=== PATIENT | female | born 1945 | race Caucasian/White ===

== ENCOUNTER 2020-05-02 13:00 | Outpatient (RCR) | payer MEDICAID, SELFPAY ==
[2020-04-29 14:24] VITALS: BMI 29.0
--- NOTE | 2020-04-29 14:49 | PCM.WC.HP ---
(1) Swelling of lower extremity Status: Chronic Current Visit: Yes Code(s): M79.89 - Other specified soft tissue disorders (2) Edema of both lower legs Status: Chronic Current Visit: Yes Code(s): R60.0 - Localized edema (3) Stasis leg ulcer Status: Chronic Current Visit: Yes Qualifiers: Laterality: bilateral Qualified Code(s): I83.019 - Varicose veins of right lower extremity with ulcer of unspecified site; I83.029 - Varicose veins of left lower extremity with ulcer of unspecified site; L97.919 - Non-pressure chronic ulcer of unspecified part of right lower leg with unspecified severity; L97.929 - Non-pressure chronic ulcer of unspecified part of left lower leg with unspecified severity Code(s): I83.009 - Varicose veins of unspecified lower extremity with ulcer of unspecified site; L97.909 - Non-pressure chronic ulcer of unspecified part of unspecified lower leg with unspecified severity (4) Postphlebitic leg ulcer Status: Chronic Current Visit: Yes Code(s): I87.019 - Postthrombotic syndrome with ulcer of unspecified lower extremity; L97.909 - Non-pressure chronic ulcer of unspecified part of unspecified lower leg with unspecified severity (5) Bilateral leg ulcer Status: Chronic Current Visit: Yes Qualifiers: Non-pressure ulcer stage: with fat layer exposed Qualified Code(s): L97.912 - Non-pressure chronic ulcer of unspecified part of right lower leg with fat layer exposed; L97.922 - Non-pressure chronic ulcer of unspecified part of left lower leg with fat layer exposed Code(s): L97.919 - Non-pressure chronic ulcer of unspecified part of right lower leg with unspecified severity; L97.929 - Non-pressure chronic ulcer of unspecified part of left lower leg with unspecified severity (6) Debility Status: Chronic Current Visit: Yes Code(s): R53.81 - Other malaise (7) Ambulatory dysfunction Status: Chronic Current Visit: Yes Code(s): R26.2 - Difficulty in walking, not elsewhere classified (8) History of DVT (deep vein thrombosis) Status: Chronic Current Visit: Yes Code(s): Z86.718 - Personal history of other venous thrombosis and embolism (9) [place] filter in place Status: Chronic Current Visit: Yes Code(s): Z95.828 - Presence of other vascular implants and grafts (10) Dependent edema Status: Chronic Current Visit: Yes Code(s): R60.9 - Edema, unspecified (11) CHF (congestive heart failure) Status: Chronic Current Visit: Yes Code(s): I50.9 - Heart failure, unspecified (12) Hypertension Status: Chronic Current Visit: No Code(s): I10 - Essential (primary) hypertension History of Present Illness Date of Service: 04/29/20 Chief Complaint: Severe bilateral swelling and edema of the lower extremities associated with ulcerations History of Wound: This is a 74-year-old female who presents with chronic swelling and edema in her lower extremities. When asked why she presents today, she states my legs. They hurt real bad. The patient's lower extremities have been swollen and edematous for many years. However, they have become increasingly moreso. The patient is relatively inactive. Her ambulatory capacity is compromised, and she requires a walker for ambulation. She spends long hours each day in an idle sitting position. She sleeps in a hospital bed, with the head of bed elevated. Patient has a history of bilateral lower extremity deep vein thrombosis. She denies a history of pulmonary embolism. According to the patient, and her daughter at the bedside, she has had 2 [place] filters inserted, 1 through the neck and one through the groin. In neither case was the filter removed. The patient recently saw treatment with Dr. Isai Laird, infertility nurse, who referred the patient for further evaluation and management. According to the patient and her daughter, the patient's lower extremities were so edematous 2 to 3 weeks ago that fluid was literally seeping from her pores. Additionally, multiple ulcerations developed bilaterally just within the last several weeks. The patient indicates that she experiences a great deal of pain in her lower extremities, and that the pain and swelling is worse in the afternoons. The swelling and edema is more pronounced in the right lower extremity. 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 Past Medical History Past Medical History: Chronic Problems Swelling of lower extremity (Chronic) Edema of both lower legs (Chronic) Stasis leg ulcer (Chronic) Postphlebitic leg ulcer (Chronic) Bilateral leg ulcer (Chronic) Debility (Chronic) Ambulatory dysfunction (Chronic) History of DVT (deep vein thrombosis) (Chronic) [place] filter in place (Chronic) Dependent edema (Chronic) CHF (congestive heart failure) (Chronic) Hypertension (Chronic) Past Medical History: The patient denies a history of myocardial infarction, cerebrovascular accident, renal disease, pulmonary disease, thyroid disease, and hyperlipidemia. She is diabetic, and has a history of congestive heart failure, hypertension, and bilateral lower extremity deep vein thrombosis. She denies a history of pulmonary embolism. Patient's medications include glipizide ER 10 mg daily, lisinopril 20 mg daily, Plavix 75 mg daily and Lasix. She is allergic to penicillin, erythromycin, and sulfa. 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 She underwent open cholecystectomy in 1997. Tubal ligation was performed in 1976. The patient's medical record reveals some debridements of bone and soft tissue in [address] Laird, and incision and drainage of the left foot in 2016. The patient is a G2, P2 Ab0. 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 She is a . She smoked for 20 years, approximately 1-1/2 packs of cigarettes per day. She quit smoking approximately 4 years ago. She denies the use of alcohol. Lives: With Family Smoking Status: Former smoker Tobacco Use: Non-smoker Alcohol: None Drugs: None Review of Systems Constitutional: Denies: Chills, Fever, Weight Change Eyes: Denies: Pain, Vision Change HEENT: Denies: Difficulty Hearing, Difficulty Swallowing, Sinus Congestion Cardiovascular: Denies: Chest Pain, Palpitations Respiratory: Denies: Cough, Shortness of Breath Gastrointestinal: Denies: Diarrhea, Nausea, Vomiting Genitourinary: Denies: Dysuria, Hematuria Endocrine: Denies: Heat/ Cold Intolerance, Polydipsia, Polyuria Hematologic/ Lymphatic: Denies: Easy Bruising, Easy Bleeding - Physical Exam General: Alert, Oriented x3, Cooperative, No apparent distress, Well developed, Well nourished, - - The patient appears somewhat weak. HEENT: Atraumatic, PERRLA, EOMI, Normocephalic Oral: Moist Mucosa Neck: Supple, No JVD, Negative Carotid Bruits, Negative Hepatojugular Reflux, No Nodes, No Nuchal Rigidity, Trachea Midline Lungs: Clear to auscultation, Normal air movement, No rhonchi, No wheeze, No rales Cardiovascular: Regular rate, Regular Rhythm, Normal S1, Normal S2, No murmurs Abdomen: Soft, Non Tender, Non-Distended Extremities: No clubbing, No cyanosis, No Calf Tenderness, Edema, - - Swelling and edema is noted bilaterally in the lower extremities, noted to be more pronounced in the right lower extremity. There are multiple superficial ulcerations and excoriations, documented elsewhere. These are located between the knee and ankle bilaterally. Chronic skin thickening is noted in the distal lower extremities bilaterally. The left great toe is absent. The patient's toenails are long and not well manicured. Wound Measurements and Assessment WC - Nurse 1 - General Ulcer Measurement Start: 04/29/20 14:19 Freq: Status: Active Protocol: Activity Type Activity Date Activity User E-Sign Co-Sign Detail Recorded Client Recorded Date Recorded By Document 04/29/20 14:24 PL [id number] 04/29/20 14:49 PL 04/29/20 14:24 Wound Center Nurse 1 [Ulcer Assessment] #4 Right Med lower leg -Combined with other wound No -Current Size (cm) - Length 3 -Current Size (cm) - Width 1 -Current Size (cm) - Depth 0.2 -Total Square Cm 3 -Date of Last Picture (Recall this 04/29/20 field) -Photo Taken Yes -Epithelialization None Present -Tunneling No -Undermining/Tunneling No -Circular Undermining No -Classification - Thickness Full Thickness without Exposed Support Structure -Exudate Amt Medium -Exudate Type Serosanguineous -Wound Margin Indistinct, Non -Visible -Granulation Amt Medium (34-66%) -Granulation Quality [place] -Slough/Fibrin Yes -Necrosis Amt Medium (34-66%) -Necrotic Tissue Type Adherent Slough -Texture (Gaye-wound Skin Appearance) Excoriation -Moisture (Gaye-wound Skin Appearance Dry/Scaly ) -Color (Gaye-wound Skin Appearance) Erythema -Temperature (Gaye-wound Skin No Abnormality Appearance) (Pt Warm) -Tenderness on Palpation (Gaye-wound No Skin Appearance) -Ulcer Cleansing Rinsed/ Irrigated with Saline -Anesthetic Used 4% Lidocaine Solution #3 Left Ant Lower leg -Combined with other wound No -Current Size (cm) - Length 1.5 -Current Size (cm) - Width 0.5 -Current Size (cm) - Depth 0.2 -Total Square Cm 0.75 -Date of Last Picture (Recall this 04/29/20 field) -Photo Taken Yes -Epithelialization None Present -Tunneling No -Undermining/Tunneling No -Circular Undermining No -Classification - Thickness Full Thickness without Exposed Support Structure -Exudate Amt Medium -Exudate Type Serosanguineous -Wound Margin Indistinct, Non -Visible -Granulation Amt Medium (34-66%) -Granulation Quality [place] -Slough/Fibrin Yes -Necrosis Amt Medium (34-66%) -Necrotic Tissue Type Adherent Slough -Texture (Gaye-wound Skin Appearance) Induration -Moisture (Gaye-wound Skin Appearance Dry/Scaly ) -Color (Gaye-wound Skin Appearance) No Abnormality -Temperature (Gaye-wound Skin No Abnormality Appearance) (Pt Warm) -Ulcer Cleansing Rinsed/ Irrigated with Saline -Anesthetic Used 4% Lidocaine Solution #2 Left Medial Lower leg -Combined with other wound No -Current Size (cm) - Length 9 -Current Size (cm) - Width 3 -Current Size (cm) - Depth 0.1 -Total Square Cm 27 -Date of Last Picture (Recall this 04/29/20 field) -Photo Taken Yes -Epithelialization None Present -Tunneling No -Undermining/Tunneling No -Circular Undermining No -Classification - Thickness Full Thickness without Exposed Support Structure -Exudate Amt Medium -Exudate Type Serosanguineous -Wound Margin Indistinct, Non -Visible -Granulation Amt Medium (34-66%) -Granulation Quality [place] -Slough/Fibrin Yes -Necrosis Amt Medium (34-66%) -Necrotic Tissue Type Adherent Slough -Texture (Gaye-wound Skin Appearance) No Abnormality -Moisture (Gaye-wound Skin Appearance Dry/Scaly ) -Color (Gaye-wound Skin Appearance) Erythema -Temperature (Gaye-wound Skin No Abnormality Appearance) (Pt Warm) -Ulcer Cleansing Rinsed/ Irrigated with Saline -Anesthetic Used 4% Lidocaine Solution #1 Right lat Cluster -Combined with other wound No -Current Size (cm) - Length 10.5 -Current Size (cm) - Width 7 -Current Size (cm) - Depth 0.1 -Total Square Cm 73.5 -Date of Last Picture (Recall this 04/29/20 field) -Photo Taken Yes -Epithelialization None Present -Tunneling No -Undermining/Tunneling No -Circular Undermining No -Classification - Thickness Full Thickness without Exposed Support Structure -Exudate Amt Medium -Exudate Type Serosanguineous -Wound Margin Indistinct, Non -Visible -Granulation Amt Medium (34-66%) -Granulation Quality [place] -Slough/Fibrin Yes -Necrosis Amt Medium (34-66%) -Necrotic Tissue Type Adherent Slough -Texture (Gaye-wound Skin Appearance) Excoriation -Moisture (Gaye-wound Skin Appearance Dry/Scaly ) -Color (Gaye-wound Skin Appearance) Erythema -Temperature (Gaye-wound Skin No Abnormality Appearance) (Pt Warm) -Tenderness on Palpation (Gaye-wound No Skin Appearance) -Ulcer Cleansing Soap and Water -Anesthetic Used 4% Lidocaine Solution [Edema Assessment] -Right Calf (cm) 51 -Point of measurement (cm from the 35 medial instep) -Right Ankle (cm) 32 -Point of Measurement (cm from the 15 medial instep) -Left Calf (cm) 37 -Point of measurement (cm from the 35 medial instep) -Left Ankle (cm) 37 -Point of Measurement (cm from the 15 medial instep) Neurological: Cranial nerves II-XII grossly intact, Neuro grossly intact Psych/Mental Status: Normal Affect, Appropriate, Alert and oriented to time, place, person, mood and affect Debridement Note No debridement was completed today Assessment/Plan Active Problems Swelling of lower extremity (Chronic) Edema of both lower legs (Chronic) Stasis leg ulcer (Chronic) Postphlebitic leg ulcer (Chronic) Bilateral leg ulcer (Chronic) Debility (Chronic) Ambulatory dysfunction (Chronic) History of DVT (deep vein thrombosis) (Chronic) [place] filter in place (Chronic) Dependent edema (Chronic) CHF (congestive heart failure) (Chronic) Assessment: This is a 74-year-old female with a longstanding history of swelling and edema in her lower extremities, which has become increasingly more severe. It appears as though the patient has become increasingly more sedentary. She ambulates with difficulty, using a walker. She spends long hours each day sitting idly. Furthermore, she sleeps at night with her head of bed elevated. The patient suffers from multiple pre-existing medical problems, which include congestive heart failure, diabetes, and hypertension. She has a history of bilateral lower extremity deep vein thrombosis, for which she has had at least one [place] filter placed previously, possibly 2, based upon the account of the patient and her family. Plan: A lengthy and detailed discussion has been undertaken with the patient and with her daughter, at the bedside. We have discussed the implementation of conservative treatment measures. The patient has been encouraged to sleep at night on a flat surface, rather than having her head of bed elevated significantly. Leg elevation has been strongly encouraged, even during daytime hours. This is to be accomplished with the patient's legs level with her heart, if not higher. Prolonged idle sitting has been discouraged. Activity has been encouraged, though significant enhancement of ambulation is unlikely, given the patient's physical limitations and her need for a walker. Weight optimization has been recommended. We are to implement the use of multilayer [place] boots, which will be applied bilaterally to the lower extremities, and changed twice weekly. Given that the arterial status of the lower extremities is not known, Unna boots are to be placed with compression in moderation. We are to schedule the patient for a venous duplex examination of the lower extremities, as well as a noninvasive lower extremity arterial study. Furthermore, we are to obtain routine laboratory studies, including a CBC, comprehensive metabolic profile, serum prealbumin, and hemoglobin A1c. Patient is to return in 1 week for reassessment. It appears likely that the swelling in the patient's lower extremities is, at least in part, due to chronic dependency and a lack of activity. There is also likely an element of venous disease, including postphlebitic manifestations. There may well be an element of arterial occlusive disease, given that the left great toe required amputation due to gangrene. Influenza vaccine was not administered today. The patient is not a smoker. She weighs 185 pounds. She stands 5 feet 7 inches tall. Her BMI is 29. Weight optimization has been recommended.
[2020-05-02 13:38] VITALS: BP 141/118; PULSE 64; RESP 16; TEMP 36.1; BMI 29.0
== END 2020-05-07 23:59 ==
LOC: WC 13:00
PROVIDERS: PCP Family Medicine; Referring Provider Podiatrist Foot & Ankle Surgery; Visit Provider Surgery
DX: E11.621 Type 2 diabetes mellitus with foot ulcer (principal); I83.019 Varicose veins of right lower extremity with ulcer of unspecified site; I83.029 Varicose veins of left lower extremity with ulcer of unspecified site; L97.919 Non-pressure chronic ulcer of unspecified part of right lower leg with unspecified severity; L97.929 Non-pressure chronic ulcer of unspecified part of left lower leg with unspecified severity; I87.0 Postthrombotic syndrome; M79.89 Other specified soft tissue disorders; R60.0 Localized edema; R26.2 Difficulty in walking, not elsewhere classified; I11.0 Hypertensive heart disease with heart failure; I50.9 Heart failure, unspecified; Z79.02 Long term (current) use of antithrombotics/antiplatelets; Z86.718 Personal history of other venous thrombosis and embolism; Z87.891 Personal history of nicotine dependence; Z89.412 Acquired absence of left great toe
CPT/HCPCS: 29580; 99203; G0463

== ENCOUNTER 2020-05-29 13:30 | Outpatient (RCR) | payer MEDICAID, SELFPAY ==
[2020-05-08 00:51] VITALS: BP 141/118; PULSE 64; RESP 16; TEMP 36.1
[2020-05-13 12:41] VITALS: BP 179/60; PULSE 65; RESP 16; TEMP 36.1; BMI 29.0
--- NOTE | 2020-05-13 13:13 | PCM.WC.HP ---
(1) Swelling of lower extremity Status: Chronic Current Visit: Yes Code(s): M79.89 - Other specified soft tissue disorders (2) Edema of both lower legs Status: Chronic Current Visit: Yes Code(s): R60.0 - Localized edema (3) Stasis leg ulcer Status: Chronic Current Visit: Yes Qualifiers: Laterality: left Qualified Code(s): I83.029 - Varicose veins of left lower extremity with ulcer of unspecified site; L97.929 - Non-pressure chronic ulcer of unspecified part of left lower leg with unspecified severity Code(s): I83.009 - Varicose veins of unspecified lower extremity with ulcer of unspecified site; L97.909 - Non-pressure chronic ulcer of unspecified part of unspecified lower leg with unspecified severity (4) Postphlebitic leg ulcer Status: Chronic Current Visit: Yes Code(s): I87.019 - Postthrombotic syndrome with ulcer of unspecified lower extremity; L97.909 - Non-pressure chronic ulcer of unspecified part of unspecified lower leg with unspecified severity (5) Bilateral leg ulcer Status: Chronic Current Visit: Yes Qualifiers: Code(s): L97.919 - Non-pressure chronic ulcer of unspecified part of right lower leg with unspecified severity; L97.929 - Non-pressure chronic ulcer of unspecified part of left lower leg with unspecified severity (6) Debility Status: Chronic Current Visit: Yes Code(s): R53.81 - Other malaise (7) Ambulatory dysfunction Status: Chronic Current Visit: Yes Code(s): R26.2 - Difficulty in walking, not elsewhere classified (8) History of DVT (deep vein thrombosis) Status: Chronic Current Visit: Yes Code(s): Z86.718 - Personal history of other venous thrombosis and embolism (9) 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 Status: Chronic Current Visit: Yes Code(s): Z95.828 - Presence of other vascular implants and grafts (10) Dependent edema Status: Chronic Current Visit: Yes Code(s): R60.9 - Edema, unspecified (11) CHF (congestive heart failure) Status: Chronic Current Visit: No Code(s): I50.9 - Heart failure, unspecified (12) Hypertension Status: Chronic Current Visit: No Code(s): I10 - Essential (primary) hypertension History of Present Illness Date of Service: 05/13/20 Chief Complaint: Severe bilateral swelling and edema of the lower extremities associated with ulcerations History of Wound: This is a 74-year-old female who presented with chronic swelling and edema in her lower extremities. She stated my legs, they hurt real bad. The patient's lower extremities have been swollen and edematous for many years. However, they have become increasingly moreso. The patient is relatively inactive. Her ambulatory capacity is compromised, and she requires a walker for ambulation. She spends long hours each day in an idle sitting position. She sleeps in a hospital bed, with the head of bed elevated. Patient has a history of bilateral lower extremity deep vein thrombosis. She denies a history of pulmonary embolism. According to the patient, and her daughter at the bedside, she has had 2 Noelle filters inserted, 1 through the neck and one through the groin. In neither case was the filter removed. The patient recently saw treatment with Dr. Isai Laird, buggy ladle tender, who referred the patient for further evaluation and management. According to the patient and her daughter, the patient's lower extremities were so edematous 2 to 3 weeks ago that fluid was literally seeping from her pores. Additionally, multiple ulcerations developed bilaterally just within the last several weeks. The patient indicates that she experiences a great deal of pain in her lower extremities, and that the pain and swelling is worse in the afternoons. The swelling and edema is more pronounced in the right lower extremity. 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 She underwent open cholecystectomy in 1997. Tubal ligation was performed in 1976. The patient's medical record reveals some debridements of bone and soft tissue in [address] Laird, and incision and drainage of the left foot in 2016. The patient is a G2, P2 Ab0. Smoking Status: Former smoker Tobacco Use: Non-smoker Review of Systems Constitutional: Denies: Chills, Fever, Weight Change Eyes: Denies: Pain, Vision Change HEENT: Denies: Difficulty Hearing, Difficulty Swallowing, Sinus Congestion Cardiovascular: Denies: Chest Pain, Palpitations Respiratory: Denies: Cough, Shortness of Breath Gastrointestinal: Denies: Diarrhea, Nausea, Vomiting Genitourinary: Denies: Dysuria, Hematuria Endocrine: Denies: Heat/ Cold Intolerance, Polydipsia, Polyuria Hematologic/ Lymphatic: Denies: Easy Bruising, Easy Bleeding - Physical Exam Vital Signs Temp Pulse Resp BP 97 F L 65 16 179/60 H 05/13/20 12:41 05/13/20 12:41 05/13/20 12:41 05/13/20 12:41 General: Alert, Oriented x3, Cooperative, No apparent distress, Well developed, Well nourished HEENT: Atraumatic, PERRLA, EOMI, Normocephalic Oral: Moist Mucosa Neck: No JVD Lungs: Normal air movement Abdomen: Non-Distended Extremities: No clubbing, No cyanosis, No Calf Tenderness, - - The swelling and edema in the lower extremities is markedly improved. The right lower extremity still remains somewhat swollen and edematous. The left lower extremity demonstrates minimal swelling and edema. Chronic hyperpigmentation is noted gaiter areas bilaterally. 2 superficial ulcerations persist on the left anterolateral calf. It appears as though the Unna boot wraps have caused some skin deterioration near the right great toe and the proximal left medial calf. There is no sign of infection or cellulitis. Ulcer dimensions are documented elsewhere. Wound Measurements and Assessment WC - Nurse 1 - General Ulcer Measurement Start: 05/13/20 11:12 Freq: Status: Active Protocol: Activity Type Activity Date Activity User E-Sign Co-Sign Detail Recorded Client Recorded Date Recorded By Document 05/13/20 12:41 [facility] [id number] 05/13/20 12:58 [facility] 05/13/20 12:41 Wound Center Nurse 1 [Ulcer Assessment] #1- R GR TOE -Combined with other wound No -Current Size (cm) - Length 0.9 -Current Size (cm) - Width 2.5 -Current Size (cm) - Depth 0.1 -Total Square Cm 2.25 -Photo Taken No -Epithelialization None Present -Tunneling No -Undermining/Tunneling No -Circular Undermining No -Exudate Amt None Present -Exudate Type Serosanguineous -Wound Margin Flat & Intact -Granulation Amt Large (67-100%) -Granulation Quality Red -Slough/Fibrin No -Necrosis Amt None Present (0 %) -Texture (Gaye-wound Skin Appearance) Assessed -Moisture (Gaye-wound Skin Appearance Assessed ) -Color (Gaye-wound Skin Appearance) Assessed -Temperature (Gaye-wound Skin No Abnormality Appearance) (Pt Warm) -Tenderness on Palpation (Gaye-wound No Skin Appearance) -Ulcer Cleansing SOAPY WATER -Foul Odor after Cleansing No -Anesthetic Used 4% Lidocaine Solution #4 Right Med lower leg -Combined with other wound No -Current Size (cm) - Length 0.1 -Current Size (cm) - Width 0.1 -Current Size (cm) - Depth 0.1 -Total Square Cm 0.01 -Epithelialization Large 67-100% -Tunneling No -Undermining/Tunneling No -Circular Undermining No -Texture (Gaye-wound Skin Appearance) Assessed -Moisture (Gaye-wound Skin Appearance Assessed,Dry/ ) Scaly -Color (Gaye-wound Skin Appearance) Assessed -Temperature (Gaye-wound Skin No Abnormality Appearance) (Pt Warm) -Tenderness on Palpation (Gaye-wound Yes Skin Appearance) -Ulcer Cleansing soapy water -Foul Odor after Cleansing No -Anesthetic Used 4% Lidocaine Solution #3 Left Ant Lower leg -Combined with other wound No -Current Size (cm) - Length 1.5 -Current Size (cm) - Width 0.8 -Current Size (cm) - Depth 0.1 -Total Square Cm 1.20 -Photo Taken No -Epithelialization Large 67-100% -Tunneling No -Undermining/Tunneling No -Circular Undermining No -Exudate Amt Small -Exudate Type Sanguineous -Wound Margin Distinct, Outline Attached -Granulation Amt Large (67-100%) -Granulation Quality Red -Slough/Fibrin No -Necrosis Amt None Present (0 %) -Texture (Gaye-wound Skin Appearance) Assessed, Scarring -Moisture (Gaye-wound Skin Appearance Assessed,Dry/ ) Scaly -Color (Gaye-wound Skin Appearance) Assessed -Temperature (Gaye-wound Skin No Abnormality Appearance) (Pt Warm) -Ulcer Cleansing soapy water -Foul Odor after Cleansing No -Anesthetic Used 4% Lidocaine Solution #2 Left Medial Lower leg -Combined with other wound No -Current Size (cm) - Length 5.8 -Current Size (cm) - Width 2.7 -Current Size (cm) - Depth 0.1 -Total Square Cm 15.66 -Photo Taken No -Epithelialization Medium 34-66% -Tunneling No -Undermining/Tunneling No -Circular Undermining No -Exudate Amt Small -Exudate Type Sanguineous -Wound Margin Distinct, Outline Attached -Granulation Amt Large (67-100%) -Granulation Quality Red -Slough/Fibrin No -Necrosis Amt None Present (0 %) -Texture (Gaye-wound Skin Appearance) Assessed, Scarring -Moisture (Gaye-wound Skin Appearance Assessed,Dry/ ) Scaly -Color (Gaye-wound Skin Appearance) Assessed, Hemosiderin Staining -Temperature (Gaye-wound Skin No Abnormality Appearance) (Pt Warm) -Tenderness on Palpation (Gaye-wound No Skin Appearance) -Ulcer Cleansing soapy water -Foul Odor after Cleansing No -Anesthetic Used 4% Lidocaine Solution #1 Right lat Cluster -Combined with other wound No -Current Size (cm) - Length 0.1 -Current Size (cm) - Width 0.1 -Current Size (cm) - Depth 0.1 -Total Square Cm 0.01 -Photo Taken No -Epithelialization Large 67-100% -Tunneling No -Undermining/Tunneling No -Circular Undermining No -Texture (Gaye-wound Skin Appearance) Assessed -Moisture (Gaye-wound Skin Appearance Assessed,Dry/ ) Scaly -Color (Gaye-wound Skin Appearance) Assessed -Temperature (Gaye-wound Skin No Abnormality Appearance) (Pt Warm) -Tenderness on Palpation (Gaye-wound No Skin Appearance) -Ulcer Cleansing soapy waer [Edema Assessment] -Lower Limb Edema Present Yes -Right Calf (cm) 36 -Right Ankle (cm) 22.7 -Left Calf (cm) 33.5 -Left Ankle (cm) 20 Musculoskeletal: Muscle Wasting - Lower extremities Neurological: Cranial nerves II-XII grossly intact, Neuro grossly intact Psych/Mental Status: Normal Affect, Appropriate, Alert and oriented to time, place, person, mood and affect Debridement Note No debridement was completed today Assessment/Plan Active Problems Swelling of lower extremity (Chronic) Edema of both lower legs (Chronic) Stasis leg ulcer (Chronic) Postphlebitic leg ulcer (Chronic) Bilateral leg ulcer (Chronic) Debility (Chronic) Ambulatory dysfunction (Chronic) History of DVT (deep vein thrombosis) (Chronic) Noelle filter in place (Chronic) Dependent edema (Chronic) Assessment: This is a 74-year-old female with a longstanding history of swelling and edema in her lower extremities, which has become increasingly more severe. It appears as though the patient has become increasingly more sedentary. She ambulates with difficulty, using a walker. She spends long hours each day sitting idly. Furthermore, she sleeps at night with her head of bed elevated. The patient suffers from multiple pre-existing medical problems, which include congestive heart failure, diabetes, and hypertension. She has a history of bilateral lower extremity deep vein thrombosis, for which she has had at least one Gilbert filter placed previously, possibly 2, based upon the account of the patient and her family. Thus far, with the implementation of conservative treatment measures, the swelling and edema in the patient's lower extremities is markedly improved in a short period of time. Plan: A lengthy and detailed discussion has been undertaken with the patient and with her son-in-law, at the bedside. We have discussed the implementation of conservative treatment measures. The patient has been encouraged to sleep at night on a flat surface, rather than having her head of bed elevated significantly. Leg elevation has been strongly encouraged, even during daytime hours. This is to be accomplished with the patient's legs level with her heart, if not higher. Prolonged idle sitting has been discouraged. Activity has been encouraged, though significant enhancement of ambulation is unlikely, given the patient's physical limitations and her need for a walker. Weight optimization has been recommended. We are to continue the use of multilayer Unna boots, which will be applied bilaterally to the lower extremities, and changed twice weekly. Given that the arterial status of the lower extremities is not known, Unna boots are to be placed with compression in moderation. We are to schedule the patient for a venous duplex examination of the lower extremities, as well as a noninvasive lower extremity arterial study. Laboratory studies have been obtained, at [facility], and we will request that these results be forwarded to our facility. Patient is to return in 1 week for reassessment. It appears likely that the swelling in the patient's lower extremities is, at least in part, due to chronic dependency and a lack of activity. There is also likely an element of venous disease, including postphlebitic manifestations. There may well be an element of arterial occlusive disease, given that the left great toe required amputation due to gangrene. Influenza vaccine was not administered today. The patient is not a smoker. She weighs 185 pounds. She stands 5 feet 7 inches tall. Her BMI is 29. Weight optimization has been recommended.
[2020-05-16 15:39] VITALS: BP 112/60; PULSE 78; RESP 18; TEMP 36.6; BMI 29.0
[2020-05-20 13:54] VITALS: BP 176/48; PULSE 67; RESP 16; TEMP 36.8; BMI 29.0
[2020-05-23 16:00] VITALS: BP 175/50; PULSE 70; RESP 18; TEMP 36.6; BMI 29.0
[2020-05-29 13:38] VITALS: BP 169/82; PULSE 65; RESP 16; TEMP 36.2; BMI 29.0
--- NOTE | 2020-05-29 14:50 | PCM.WC.HP ---
(1) Swelling of lower extremity Status: Chronic Code(s): M79.89 - Other specified soft tissue disorders (2) Edema of both lower legs Status: Chronic Code(s): R60.0 - Localized edema (3) Stasis leg ulcer Status: Chronic Qualifiers: Laterality: left Qualified Code(s): I83.029 - Varicose veins of left lower extremity with ulcer of unspecified site; L97.929 - Non-pressure chronic ulcer of unspecified part of left lower leg with unspecified severity Code(s): I83.009 - Varicose veins of unspecified lower extremity with ulcer of unspecified site; L97.909 - Non-pressure chronic ulcer of unspecified part of unspecified lower leg with unspecified severity (4) Postphlebitic leg ulcer Status: Chronic Code(s): I87.019 - Postthrombotic syndrome with ulcer of unspecified lower extremity; L97.909 - Non-pressure chronic ulcer of unspecified part of unspecified lower leg with unspecified severity (5) Bilateral leg ulcer Status: Chronic Qualifiers: Non-pressure ulcer stage: with fat layer exposed Code(s): L97.919 - Non-pressure chronic ulcer of unspecified part of right lower leg with unspecified severity; L97.929 - Non-pressure chronic ulcer of unspecified part of left lower leg with unspecified severity (6) Debility Status: Chronic Code(s): R53.81 - Other malaise (7) Ambulatory dysfunction Status: Chronic Code(s): R26.2 - Difficulty in walking, not elsewhere classified (8) History of DVT (deep vein thrombosis) Status: Chronic Code(s): Z86.718 - Personal history of other venous thrombosis and embolism (9) Noelle filter in place Status: Chronic Code(s): Z95.828 - Presence of other vascular implants and grafts (10) Dependent edema Status: Chronic Code(s): R60.9 - Edema, unspecified (11) CHF (congestive heart failure) Status: Chronic Code(s): I50.9 - Heart failure, unspecified (12) Hypertension Status: Chronic Code(s): I10 - Essential (primary) hypertension History of Present Illness Date of Service: 05/29/20 Chief Complaint: Severe bilateral swelling and edema of the lower extremities associated with ulcerations History of Wound: This is a 74-year-old female who presented with chronic swelling and edema in her lower extremities. She stated my legs, they hurt real bad. The patient's lower extremities have been swollen and edematous for many years. However, they have become increasingly moreso. The patient is relatively inactive. Her ambulatory capacity is compromised, and she requires a walker for ambulation. She spends long hours each day in an idle sitting position. She sleeps in a hospital bed, with the head of bed elevated. Patient has a history of bilateral lower extremity deep vein thrombosis. She denies a history of pulmonary embolism. According to the patient, and her daughter at the bedside, she has had 2 [place] filters inserted, 1 through the neck and one through the groin. In neither case was the filter removed. The patient recently saw treatment with Dr. Isai Laird, coal drier operator, who referred the patient for further evaluation and management. According to the patient and her daughter, the patient's lower extremities were so edematous 2 to 3 weeks ago that fluid was literally seeping from her pores. Additionally, multiple ulcerations developed bilaterally just within the last several weeks. The patient indicates that she experiences a great deal of pain in her lower extremities, and that the pain and swelling is worse in the afternoons. The swelling and edema is more pronounced in the right lower extremity. 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 She underwent open cholecystectomy in 1997. Tubal ligation was performed in 1976. The patient's medical record reveals some debridements of bone and soft tissue in [address] Laird, and incision and drainage of the left foot in 2016. The patient is a G2, P2 Ab0. Smoking Status: Former smoker Tobacco Use: Non-smoker Review of Systems Constitutional: Denies: Chills, Fever, Weight Change Eyes: Denies: Pain, Vision Change HEENT: Denies: Difficulty Hearing, Difficulty Swallowing, Sinus Congestion Cardiovascular: Denies: Chest Pain, Palpitations Respiratory: Denies: Cough, Shortness of Breath Gastrointestinal: Denies: Diarrhea, Nausea, Vomiting Genitourinary: Denies: Dysuria, Hematuria Endocrine: Denies: Heat/ Cold Intolerance, Polydipsia, Polyuria Hematologic/ Lymphatic: Denies: Easy Bruising, Easy Bleeding - Physical Exam Vital Signs Temp Pulse Resp BP 97.1 F L 65 16 169/82 H 05/29/20 13:38 05/29/20 13:38 05/29/20 13:38 05/29/20 13:38 General: Alert, Oriented x3, Cooperative, No apparent distress, Well developed, Well nourished HEENT: Atraumatic, PERRLA, EOMI, Normocephalic Oral: Moist Mucosa Neck: No JVD Lungs: Normal air movement Abdomen: Non-Distended Extremities: No clubbing, No cyanosis, No Calf Tenderness, - - Mild swelling and edema persist in the patient's lower extremities, though somewhat improved from the patient's last visit. The right lower extremity is more severely affected. The ulceration on the left medial calf persists as well, though is smaller in size, and quite healthy in appearance. Addt'l Wound Findings: The ulceration on the left medial calf is pink, with a small amount of bioburden. There is no sign of infection or cellulitis. Dimensions are documented elsewhere. Wound Measurements and Assessment WC - Nurse 1 - General Ulcer Measurement Start: 05/13/20 11:12 Freq: Status: Active Protocol: Activity Type Activity Date Activity User E-Sign Co-Sign Detail Recorded Client Recorded Date Recorded By Document 05/29/20 13:38 [facility] [id number] 05/29/20 13:55 [facility] 05/29/20 13:38 Wound Center Nurse 1 [Ulcer Assessment] #1- R GR TOE -Combined with other wound No -Current Size (cm) - Length 0.1 -Current Size (cm) - Width 0.1 -Current Size (cm) - Depth 0.1 -Total Square Cm 0.01 -Epithelialization Large 67-100% #4 Right Med lower leg -Combined with other wound No -Current Size (cm) - Length 0.1 -Current Size (cm) - Width 0.1 -Current Size (cm) - Depth 0.1 -Total Square Cm 0.01 -Epithelialization Large 67-100% #3 Left Ant Lower leg -Combined with other wound No -Current Size (cm) - Length 5 -Current Size (cm) - Width 1.6 -Current Size (cm) - Depth 0.1 -Total Square Cm 8.0 -Photo Taken No -Epithelialization Small 1-33% -Tunneling No -Undermining/Tunneling No -Circular Undermining No -Exudate Amt Medium -Exudate Type Serosanguineous -Wound Margin Flat & Intact -Granulation Amt Large (67-100%) -Granulation Quality Red -Slough/Fibrin No -Necrosis Amt None Present (0 %) -Texture (Gaye-wound Skin Appearance) Assessed, Scarring -Moisture (Gaye-wound Skin Appearance Assessed, ) Maceration,Dry/ Scaly -Color (Gaye-wound Skin Appearance) Assessed,Palor -Temperature (Gaye-wound Skin No Abnormality Appearance) (Pt Warm) -Tenderness on Palpation (Gaye-wound Yes Skin Appearance) -Ulcer Cleansing soapy water -Foul Odor after Cleansing No -Anesthetic Used 4% Lidocaine Solution #2 Left Medial Lower leg -Combined with other wound No -Current Size (cm) - Length 0.1 -Current Size (cm) - Width 0.1 -Current Size (cm) - Depth 0.1 -Total Square Cm 0.01 -Epithelialization Large 67-100% #1 Right lat Cluster -Combined with other wound No -Current Size (cm) - Length 0.1 -Current Size (cm) - Width 0.1 -Current Size (cm) - Depth 0.1 -Total Square Cm 0.01 -Epithelialization Large 67-100% [Edema Assessment] -Lower Limb Edema Present Yes -Right Calf (cm) 35.5 -Right Ankle (cm) 24.3 -Left Calf (cm) 39 -Left Ankle (cm) 22.4 Neurological: Cranial nerves II-XII grossly intact, Neuro grossly intact Psych/Mental Status: Normal Affect, Appropriate, Alert and oriented to time, place, person, mood and affect Debridement Note Post-Debridement Measurements/Treatment WC - Nurse 2 - General Ulcer CM Notes Start: 05/13/20 11:12 Freq: Status: Active Protocol: Activity Type Activity Date Activity User E-Sign Co-Sign Detail Recorded Client Recorded Date Recorded By Document 05/13/20 18:16 [address] [id number] 05/13/20 18:17 PL Document 05/23/20 16:00 PL [id number] 05/23/20 16:02 PL 05/13/20 05/23/20 18:16 16:00 Wound Center Nurse 2 #1- R GR TOE -Procedure Performed No #4 Right Med lower leg -Procedure Performed No #3 Left Ant Lower leg -Procedure Performed No #2 Left Medial Lower leg -Procedure Performed No #1 Right lat Cluster -Procedure Performed No Pain Scale: 0-10 Numeric Is Patient Pain Free? Yes Yes WC - Nurse 3 - General Ulcer D/C NN Start: 05/13/20 11:12 Freq: Status: Active Protocol: Activity Type Activity Date Activity User E-Sign Co-Sign Detail Recorded Client Recorded Date Recorded By Document 05/13/20 13:28 BMF [id number] 05/13/20 13:30 BM Document 05/16/20 15:39 RB [id number] 05/16/20 15:41 RB Document 05/20/20 13:54 BMF [id number] 05/20/20 13:56 BM Document 05/23/20 16:00 PL [id number] 05/23/20 16:02 PL 05/13/20 05/16/20 05/20/20 13:28 15:39 13:54 Wound Care Nurse 3 #1- R GR TOE -Ulcer Cleansing Rinsed/ soapy water Irrigated with Saline -Foul Odor after Cleansing No No -Primary Dressing Applied C Hydrogel ($) Other -Other Dressing hydrogel hydrogel -Primary Dressing Covered/Secured with Dry Gauze, Dry Gauze & Dry Gauze & Secured with Roll Gauze, Roll Gauze, Tape Secured with Secured with Tape Tape #4 Right Med lower leg -Ulcer Cleansing Rinsed/ Irrigated with Saline -Foul Odor after Cleansing No -Primary Dressing Applied Other Other -Other Dressing unna boot unna boot -Primary Dressing Covered/Secured with Other -Other Covering unna boot #3 Left Ant Lower leg -Primary Dressing Applied Other Other -Other Dressing unna boot unna boot #2 Left Medial Lower leg -Primary Dressing Applied Other Other -Other Dressing unna boot unna boot #1 Right lat Cluster -Primary Dressing Applied Other Other -Other Dressing unna boot unna boot Right -Multi-Layered Wrap Application Unna Boot - Unna Boot - Unna Boot - Bilateral ($) Right ($) Bilateral ($) -Unna Boots (Bilat) ($) 2 2 Left -Multi-Layered Wrap Application Unna Boot - Left ($) Treatment Response Procedure Procedure Procedure Tolerated Well Tolerated Well Tolerated Well Temperature (97.8 F-99.1 F) 97.8 F 98.3 F Temperature Source Temporal Temporal Pulse Rate (60-100) 78 67 Pulse Location Radial Monitor Respiratory Rate (12-18) 18 16 Respiratory rate source Observation Observation Oxygen Delivery Method Room Air Blood Pressure (90/60-120/80) 112/60 176/48 H Blood Pressure Mean (mm Hg) 77 90 Source Monitor Monitor Position Semi-Fowlers Sitting Blood Pressure Location Left Arm Right Forearm Vital Signs Comment pt refused Pain Scale: 0-10 Numeric Is Patient Pain Free? Yes Yes Yes WC - Visit Discharge Discharge Condition Stable Stable Stable Ambulatory Status Ambulatory, Ambulatory, Ambulatory, Walker Walker Walker Transportation Private Auto Private Auto Private Auto Accompanied by son gr daughter Medication Reconcilliation completed & No provided to patient/care provider Clinical Summary of Care Provided Yes 05/23/20 16:00 Wound Care Nurse 3 #1- R GR TOE -Ulcer Cleansing -Foul Odor after Cleansing -Primary Dressing Applied -Other Dressing -Primary Dressing Covered/Secured with #4 Right Med lower leg -Ulcer Cleansing -Foul Odor after Cleansing -Primary Dressing Applied -Other Dressing -Primary Dressing Covered/Secured with -Other Covering #3 Left Ant Lower leg -Primary Dressing Applied -Other Dressing #2 Left Medial Lower leg -Primary Dressing Applied -Other Dressing #1 Right lat Cluster -Primary Dressing Applied -Other Dressing Right -Multi-Layered Wrap Application Unna Boot - Bilateral ($) -Unna Boots (Bilat) ($) 2 Left -Multi-Layered Wrap Application Treatment Response Temperature (97.8 F-99.1 F) 97.9 F Temperature Source Temporal Pulse Rate (60-100) 70 Pulse Location Respiratory Rate (12-18) 18 Respiratory rate source Oxygen Delivery Method Blood Pressure (90/60-120/80) 175/50 H Blood Pressure Mean (mm Hg) 91 Source Position Blood Pressure Location Vital Signs Comment Pain Scale: 0-10 Numeric Is Patient Pain Free? Yes WC - Visit Discharge Discharge Condition Stable Ambulatory Status Walker Transportation Private Auto Accompanied by Medication Reconcilliation completed & provided to patient/care provider Clinical Summary of Care Provided Laterality: Left - Medial calf Type of Debridement: Excisional debridement Anesthesia Used: 5% Lidocaine Gel Depth: Down to and including healthy tissue, in the subcutaneous layer Percentage of wound debrided: 100 Instrument Used: 5mm curette Tissue Removed: Bioburden Severity: Fat Layer Exposed Amount of bleeding with debridement: Mild Bleeding Controlled with: Compression and gauze Patient tolerated procedure well Assessment/Plan Assessment: This is a 74-year-old female with a longstanding history of swelling and edema in her lower extremities, which has become increasingly more severe. It appears as though the patient has become increasingly more sedentary. She ambulates with difficulty, using a walker. She spends long hours each day sitting idly. Furthermore, she sleeps at night with her head of bed elevated. The patient suffers from multiple pre-existing medical problems, which include congestive heart failure, diabetes, and hypertension. She has a history of bilateral lower extremity deep vein thrombosis, for which she has had at least one [place] filter placed previously, possibly 2, based upon the account of the patient and her family. Thus far, with the implementation of conservative treatment measures, the swelling and edema in the patient's lower extremities is markedly improved in a short period of time. The ulceration on the left medial calf also appears to be diminishing in size serially. Plan: A lengthy and detailed discussion has been undertaken with the patient and family at the bedside. We have discussed continued conservative treatment measures. The patient has been encouraged to sleep at night on a flat surface, rather than having her head of bed elevated significantly. Leg elevation has been strongly encouraged, even during daytime hours. This is to be accomplished with the patient's legs level with her heart, if not higher. Prolonged idle sitting has been discouraged. Activity has been encouraged, though significant enhancement of ambulation is unlikely, given the patient's physical limitations and her need for a walker. Weight optimization has been recommended. We are to continue the use of multilayer [place] boots, which will be applied bilaterally to the lower extremities, and changed twice weekly. Given that the arterial status of the lower extremities is not known, Unna boots are to be placed with compression in moderation. We are to schedule the patient for a venous duplex examination of the lower extremities, as well as a noninvasive lower extremity arterial study. We continue to await the performance of these studies. Laboratory studies have been obtained, at [facility], and we continue to await these results, which have already been requested. Patient is to return in 1 week for reassessment. It appears likely that the swelling in the patient's lower extremities is, at least in part, due to chronic dependency and a lack of activity. There is also likely an element of venous disease, including postphlebitic manifestations. There may well be an element of arterial occlusive disease, given that the left great toe required amputation due to gangrene. Thus far, however, the patient has responded favorably to the measures which have been implemented. Influenza vaccine was not administered today. The patient is not a smoker. She weighs 185 pounds. She stands 5 feet 7 inches tall. Her BMI is 29. Weight optimization has been recommended.
== END 2020-06-07 23:59 ==
LOC: WC 13:30
PROVIDERS: PCP Family Medicine; Referring Provider Podiatrist Foot & Ankle Surgery; Visit Provider Surgery
DX: R60.0 Localized edema (principal); I83.029 Varicose veins of left lower extremity with ulcer of unspecified site; I83.009 Varicose veins of unspecified lower extremity with ulcer of unspecified site; L97.929 Non-pressure chronic ulcer of unspecified part of left lower leg with unspecified severity; L97.909 Non-pressure chronic ulcer of unspecified part of unspecified lower leg with unspecified severity; I87.0 Postthrombotic syndrome; L97.919 Non-pressure chronic ulcer of unspecified part of right lower leg with unspecified severity; R26.2 Difficulty in walking, not elsewhere classified; I50.9 Heart failure, unspecified; I11.0 Hypertensive heart disease with heart failure; R53.81 Other malaise; R60.9 Edema, unspecified; Z86.718 Personal history of other venous thrombosis and embolism; Z95.828 Presence of other vascular implants and grafts; Z87.891 Personal history of nicotine dependence; R26.9 Unspecified abnormalities of gait and mobility
CPT/HCPCS: 11042; 29580; 99212; G0463

== ENCOUNTER 2020-06-19 13:45 | Outpatient (RCR) | payer MEDICAID, SELFPAY ==
[2020-06-08 00:35] VITALS: BP 169/82; PULSE 65; RESP 16; TEMP 36.2
[2020-06-12 14:50] VITALS: BP 138/67; RESP 17; TEMP 36.2; BMI 29.0
--- NOTE | 2020-06-12 16:08 | PCM.WC.PN ---
(1) Stasis leg ulcer Status: Chronic Qualifiers: Laterality: left Code(s): I83.009 - Varicose veins of unspecified lower extremity with ulcer of unspecified site; L97.909 - Non-pressure chronic ulcer of unspecified part of unspecified lower leg with unspecified severity (2) Edema of both lower legs Status: Chronic Code(s): R60.0 - Localized edema (3) [place] filter in place Status: Chronic Code(s): Z95.828 - Presence of other vascular implants and grafts (4) Postphlebitic leg ulcer Status: Chronic Code(s): I87.019 - Postthrombotic syndrome with ulcer of unspecified lower extremity; L97.909 - Non-pressure chronic ulcer of unspecified part of unspecified lower leg with unspecified severity (5) Swelling of lower extremity Status: Chronic Code(s): M79.89 - Other specified soft tissue disorders (6) CHF (congestive heart failure) Status: Chronic Code(s): I50.9 - Heart failure, unspecified (7) Debility Status: Chronic Code(s): R53.81 - Other malaise (8) Bilateral leg ulcer Status: Resolved Qualifiers: Code(s): L97.919 - Non-pressure chronic ulcer of unspecified part of right lower leg with unspecified severity; L97.929 - Non-pressure chronic ulcer of unspecified part of left lower leg with unspecified severity (9) History of DVT (deep vein thrombosis) Status: Chronic Code(s): Z86.718 - Personal history of other venous thrombosis and embolism (10) Dependent edema Status: Chronic Code(s): R60.9 - Edema, unspecified Type of Wound Date of Service: 06/12/20 Chief Complaint: Severe bilateral swelling and edema of the lower extremities associated with ulcerations History of Wound: This is a 74-year-old female who presented with chronic swelling and edema in her lower extremities. She stated my legs, they hurt real bad. The patient's lower extremities have been swollen and edematous for many years. However, they have become increasingly moreso. The patient is relatively inactive. Her ambulatory capacity is compromised, and she requires a walker for ambulation. She spends long hours each day in an idle sitting position. She sleeps in a hospital bed, with the head of bed elevated. Patient has a history of bilateral lower extremity deep vein thrombosis. She denies a history of pulmonary embolism. According to the patient, and her daughter at the bedside, she has had 2 [place] filters inserted, 1 through the neck and one through the groin. In neither case was the filter removed. The patient recently saw treatment with Dr. Isai Laird, geological technical officer, who referred the patient for further evaluation and management. According to the patient and her daughter, the patient's lower extremities were so edematous 2 to 3 weeks ago that fluid was literally seeping from her pores. Additionally, multiple ulcerations developed bilaterally just within the last several weeks. The patient indicates that she experiences a great deal of pain in her lower extremities, and that the pain and swelling is worse in the afternoons. The swelling and edema is more pronounced in the right lower extremity. 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 The patient is not a smoker. She weighs 185 pounds. She stands 5 feet 7 inches tall. Her BMI is 29. Progress of Wound: The patient denies any fever, chills, nausea, vomiting, or diarrhea. Denies any increasing pain, redness, swelling, or purulent/malodorous drainage from affected area. She has been tolerating Unna boots to bilateral lower extremities well. Her left lower extremity ulcer has improved in size and appearance. - Physical Exam Vital Signs Temp Pulse Resp BP 97.2 F L 65 17 138/67 H 06/12/20 14:50 06/08/20 00:35 06/12/20 14:50 06/12/20 14:50 General: Alert, Cooperative, No apparent distress HEENT: Atraumatic, Normocephalic Neck: Supple, Trachea Midline Lungs: Normal air movement Extremities: No clubbing, No cyanosis, Diminished Peripheral Pulses, Edema - Trace bilateral lower extremity edema Skin: Ulcer/ Wound - Left lower leg ulceration with subcutaneous layer exposed, red beefy granulation tissue present. No purulent/foul-smelling drainage. No periulcer erythema or warmth., Excoriated - Area of mild excoriation on upper left leg at site of contact with Unna boot's edge. Wound Measurements and Assessment WC - Nurse 1 - General Ulcer Measurement Start: 06/12/20 14:50 Freq: Status: Active Protocol: Activity Type Activity Date Activity User E-Sign Co-Sign Detail Recorded Client Recorded Date Recorded By Document 06/12/20 14:50 MS [id number] 06/12/20 14:54 MS 06/12/20 14:50 Wound Center Nurse 1 [Ulcer Assessment] #3 Left Ant Lower leg -Current Size (cm) - Length 1.5 -Current Size (cm) - Width 1 -Current Size (cm) - Depth 0.1 -Total Square Cm 1.5 -Epithelialization Large 67-100% -Exudate Amt Medium -Exudate Type Serosanguineous -Wound Margin Flat & Intact -Granulation Amt Small (1-33%) -Granulation Quality Red -Slough/Fibrin Yes -Necrotic Tissue Type Adherent Slough -Texture (Gaye-wound Skin Appearance) Assessed -Moisture (Gaye-wound Skin Appearance Assessed ) -Color (Gaye-wound Skin Appearance) Assessed -Temperature (Gaye-wound Skin No Abnormality Appearance) (Pt Warm) -Tenderness on Palpation (Gaye-wound Yes Skin Appearance) -Ulcer Cleansing soap and water -Foul Odor after Cleansing No -Anesthetic Used 4% Lidocaine Solution [Edema Assessment] -Right Calf (cm) 38 -Right Ankle (cm) 28 -Left Calf (cm) 35 -Left Ankle (cm) 25 WC - Nurse 3 - General Ulcer D/C NN Start: 06/12/20 14:50 Freq: Status: Active Protocol: Activity Type Activity Date Activity User E-Sign Co-Sign Detail Recorded Client Recorded Date Recorded By Document 06/12/20 15:20 MS [id number] 06/12/20 15:22 MS 06/12/20 15:20 Wound Care Nurse 3 [Wound Dressing] #3 Left Ant Lower leg -Other Dressing hydrogel [Compression Applied] Right -Multi-Layered Wrap Application Multi-Layer Comp - Right ($ ) Left -Multi-Layered Wrap Application Multi-Layer Comp - Left ($) WC - Visit Discharge [Visit Discharge Information] -Discharge Condition Stable -Ambulatory Status Walker -Medication Reconcilliation completed No & provided to patient/care provider -Clinical Summary of Care Provided Yes Musculoskeletal: Tenderness - On debridement Psych/Mental Status: Normal Affect, Appropriate Debridement Note Post-Debridement Measurements/Treatment WC - Nurse 3 - General Ulcer D/C NN Start: 06/12/20 14:50 Freq: Status: Active Protocol: Activity Type Activity Date Activity User E-Sign Co-Sign Detail Recorded Client Recorded Date Recorded By Document 06/12/20 15:20 MS [id number] 06/12/20 15:22 MS 06/12/20 15:20 Wound Care Nurse 3 #3 Left Ant Lower leg -Other Dressing hydrogel Right -Multi-Layered Wrap Application Multi-Layer Comp - Right ($ ) Left -Multi-Layered Wrap Application Multi-Layer Comp - Left ($) WC - Visit Discharge Discharge Condition Stable Ambulatory Status Walker Medication Reconcilliation completed & No provided to patient/care provider Clinical Summary of Care Provided Yes Wound debrided: Lower extremity Laterality: Left Type of Debridement: Excisional debridement Anesthesia Used: 5% Lidocaine Gel Depth: in the subcutaneous layer Percentage of wound debrided: 100 Instrument Used: 3mm curette Tissue Removed: Slough and devitalized tissue Severity: Fat Layer Exposed Amount of bleeding with debridement: Mild Bleeding Controlled with: Pressure Patient tolerated procedure well Assessment/Plan Active Problems Swelling of lower extremity (Chronic) Edema of both lower legs (Chronic) Stasis leg ulcer (Chronic) Postphlebitic leg ulcer (Chronic) Debility (Chronic) History of DVT (deep vein thrombosis) (Chronic) Noelle filter in place (Chronic) Dependent edema (Chronic) CHF (congestive heart failure) (Chronic) Assessment: Stasis leg ulcer (Chronic) left- improving. Edema of both lower legs (Chronic). Postphlebitic leg ulcer (Chronic). Debility (Chronic). History of DVT (deep vein thrombosis) (Chronic). [place] filter in place (Chronic). Dependent edema (Chronic). CHF (congestive heart failure) (Chronic) Plan: The patient was evaluated at the wound center today and updated on the plan of care. Debridement was performed as detailed above. We will continue conservative treatment measures. The patient has been encouraged to sleep at night on a flat surface, rather than having her head of bed elevated significantly. Leg elevation has been strongly encouraged, even during daytime hours. This is to be accomplished with the patient's legs level with her heart, if not higher. Prolonged idle sitting has been discouraged. Activity has been encouraged, though significant enhancement of ambulation is unlikely, given the patient's physical limitations and her need for a walker. Weight optimization has been recommended. Ultimately I hope to continue the use of multilayer Unna boots to bilateral lower extremities. These are unavailable today, so 3M wraps will be applied. Collagen hydrogel will be applied to the excoriation and left lower extremity ulcer. The patient was ordered a venous duplex examination of the lower extremities, as well as a noninvasive lower extremity arterial study. We continue to await the performance of these studies. Laboratory studies have been obtained, at [facility], and we continue to await these results, which have already been requested. Patient is to return Tuesday for a nurse visit and in 1 week for reassessment with a provider. It appears likely that the swelling in the patient's lower extremities is, at least in part, due to chronic dependency and a lack of activity. There is also likely an element of venous disease, including postphlebitic manifestations. There may well be an element of arterial occlusive disease, given that the left great toe required amputation due to gangrene. Thus far, however, the patient has responded favorably to the measures which have been implemented. Note: [employer] speech recognition personnel and payroll technician software was used to create portions of this document. Sound-alike and misspelled words, as well as other personnel and payroll technician errors may be contained in the documentation. [id number]: [id number] Pat subq tissue 20 sq cm/<
[2020-06-17 13:50] VITALS: BP 187/75; PULSE 62; RESP 18; TEMP 36.2; BMI 29.0
[2020-06-19 14:43] VITALS: BP 182/45; PULSE 66; RESP 16; TEMP 35.8; BMI 29.0
--- NOTE | 2020-06-19 16:20 | PN.PCM_ITS ---
(1) Ulcer of left lower extremity with fat layer exposed Status: Acute Code(s): L97.922 - Non-pressure chronic ulcer of unspecified part of left lower leg with fat layer exposed (2) CHF (congestive heart failure) Status: Chronic Code(s): I50.9 - Heart failure, unspecified (3) Debility Status: Chronic Code(s): R53.81 - Other malaise (4) Dependent edema Status: Chronic Code(s): R60.9 - Edema, unspecified (5) Edema of both lower legs Status: Chronic Code(s): R60.0 - Localized edema (6) Swelling of lower extremity Status: Chronic Code(s): M79.89 - Other specified soft tissue disorders (7) Hypertension Status: Chronic Code(s): I10 - Essential (primary) hypertension Type of Wound Date of Service: 06/19/20 Chief Complaint: Severe bilateral swelling and edema of the lower extremities associated with ulcerations to left lower extremity History of Wound: This is a 74-year-old female who presented with chronic swelling and edema in her lower extremities. She stated my legs, they hurt real bad. The patient's lower extremities have been swollen and edematous for many years. However, they have become increasingly moreso. The patient is relatively inactive. Her ambulatory capacity is compromised, and she requires a walker for ambulation. She spends long hours each day in an idle sitting position. She sleeps in a hospital bed, with the head of bed elevated. Patient has a history of bilateral lower extremity deep vein thrombosis. She denies a history of pulmonary embolism. According to the patient, and her daughter at the bedside, she has had 2 [place] filters inserted, 1 through the neck and one through the groin. In neither case was the filter removed. The patient recently saw treatment with Dr. Isai Laird, artist suspect, who referred the patient for further evaluation and management. According to the patient and her daughter, the patient's lower extremities were so edematous 2 to 3 weeks ago that fluid was literally seeping from her pores. Additionally, multiple ulcerations developed bilaterally just within the last several weeks. The patient indicates that she experiences a great deal of pain in her lower extremities, and that the pain and swelling is worse in the afternoons. The swelling and edema is more pronounced in the right lower extremity. 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 The patient is not a smoker. She weighs 185 pounds. She stands 5 feet 7 inches tall. Her BMI is 29. Progress of Wound: The patient denies any fever, chills, nausea, vomiting, or diarrhea. Denies any increasing pain, redness, swelling, or purulent/malodorous drainage from affected area. She has been tolerating 3 m wraps to bilateral lower extremities well. Her left lower extremity ulcer has improved in size and appearance. - Physical Exam Vital Signs Temp Pulse Resp BP 96.5 F L 66 16 182/45 H 06/19/20 14:43 06/19/20 14:43 06/19/20 14:43 06/19/20 14:43 General: Alert, Oriented x3, Cooperative, No apparent distress HEENT: Atraumatic Oral: Moist Mucosa Lungs: Clear to auscultation, Normal air movement, No rhonchi Cardiovascular: Regular rate Abdomen: Soft, Non Tender Extremities: No clubbing, No cyanosis, Edema - Generalized bilateral lower extremity edema Skin: Ulcer/ Wound - See nursing documentation, slough and devitalized tissue present to left lower extremity ulcer no streaking or redness at this time Wound Measurements and Assessment WC - Nurse 1 - General Ulcer Measurement Start: 06/12/20 14:50 Freq: Status: Active Protocol: Activity Type Activity Date Activity User E-Sign Co-Sign Detail Recorded Client Recorded Date Recorded By Document 06/17/20 13:50 DL [id number] 06/17/20 13:53 DL Document 06/19/20 14:43 [facility] [id number] 06/19/20 14:56 [facility] 06/17/20 06/19/20 13:50 14:43 Wound Center Nurse 1 [Ulcer Assessment] #3 Left Ant Lower leg -Combined with other wound No -Current Size (cm) - Length 2 -Current Size (cm) - Width 0.9 -Current Size (cm) - Depth 0.1 -Total Square Cm 1.8 -Photo Taken No -Epithelialization Small 1-33% -Tunneling No -Undermining/Tunneling No -Circular Undermining No -Exudate Amt Medium -Exudate Type Serosanguineous -Wound Margin Distinct, Outline Attached -Granulation Amt Large (67-100%) -Granulation Quality Red -Slough/Fibrin No -Necrosis Amt None Present (0 %) -Texture (Gaye-wound Skin Appearance) No Abnormality Assessed, Scarring -Moisture (Gaye-wound Skin Appearance No Abnormality Assessed ) -Color (Gaye-wound Skin Appearance) No Abnormality Assessed -Temperature (Gaye-wound Skin No Abnormality No Abnormality Appearance) (Pt Warm) (Pt Warm) -Tenderness on Palpation (Gaye-wound No Skin Appearance) -Ulcer Cleansing Wound Cleanser SOAPY WATER -Foul Odor after Cleansing No -Anesthetic Used 4% Lidocaine Solution [Edema Assessment] -Lower Limb Edema Present Yes -Right Calf (cm) 34.6 -Right Ankle (cm) 24.7 -Left Calf (cm) 33.1 32.4 -Left Ankle (cm) 22.5 22.4 KELLEE - Nurse 2 - General Ulcer CM Notes Start: 06/12/20 14:50 Freq: Status: Active Protocol: Activity Type Activity Date Activity User E-Sign Co-Sign Detail Recorded Client Recorded Date Recorded By Document 06/19/20 15:17 MW [id number] 06/19/20 15:20 MW 06/19/20 15:17 Wound Center Nurse 2 [Procedure/Treatment] #3 Left Ant Lower leg -Time 15:17 -Correct Patient Yes -Correct Side, Site, Position Yes -Correct Procedure Yes -Procedure Performed Yes -Type of Procedure Debridement -Clinical Debridement Subcutaneous -Tissue Removed Subcutaneous -Post Debridement (cm) - Length 1.9 -Post Debridement (cm) - Width 1.5 -Post Debridement (cm) - Depth 0.1 -Total Square (Post) (cm) 2.85 -Area of Debridement (cm) - Length 1.9 -Area of Debridement (cm) - Width 1.5 -Total Square (Area) (cm) 2.85 -Tunneling No -Undermining/Tunneling No -Circular Undermining No -Wound/Ulcer Outcome Not Healed -Ulcer Cleansing Rinsed/ Irrigated with Saline -Foul Odor after Cleansing No -Bioengineered Tissue No -Bleeding Controlled with Pressure -Offloading No -Debridement - Subq, 1st 20sq cm Yes [See Physician Procedure note for Specifics] Pain Scale: 0-10 Numeric [Pain] -Is Patient Pain Free? Yes KELLEE - Nurse 3 - General Ulcer D/C NN Start: 06/12/20 14:50 Freq: Status: Active Protocol: Activity Type Activity Date Activity User E-Sign Co-Sign Detail Recorded Client Recorded Date Recorded By Document 06/17/20 13:50 DL [id number] 06/17/20 13:53 DL Document 06/19/20 15:21 MW [id number] 06/19/20 15:23 MW 06/17/20 06/19/20 13:50 15:21 Vital Signs [Temperature Protocol: VS] -Temperature (97.8 F-99.1 F) 97.2 F L -Temperature Source Temporal [Pulse] -Pulse Rate (60-100) 62 -Pulse Location Monitor [Respirations] -Respiratory Rate (12-18) 18 -Respiratory rate source Observation [Blood Pressure] -Blood Pressure (90/60-120/80) 187/75 H -Blood Pressure Mean (mm Hg) 112 -Source Monitor Pain Scale: 0-10 Numeric [Pain] -Is Patient Pain Free? Yes Teaching: Wound Center [Wound Center Education] (Items with an * have Printed Materials Available- Please identify what is given to patient under the Teaching materials given to patient and caregiver Section. Dressing Your Wound -Person Taught Patient,Family -Teaching Method Discussion -Response to teaching Verbalize understanding Wound Care Nurse 3 [Wound Dressing] #3 Left Ant Lower leg -Ulcer Cleansing Wound Cleanser Rinsed/ Irrigated with Saline -Foul Odor after Cleansing No No -Negative Pressure Wound Therapy N/A -Primary Dressing Applied Promogran -Other Dressing hydrogel -Primary Dressing Covered/Secured Dry Gauze & with Roll Gauze, Secured with Tape -Promogran 1 [Compression Applied] Right -Lotion applied to leg before No compression wrap -Multi-Layered Wrap Application Multi-Layer Multi-Layer Comp - Right ($ Comp - Bilat ($ ) ) Left -Lotion applied to leg before No compression wrap -Multi-Layered Wrap Application Multi-Layer Comp - Left ($) -Other 3M 2L [Post Procedure Tolerated] -Treatment Response Procedure Tolerated Well WC - Visit Discharge [Visit Discharge Information] -Discharge Condition Stable Stable -Ambulatory Status Ambulatory, Ambulatory Walker -Transportation Private Auto Private Auto -Accompanied by GRAND-DAUGHTER -Medication Reconcilliation completed No & provided to patient/care provider -Clinical Summary of Care Provided Yes Neurological: Neuro grossly intact Psych/Mental Status: Normal Affect, Appropriate, Alert and oriented to time, place, person, mood and affect Debridement Note Post-Debridement Measurements/Treatment WC - Nurse 2 - General Ulcer CM Notes Start: 06/12/20 14:50 Freq: Status: Active Protocol: Activity Type Activity Date Activity User E-Sign Co-Sign Detail Recorded Client Recorded Date Recorded By Document 06/12/20 16:23 PL [id number] 06/12/20 16:24 PL Document 06/19/20 15:17 MW [id number] 06/19/20 15:20 MW 06/12/20 06/19/20 16:23 15:17 Wound Center Nurse 2 #3 Left Ant Lower leg -Time 15:05 15:17 -Correct Patient Yes Yes -Correct Side, Site, Position Yes Yes -Correct Procedure Yes Yes -Procedure Performed Yes Yes -Type of Procedure Debridement Debridement -Clinical Debridement Subcutaneous Subcutaneous -Tissue Removed Subcutaneous Subcutaneous -Post Debridement (cm) - Length 2.5 1.9 -Post Debridement (cm) - Width 1.9 1.5 -Post Debridement (cm) - Depth 0.1 0.1 -Total Square (Post) (cm) 4.75 2.85 -Area of Debridement (cm) - Length 2.5 1.9 -Area of Debridement (cm) - Width 1.9 1.5 -Total Square (Area) (cm) 4.75 2.85 -Tunneling No No -Undermining/Tunneling No No -Circular Undermining No No -Wound/Ulcer Outcome Not Healed Not Healed -Ulcer Cleansing Rinsed/ Rinsed/ Irrigated with Irrigated with Saline Saline -Foul Odor after Cleansing No No -Bioengineered Tissue No No -Bleeding Controlled with Pressure -Offloading No -Debridement - Subq, 1st 20sq cm Yes Yes Pain Scale: 0-10 Numeric Is Patient Pain Free? Yes Yes - Nurse 3 - General Ulcer D/C NN Start: 06/12/20 14:50 Freq: Status: Active Protocol: Activity Type Activity Date Activity User E-Sign Co-Sign Detail Recorded Client Recorded Date Recorded By Document 06/12/20 15:20 MS [id number] 06/12/20 15:22 MS Document 06/17/20 13:50 DL [id number] 06/17/20 13:53 DL Document 06/19/20 15:21 MW [id number] 06/19/20 15:23 MW 06/12/20 06/17/20 06/19/20 15:20 13:50 15:21 Wound Care Nurse 3 #3 Left Ant Lower leg -Ulcer Cleansing Wound Cleanser Rinsed/ Irrigated with Saline -Foul Odor after Cleansing No No -Negative Pressure Wound Therapy N/A -Primary Dressing Applied Promogran -Other Dressing hydrogel hydrogel -Primary Dressing Covered/Secured with Dry Gauze & Roll Gauze, Secured with Tape -Promogran 1 Right -Lotion applied to leg before No compression wrap -Multi-Layered Wrap Application Multi-Layer Multi-Layer Multi-Layer Comp - Right ($ Comp - Right ($ Comp - Bilat ($ ) ) ) Left -Lotion applied to leg before No compression wrap -Multi-Layered Wrap Application Multi-Layer Multi-Layer Comp - Left ($) Comp - Left ($) -Other 3M 2L Treatment Response Procedure Tolerated Well Vital Signs Temperature (97.8 F-99.1 F) 97.2 F L Temperature Source Temporal Pulse Rate (60-100) 62 Pulse Location Monitor Respiratory Rate (12-18) 18 Respiratory rate source Observation Blood Pressure (90/60-120/80) 187/75 H Blood Pressure Mean (mm Hg) 112 Source Monitor Pain Scale: 0-10 Numeric Is Patient Pain Free? Yes Teaching: Wound Center Dressing Your Wound -Person Taught Patient,Family -Teaching Method Discussion -Response to teaching Verbalize understanding WC - Visit Discharge Discharge Condition Stable Stable Stable Ambulatory Status Walker Ambulatory, Ambulatory Walker Transportation Private Auto Private Auto Accompanied by GRAND-DAUGHTER Medication Reconcilliation completed & No No provided to patient/care provider Clinical Summary of Care Provided Yes Yes Wound debrided: Nonhealing ulcer left lower extremity Laterality: Left Type of Debridement: Excisional debridement Anesthesia Used: 5% Lidocaine Gel Depth: in the subcutaneous layer Percentage of wound debrided: 100 Instrument Used: 5mm curette Tissue Removed: Slough and devitalized tissue Severity: Fat Layer Exposed Amount of bleeding with debridement: Mild Bleeding Controlled with: Pressure Patient tolerated procedure well Assessment/Plan Active Problems Swelling of lower extremity (Chronic) Edema of both lower legs (Chronic) Stasis leg ulcer (Chronic) Postphlebitic leg ulcer (Chronic) Debility (Chronic) History of DVT (deep vein thrombosis) (Chronic) [place] filter in place (Chronic) Dependent edema (Chronic) CHF (congestive heart failure) (Chronic) Assessment: Stasis leg ulcer (Chronic) left- improving. Edema of both lower legs (Chronic). Postphlebitic leg ulcer (Chronic). Debility (Chronic). History of DVT (deep vein thrombosis) (Chronic). [place] filter in place (Chronic). Dependent edema (Chronic). CHF (congestive heart failure) (Chronic) Plan: The patient was evaluated at the wound center today and updated on the plan of care. Debridement was performed as detailed above. We will continue conservative treatment measures. The patient has been encouraged to sleep at night on a flat surface, rather than having her head of bed elevated significantly. Leg elevation has been strongly encouraged, even during daytime hours. This is to be accomplished with the patient's legs level with her heart, if not higher. Prolonged idle sitting has been discouraged. Activity has been encouraged, though significant enhancement of ambulation is unlikely, given the patient's physical limitations and her need for a walker. Weight optimization has been recommended. Application of Promogran to ulceration and for compre ssion 3M wraps will be applied. Given the fact that the patient has failed standard wound care therapy and has been in treatment for greater than 4 weeks will apply for an advanced skin substitute. The patient was ordered a venous duplex examination of the lower extremities, as well as a noninvasive lower extremity arterial study. We continue to await the performance of these studies. Laboratory studies have been obtained, at [facility], and we continue to await these results, which have already been requested. Patient is to return Tuesday for a nurse visit and in 1 week for reassessment with a provider. It appears likely that the swelling in the patient's lower extremities is, at least in part, due to chronic dependency and a lack of activity. There is also likely an element of venous disease, including postphlebitic manifestations. There may well be an element of arterial occlusive disease, given that the left great toe required amputation due to gangrene. Thus far, however, the patient has responded favorably to the measures which have been implemented. Note: [employer] speech recognition diabetes specialist software was used to create portions of this document. Sound-alike and misspelled words, as well as other diabetes specialist errors may be contained in the documentation. [id number]: [id number] Pat subq tissue 20 sq cm/<
== END 2020-07-07 23:59 ==
LOC: WC 13:45
PROVIDERS: PCP Family Medicine; Referring Provider Podiatrist Foot & Ankle Surgery; Visit Provider Nurse Practitioner Family
DX: I87.012 Postthrombotic syndrome with ulcer of left lower extremity (principal); L97.822 Non-pressure chronic ulcer of other part of left lower leg with fat layer exposed; M79.89 Other specified soft tissue disorders; R60.0 Localized edema; I11.0 Hypertensive heart disease with heart failure; I50.9 Heart failure, unspecified; Z95.828 Presence of other vascular implants and grafts; Z89.412 Acquired absence of left great toe; Z86.718 Personal history of other venous thrombosis and embolism
CPT/HCPCS: 11042; 29581

== ENCOUNTER 2020-10-24 08:13 | Outpatient (RCR) | payer MEDICAID, SELFPAY ==
[2020-10-24 08:17] VITALS: BP 142/51; PULSE 76; RESP 16; TEMP 36.9; BMI 29.0
--- NOTE | 2020-10-24 09:14 | WC ---
RISK ASSESSMENTS NOT COMPLETED. PT W/ INTERMITTENT CONFUSION. CAME BY SELF VIA STRETCHER FROM [facility].
--- NOTE | 2020-10-24 13:19 | HP.PCM_ITS ---
(1) Stage III pressure ulcer of sacral region Status: Chronic Code(s): L89.153 - Pressure ulcer of sacral region, stage 3 (2) Stage III pressure ulcer of right heel Status: Chronic Code(s): L89.613 - Pressure ulcer of right heel, stage 3 (3) Stage III pressure ulcer of left heel Status: Chronic Code(s): L89.623 - Pressure ulcer of left heel, stage 3 (4) Stage III pressure ulcer of left ankle Status: Chronic Code(s): L89.523 - Pressure ulcer of left ankle, stage 3 (5) Stage III pressure ulcer of right ankle Status: Chronic Code(s): L89.513 - Pressure ulcer of right ankle, stage 3 (6) Edema of both lower legs Status: Chronic Code(s): R60.0 - Localized edema (7) Debility Status: Chronic Code(s): R53.81 - Other malaise (8) Cognitive and neurobehavioral dysfunction Status: Chronic Code(s): F09 - Unspecified mental disorder due to known physiological condition; F07.89 - Other personality and behavioral disorders due to known physiological condition (9) Diabetes mellitus Status: Chronic Qualifiers: Diabetes mellitus type: type 2 Diabetes mellitus half-way insulin use: without terminal worker use Diabetes mellitus complication status: with skin complications Diabetes mellitus complication detail: with foot ulcer Qualified Code(s): E11.621 - Type 2 diabetes mellitus with foot ulcer; L97.509 - Non-pressure chronic ulcer of other part of unspecified foot with unspecified severity Code(s): E11.9 - Type 2 diabetes mellitus without complications (10) CAD (coronary artery disease) Status: Acute Qualifiers: Coronary Disease-Associated Artery/Lesion type: unspecified vessel or lesion type [place] vs. transplanted heart: unspecified whether [place] or transplanted heart Associated angina: without angina Qualified Code(s): I25.10 - Atherosclerotic heart disease of [place] coronary artery without angina pectoris Code(s): I25.10 - Atherosclerotic heart disease of [place] coronary artery without angina pectoris (11) CHF (congestive heart failure) Status: Chronic Qualifiers: Heart failure type: diastolic Heart failure chronicity: chronic Qualified Code(s): I50.32 - Chronic diastolic (congestive) heart failure Code(s): I50.9 - Heart failure, unspecified (12) Hypertension Status: Chronic Qualifiers: Hypertension type: essential hypertension Qualified Code(s): I10 - Essential (primary) hypertension Code(s): I10 - Essential (primary) hypertension History of Present Illness Date of Service: 10/24/20 Chief Complaint: Pressure ulcers of coccyx, heels and ankles History of Wound: Mago is a pleasant 75 yo woman who presents to the wound healing center for treatment of multiple ulcers. She is currently residing at [facility] in [place], [place]. She has been seen here in past for venous ulcers of her lower extremities. Her last visit was in June 2020 for edema and ulcers of her lower legs. She is a poor historian. She doesn't know why or how long that she has been in the prison or how long that she has had these ulcers. Staff called [facility] and spoke with her nurse and she has been there since August 2020 and they report that she came there with the ulcers present from a different nursing facility. She has been being treated by wound care staff at the facility and they have been cleaning her ulcers with Dakins solution 3 times/week and dressing her coccyx ulcer with crushed flagyl tablets, Mesalt and Honey foam dressing. Her heels and ankles have been being dressed with honey foam dressings after being cleansed with Dakins slution. Offloading booties and low air loss mattress are being used for offloading. The patient's lower extremities have been swollen and edematous for many years. She currently is not very mobile and is not walking much due to the ulcers of her feet. She spends long hours each day in an idle sitting position. Patient has a history of bilateral lower extremity deep vein thrombosis. According to the patient, and her daughter at the bedside, she has had 2 Washburn filters inserted, 1 through the neck and one through the groin. In neither case was the filter removed. 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 The patient is not a smoker. She weighs 185 pounds. She stands 5 feet 7 inches tall. Her BMI is 29. Recent labs show that she is anemic with Hgb 7.8, creatinine 2.0 EGFR 24 and HgbA1C is 5.3% 09/16/2020. She denies fever, chills or other signs of systemic infection. She does have pain in her coccyx and her legs. Past Medical History Past Medical History: Chronic Problems Swelling of lower extremity (Chronic) Edema of both lower legs (Chronic) Stasis leg ulcer (Chronic) Postphlebitic leg ulcer (Chronic) Debility (Chronic) Ambulatory dysfunction (Chronic) History of DVT (deep vein thrombosis) (Chronic) Washburn filter in place (Chronic) Dependent edema (Chronic) CHF (congestive heart failure) (Chronic) Hypertension (Chronic) Stage III pressure ulcer of sacral region (Chronic) Stage III pressure ulcer of right heel (Chronic) Stage III pressure ulcer of left heel (Chronic) Stage III pressure ulcer of left ankle (Chronic) Stage III pressure ulcer of right ankle (Chronic) Cognitive and neurobehavioral dysfunction (Chronic) Diabetes mellitus (Chronic) Surgical History: - - The patient underwent left great toe amputation approximately 4 years ago due to gangrene. She underwent open cholecystectomy in 1997. Tubal ligation was performed in 1976. The patient's medical record reveals some debridements of bone and soft tissue in [address] Laird, and incision and drainage of the left foot in 2015. The patient is a G2, P2 Ab0. Allergies/Adverse Reactions: Allergies clindamycin Allergy (Verified 10/24/20 08:53) PT UNSURE OF REACTION diphenhydramine [From Benadryl] Allergy (Verified 10/24/20 08:53) PT UNSURE OF REACTION doxycycline Allergy (Verified 10/24/20 08:53) PT UNSURE OF REACTION erythromycin base Allergy (Verified 10/24/20 08:53) PT UNSURE OF REACTION levofloxacin [From Levaquin] Allergy (Verified 10/24/20 08:53) PT UNSURE OF REACTION metformin Allergy (Verified 10/24/20 08:53) PT UNSURE OF REACTION Penicillins Allergy (Verified 10/24/20 08:53) PT UNSURE OF REACTION Sulfa (Sulfonamide Antibiotics) Allergy (Verified 10/24/20 08:53) PT UNSURE OF REACTION Home Medications: Ambulatory Orders Medication Instructions Recorded Acetaminophen [Tylenol] 650 mg PO Q4H PRN PRN 10/24/20 Amlodipine Besylate 5 mg PO DAILY 10/24/20 Clopidogrel Bisulfate [Clopidogrel] 75 mg PO DAILY 10/24/20 Dextromethorphan/Benzocaine 1 each PO Q2H PRN 10/24/20 [Cepacol Sorethroat-Cough Balwinder] Ferrous Sulfate 325 mg PO DAILY 10/24/20 Furosemide [Lasix] 20 mg PO DAILY 10/24/20 Hydrocodone Bitart/Apap 5-325 1 - 2 tablet PO Q6H PRN PRN 10/24/20 [[place] 5MG-325MG] Hydroxyzine HCl 25 mg PO Q6H PRN 10/24/20 Lisinopril 40 mg PO DAILY 10/24/20 Loperamide HCl [Imodium A-D] 2 - 4 mg PO DAILY PRN 10/24/20 Magnesium Hydroxide [Milk Of 30 ml PO DAILY PRN PRN 10/24/20 Magnesia] Metronidazole [Flagyl] 500 mg TOPICAL TID 10/24/20 Mineral Oil/Petrolatum,White 1 applic TOPICAL BID PRN PRN 10/24/20 [Eucerin] Mirtazapine [Remeron] 15 mg PO QHS 10/24/20 Na Phos,M-B/Na Phos,Di-Ba [Fleet 1 bottle RECTAL DAILY PRN 10/24/20 Enema] Sertraline HCl [Zoloft] 25 mg PO DAILY 10/24/20 Triamcinolone 0.1% Cream [Kenalog] 1 applic TOPICAL BID 10/24/20 - Family History Maternal No pertinent history Paternal No pertinent history Lives: [facility] Smoking Status: Former smoker Tobacco Use: Non-smoker Alcohol: None Drugs: None Review of Systems Constitutional: Denies: Chills, Fever, Weight Change Eyes: Denies: Pain, Vision Change HEENT: Denies: Difficulty Hearing, Difficulty Swallowing, Sinus Congestion Cardiovascular: Denies: Chest Pain, Palpitations Respiratory: Denies: Cough, Shortness of Breath Gastrointestinal: Denies: Diarrhea, Nausea, Vomiting Genitourinary: Denies: Dysuria, Hematuria Musculoskeletal: Reports: Back Pain, Foot Pain, Joint Pain Skin: Reports: Wounds Neurological: Reports: Balance problems Psychiatric: Reports: Anxiety Endocrine: Denies: Heat/ Cold Intolerance, Polydipsia, Polyuria Hematologic/ Lymphatic: Denies: Easy Bruising, Easy Bleeding - Physical Exam Vital Signs Temp Pulse Resp BP 98.5 F 76 16 142/51 H 10/24/20 08:17 10/24/20 08:17 10/24/20 08:17 10/24/20 08:17 General: Alert, Oriented x3, Cooperative, No apparent distress HEENT: Atraumatic, Normocephalic Oral: Moist Mucosa Neck: Supple Lungs: Clear to auscultation, Normal air movement Cardiovascular: Regular rate, Regular Rhythm Abdomen: Soft, Non Tender Extremities: Edema Skin: Ulcer/ Wound Wound Measurements and Assessment WC - Nurse 1 - General Ulcer Measurement Start: 10/24/20 08:17 Freq: Status: Active Protocol: Activity Type Activity Date Activity User E-Sign Co-Sign Detail Recorded Client Recorded Date Recorded By Document 10/24/20 08:17 [facility] [id number] 10/24/20 08:39 [facility] 10/24/20 08:17 Wound Center Nurse 1 [Ulcer Assessment] #9- COCCYX STAGE 3 -Combined with other wound No -Current Size (cm) - Length 2 -Current Size (cm) - Width 3.7 -Current Size (cm) - Depth 1.5 -Total Square Cm 7.4 -Date of Last Picture (Recall this 10/24/20 field) -Photo Taken Yes -Epithelialization None Present -Tunneling No -Undermining/Tunneling Yes -Undermining/Tunneling Starts (O' 11 clock) -Undermining/Tunneling Ends (O'clock) 7 -Maximum Distance (cm) 1.8 -Exudate Amt Large -Exudate Type Serosanguineous -Wound Margin Distinct, Outline Attached -Granulation Amt Medium (34-66%) -Granulation Quality Red -Slough/Fibrin Yes -Necrosis Amt Medium (34-66%) -Necrotic Tissue Type Adherent Slough -Texture (Gaye-wound Skin Appearance) Assessed -Moisture (Gaye-wound Skin Appearance Assessed ) -Color (Gaye-wound Skin Appearance) Assessed, Erythema -Temperature (Gaye-wound Skin No Abnormality Appearance) (Pt Warm) -Tenderness on Palpation (Gaye-wound Yes Skin Appearance) -Ulcer Cleansing SOAPY WATER -Foul Odor after Cleansing No -Anesthetic Used 4% Lidocaine Solution #8- L ANT ANKLE -Combined with other wound No -Current Size (cm) - Length 7 -Current Size (cm) - Width 11 -Current Size (cm) - Depth 0.2 -Total Square Cm 77 -Date of Last Picture (Recall this 10/24/20 field) -Photo Taken Yes -Epithelialization Large 67-100% -Tunneling No -Undermining/Tunneling No -Circular Undermining No -Exudate Amt Large -Exudate Type Serosanguineous -Wound Margin Distinct, Outline Attached -Granulation Amt Medium (34-66%) -Granulation Quality Red -Necrosis Amt Medium (34-66%) -Necrotic Tissue Type Adherent Slough -Texture (Gaye-wound Skin Appearance) Assessed, Scarring -Moisture (Gaye-wound Skin Appearance Assessed,Dry/ ) Scaly -Color (Gaye-wound Skin Appearance) Assessed, Erythema -Temperature (Gaye-wound Skin No Abnormality Appearance) (Pt Warm) -Tenderness on Palpation (Gaye-wound Yes Skin Appearance) -Ulcer Cleansing SOAPY WATER -Foul Odor after Cleansing No -Anesthetic Used 4% Lidocaine Solution #7- R ANT ANKLE -Combined with other wound No -Current Size (cm) - Length 0.5 -Current Size (cm) - Width 0.5 -Current Size (cm) - Depth 0.1 -Total Square Cm 0.25 -Date of Last Picture (Recall this 10/24/20 field) -Photo Taken Yes -Epithelialization None Present -Tunneling No -Undermining/Tunneling No -Circular Undermining No -Exudate Amt Small -Exudate Type Serosanguineous -Wound Margin Distinct, Outline Attached -Granulation Amt None Present (0 %) -Slough/Fibrin Yes -Necrosis Amt Large (67-100%) -Necrotic Tissue Type Eschar -Texture (Gaye-wound Skin Appearance) Assessed, Scarring -Moisture (Gaye-wound Skin Appearance Assessed,Dry/ ) Scaly -Color (Gaye-wound Skin Appearance) Assessed -Temperature (Gaye-wound Skin No Abnormality Appearance) (Pt Warm) -Tenderness on Palpation (Gaye-wound Yes Skin Appearance) -Ulcer Cleansing SOAPY WATER -Foul Odor after Cleansing No -Anesthetic Used 4% Lidocaine Solution #6- L HEEL STAGE 3 -Combined with other wound No -Current Size (cm) - Length 5 -Current Size (cm) - Width 7 -Current Size (cm) - Depth 0.1 -Total Square Cm 35 -Date of Last Picture (Recall this 10/24/20 field) -Photo Taken Yes -Epithelialization None Present -Tunneling No -Undermining/Tunneling No -Circular Undermining No -Exudate Amt Large -Exudate Type Serosanguineous -Wound Margin Distinct, Outline Attached -Granulation Amt None Present (0 %) -Slough/Fibrin Yes -Necrosis Amt Large (67-100%) -Necrotic Tissue Type Eschar -Texture (Gaye-wound Skin Appearance) Assessed, Scarring -Moisture (Gaye-wound Skin Appearance Assessed ) -Color (Gaye-wound Skin Appearance) Assessed, Erythema -Temperature (Gaye-wound Skin No Abnormality Appearance) (Pt Warm) -Tenderness on Palpation (Gaye-wound Yes Skin Appearance) -Ulcer Cleansing SOAPY WATER -Foul Odor after Cleansing No -Anesthetic Used 4% Lidocaine Solution #5- R HEEL STAGE 3 -Combined with other wound No -Current Size (cm) - Length 5.5 -Current Size (cm) - Width 5.5 -Current Size (cm) - Depth 0.1 -Total Square Cm 30.25 -Date of Last Picture (Recall this 10/24/20 field) -Photo Taken Yes -Epithelialization None Present -Tunneling No -Undermining/Tunneling No -Circular Undermining No -Exudate Amt Large -Exudate Type Serosanguineous -Wound Margin Distinct, Outline Attached -Granulation Amt None Present (0 %) -Slough/Fibrin Yes -Necrosis Amt Large (67-100%) -Necrotic Tissue Type Eschar -Texture (Gaye-wound Skin Appearance) Assessed -Moisture (Gaye-wound Skin Appearance Assessed ) -Color (Gaye-wound Skin Appearance) Erythema -Temperature (Gaye-wound Skin No Abnormality Appearance) (Pt Warm) -Tenderness on Palpation (Gaye-wound Yes Skin Appearance) -Ulcer Cleansing SOAPY WATER -Foul Odor after Cleansing No -Anesthetic Used 4% Lidocaine Solution [Edema Assessment] -Lower Limb Edema Present Yes -Right Calf (cm) 30.5 -Right Ankle (cm) 19.5 -Left Calf (cm) 29 -Left Ankle (cm) 20.2 WC - Nurse 2 - General Ulcer CM Notes Start: 10/24/20 08:17 Freq: Status: Active Protocol: Activity Type Activity Date Activity User E-Sign Co-Sign Detail Recorded Client Recorded Date Recorded By Document 10/24/20 09:22 MW [id number] 10/24/20 10:19 MW 10/24/20 09:22 Wound Center Nurse 2 [Procedure/Treatment] #9- COCCYX STAGE 3 -Time 09:39 -Correct Patient Yes -Correct Side, Site, Position Yes -Correct Procedure Yes -Procedure Performed Yes -Type of Procedure Debridement -Clinical Debridement Muscle / Fascia -Tissue Removed Muscle,Fascia -Post Debridement (cm) - Length 2.5 -Post Debridement (cm) - Width 3.0 -Post Debridement (cm) - Depth 1.0 -Total Square (Post) (cm) 7.50 -Area of Debridement (cm) - Length 2.5 -Area of Debridement (cm) - Width 3.0 -Total Square (Area) (cm) 7.50 -Tunneling No -Undermining/Tunneling Yes -Undermining/Tunneling Starts (O' 11 clock) -Undermining/Tunneling Ends (O'clock) 7 -Maximum Distance (cm) 1.5 -Circular Undermining No -Wound/Ulcer Outcome Not Healed -Ulcer Cleansing Rinsed/ Irrigated with Saline -Foul Odor after Cleansing No -Bioengineered Tissue No -Bleeding Controlled with Pressure -Offloading No -Treatment Response Procedure Tolerated Well -Debridement - Muscle / Fascia, 1st Yes 20sq cm #8- L ANT ANKLE -Time 09:41 -Correct Patient Yes -Correct Side, Site, Position Yes -Correct Procedure Yes -Procedure Performed Yes -Type of Procedure Debridement -Clinical Debridement Subcutaneous -Tissue Removed Subcutaneous -Post Debridement (cm) - Length 6.5 -Post Debridement (cm) - Width 10.0 -Post Debridement (cm) - Depth 0.4 -Total Square (Post) (cm) 65.00 -Area of Debridement (cm) - Length 6.5 -Area of Debridement (cm) - Width 10.0 -Total Square (Area) (cm) 65.00 -Tunneling No -Undermining/Tunneling No -Circular Undermining No -Wound/Ulcer Outcome Not Healed -Foul Odor after Cleansing No -Bioengineered Tissue No -Bleeding Controlled with Pressure -Offloading No -Treatment Response Procedure Tolerated Well -Debridement - Subq, 1st 20sq cm Yes -Debridement, SubQ, ea addt'l 20sq cm 3 or part thereof #7- R ANT ANKLE -Time 09:41 -Correct Patient Yes -Correct Side, Site, Position Yes -Correct Procedure Yes -Procedure Performed Yes -Type of Procedure Debridement -Clinical Debridement Subcutaneous -Tissue Removed Subcutaneous -Post Debridement (cm) - Length 0.7 -Post Debridement (cm) - Width 0.7 -Post Debridement (cm) - Depth 0.2 -Total Square (Post) (cm) 0.49 -Area of Debridement (cm) - Length 0.7 -Area of Debridement (cm) - Width 0.7 -Total Square (Area) (cm) 0.49 -Tunneling No -Undermining/Tunneling No -Circular Undermining No -Wound/Ulcer Outcome Not Healed -Ulcer Cleansing Rinsed/ Irrigated with Saline -Foul Odor after Cleansing No -Bioengineered Tissue No -Bleeding Controlled with Pressure -Offloading No -Treatment Response Procedure Tolerated Well -Debridement - Subq, 1st 20sq cm No #6- L HEEL STAGE 3 -Time 09:42 -Correct Patient Yes -Correct Side, Site, Position Yes -Correct Procedure Yes -Procedure Performed Yes -Type of Procedure Debridement -Clinical Debridement Muscle / Fascia -Tissue Removed Muscle,Fascia -Post Debridement (cm) - Length 7.5 -Post Debridement (cm) - Width 5.8 -Post Debridement (cm) - Depth 0.6 -Total Square (Post) (cm) 43.50 -Area of Debridement (cm) - Length 7.5 -Area of Debridement (cm) - Width 5.8 -Total Square (Area) (cm) 43.50 -Tunneling No -Undermining/Tunneling No -Circular Undermining No -Wound/Ulcer Outcome Not Healed -Ulcer Cleansing Rinsed/ Irrigated with Saline -Foul Odor after Cleansing No -Bioengineered Tissue No -Bleeding Controlled with Pressure -Offloading No -Treatment Response Procedure Tolerated Well -Debridement - Muscle / Fascia, 1st No 20sq cm #5- R HEEL STAGE 3 -Time 09:42 -Correct Patient Yes -Correct Side, Site, Position Yes -Correct Procedure Yes -Procedure Performed Yes -Type of Procedure Debridement -Clinical Debridement Muscle / Fascia -Tissue Removed Muscle,Fascia -Post Debridement (cm) - Length 6.5 -Post Debridement (cm) - Width 4.7 -Post Debridement (cm) - Depth 0.5 -Total Square (Post) (cm) 30.55 -Area of Debridement (cm) - Length 6.5 -Area of Debridement (cm) - Width 4.7 -Total Square (Area) (cm) 30.55 -Tunneling No -Undermining/Tunneling No -Circular Undermining No -Wound/Ulcer Outcome Not Healed -Ulcer Cleansing Rinsed/ Irrigated with Saline -Foul Odor after Cleansing No -Bioengineered Tissue No -Bleeding Controlled with Pressure -Offloading No -Treatment Response Procedure Tolerated Well -Debridement - Muscle / Fascia, 1st No 20sq cm [See Physician Procedure note for Specifics] Pain Scale: 0-10 Numeric [Pain] -Is Patient Pain Free? Yes - Nurse 3 - General Ulcer D/C NN Start: 10/24/20 08:17 Freq: Status: Active Protocol: Activity Type Activity Date Activity User E-Sign Co-Sign Detail Recorded Client Recorded Date Recorded By Document 10/24/20 10:39 [facility] [id number] 10/24/20 10:41 [facility] 10/24/20 10:39 Wound Care Nurse 3 [Wound Dressing] #9- COCCYX STAGE 3 -Ulcer Cleansing Rinsed/ Irrigated with Saline -Foul Odor after Cleansing No -Primary Dressing Applied Aquacel Extra, Mepilex Border -Aquacel Extra 2 -Mepilex Border 1 #8- L ANT ANKLE -Ulcer Cleansing Rinsed/ Irrigated with Saline -Foul Odor after Cleansing No -Primary Dressing Applied Aquacel Extra -Primary Dressing Covered/Secured Dry Gauze & with Roll Gauze, Secured with Tape,Other -Other Covering abd -Aquacel Extra 0 #7- R ANT ANKLE -Ulcer Cleansing Rinsed/ Irrigated with Saline -Foul Odor after Cleansing No -Primary Dressing Applied Aquacel Extra -Primary Dressing Covered/Secured Dry Gauze & with Roll Gauze, Secured with Tape,Other -Other Covering abd -Aquacel Extra 0 #6- L HEEL STAGE 3 -Ulcer Cleansing Rinsed/ Irrigated with Saline -Foul Odor after Cleansing No -Primary Dressing Applied Aquacel Extra -Primary Dressing Covered/Secured Dry Gauze & with Roll Gauze, Secured with Tape,Other -Other Covering heel hat -Aquacel Extra 0 #5- R HEEL STAGE 3 -Ulcer Cleansing Rinsed/ Irrigated with Saline -Foul Odor after Cleansing No -Primary Dressing Applied Aquacel Extra -Primary Dressing Covered/Secured Dry Gauze & with Roll Gauze, Secured with Tape,Other -Other Covering heel hat -Aquacel Extra 0 [Post Procedure Tolerated] -Treatment Response Procedure Tolerated Well Pain Scale: 0-10 Numeric [Pain] -Is Patient Pain Free? Yes - Visit Discharge [Visit Discharge Information] -Discharge Condition Stable -Ambulatory Status Stretcher -Transportation Ambulance [Facility Notification] -[facility] Type [facility] Psych/Mental Status: Normal Affect, Appropriate Debridement Note Post-Debridement Measurements/Treatment WC - Nurse 2 - General Ulcer CM Notes Start: 10/24/20 08:17 Freq: Status: Active Protocol: Activity Type Activity Date Activity User E-Sign Co-Sign Detail Recorded Client Recorded Date Recorded By Document 10/24/20 09:22 MW [id number] 10/24/20 10:19 MW 10/24/20 09:22 Wound Center Nurse 2 #9- COCCYX STAGE 3 -Time 09:39 -Correct Patient Yes -Correct Side, Site, Position Yes -Correct Procedure Yes -Procedure Performed Yes -Type of Procedure Debridement -Clinical Debridement Muscle / Fascia -Tissue Removed Muscle,Fascia -Post Debridement (cm) - Length 2.5 -Post Debridement (cm) - Width 3.0 -Post Debridement (cm) - Depth 1.0 -Total Square (Post) (cm) 7.50 -Area of Debridement (cm) - Length 2.5 -Area of Debridement (cm) - Width 3.0 -Total Square (Area) (cm) 7.50 -Tunneling No -Undermining/Tunneling Yes -Undermining/Tunneling Starts (O'clock 11 ) -Undermining/Tunneling Ends (O'clock) 7 -Maximum Distance (cm) 1.5 -Circular Undermining No -Wound/Ulcer Outcome Not Healed -Ulcer Cleansing Rinsed/ Irrigated with Saline -Foul Odor after Cleansing No -Bioengineered Tissue No -Bleeding Controlled with Pressure -Offloading No -Treatment Response Procedure Tolerated Well -Debridement - Muscle / Fascia, 1st Yes 20sq cm #8- L ANT ANKLE -Time 09:41 -Correct Patient Yes -Correct Side, Site, Position Yes -Correct Procedure Yes -Procedure Performed Yes -Type of Procedure Debridement -Clinical Debridement Subcutaneous -Tissue Removed Subcutaneous -Post Debridement (cm) - Length 6.5 -Post Debridement (cm) - Width 10.0 -Post Debridement (cm) - Depth 0.4 -Total Square (Post) (cm) 65.00 -Area of Debridement (cm) - Length 6.5 -Area of Debridement (cm) - Width 10.0 -Total Square (Area) (cm) 65.00 -Tunneling No -Undermining/Tunneling No -Circular Undermining No -Wound/Ulcer Outcome Not Healed -Foul Odor after Cleansing No -Bioengineered Tissue No -Bleeding Controlled with Pressure -Offloading No -Treatment Response Procedure Tolerated Well -Debridement - Subq, 1st 20sq cm Yes -Debridement, SubQ, ea addt'l 20sq cm 3 or part thereof #7- R ANT ANKLE -Time 09:41 -Correct Patient Yes -Correct Side, Site, Position Yes -Correct Procedure Yes -Procedure Performed Yes -Type of Procedure Debridement -Clinical Debridement Subcutaneous -Tissue Removed Subcutaneous -Post Debridement (cm) - Length 0.7 -Post Debridement (cm) - Width 0.7 -Post Debridement (cm) - Depth 0.2 -Total Square (Post) (cm) 0.49 -Area of Debridement (cm) - Length 0.7 -Area of Debridement (cm) - Width 0.7 -Total Square (Area) (cm) 0.49 -Tunneling No -Undermining/Tunneling No -Circular Undermining No -Wound/Ulcer Outcome Not Healed -Ulcer Cleansing Rinsed/ Irrigated with Saline -Foul Odor after Cleansing No -Bioengineered Tissue No -Bleeding Controlled with Pressure -Offloading No -Treatment Response Procedure Tolerated Well -Debridement - Subq, 1st 20sq cm No #6- L HEEL STAGE 3 -Time 09:42 -Correct Patient Yes -Correct Side, Site, Position Yes -Correct Procedure Yes -Procedure Performed Yes -Type of Procedure Debridement -Clinical Debridement Muscle / Fascia -Tissue Removed Muscle,Fascia -Post Debridement (cm) - Length 7.5 -Post Debridement (cm) - Width 5.8 -Post Debridement (cm) - Depth 0.6 -Total Square (Post) (cm) 43.50 -Area of Debridement (cm) - Length 7.5 -Area of Debridement (cm) - Width 5.8 -Total Square (Area) (cm) 43.50 -Tunneling No -Undermining/Tunneling No -Circular Undermining No -Wound/Ulcer Outcome Not Healed -Ulcer Cleansing Rinsed/ Irrigated with Saline -Foul Odor after Cleansing No -Bioengineered Tissue No -Bleeding Controlled with Pressure -Offloading No -Treatment Response Procedure Tolerated Well -Debridement - Muscle / Fascia, 1st No 20sq cm #5- R HEEL STAGE 3 -Time 09:42 -Correct Patient Yes -Correct Side, Site, Position Yes -Correct Procedure Yes -Procedure Performed Yes -Type of Procedure Debridement -Clinical Debridement Muscle / Fascia -Tissue Removed Muscle,Fascia -Post Debridement (cm) - Length 6.5 -Post Debridement (cm) - Width 4.7 -Post Debridement (cm) - Depth 0.5 -Total Square (Post) (cm) 30.55 -Area of Debridement (cm) - Length 6.5 -Area of Debridement (cm) - Width 4.7 -Total Square (Area) (cm) 30.55 -Tunneling No -Undermining/Tunneling No -Circular Undermining No -Wound/Ulcer Outcome Not Healed -Ulcer Cleansing Rinsed/ Irrigated with Saline -Foul Odor after Cleansing No -Bioengineered Tissue No -Bleeding Controlled with Pressure -Offloading No -Treatment Response Procedure Tolerated Well -Debridement - Muscle / Fascia, 1st No 20sq cm Pain Scale: 0-10 Numeric Is Patient Pain Free? Yes WC - Nurse 3 - General Ulcer D/C NN Start: 10/24/20 08:17 Freq: Status: Active Protocol: Activity Type Activity Date Activity User E-Sign Co-Sign Detail Recorded Client Recorded Date Recorded By Document 10/24/20 10:39 [facility] [id number] 10/24/20 10:41 [facility] 10/24/20 10:39 Wound Care Nurse 3 #9- COCCYX STAGE 3 -Ulcer Cleansing Rinsed/ Irrigated with Saline -Foul Odor after Cleansing No -Primary Dressing Applied Aquacel Extra, Mepilex Border -Aquacel Extra 2 -Mepilex Border 1 #8- L ANT ANKLE -Ulcer Cleansing Rinsed/ Irrigated with Saline -Foul Odor after Cleansing No -Primary Dressing Applied Aquacel Extra -Primary Dressing Covered/Secured with Dry Gauze & Roll Gauze, Secured with Tape,Other -Other Covering abd -Aquacel Extra 0 #7- R ANT ANKLE -Ulcer Cleansing Rinsed/ Irrigated with Saline -Foul Odor after Cleansing No -Primary Dressing Applied Aquacel Extra -Primary Dressing Covered/Secured with Dry Gauze & Roll Gauze, Secured with Tape,Other -Other Covering abd -Aquacel Extra 0 #6- L HEEL STAGE 3 -Ulcer Cleansing Rinsed/ Irrigated with Saline -Foul Odor after Cleansing No -Primary Dressing Applied Aquacel Extra -Primary Dressing Covered/Secured with Dry Gauze & Roll Gauze, Secured with Tape,Other -Other Covering heel hat -Aquacel Extra 0 #5- R HEEL STAGE 3 -Ulcer Cleansing Rinsed/ Irrigated with Saline -Foul Odor after Cleansing No -Primary Dressing Applied Aquacel Extra -Primary Dressing Covered/Secured with Dry Gauze & Roll Gauze, Secured with Tape,Other -Other Covering heel hat -Aquacel Extra 0 Treatment Response Procedure Tolerated Well Pain Scale: 0-10 Numeric Is Patient Pain Free? Yes WC - Visit Discharge Discharge Condition Stable Ambulatory Status [facility] Wound debrided: Coccyx Laterality: Not Applicable Wound Grade/Stage: Stage III Type of Debridement: Excisional debridement Anesthesia Used: 4% Lidocaine Solution, 5% Lidocaine Gel Depth: Down to and including healthy tissue, in the subcutaneous layer, to muscle Percentage of wound debrided: 100 Instrument Used: #15 blade, Forceps Tissue Removed: Yellow slough, devitalized tissue Severity: Necrosis of Muscle Amount of bleeding with debridement: Mild Bleeding Controlled with: Compression and gauze Patient tolerated procedure well - Additional Wound Wound debrided: left anterior ankle Laterality: Left Wound Grade/Stage: Stage II Type of Debridement: Excisional debridement Anesthesia Used: 4% Lidocaine Solution Depth: Down to and including healthy tissue, in the subcutaneous layer Percentage of wound debrided: 100 Instrument Used: #15 blade, Forceps Tissue Removed: Yellow slough, devitalized tissue Severity: Fat Layer Exposed Amount of bleeding with debridement: Mild Bleeding Controlled with: Compression and gauze Patient tolerated procedure: Patient tolerated procedure well - Additional Wound Wound debrided: Left heel Laterality: Left Wound Grade/Stage: Stage III Type of Debridement: Excisional debridement Anesthesia Used: 4% Lidocaine Solution Depth: Down to and including healthy tissue, in the subcutaneous layer, to muscle Percentage of wound debrided: 100 Instrument Used: #15 blade, Forceps Tissue Removed: Yellow slough, devitalized tissue Severity: Necrosis of Muscle Amount of bleeding with debridement: Mild Bleeding Controlled with: Compression and gauze Patient tolerated procedure: Patient tolerated procedure well - Additional Wound Wound debrided: Right anterior ankle Laterality: Right Wound Grade/Stage: Stage II Type of Debridement: Excisional debridement Anesthesia Used: 4% Lidocaine Solution, 5% Lidocaine Gel Depth: Down to and including healthy tissue, in the subcutaneous layer Percentage of wound debrided: 100 Instrument Used: #15 blade, Forceps Tissue Removed: Yellow slough, devitalized tissue Severity: Fat Layer Exposed Amount of bleeding with debridement: Mild Bleeding Controlled with: Compression and gauze Patient tolerated procedure: Patient tolerated procedure well - Additional Wound Wound debrided: Right heel Laterality: Right Wound Grade/Stage: Stage III Type of Debridement: Excisional debridement Anesthesia Used: 4% Lidocaine Solution Depth: Down to and including healthy tissue, in the subcutaneous layer, to muscle Percentage of wound debrided: 100 Instrument Used: #15 blade, Forceps Tissue Removed: Yellow slough, devitalized tissue Severity: Necrosis of Muscle Amount of bleeding with debridement: Mild Bleeding Controlled with: Compression and gauze Patient tolerated procedure: Patient tolerated procedure well Assessment/Plan Active Problems Edema of both lower legs (Chronic) Debility (Chronic) CHF (congestive heart failure) (Chronic) Hypertension (Chronic) 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 Stage 2 pressure ulcer right anterior ankle. Stage 3 pressure ulcer right heel. Stage 2 pressure ulcer left anterior ankle. Stage 3 pressure ulcer left heel. Edema of both lower legs (Chronic). Debility (Chronic). History of DVT (deep vein thrombosis) (Chronic). Noelle filter in place (Chronic). Dependent edema (Chronic). CHF (congestive heart failure) (Chronic) Plan: Mago's ulcers have been evaluated and debrided at the wound healing center today. Debridement was performed as detailed above. There is extensive devitalized tissue and tenderness to her coccyx and heels. Her coccyx and heel ulcers probe to bone but no bone is exposed currently. Xrays of coccyx/sacrum and bilateral heels have been ordered. If osteomyelitis is present she may need further surgical debridement in an operating room and wound vac placement in order to heel her ulcers. She also may benefit from advanced wound healing treatment such as Theraskin application for healing her ulcers. Wound culture performed today to her coccyx ulcer. Will treat based on results. Will dress her coccyx and heel ulcers with Santyl and cover with Aquacel Extra and optifoam. Her anterior left and right ankle ulcers will be dressed with Santyl and ABDs or optifoam. Dressings are to be performed daily. Continue protein supplementation that she is getting at [facility]. Prolonged idle sitting has been discouraged, offloading of her heels and sacrum have been discussed. Will have her wear offloading booties to her heels b/l and will have her change positions every 2 hours to avoid pressure to her sacrum/coccyx. Records from nursing fac ility reviewed. Laboratory studies have been obtained, at [facility], and have been reviewed. There is an element of venous disease and likely an arterial occlusive disease. Will have her return in 1 week for follow up. Note: [employer] speech recognition analog circuit designer software was used to create portions of this document. Sound-alike and misspelled words, as well as other analog circuit designer errors may be contained in the documentation.
== END 2020-11-05 23:59 ==
LOC: WC 08:13
PROVIDERS: PCP Family Medicine; Visit Provider Family Medicine
DX: L89.153 Pressure ulcer of sacral region, stage 3 (principal); E11.621 Type 2 diabetes mellitus with foot ulcer; L89.623 Pressure ulcer of left heel, stage 3; L89.613 Pressure ulcer of right heel, stage 3; L89.522 Pressure ulcer of left ankle, stage 2; L89.512 Pressure ulcer of right ankle, stage 2; R60.0 Localized edema; I11.0 Hypertensive heart disease with heart failure; I50.32 Chronic diastolic (congestive) heart failure; I25.10 Atherosclerotic heart disease of native coronary artery without angina pectoris; M79.89 Other specified soft tissue disorders; R26.9 Unspecified abnormalities of gait and mobility; Z79.02 Long term (current) use of antithrombotics/antiplatelets; Z79.899 Other long term (current) drug therapy; Z86.718 Personal history of other venous thrombosis and embolism; Z87.891 Personal history of nicotine dependence; Z89.412 Acquired absence of left great toe
CPT/HCPCS: 11042; 11043; 11045; 11046; 87070; 87075; 87077; 87186; 87205; 99213; G0463

== ENCOUNTER 2020-11-26 15:21 | Inpatient (IN) | payer MEDICAID, SELFPAY ==
[2020-11-26] VITALS (7 sets, daily range): BP systolic 110–135; BP diastolic 32–69; PULSE 82–93; RESP 16–20; TEMP 36.6–36.9; O2SAT 95–100; BMI 16.1; BMI 20.9
--- NOTE | 2020-11-26 15:56 | ED.VIS.GEN ---
History of Present Illness Chief Complaint: Wound Informant: Patient, Family Narrative: 75-year-old female with history of chronic ulcers on her heels presenting from wound care today after being referred here for new wounds. She says she has wounds on the left lateral leg as well as the dorsum of the left foot in addition to her previous wounds. These are draining purulent discharge. Patient states that her bilateral feet hurt but her right hurts worse than her left on the heels. States that she is mostly bedbound and does wear adding on her heels when she is laying in bed. She was previously on a blood thinner but is no longer. Patient denies fever or chills. Past Medical History - Allergies and Home Meds Allergies/Adverse Reactions: Allergies clindamycin Allergy (Verified 11/26/20 15:30) PT UNSURE OF REACTION diphenhydramine [From Benadryl] Allergy (Verified 11/26/20 15:30) PT UNSURE OF REACTION doxycycline Allergy (Verified 11/26/20 15:30) PT UNSURE OF REACTION erythromycin base Allergy (Verified 11/26/20 15:30) PT UNSURE OF REACTION levofloxacin [From Levaquin] Allergy (Verified 11/26/20 15:30) PT UNSURE OF REACTION metformin Allergy (Verified 11/26/20 15:30) PT UNSURE OF REACTION Penicillins [PCN] Allergy (Verified 11/26/20 15:30) PT UNSURE OF REACTION Sulfa (Sulfonamide Antibiotics) Allergy (Verified 11/26/20 15:30) PT UNSURE OF REACTION Past Medical History: - - Diabetes, hypertension, peripheral vascular disease, chronic heel ulcers Smoking Status: Unknown if ever smoked - Family History Maternal Family History: Reports: No pertinent history Review of Systems General: Denies: Chills, Fever, Sweats Eyes: Denies: Visual changes - bilaterally, Diplopia ENT: Denies: Rhinorrhea, Sore throat Respiratory: Denies: Dyspnea, Cough, Dyspnea on exertion Gastrointestinal: Denies: Abdominal pain, Nausea, Vomiting, Diarrhea, Melena, Hematochezia Genitourinary: Denies: Dysuria, Hematuria, Frequency Musculoskeletal: Reports: Extremity Pain - Bilateral ankle and foot pain Skin: Reports: - - 2 cm ulcer on the lateral aspect of left lower leg above the ankle with purulent drainage there. There is another ulcer on the dorsal lateral aspect of the foot and the left heel. Right foot has a calcaneal ulcer and a ulcer in the medial aspect of the dorsum of the right foot. 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 There is soft tissue swelling at the operative site but no evidence for acute osteomyelitis Electronically Signed: Toan Alvarez MD at 17:52 EDT , Service support , Tibia/Fibula X-Ray 11/26/20 16:00 IMPRESSION: Soft tissue swelling of the lateral malleolus without associated fracture. No definitive evidence for acute fracture or osteomyelitis Electronically Signed: Toan Alvarez MD at 17:47 EDT , Service support , Ankle X-Ray 11/26/20 16:03 IMPRESSION: No acute radiographic abnormalities. Heel spur. Electronically Signed: Jose Avendano MD at 17:29 EDT Tel , Service support , Foot X-Ray 11/26/20 16:05 IMPRESSION: No acute fracture or other significant bony pathology Electronically Signed: Toan Alvarez MD at 17:49 EDT , Service support , Ankle X-Ray 11/26/20 17:00 IMPRESSION: Soft tissue swelling of the lateral malleolus and findings suspicious for early changes of acute osteomyelitis however three-phase bone scan or MRI is recommended for more definitive evaluation Electronically Signed: Toan Alvarez MD at 17:46 EDT , Service support , Laboratory Data 11/26/20 11/26/20 16:25 16:25 WBC 12.9 H RBC 3.25 L Hgb 8.6 L Hct 30.1 L MCV 92.6 MCH 26.5 L MCHC 28.6 L RDW Std Deviation 54.6 H RDW Coeff of Charles 16.2 H Plt Count 506 H MPV 10.1 Immature Gran % (Auto) 0.500 Neut % (Auto) 75.1 H Lymph % (Auto) 14.1 L Roane % (Auto) 7.5 Eos % (Auto) 2.4 Baso % (Auto) 0.4 Absolute Neuts (auto) 9.7 H Absolute Lymphs (auto) 1.82 Nucleated RBC % 0 ESR 40 H Sodium 133 L Potassium 6.2 H* Chloride 105 Carbon Dioxide 21.0 Anion Gap 7 BUN 71 H Creatinine 3.16 H Estim Creat Clear Calc 11.69 Est GFR (MDRD) Af Amer 19 L Est GFR (MDRD) Non-Af 15 L BUN/Creatinine Ratio 22.5 H Glucose 168 H Calcium 9.3 Total Bilirubin 0.20 AST 43 H ALT 52 Alkaline Phosphatase 723 H C-React Prot Ext Range 137.00 H Total Protein 7.7 Albumin 2.0 L Globulin 5.7 H Albumin/Globulin Ratio 0.4 L - Medical Decision Making 75-year-old female presenting with lower extremity pain bilaterally as well as new wounds found on her lower legs. Patient does have purulent discharge from a couple of the wounds. Patient is afebrile and vital signs are stable. 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 Patient's daughter expresses concern that she has not been cared for at the [place] [facility]. She states that they do not talk to her. She states that her mother smells of body odor. Patient does have chronic ulcers on her heels and has been wearing padding. Patient's blood work shows a leukocytosis of 12.9. Sed rate and CRP are elevated. Patient's renal function is at baseline. Given patient's allergies I discussed this with the hospitalist and we started meropenem. Patient also does have hyperkalemia. She was given calcium gluconate, sodium bicarb, Carafate. EKG performed shows sinus rhythm without active ischemia interpreted by myself. Patient was discussed with podiatry who will see her in consult. 3 views of the left ankle show likely early osteomyelitis of the lateral malleolus as interpreted by myself. Radiology does agree. Patient's left tib-fib x-ray does show some soft tissue swelling as interpreted by myself and radiology does agree. Left foot x-ray is interpreted by myself shows no acute fracture or abnormality. Radiology does agree. Right foot and right ankle x-rays showed no acute bony abnormalities interpreted by myself and radiology does agree. 1. Left ankle Osteomyelitis 2. Wound infection. ED Disposition - Plan for ED Patient: Disposition: Acute Care Hospital [facility]
--- NOTE | 2020-11-26 15:59 | RAD_ITS ---
STUDY: X-RAY - LEFT FOOT CLINICAL: Female, 75 years old. pain TECHNIQUE: Tree view(s) of the foot. COMPARISON: None. FINDINGS: Normal talus, calcaneus, and tarsal bones. Normal visualized subtalar, talonavicular, calcaneocuboid, tarsal and tarsometatarsal articulations. Postsurgical changes status post amputation of the great toe at the level of the proximal metatarsal. There is soft tissue swelling of the surgical site but no definitive evidence for acute infection. Normal second through fifth metatarsophalangeal joints. Normal interphalangeal joints and phalanges of the lesser toes. . 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 There is soft tissue swelling at the operative site but no evidence for acute osteomyelitis Electronically Signed: Toan Alvarez MD at 17:52 EDT , Service support ,
--- NOTE | 2020-11-26 16:00 | RAD_ITS ---
STUDY: X-RAY - LEFT TIBIA AND FIBULA REASON FOR EXAM: Female, 75 years old. left leg pain TECHNIQUE: 2 view(s) of the tibia and fibula were obtained. COMPARISON: None. FINDINGS: Normal visualized tibia. Normal visualized fibula. Soft tissue swelling of the lateral malleolus.. RAD/Tibia & Fibula 2 Views IMPRESSION: Soft tissue swelling of the lateral malleolus without associated fracture. No definitive evidence for acute fracture or osteomyelitis Electronically Signed: Toan Alvarez MD at 17:47 EDT , Service support ,
--- NOTE | 2020-11-26 16:03 | RAD_ITS ---
INDICATION: pain EXAMINATION/TECHNIQUE: X-RAY - RIGHT XR Ankle Min 3 Views COMPARISON: None. FINDINGS: No acute fracture or malalignment. No blastic or lytic lesions. No degenerative changes are seen. Vascular calcifications. Plantar heel spur. RAD/Ankle min 3 Views IMPRESSION: No acute radiographic abnormalities. Heel spur. Electronically Signed: Jose Avendano MD at 17:29 EDT Tel , Service support ,
--- NOTE | 2020-11-26 16:05 | RAD_ITS ---
STUDY: X-RAY - RIGHT FOOT CLINICAL: Female, 75 years old. PAIN TECHNIQUE: 3 view(s) of the foot. COMPARISON: None. FINDINGS: Normal talus,, and tarsal bones. Small plantar calcaneal spur. Normal visualized subtalar, talonavicular, calcaneocuboid, tarsal and tarsometatarsal articulations. Normal metatarsi. Normal metatarsophalangeal joint of the great toe. Normal tibial and fibular sesamoid bones. Normal interphalangeal joint of the great toe. Normal phalanges of the great toe. Normal second through fifth metatarsophalangeal joints. Normal interphalangeal joints and phalanges of the lesser toes. The soft tissue structures are unremarkable. RAD/Foot min 3 Views IMPRESSION: No acute fracture or other significant bony pathology Electronically Signed: Toan Alvarez MD at 17:49 EDT , Service support ,
[2020-11-26 16:56] LABS: Erythrocyte Sedimentation Rate 40 mm/hr (0-30)
[2020-11-26 16:57] LABS: Absolute Lymphocyte Count 1.82 X10^3/uL (0.83-4.51); Absolute Neutrophil Count 9.7 X10^3/uL (2.0-7.7); Basophil# 0.05 X10^3/uL; Basophil% 0.4 % (0-1); Eosinophil# 0.31 X10^3/uL; Eosinophils% 2.4 % (0-5); Hematocrit 30.1 % (37-47); Hemoglobin 8.6 g/dL (12.0-15.0); Lymphocyte # 1.82 X10^3/ul (0.83-4.51); Lymphocyte % 14.1 % (19-41); Mean Corp Hgb Conc 28.6 g/dL (32-36); Mean Corpuscular Hgb 26.5 pg (27.0-32.0); Mean Corpuscular Volume 92.6 fL (81-99); Mean Platelet Vol. 10.1 fl (6.2-12.0); Monocyte# 0.97 X10^3/uL; Monocyte% 7.5 % (0-10); NRBC Flagged by Analyzer 0 % (0-5); Neutrophil # 9.72 X10^3/uL (2.7-7.7); Neutrophil % 75.1 % (47-70); Platelet Count 506 K/mm3 (150-450); RBC Distribution Width CV 16.2 % (11.6-14.6); RBC Distribution Width SD 54.6 fl (35.1-43.9); Red Blood Count 3.25 M/mm3 (4.2-5.4); White Blood Count 12.9 K/mm3 (4.4-11.0)
--- NOTE | 2020-11-26 17:00 | RAD_ITS ---
STUDY: X-RAY - LEFT ANKLE REASON FOR EXAM: Female, 75 years old. ankle pain TECHNIQUE: 3 view(s) of the ankle. COMPARISON: None. FINDINGS: Normal visualized distal tibia. . Normal tibiotalar articulation and ankle mortise. Normal visualized talus and calcaneus. The visualized subtalar, talonavicular, calcaneocuboid and tarsal articulations are normal. There is ulceration of the soft tissues of the lateral malleolus. There is subchondral lucency mild cortical irregularity of the distal fibula and possibility of early changes of osteomyelitis not excluded. RAD/Ankle min 3 Views IMPRESSION: Soft tissue swelling of the lateral malleolus and findings suspicious for early changes of acute osteomyelitis however three-phase bone scan or MRI is recommended for more definitive evaluation Electronically Signed: Toan Alvarez MD at 17:46 EDT , Service support ,
[2020-11-26 17:36] LABS: ALB/GLOB Ratio 0.4 RATIO (0.9-2.4); AST(SGOT) 43 U/L (15-37); Alanine Aminotransfer ALT/SGPT 52 U/L (13-56); Alkaline Phosphatase 723 U/L (45-117); Anion Gap 7 (5-15); BUN 71 mg/dL (7-18); BUN/Creat Ratio 22.5 RATIO (10-20); Calcium,Total 9.3 mg/dL (8.5-10.1); Chloride 105 mmol/L (98-107); Creatinine, Serum 3.16 mg/dL (0.55-1.02); EST Glomerular Filtration Rate 15 mL/min (>60); Est Glom Filt Rate - Afr Amer 19 mL/min (>60); Estimated Creatinine Clearance 11.69 ml/min; Globulin 5.7 g/dL (2.2-4.2); Glucose 168 mg/dL (74-106); Potassium 6.2 mmol/L (3.5-5.1); Protein, Total 7.7 g/dL (6.4-8.2); Sodium Level 133 mmol/L (136-145)
--- NOTE | 2020-11-26 17:39 | EKG12_ITS ---
Test Reason : MARIAH Blood Pressure : / mmHG Vent. Rate : 090 BPM Atrial Rate : 090 BPM P-R Int : 174 ms QRS Dur : 082 ms QT Int : 336 ms P-R-T Axes : 072 064 074 degrees QTc Int : 411 ms Normal sinus rhythm Nonspecific ST abnormality Abnormal ECG Confirmed by KLAUS JAVED, SUSSY ([id number]), commercial production editor KEVIN ROSADO ([id number]) on 11/28/2020 8:12:38 AM Referred By: WOUND Confirmed By:XIOMY ENRIQUE MD
[2020-11-26] MEDS: Ondansetron 4 MG/2 ML Vial IV (18:11)
[2020-11-26] MEDS: Morphine 4 MG/ML Syringe IV (18:12)
--- NOTE | 2020-11-26 18:23 | ED.RN ---
spoke with Neela at [facility] regarding pt.
--- NOTE | 2020-11-26 18:27 | PCM.HP.STD ---
History of Present Illness Date of Admission: 11/26/20 Chief Complaint: lower extremity wounds The patient is a 75 year old F with a PMH as outlined who was admitted with chronic wounds on her heels and LEs.She went to the wound care clinic today and, was told she had a new wound on the left lateral leg; she also had worsening pain in her right foot than her left. THe wounds were purulent. She denied any fever or chills. Vitals were stable. CBC showed Hb of 8.6, and previous Hb from [facility], per ED doctor, on 08/28/2020 was 7. Previous Cr was 2.98 per [facility]; potassium was 6.2 and Cr was 3.16. Wbc was 12.9. She has not been following up with a business office technician for a while. Review of systems is otherwise negative. Xray of the left foot showed soft tissue swelling of hte lateral malleolus without associated fracture and no definitive evidence of acute fracture or osteomyelitis. X-ray of the ankle showed soft tissue swelling of the lateral malleolus and findings suspicious for early changes of acute osteomyelitis. she is allergic to a lot of antibiotics, so was started on IV vancomycin and meropenem. She is being admitted to be managed for hyperkalemia, AIDA on CKD and infected lower extremity ulcers. Past Medical History Allergies clindamycin Allergy (Verified 11/26/20 15:30) PT UNSURE OF REACTION diphenhydramine [From Benadryl] Allergy (Verified 11/26/20 15:30) PT UNSURE OF REACTION doxycycline Allergy (Verified 11/26/20 15:30) PT UNSURE OF REACTION erythromycin base Allergy (Verified 11/26/20 15:30) PT UNSURE OF REACTION levofloxacin [From Levaquin] Allergy (Verified 11/26/20 15:30) PT UNSURE OF REACTION metformin Allergy (Verified 11/26/20 15:30) PT UNSURE OF REACTION Penicillins [PCN] Allergy (Verified 11/26/20 15:30) PT UNSURE OF REACTION Sulfa (Sulfonamide Antibiotics) Allergy (Verified 11/26/20 15:30) PT UNSURE OF REACTION Home Medications: Ambulatory Orders Medication Instructions Recorded Acetaminophen [Tylenol] 650 mg PO Q4H PRN 11/26/20 Amlodipine [Norvasc] 5 mg PO DAILY 11/26/20 Arginine/Ascorbate Sod/Rose [place] AC 1 each PO BID 11/26/20 [Arginaid Powder] Collagenase [Santyl] 1 applic TOPICAL DAILY 11/26/20 Ferrous Sulfate 325 mg PO DAILY 11/26/20 Furosemide [Lasix] 20 mg PO DAILY 11/26/20 Hydrocodone Bitart/Apap 5-325 1 tablet PO Q6H PRN PRN 11/26/20 [[place] 5MG-325MG] Hydrocodone Bitart/Apap 5-325 2 tablet PO Q6H PRN PRN 11/26/20 [[place] 5MG-325MG] Hydroxyzine HCl 25 mg PO Q6H PRN 11/26/20 Insulin Lispro [Humalog KwikPen] See Protocol SQ TIDCM 11/26/20 Lidocaine [Lidocaine 5%] 1 applic TOPICAL MOWEFR 11/26/20 Mineral Oil/Petrolatum,White 1 applic TOPICAL BID 11/26/20 [Eucerin] Mirtazapine [Remeron] 15 mg PO QHS 11/26/20 Psychiatric History: No pertinent psych hx Lives: Half-Way Smoking Status: Unknown if ever smoked Alcohol: None Drugs: None - *Family History Maternal History Items: No pertinent history Review of Systems Constitutional: Denies: Chills, Fever, Malaise, Weakness, Weight Change Eyes: Denies: Blurred vision HEENT: Denies: Head Aches, Sinus Congestion, Sinus Drainage Cardiovascular: Denies: Chest Pain, Heaviness, Light Headedness, Palpitations Respiratory: Denies: Cough, Shortness of Breath, Shortness of breath at rest, Shortness of breath upon exertion, Sputum production Gastrointestinal: Denies: Abdominal Pain, Nausea, Vomiting Genitourinary: Denies: Dysuria Musculoskeletal: Denies: Joint Pain, Joint Tenderness Skin: Reports: Skin Changes, Wounds Neurological: Denies: Numbness, Tingling, Focal weakness Psychiatric: Denies: Anxiety, Depression, Homicidal Ideations, Suicidal Ideations Hematologic/ Lymphatic: Denies: Easy Bruising, Easy Bleeding VTE Information - Inpt Only VTE Present on Admission: No VTE Pharm Prophylaxis ordered?: Yes - Physical Exam Vitals/I&O's: Vital Signs Temp Pulse Resp BP Pulse Ox 97.9 F 88 16 110/43 L 98 11/26/20 15:23 11/26/20 15:23 11/26/20 15:23 11/26/20 18:19 11/26/20 18:19 Oxygen Delivery Method Room Air Weight: 102 lb 15.294 oz Body Mass Index (BMI) 16.1 General: Alert, Oriented x3, Cooperative, No apparent distress HEENT: Atraumatic, PERRLA, EOMI, Normocephalic Oral: Dry Mucosa Neck: Supple, No JVD, Negative Carotid Bruits Lungs: Clear to auscultation, Normal air movement, No rhonchi, No wheeze, No rales Cardiovascular: Regular rate, Regular Rhythm, Normal S1, Normal S2, No murmurs Abdomen: Bowel Sounds Present, Soft, Non Tender, Non-Distended, No Hepato-splenomegaly Extremities: No edema, Capillary Refill Less than 3 Seconds Skin: - - has numerous dressings over ulcers on her LEs, on the shins and heels. Musculoskeletal: No Tenderness to Palpation of Joints or Extremities Lymphatic: No Cervical, Supraclavicular, or Inguinal Adenopathy Neurological: Cranial nerves II-XII grossly intact, Neuro grossly intact, Motor Exam 5/5 strength throughout Psych/Mental Status: Normal Affect, Appropriate, Alert and oriented to time, place, person, mood and affect Laboratory Results 11/26/20 16:25: WBC 12.9 H, RBC 3.25 L, Hgb 8.6 L, Hct 30.1 L, MCV 92.6, MCH 26.5 L, MCHC 28.6 L, RDW Std Deviation 54.6 H, RDW Coeff of Charles 16.2 H, Plt Count 506 H, MPV 10.1, Immature Gran % (Auto) 0.500, Neut % (Auto) 75.1 H, Lymph % (Auto) 14.1 L, [place] % (Auto) 7.5, Eos % (Auto) 2.4, Baso % (Auto) 0.4, Absolute Neuts (auto) 9.7 H, Absolute Lymphs (auto) 1.82, Nucleated RBC % 0, ESR 40 H 11/26/20 16:25: Sodium 133 L, Potassium 6.2 H*, Chloride 105, Carbon Dioxide 21.0, Anion Gap 7, BUN 71 H, Creatinine 3.16 H, Estim Creat Clear Calc 11.69, Est GFR (MDRD) Af Amer 19 L, Est GFR (MDRD) Non-Af 15 L, BUN/Creatinine Ratio 22.5 H, Glucose 168 H, Calcium 9.3, Total Bilirubin 0.20, AST 43 H, ALT 52, Alkaline Phosphatase 723 H, C-React Prot Ext Range 137.00 H, Total Protein 7.7, Albumin 2.0 L, Globulin 5.7 H, Albumin/Globulin Ratio 0.4 L Diagnostic Data Tibia/Fibula X-Ray 11/26/20 16:00 IMPRESSION: Soft tissue swelling of the lateral malleolus without associated fracture. No definitive evidence for acute fracture or osteomyelitis Electronically Signed: Toan Alvarez MD at 17:47 EDT , Service support , Foot X-Ray 11/26/20 16:05 IMPRESSION: No acute fracture or other significant bony pathology Electronically Signed: Toan Alvarez MD at 17:49 EDT , Service support , Ankle X-Ray 11/26/20 17:00 IMPRESSION: Soft tissue swelling of the lateral malleolus and findings suspicious for early changes of acute osteomyelitis however three-phase bone scan or MRI is recommended for more definitive evaluation Electronically Signed: Toan Alvarez MD at 17:46 EDT , Service support , Assessment/Plan 75 y/o admitted with a complaint of worsening wounds on her LEs #Acute on chronic LE ulcerations, with probable osteomyelitis of the left ankle Admit to [facility]. Consult ID and podiatry patient allergic to so many antibiotics. Started on IV vancomycin and meropenem Get MRI of the left lower extremity tomorrow Consult wound care Get blood cultures and wound cultures PT OT consult. Fall precautions CRP is elevated as well as ESR. WBC is also 12.9. #Hyperkalemia: Potassium is 6.2. Given potassium depleting cocktail in the ED. Will give Kayexalate and monitor. #AIDA on CKD stage III Creatinine is 3.16. From [facility], previous creatinine was a little over 2. This will be CKD stage IIIb. Hydrate with IV fluids and trend. If creatinine does not improve, will get renal ultrasound unremarkable for work-up of AIDA. #Anemia: Hb is 8.6. This appears to be chronic as previous Hb was also low, from [facility], according to ED doctor. Will check iron panel and ferritin. On oral iron supplementation #Type 2 diabetes mellitus: Insulin sliding scale. Accu-Cheks AC at bedtime. #Depression: On Remeron #DVT prophylaxis: Lovenox renally dosed #CODE STATUS: Full code Patient has paperwork from the senior living stating that she was DNR CC. Patient and daughter denied knowledge of the signed DNR CC paperwork and daughter said she had told the senior living before that her mother was full code. I clarified this with patient was alert and oriented and clearly stated that she wanted to be intubated and have CPR if needed. CODE STATUS is therefore full code. Inpatient E&M: 20169 Init Hosp L3 Procedures: 39525 Advncd Care Plan 30 Min
[2020-11-26] MEDS: Sodium Bicarbonate 8.4% 50 ML Syringe 50 MEQ IV (18:37)
[2020-11-26] MEDS: Calcium Gluconate 1 GM/10 ML Vial IV (18:37)
[2020-11-26] MEDS: Sodium Polystyrene Sulfonate 15 GM/60 ML UDC PO (18:38)
--- NOTE | 2020-11-26 18:52 | ED.RN ---
pt arrived from [facility] with a DNRCC. pt's daughter told dr. woodard that the pt is a full code that the dnrcc is not valid.
--- NOTE | 2020-11-26 20:30 | US_ITS ---
STUDY: RENAL ULTRASOUND - COMPLETE REASON FOR EXAM: Female, 75 years old. AIDA on CKD TECHNIQUE: Ultrasound evaluation of the kidneys was performed with real-time and static bernard-scale imaging. COMPARISON: None. FINDINGS: RIGHT KIDNEY: Normal location of the right kidney, which is normal in size. The right kidney measures 12.9 x 5.4 x 4.8 cm. There is a normal cortex of the right kidney. The renal cortex measures 2.3 cm. There are multiple cysts the largest measuring 6.4 x 4.3 x 3.5 cm There are no right renal calculi. There is no right hydronephrosis. Diffusely increased cortical echoes are seen DISTAL RIGHT URETER: There is non-visualization of the distal right ureter. There is no demonstrated right ureterovesical junction calculus. There is a visualized right ureteral jet. LEFT KIDNEY: Normal location of the left kidney, which is normal in size. The left kidney measures 9.7 x 5.3 x 4 cm. There is a normal cortex of the left kidney. The renal cortex measures 1.8 cm. There is no left renal mass or cyst. There are no left renal calculi. There is mild hydronephrosis. Diffusely increased cortical echoes are noted DISTAL LEFT URETER: There is non-visualization of the distal left ureter. There is no demonstrated left ureterovesical junction calculus. There is a visualized left ureteral jet. BLADDER: Empty bladder is noted containing NICOLE catheter. US/Kidney and Bladder IMPRESSION: Findings consistent with nonspecific renal parenchymal disease. Multiple right renal cysts. Left renal pelvocaliectasis of uncertain etiology. CT would be helpful for further evaluation Electronically Signed: Toan Alvarez MD at 21:52 EDT , Service support ,
--- NOTE | 2020-11-26 20:35 | PCM.RX.CS ---
Consult Pharmacy has been consulted to manage selected antiobiotic: Vancomycin Type of Consult: New start Suspected Infection: Skin/Soft tissue Labs: Sodium 133 mmol/L (136-145) L 11/26/20 16:25 Potassium 6.2 mmol/L (3.5-5.1) H* 11/26/20 16:25 Chloride 105 mmol/L (98-107) 11/26/20 16:25 Carbon Dioxide 21.0 mmol/L (21.0-32.0) 11/26/20 16:25 Anion Gap 7 (5-15) 11/26/20 16:25 BUN 71 mg/dL (7-18) H 11/26/20 16:25 Creatinine 3.16 mg/dL (0.55-1.02) H 11/26/20 16:25 Est GFR (MDRD) Af Amer 19 mL/min (>60) L 11/26/20 16:25 Est GFR (MDRD) Non-Af 15 mL/min (>60) L 11/26/20 16:25 BUN/Creatinine Ratio 22.5 RATIO (10-20) H 11/26/20 16:25 Glucose 168 mg/dL (74-106) H 11/26/20 16:25 Goal Trough: 15-20 mcg/mL Pharmacy Plan for Drug Dosing: NEW START IV VANCOMYCIN Consulting Physician: Dr. Spaulding Indication: SSTI/ wound infection Goal Trough: 15-20 SrCr: 3.16 (baseline ~2 per H/P) CrCl: 11 mL/min Comments: Initial dose of 750mg IV x1 ordered Vancomcyin Dose: HOLD- Due to CrCl <20mL/min, will dose based on random levels until CrCl stabilizes Pending Level: *Random* level 11/28/20 with AM labs. Pharmacy Service will continue to monitor and adjust dosing as required.
[2020-11-26 21:00] LABS: Hemoglobin A1c 6.7 % (3.8-5.6)
[2020-11-26] MEDS: Morphine 2 MG/ML Syringe IV (21:15)
[2020-11-26] MEDS: Insulin Lispro 100 UNIT/ML INSULN.PEN SC (22:53)
[2020-11-26] MEDS: Mirtazapine 15 MG Tablet PO (22:53)
[2020-11-26] MEDS: 0.9% Normal Saline 1,000 ML 125 ML IV (22:53)
[2020-11-26 23:05] LABS: Bedside Glucose 158 mg/dL (70-110)
[2020-11-26 23:34] LABS: Anion Gap 7 (5-15); BUN 69 mg/dL (7-18); BUN/Creat Ratio 22.4 RATIO (10-20); Chloride 109 mmol/L (98-107); Creatinine, Serum 3.08 mg/dL (0.55-1.02); EST Glomerular Filtration Rate 16 mL/min (>60); Est Glom Filt Rate - Afr Amer 19 mL/min (>60); Estimated Creatinine Clearance 15.54 ml/min; Glucose 164 mg/dL (74-106); Potassium 5.9 mmol/L (3.5-5.1); Sodium Level 137 mmol/L (136-145)
[2020-11-27] VITALS (20 sets, daily range): BP systolic 101–153; BP diastolic 44–63; PULSE 64–100; RESP 16–18; TEMP 36.5–37; O2SAT 93–99; BMI 20.9
[2020-11-27 00:10] LABS: M R Staph aureus DNA By PCR Negative (Negative); Probe Check PASS; Specimen Processing Control PASS; Staph aureus DNA By PCR POSITIVE (Negative)
[2020-11-27] MEDS: HYDROcodone Bitartrate/Apap 5/325 Tablet PO ×2 (03:57→13:47)
[2020-11-27 06:35] LABS: Bedside Glucose 128 mg/dL (70-110)
[2020-11-27 07:08] LABS: Absolute Lymphocyte Count 1.04 X10^3/uL (0.83-4.51); Absolute Neutrophil Count 7.4 X10^3/uL (2.0-7.7); Basophil# 0.04 X10^3/uL; Basophil% 0.4 % (0-1); Differential Indicated SCAN CRITERIA MET; Eosinophil# 0.24 X10^3/uL; Eosinophils% 2.5 % (0-5); Hematocrit 22.2 % (37-47); Hemoglobin 6.3 g/dL (12.0-15.0); Lymphocyte # 1.04 X10^3/ul (0.83-4.51); Lymphocyte % 10.9 % (19-41); Mean Corp Hgb Conc 28.4 g/dL (32-36); Mean Corpuscular Hgb 26.5 pg (27.0-32.0); Mean Corpuscular Volume 93.3 fL (81-99); Mean Platelet Vol. 10.5 fl (6.2-12.0); Monocyte# 0.75 X10^3/uL; Monocyte% 7.9 % (0-10); NRBC Flagged by Analyzer 0 % (0-5); Neutrophil # 7.43 X10^3/uL (2.7-7.7); POSITIVE COUNT YES; Platelet Count 308 K/mm3 (150-450); RBC Distribution Width CV 16.2 % (11.6-14.6); Red Blood Count 2.38 M/mm3 (4.2-5.4); White Blood Count 9.5 K/mm3 (4.4-11.0)
[2020-11-27 07:25] LABS: Anion Gap 7 (5-15); BUN 65 mg/dL (7-18); BUN/Creat Ratio 23.1 RATIO (10-20); Calcium,Total 8.3 mg/dL (8.5-10.1); Chloride 114 mmol/L (98-107); Creatinine, Serum 2.81 mg/dL (0.55-1.02); EST Glomerular Filtration Rate 18 mL/min (>60); Est Glom Filt Rate - Afr Amer 21 mL/min (>60); Estimated Creatinine Clearance 17.03 ml/min; Glucose 139 mg/dL (74-106); Potassium 5.8 mmol/L (3.5-5.1); Sodium Level 137 mmol/L (136-145)
--- NOTE | 2020-11-27 07:34 | ADU_ITS ---
Reason For Study: ulcers Right Velocities Left Velocities Ext. Iliac Artery, dist = 129.0 cm./sec. Ext Iliac Artery, dist = 169.8 cm./sec. Common Femoral Artery, mid = 116.1 cm./sec. Common Femoral Artery, mid = 180.2 cm./sec. Supf Femoral Artery, prox = 148.3 cm./sec. No flow could be demonstrated in the proximal and Supf Femoral Artery, mid = 165.8 cm./sec. mid SFA. Supf Femoral Artery, dist. = 106.6 cm./sec. Mid/dist SFA flow is noted with a velocity of 46.8 Profunda Femoral Artery = 137.4 cm./sec. cm/s. Popliteal Artery, prox. = 128.6 cm./sec. Supf. Femoral Artery, dist = 103.9 cm./sec. Popliteal Artery, mid = 124.2 cm./sec. Profunda Femoral Artery = 200.9 cm./sec. Popliteal Artery, dist = 68.7 cm./sec. Popliteal Artery, proximal, = 53.6 cm./sec. Post. Tibial Artery, prox = 40.2 cm./sec. Popliteal Artery, mid = 72.0 cm./sec. Post. Tibial Artery, mid = 56.7 cm./sec. Popliteal Artery, distal = 47.4 cm./sec. Post. Tibial Artery, dist = 43.5 cm./sec. Post. Tibial Artery, prox = 41.3 cm./sec. Peroneal Artery, prox = 68.8 cm./sec. Post Tibial Artery, mid = 43.7 cm./sec. Peroneal Artery, mid = 75.4 cm./sec. Post Tibial Artery, dist. = 35.1 cm./sec. Peroneal Artery,dist = 81.8 cm./sec. Peroneal Artery, prox = 54.8 cm./sec. Ant. Tibial Artery, prox = 58.5 cm./sec. Peroneal Artery, mid = 52.3 cm./sec. Ant. Tibial Artery, mid = 52.3 cm./sec. Peroneal Artery,dist. = 53.6 cm./sec. Ant. Tibial Artery, dist = 45.0 cm./sec. Ant.Tibial Artery, prox = 59.7 cm./sec. Ant Tibial Artery, mid = 58.5 cm./sec. Ant. Tibial Artery, distal = 72.0 cm./sec. Procedure The exam was diagnostic. Exam performed portable in patient room. VL/US Art Duplex Bilat Lower Ext Interpretation Summary Arterial flow appears normal at all levels in the right lower extremity. There appears to be a mild stenosis in the proximal right popliteal artery, which does not appear hemodyna mically significant. No flow is demonstrated in the left proximal and mid-superficial femoral artery , suggesting total occlusion. The remainder of the left lower extremity arterial tree appears to b e segmentally patent without evidence of flow-limiting stenosis. Ordering Physician: Toan Garcia Performed By: Aakash Lr, RVT
--- NOTE | 2020-11-27 07:34 | ART_ITS ---
Reason For Study: ulcer Procedure A bilateral lower extremity continuous wave Doppler with analog waveform analysis and ankle brachial indexes. Left Segmental Pressures The left dorsalis pedis waveforms are biphasic. DP is noncompressible. Right Segmental Pressures Right brachial= 131mmHg. Right posterior tibial artery = 141mmHg. The right dorsalis pedis waveforms are biphasic. The right posterior tibial artery waveforms are biphasic. DP is noncompressible. Indices The right ankle brachial index by the posterior tibial artery is 1.08. DP is noncompressible. DP is noncompressible. Unable to obtain PT due to pt positioning and contractures. VL/Ankle Brachial Index Interpretation Summary Biphasic Doppler waveforms are noted at ankle level bilaterally. Pulse-volume r ecording waveform amplitudes are diminished at digital level on the left, but satisfactory at dig ital level on the right, and at ankle level bilaterally. The resting right ankle-brachial index i s normal. The resting left ankle brachial index could not be determined due to the non-compressibilit y of the vasculature. There is evidence of arterial calcification at ankle level bilaterally. Arteria l flow appears normal at ankle level on the right. However, arterial calcification can artifactually elevate arterial indices and mask the presence of arterial occlusive disease. In this regard, cl inical correlation is advised. Toe pressures could not be obtained bilaterally. Arterial flow at ankl e level on the left can not be assessed due to the non-compressibility of the vasculature. A relati vely normal pulse- volume recording at digital level on the right suggests relatively normal flow. The diminished pulse-volume recording waveform amplitude at digital level on the left suggests the presence of occlusive disease, though quantitation is uncertain. Ordering Physician: Toan Murray Referring Physician: NATALIA MURRAY Performed By: MAHOGANY CHERRY T
--- NOTE | 2020-11-27 07:36 | CON.PCM_ITS ---
Reason for Consult Date of Consultation: 11/27/20 Reason for Consultation: Foot/ankle ulcers History of Present Illness: The patient is a 75 year old female with many medical problems who was admitted for lower extremity ulceration infection from ER last night. Patient was at nursing facility and was brought to the ER due to infected ulcerations. It was noted patient's WBC was elevated at 12.9, wounds with oder and purulence. Patient also noted with elevated potassium and also creatinine. There was noted to be evidence of possible osteomyelitis to the left lateral malleolus with on evidence of gas on xrays to the right and left foot and ankle xrays. Also patient has a sacrum ulceration. Patient has been started on IV antibiotics - vancomycin and meropenem. I was not able to obtain any history from patient as she appears confused. Patient is afebrile, WBC is normal this morning. History was obtained from chart, nursing staff and physicians following patient. Past Medical History Allergies clindamycin Allergy (Verified 11/26/20 15:30) PT UNSURE OF REACTION diphenhydramine [From Benadryl] Allergy (Verified 11/26/20 15:30) PT UNSURE OF REACTION doxycycline Allergy (Verified 11/26/20 15:30) PT UNSURE OF REACTION erythromycin base Allergy (Verified 11/26/20 15:30) PT UNSURE OF REACTION levofloxacin [From Levaquin] Allergy (Verified 11/26/20 15:30) PT UNSURE OF REACTION metformin Allergy (Verified 11/26/20 15:30) PT UNSURE OF REACTION Penicillins [PCN] Allergy (Verified 11/26/20 15:30) PT UNSURE OF REACTION Sulfa (Sulfonamide Antibiotics) Allergy (Verified 11/26/20 15:30) PT UNSURE OF REACTION Home Medications: Ambulatory Orders Medication Instructions Recorded Acetaminophen [Tylenol] 650 mg PO Q4H PRN 11/26/20 Amlodipine [Norvasc] 5 mg PO DAILY 11/26/20 Arginine/Ascorbate Sod/Rose Marie AC 1 each PO BID 11/26/20 [Arginaid Powder] Collagenase [Santyl] 1 applic TOPICAL DAILY 11/26/20 Ferrous Sulfate 325 mg PO DAILY 11/26/20 Furosemide [Lasix] 20 mg PO DAILY 11/26/20 Hydrocodone Bitart/Apap 5-325 1 tablet PO Q6H PRN PRN 11/26/20 [[place] 5MG-325MG] Hydrocodone Bitart/Apap 5-325 2 tablet PO Q6H PRN PRN 11/26/20 [[place] 5MG-325MG] Hydroxyzine HCl 25 mg PO Q6H PRN 11/26/20 Insulin Lispro [Humalog KwikPen] See Protocol SQ TIDCM 11/26/20 Lidocaine [Lidocaine 5%] 1 applic TOPICAL MOWEFR 11/26/20 Mineral Oil/Petrolatum,White 1 applic TOPICAL BID 11/26/20 [Eucerin] Mirtazapine [Remeron] 15 mg PO QHS 11/26/20 Psychiatric History: No pertinent psych hx Lives: Care Home Smoking Status: Former smoker Tobacco Use: Cigarettes Alcohol: None Drugs: None - *Family History Maternal History Items: No pertinent history Review of Systems Constitutional: Denies: Fever Skin: Reports: Wounds - Physical Exam Vitals/I&O's: Vital Signs Temp Pulse Resp BP Pulse Ox 98.5 F 79 16 138/47 H 97 11/27/20 02:30 11/27/20 05:46 11/27/20 02:30 11/27/20 02:30 11/27/20 02:30 Oxygen Delivery Method Room Air Weight: 60.5 kg Body Mass Index (BMI) 20.9 Intake and Output for Last 24 Hours 11/25/20 11/26/20 11/27/20 23:59 23:59 23:59 Intake Total 895.42 / 895.42 Output Total 800 / 800 Balance 895.42 / 445.42 -800 / -800 General: Confused Extremities: Capillary Refill Less than 3 Seconds, Diminished Peripheral Pulses - to the foot and ankle bilateral with no evidence of acute ischemia., - - Patient has pain to the ulcerations bilateral foot/ankle/leg. Skin: Ulcer/ Wound - Right heel ulceration posterior aspect with fibronecrotic tissue base, soupy appearance and maloder concern for osteomyelitis due to proximity of bone, there is localized edema and some erythema to the edges. Left heel and lateral ankle: there is fibrogranular bases with soupy appearance., - - There is localized erythema and edema around ulcerations left foot/ankle there is concern for osteomyelitis. There is maloder to the ulcerations. There is no visible abscess or crepitus to the foot/ankle/leg bilateral. Laboratory Results 11/26/20 16:25: WBC 12.9 H, RBC 3.25 L, Hgb 8.6 L, Hct 30.1 L, MCV 92.6, MCH 26.5 L, MCHC 28.6 L, RDW Std Deviation 54.6 H, RDW Coeff of Charles 16.2 H, Plt Count 506 H, MPV 10.1, Immature Gran % (Auto) 0.500, Neut % (Auto) 75.1 H, Lymph % (Auto) 14.1 L, [place] % (Auto) 7.5, Eos % (Auto) 2.4, Baso % (Auto) 0.4, Absolute Neuts (auto) 9.7 H, Absolute Lymphs (auto) 1.82, Nucleated RBC % 0, ESR 40 H 11/26/20 16:25: Sodium 133 L, Potassium 6.2 H*, Chloride 105, Carbon Dioxide 21.0, Anion Gap 7, BUN 71 H, Creatinine 3.16 H, Estim Creat Clear Calc 11.69, Est GFR (MDRD) Af Amer 19 L, Est GFR (MDRD) Non-Af 15 L, BUN/Creatinine Ratio 22.5 H, Glucose 168 H, Calcium 9.3, Total Bilirubin 0.20, AST 43 H, ALT 52, Alkaline Phosphatase 723 H, C-React Prot Ext Range 137.00 H, Total Protein 7.7, Albumin 2.0 L, Globulin 5.7 H, Albumin/Globulin Ratio 0.4 L 11/26/20 16:25: Hemoglobin A1c 6.7 H 11/26/20 22:25: S.aureus Protein A PCR POSITIVE H, MRSA (PCR) Negative 11/26/20 22:30: Sodium 137, Potassium 5.9 H, Chloride 109 H, Carbon Dioxide 21.0, Anion Gap 7, BUN 69 H, Creatinine 3.08 H, Estim Creat Clear Calc 15.54, Est GFR (MDRD) Af Amer 19 L, Est GFR (MDRD) Non-Af 16 L, BUN/Creatinine Ratio 22.4 H, Glucose 164 H, Calcium 9.0 11/26/20 22:51: POC Glucose 158 H 11/27/20 06:25: Sodium 137, Potassium 5.8 H, Chloride 114 H, Carbon Dioxide 16.0 L, Anion Gap 7, BUN 65 H, Creatinine 2.81 H, Estim Creat Clear Calc 17.03, Est GFR (MDRD) Af Amer 21 L, Est GFR (MDRD) Non-Af 18 L, BUN/Creatinine Ratio 23.1 H , Glucose 139 H, Calcium 8.3 L 11/27/20 06:25: WBC 9.5, RBC 2.38 L, Hgb 6.3 L, Hct 22.2 L, MCV 93.3, MCH 26.5 L , MCHC 28.4 L, RDW Std Deviation 56.0 H, RDW Coeff of Charles 16.2 H, Plt Count 308, MPV 10.5, Immature Gran % (Auto) 0.300, Neut % (Auto) 78.0 H, Lymph % (Auto) 10.9 L, [place] % (Auto) 7.9, Eos % (Auto) 2.5, Baso % (Auto) 0.4, Absolute Neuts (auto) 7.4, Absolute Lymphs (auto) 1.04, Nucleated RBC % 0 11/27/20 06:29: POC Glucose 128 H Current Medications Acetaminophen (Acetaminophen 325 Mg Tablet) 650 mg PO Q4H PRN PRN Reason: Pain 1-10 or Fever Hydrocodone Bitart/Acetaminophen (Hydrocodone Bitartrate/Apap 5/325 Tablet) 2 tablet PO Q6H PRN PRN PRN Reason: Pain Score 1-10 Last Admin: 11/27/20 03:57 Dose: 2 tablet Documented by: Amlodipine Besylate (Amlodipine 5 Mg Tablet) 5 mg PO DAILY [facility] Collagenase (Collagenase 30gm Tube) 1 applic TOPICAL DAILY [facility]; Protocol Enoxaparin Sodium (Enoxaparin 30 Mg/0.3 Ml Syringe) 30 mg SC DAILY [facility] Ferrous Sulfate (F[facility]ous S[facility]ate 325 Mg Tablet) [facility] Furosemide (Furosemide 20 Mg Tablet) 20 mg PO DAILY [facility] Hydroxyzine Pamoate (Hydroxyzine Tiki 25 Mg Capsule) 25 mg PO Q6H PRN PRN Reason: ITCHING Sodium Chloride () 1,000 mls @ 125 mls/hr IV .Q8H [facility] Stop: 11/27/20 12:16 Last Infusion: 11/26/20 23:57 Dose: 125 mls/hr Documented by: Meropenem 1 gm/ Sodium (Chloride) 120 mls @ 33 mls/hr IV Q12 [facility] Vancomycin IV Pharmacy to Dose (1 each/ Sodium Chloride) 500 mls @ 250 mls/hr IV PRN PRN; Protocol PRN Reason: Rx to Dose Insulin Human Lispro (Insulin Lispro 100 Unit/Ml Insuln.Pen) 0 unit SC ACHS [facility]; Protocol Last Admin: 11/27/20 06:30 Dose: Not Given Documented by: Mirtazapine (Mirtazapine 15 Mg Tablet) 15 mg PO QHS [facility] Last Admin: 11/26/20 22:53 Dose: 15 mg Documented by: Morphine Sulfate (Morphine 2 Mg/Ml Syringe) 2 mg IV Q3H PRN PRN PRN Reason: Pain Score 6-10 Last Admin: 11/26/20 21:15 Dose: 2 mg Documented by: Ondansetron HCl (Ondansetron 4 Mg/2 Ml Vial) 4 mg IV Q8H PRN PRN PRN Reason: NAUSEA/VOMITING Sodium Chloride (0.9% Saline Lock 10 Ml Syringe) 10 - 40 ml IV UD PRN PRN Reason: SALINE FLUSH Assessment/Plan Right heel ulceration down to bone with likely osteomyelitis Left heel ulceration down to bone with likely osteomyelitis Left lateral distal leg/ankle ulceration with concern for osteomyelitis Diabetes Peripheral vascular disease Reviewed diagnostic data. Reviewed right and left foot/ankle xrays as well as left tib/fib xrays. Given the clinical findings there is concern for right and left heel osteomyelitis as well as left lateral ankle/fibular osteomyelitis. The wounds are necrotic. Recommend MRIs for further evaluation. A culture has been obtained the right heel, also cultures of the left heel and left lateral ankle/leg obtained and sent to microbiology. Patient is currently on IV antibiotics - Vancomycin and Meropenem. ID/Dr. Pantoja has been consulted. Noninvasive lower extremity arterial studies have been ordered for further evaluation of arterial flow to lower extremities. Wound care right heel, left heel, and left lateral ankle/leg: cleanse with dakin's solution, apply betadine to help dry wounds, cover with gauze and kerlix dressings - change BID. Keep offloaded at all times. We are considering OR debridement of these ulcerations will discuss with medicine team. Podiatry will continue to follow, thank you for consult.
[2020-11-27] MEDS: 0.9% Normal Saline 1,000 ML 125 ML IV (08:14)
--- NOTE | 2020-11-27 08:23 | PN_ITS ---
Patient Problems: Active and Suspected Problems Wound infection (Acute) Reason for Visit: Follow-up for bilateral heel and sacral ulcer most probably osteomyelitis. Patient has acute kidney injury on CKD stage IIIb Objective: Patient denies any chest pain or shortness of breath. Kidney failure nonolig uric. Denies any recent change in the urine output Bilateral heel ulcer. Physical exam General: Alert, Oriented x3, Cooperative HEENT: Atraumatic, PERRLA, EOMI, Normocephalic Oral: No Gingival or Mucosal Lesions/ Ulcerations Neck: Supple, No JVD, Negative Carotid Bruits Lungs: Air entry diminished in bilateral lung bases. No crepitation/rhonchi Cardiovascular: Regular rate, Regular Rhythm, Normal S1, Normal S2, No murmurs Abdomen: Bowel Sounds Present, Soft, Non Tender, Non-Distended : No renal angle tenderness. No suprapubic tenderness. Extremities: No edema, Capillary Refill Less than 3 Seconds Skin: Wound photo reviewed. Stump of right heel with yellowish discharge/debris and necrosis. 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 Unstagable Musculoskeletal: No Tenderness to Palpation of Joints or Extremities Neurological: Cranial nerves II-XII grossly intact, Deep Tendon Reflexes 2+/4 and Symmetrical, Neuro grossly intact Psych/Mental Status: Normal Affect, Appropriate. Vitals/I&O's: Vital Signs Temp Pulse Resp BP Pulse Ox 98.5 F 79 16 138/47 H 97 11/27/20 02:30 11/27/20 05:46 11/27/20 02:30 11/27/20 02:30 11/27/20 02:30 Oxygen Delivery Method Room Air Weight: 133 lb 6.075 oz Body Mass Index (BMI) 20.9 Intake and Output for Last 24 Hours 11/25/20 11/26/20 11/27/20 23:59 23:59 23:59 Intake Total 895.42 / 895.42 989.58 / 989.58 Output Total 800 / 800 Balance 895.42 / 445.42 189.58 / 189.58 Laboratory Results 11/26/20 16:25: WBC 12.9 H, RBC 3.25 L, Hgb 8.6 L, Hct 30.1 L, MCV 92.6, MCH 26.5 L, MCHC 28.6 L, RDW Std Deviation 54.6 H, RDW Coeff of Charles 16.2 H, Plt Count 506 H, MPV 10.1, Immature Gran % (Auto) 0.500, Neut % (Auto) 75.1 H, Lymph % (Auto) 14.1 L, [place] % (Auto) 7.5, Eos % (Auto) 2.4, Baso % (Auto) 0.4, Absolute Neuts (auto) 9.7 H, Absolute Lymphs (auto) 1.82, Nucleated RBC % 0, ESR 40 H 11/26/20 16:25: Sodium 133 L, Potassium 6.2 H*, Chloride 105, Carbon Dioxide 21.0, Anion Gap 7, BUN 71 H, Creatinine 3.16 H, Estim Creat Clear Calc 11.69, Est GFR (MDRD) Af Amer 19 L, Est GFR (MDRD) Non-Af 15 L, BUN/Creatinine Ratio 22.5 H, Glucose 168 H, Calcium 9.3, Total Bilirubin 0.20, AST 43 H, ALT 52, Alkaline Phosphatase 723 H, C-React Prot Ext Range 137.00 H, Total Protein 7.7, Albumin 2.0 L, Globulin 5.7 H, Albumin/Globulin Ratio 0.4 L 11/26/20 16:25: Hemoglobin A1c 6.7 H 11/26/20 22:25: S.aureus Protein A PCR POSITIVE H, MRSA (PCR) Negative 11/26/20 22:30: Sodium 137, Potassium 5.9 H, Chloride 109 H, Carbon Dioxide 21.0, Anion Gap 7, BUN 69 H, Creatinine 3.08 H, Estim Creat Clear Calc 15.54, Est GFR (MDRD) Af Amer 19 L, Est GFR (MDRD) Non-Af 16 L, BUN/Creatinine Ratio 22.4 H, Glucose 164 H, Calcium 9.0 11/26/20 22:51: POC Glucose 158 H 11/27/20 06:25: Sodium 137, Potassium 5.8 H, Chloride 114 H, Carbon Dioxide 16.0 L, Anion Gap 7, BUN 65 H, Creatinine 2.81 H, Estim Creat Clear Calc 17.03, Est GFR (MDRD) Af Amer 21 L, Est GFR (MDRD) Non-Af 18 L, BUN/Creatinine Ratio 23.1 H , Glucose 139 H, Calcium 8.3 L 11/27/20 06:25: WBC 9.5, RBC 2.38 L, Hgb 6.3 L, Hct 22.2 L, MCV 93.3, MCH 26.5 L , MCHC 28.4 L, RDW Std Deviation 56.0 H, RDW Coeff of Charles 16.2 H, Plt Count 308, MPV 10.5, Immature Gran % (Auto) 0.300, Neut % (Auto) 78.0 H, Lymph % (Auto) 10.9 L, [place] % (Auto) 7.9, Eos % (Auto) 2.5, Baso % (Auto) 0.4, Absolute Neuts (auto) 7.4, Absolute Lymphs (auto) 1.04, Nucleated RBC % 0 11/27/20 06:29: POC Glucose 128 H 11/27/20 07:45: S.aureus Protein A PCR Pending, MRSA (PCR) Pending Current Medications Acetaminophen (Acetaminophen 325 Mg Tablet) 650 mg PO Q4H PRN PRN Reason: Pain 1-10 or Fever Hydrocodone Bitart/Acetaminophen (Hydrocodone Bitartrate/Apap 5/325 Tablet) 2 tablet PO Q6H PRN PRN PRN Reason: Pain Score 1-10 Last Admin: 11/27/20 03:57 Dose: 2 tablet Documented by: Amlodipine Besylate (Amlodipine 5 Mg Tablet) 5 mg PO DAILY [facility] BEDS AT [facility] Collagenase (Collagenase 30gm Tube) 1 applic TOPICAL DAILY [facility]S [facility]CLUDE 234 BEDS AT THE [facility]; Protocol Enoxaparin Sodium (Enoxaparin 30 Mg/0.3 Ml Syringe) 30 mg SC DAILY [facility]S [facility]CLUDE 234 BEDS AT THE [facility] Ferrous Sulfate (F[facility]ous Sulfate 325 Mg Tablet) [facility] Furosemide (Furosemide 20 Mg Tablet) 20 mg PO DAILY [facility]CLUDE 234 BEDS AT THE [facility] Hydroxyzine Pamoate (Hydroxyzine Tiki 25 Mg Capsule) 25 mg PO Q6H PRN PRN Reason: ITCHING Sodium Chloride () 1,000 mls @ 125 mls/hr IV .Q8H COUNTS [facility]CLUDE 234 BEDS AT THE [facility] Stop: 11/27/20 12:16 Last Admin: 11/27/20 08:14 Dose: 125 mls/hr Documented by: Meropenem 1 gm/ Sodium (Chloride) 120 mls @ 33 mls/hr IV Q12 [facility]S [facility] 234 BEDS AT THE [facility] Vancomycin IV Pharmacy to Dose (1 each/ Sodium Chloride) 500 mls @ 250 mls/hr IV PRN PRN; Protocol PRN Reason: Rx to Dose Insulin Human Lispro (Insulin Lispro 100 Unit/Ml Insuln.Pen) 0 unit SC ACHS [facility] 234 BEDS AT THE [facility]; Protocol Last Admin: 11/27/20 06:30 Dose: Not Given Documented by: Mirtazapine (Mirtazapine 15 Mg Tablet) 15 mg PO QHS [facility] 234 BEDS AT THE [facility] Last Admin: 11/26/20 22:53 Dose: 15 mg Documented by: Morphine Sulfate (Morphine 2 Mg/Ml Syringe) 2 mg IV Q3H PRN PRN PRN Reason: Pain Score 6-10 Last Admin: 11/26/20 21:15 Dose: 2 mg Documented by: Ondansetron HCl (Ondansetron 4 Mg/2 Ml Vial) 4 mg IV Q8H PRN PRN PRN Reason: NAUSEA/VOMITING Sodium Chloride (0.9% Saline Lock 10 Ml Syringe) 10 - 40 ml IV UD PRN PRN Reason: SALINE FLUSH STROKE Vital Signs/Narrative: Vital Signs Pulse 11/27/20 05:46 79 Medical Necessity - Tobacco Use Smoking Status: Former smoker Tobacco Use: Cigarettes Assessment/Plan All Active Problems Wound infection (Acute) 75 y/o admitted with a complaint of worsening wounds on her LEs and sacral wound #Acute on chronic lower leg and heels and sacral ulcerations, with probable osteomyelitis lateral heel and sacral ulcer: [facility] Wound photo reviewed. Currently ulcers are pressure ulcer, unstageable. MRI and arterial studies are pending. Patient previous wound culture in [place] in August as per ID showed heavy Enterobacter, resistant to cefdinir/ceftriaxone, heavy Proteus and light Enterococcus. Currently patient on IV vancomycin and meropenem. Wound care nurse consulted. Initial right heel wound shows gram-negative joseluis.. Detailed wound culture and blood cultures are pending. PT and OT. CRP is elevated as well as ESR. WBC is also 12.9. Discussed with metalizing machine operator and patient will be high risk for surgery depending on kidney failure severe anemia therefore probably will wait over the weekend. Acute kidney injury in a stage IIIb with hyperkalemia, nonoliguric: Potassium is 6.2. Improved to 5.8 after Kayexalate. Previous creatinine was little over 2. Seen by back tender. Estimated creatinine clearance about 17. Recommended IV bicarb. Hyperkalemia due to lack of DCT plasma flow. Renal ultrasounds shows nonspecific renal parenchymal disease, multiple right renal cyst. Left renal pelvicalyceal ectasis #Acute anemia with baseline chronic anemia chronic kidney disease believed from Lovenox: Hemoglobin 8.6. Subcu up appointment recommended. On oral iron supplementation. Lovenox discontinued. #Type 2 diabetes mellitus: Insulin sliding scale. Accu-Cheks AC at bedtime. A1c 6.7. Glucoses controlled #Depression: On Remeron #DVT prophylaxis: Bilateral SCDs Full code Total time of the visit including total time spent in counseling or coordination of care, (more than 50% of the total time, spent in obtaining medical information from nurses and other ancillary care providers,explaining to the patient about labs, imaging, diagnosis and management), , review of labs and imaging is 30 minutes. 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 There is soft tissue swelling at the operative site but no evidence for acute osteomyelitis Electronically Signed: Toan Alvarez MD at 17:52 EDT , Service support , Tibia/Fibula X-Ray 11/26/20 16:00 IMPRESSION: Soft tissue swelling of the lateral malleolus without associated fracture. No definitive evidence for acute fracture or osteomyelitis Electronically Signed: Toan Alvarez MD at 17:47 EDT , Service support , Ankle X-Ray 11/26/20 16:03 IMPRESSION: No acute radiographic abnormalities. Heel spur. Electronically Signed: Jose Avendano MD at 17:29 EDT Tel , Service support , Foot X-Ray 11/26/20 16:05 IMPRESSION: No acute fracture or other significant bony pathology Electronically Signed: Toan Alvarez MD at 17:49 EDT , Service support , Ankle X-Ray 11/26/20 17:00 IMPRESSION: Soft tissue swelling of the lateral malleolus and findings suspicious for early changes of acute osteomyelitis however three-phase bone scan or MRI is recommended for more definitive evaluation Electronically Signed: Toan Alvarez MD at 17:46 EDT , Service support , Renal Ultrasound 11/26/20 20:30 IMPRESSION: Findings consistent with nonspecific renal parenchymal disease. Multiple right renal cysts. Left renal pelvocaliectasis of uncertain etiology. CT would be helpful for further evaluation Electronically Signed: Toan Alvarez MD at 21:52 EDT , Service support , Inpatient E&M: [id number] Subs Hosp L2
--- NOTE | 2020-11-27 08:45 | MRI_ITS ---
STUDY: MRI RIGHT ANKLE WITHOUT CONTRAST REASON FOR EXAM: Female, 75 years old. heel osteomyelitis --OPEN HEEL ULCER TECHNIQUE: Standardized fat and water weighted pulse sequences were obtained in all 3 orthogonal planes. COMPARISON: X-ray 11/26/2020 FINDINGS: Deep ulcer of the medial aspect of the heel extending to the posterior cortex of the calcaneus. Severe marrow edema of the posterior aspect of the calcaneus with the destruction of the cortex consistent with osteomyelitis. No loculated fluid collection to suggest abscess. Normal posterior tibialis tendon. 1 cm type II accessory navicular bone without edema at the synchondrosis. Normal flexor digitorum longus tendon. Normal flexor hallucis longus tendon. Normal peroneus longus and brevis tendons. Normal tibialis anterior tendon. Normal extensor hallucis longus tendon. Normal extensor digitorum longus tendons. Normal Achilles tendon and teno-osseous insertion. Normal plantar fascia. Normal plantar calcaneal tubercles. Normal intrinsic muscles of the rearfoot. Normal distal tibiofibular syndesmotic ligamentous complex. Normal lateral ligamentous complex. Normal subtalar ligaments and sinus tarsi. Normal deltoid ligamentous complexes. Normal plantar calcaneonavicular (spring) ligament. Normal tibiotalar articulation. Normal talar dome. Normal subtalar articulations. Normal talonavicular articulation. Normal calcaneocuboid articulation. Normal navicular-cuneiform articulations. MRI/Lower Ext Joint Only (Routine) IMPRESSION: Deep ulcer of the medial aspect of the heel with osteomyelitis of the posterior calcaneus. Electronically Signed: Jacob Suazo MD at 18:13 EDT Tel , Service support ,
--- NOTE | 2020-11-27 09:01 | NURSING ---
wound photo: right medial heel/left lateral foot
--- NOTE | 2020-11-27 09:03 | NURSING ---
wound photo: left heel
--- NOTE | 2020-11-27 09:04 | NURSING ---
wound photo: left lateral lower leg
--- NOTE | 2020-11-27 09:05 | NURSING ---
wound photo: left anterior ankle
--- NOTE | 2020-11-27 09:05 | CASEMGMT ---
Social Work Note Per senior center director questions, pt hasn't completed HCPOA or LW and pt denied wanting information. Suzanne Reaves LAW FIRM RECEPTIONIST, SANFORIZING MACHINE OPERATOR
--- NOTE | 2020-11-27 09:06 | NURSING ---
wound photo: sacrum
--- NOTE | 2020-11-27 09:06 | NURSING ---
voicemail left on [facility] Lama phone to this nurse to review MRI questions.
[2020-11-27] MEDS: Ferrous Sulfate 325 MG Tablet PO (10:12)
[2020-11-27] MEDS: amLODIPine 5 MG Tablet PO (10:12)
[2020-11-27] MEDS: Furosemide 20 MG Tablet PO (10:12)
[2020-11-27] MEDS: Enoxaparin 30 MG/0.3 ML Syringe SC (10:12)
--- NOTE | 2020-11-27 10:19 | CASEMGMT ---
Addendum entered by Suzanne Reaves 11/27/20 12:59: FOREIGN placed a call to Vicky at [facility]. 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 Pt will need COVID test to return. Original Note: Social Work Note Pt is listed as being from [facility]. SW faxed updated clinicals to [facility]. Suzanne Reaves IMMIGRATION MANAGER, WHITE KID BUFFER
[2020-11-27 10:25] LABS: M R Staph aureus DNA By PCR POSITIVE (Negative); Probe Check PASS; Staph aureus DNA By PCR POSITIVE (Negative)
--- NOTE | 2020-11-27 10:55 | PCM.HP.ID ---
Problem List (1) Wound infection Status: Acute Reason for Consult: possible osteo Consulted by: Dr. Becerra History of Present Illness: The patient is a 75 year old F admitted from [facility] after referral to wound center for purulent bilateral heel ulcers and sacral wound. Pt reports feeling ok, denies pain, no n/v/d. Cxs and xray taken, started on empiric vanc/meropenem. Reports rash/difficulty breathing with PCN in the past. Was admitted to [place] in August with similar complaints, given ceftriaxone IV and discharged on po omnicef. Cx of the wound at that time with heavy enterobacter (which showed resistance to ceftriaxone/cefdinir), heavy proteus, and light enterococcus (cephalosporins do not work). Not clear if the antibiotics were adjusted after discharge. Now here, feeling ok. Full ROS performed and neg except as noted above. - Medical History Surgical History: reviewed Allergies/Adverse Reactions: Allergies clindamycin Allergy (Verified 11/26/20 15:30) PT UNSURE OF REACTION diphenhydramine [From Benadryl] Allergy (Verified 11/26/20 15:30) PT UNSURE OF REACTION doxycycline Allergy (Verified 11/26/20 15:30) PT UNSURE OF REACTION erythromycin base Allergy (Verified 11/26/20 15:30) PT UNSURE OF REACTION levofloxacin [From Levaquin] Allergy (Verified 11/26/20 15:30) PT UNSURE OF REACTION metformin Allergy (Verified 11/26/20 15:30) PT UNSURE OF REACTION Penicillins [PCN] Allergy (Verified 11/26/20 15:30) PT UNSURE OF REACTION Sulfa (Sulfonamide Antibiotics) Allergy (Verified 11/26/20 15:30) PT UNSURE OF REACTION Home Medications: Ambulatory Orders Medication Instructions Recorded Acetaminophen [Tylenol] 650 mg PO Q4H PRN 11/26/20 Amlodipine [Norvasc] 5 mg PO DAILY 11/26/20 Arginine/Ascorbate Sod/Rose Marie AC 1 each PO BID 11/26/20 [Arginaid Powder] Collagenase [Santyl] 1 applic TOPICAL DAILY 11/26/20 Ferrous Sulfate 325 mg PO DAILY 11/26/20 Furosemide [Lasix] 20 mg PO DAILY 11/26/20 Hydrocodone Bitart/Apap 5-325 1 tablet PO Q6H PRN PRN 11/26/20 [[place] 5MG-325MG] Hydrocodone Bitart/Apap 5-325 2 tablet PO Q6H PRN PRN 11/26/20 [[place] 5MG-325MG] Hydroxyzine HCl 25 mg PO Q6H PRN 11/26/20 Insulin Lispro [Humalog KwikPen] See Protocol SQ TIDCM 11/26/20 Lidocaine [Lidocaine 5%] 1 applic TOPICAL MOWEFR 11/26/20 Mineral Oil/Petrolatum,White 1 applic TOPICAL BID 11/26/20 [Eucerin] Mirtazapine [Remeron] 15 mg PO QHS 11/26/20 - Social History SMOKING STATUS:: Former smoker Vital Signs Temp Pulse Resp BP Pulse Ox 98.4 F 90 16 101/44 L 95 11/27/20 10:08 11/27/20 10:08 11/27/20 10:08 11/27/20 10:08 11/27/20 10:08 Oxygen Delivery Method Room Air Weight: 60.5 kg Body Mass Index (BMI) 20.9 Laboratory Tests Past 24 Hrs 11/26/20 11/26/20 11/26/20 16:25 16:25 16:25 WBC 12.9 H RBC 3.25 L Hgb 8.6 L Hct 30.1 L MCV 92.6 MCH 26.5 L MCHC 28.6 L RDW Std Deviation 54.6 H RDW Coeff of Charles 16.2 H Plt Count 506 H MPV 10.1 Immature Gran % (Auto) 0.500 Neut % (Auto) 75.1 H Lymph % (Auto) 14.1 L Meeker % (Auto) 7.5 Eos % (Auto) 2.4 Baso % (Auto) 0.4 Absolute Neuts (auto) 9.7 H Absolute Lymphs (auto) 1.82 Nucleated RBC % 0 ESR 40 H Sodium 133 L Potassium 6.2 H* Chloride 105 Carbon Dioxide 21.0 Anion Gap 7 BUN 71 H Creatinine 3.16 H Estim Creat Clear Calc 11.69 Est GFR (MDRD) Af Amer 19 L Est GFR (MDRD) Non-Af 15 L BUN/Creatinine Ratio 22.5 H Glucose 168 H Hemoglobin A1c 6.7 H Calcium 9.3 Total Bilirubin 0.20 AST 43 H ALT 52 Alkaline Phosphatase 723 H C-React Prot Ext Range 137.00 H Total Protein 7.7 Albumin 2.0 L Globulin 5.7 H Albumin/Globulin Ratio 0.4 L S.aureus Protein A PCR MRSA (PCR) 11/26/20 11/26/20 11/27/20 22:25 22:30 06:25 WBC RBC Hgb Hct MCV MCH MCHC RDW Std Deviation RDW Coeff of Charles Plt Count MPV Immature Gran % (Auto) Neut % (Auto) Lymph % (Auto) Meeker % (Auto) Eos % (Auto) Baso % (Auto) Absolute Neuts (auto) Absolute Lymphs (auto) Nucleated RBC % ESR Sodium 137 137 Potassium 5.9 H 5.8 H Chloride 109 H 114 H Carbon Dioxide 21.0 16.0 L Anion Gap 7 7 BUN 69 H 65 H Creatinine 3.08 H 2.81 H Estim Creat Clear Calc 15.54 17.03 Est GFR (MDRD) Af Amer 19 L 21 L Est GFR (MDRD) Non-Af 16 L 18 L BUN/Creatinine Ratio 22.4 H 23.1 H Glucose 164 H 139 H Hemoglobin A1c Calcium 9.0 8.3 L Total Bilirubin AST ALT Alkaline Phosphatase C-React Prot Ext Range Total Protein Albumin Globulin Albumin/Globulin Ratio S.aureus Protein A PCR POSITIVE H MRSA (PCR) Negative 11/27/20 11/27/20 06:25 07:45 WBC 9.5 RBC 2.38 L Hgb 6.3 L Hct 22.2 L MCV 93.3 MCH 26.5 L MCHC 28.4 L RDW Std Deviation 56.0 H RDW Coeff of Charles 16.2 H Plt Count 308 MPV 10.5 Immature Gran % (Auto) 0.300 Neut % (Auto) 78.0 H Lymph % (Auto) 10.9 L Meeker % (Auto) 7.9 Eos % (Auto) 2.5 Baso % (Auto) 0.4 Absolute Neuts (auto) 7.4 Absolute Lymphs (auto) 1.04 Nucleated RBC % 0 ESR Sodium Potassium Chloride Carbon Dioxide Anion Gap BUN Creatinine Estim Creat Clear Calc Est GFR (MDRD) Af Amer Est GFR (MDRD) Non-Af BUN/Creatinine Ratio Glucose Hemoglobin A1c Calcium Total Bilirubin AST ALT Alkaline Phosphatase C-React Prot Ext Range Total Protein Albumin Globulin Albumin/Globulin Ratio S.aureus Protein A PCR POSITIVE H MRSA (PCR) POSITIVE H - Other Studies Radiology: [] reviewed Other Studies: [] Route of nutrition/ use of supplements: [] Nutritional Intake: [] IV Site: [] Maldonado Catheter: [] - Physical Exam General: Alert, Oriented x3, Cooperative, No apparent distress HEENT: Atraumatic, PERRLA, EOMI Neck: Supple, No Nodes Lungs: Clear to auscultation, Normal air movement Cardiovascular: Regular rate, Regular Rhythm Abdomen: Soft, Non Tender, Non-Distended Extremities: Edema Skin: Ulcer/ Wound - reviewed photos IV Site: Peripheral, without redness Musculoskeletal: No Tenderness to Palpation of Joints or Extremities Neurological: Cranial nerves II-XII grossly intact - Assessment/Plan Antibiotics: [] Assessment/Plan: [] 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 Cxs and xray taken, started on empiric vanc/meropenem. MRI and arterial studies pending. Reports anaphylaxis with PCN in the past. Was admitted to [place] in August with similar complaints, given ceftriaxone IV and discharged on po omnicef. Cx of the wound at that time with heavy enterobacter (which showed resistance to ceftriaxone/cefdinir), heavy proteus, and light enterococcus (cephalosporins do not work on this species). Not clear if the antibiotics were adjusted after discharge. Will follow, thank you
[2020-11-27 11:50] LABS: Bedside Glucose 148 mg/dL (70-110)
--- NOTE | 2020-11-27 12:22 | NURSING ---
1057m left voicemail to call nurse to obtain consent for blood transfusion.
[2020-11-27] MEDS: DAKIN'S SOL HALF STRENGTH (=0.25%) 1 APPLIC TOPICAL ×2 (14:56→21:28)
--- NOTE | 2020-11-27 15:06 | PCM.CONS.R ---
Consultation - Renal 11/27/20 PCP/ Referring MD: Requesting physician: [] Primary care physician: Dr. Marlon Chiang MD Reason for Consultation:: AIDA CKD IIIb 2 creatinine baseline - History of Present Illness History of Present Illness: The patient is a 75 year old F ECF resident with CKDIIIb bscr 2 admitted with B/L heel ulcer and sacral wound likley OM we were consulted for AIDA on VKDIII Creatinine 3 - Allergies Allergies: Allergies clindamycin Allergy (Verified 11/26/20 15:30) PT UNSURE OF REACTION diphenhydramine [From Benadryl] Allergy (Verified 11/26/20 15:30) PT UNSURE OF REACTION doxycycline Allergy (Verified 11/26/20 15:30) PT UNSURE OF REACTION erythromycin base Allergy (Verified 11/26/20 15:30) PT UNSURE OF REACTION levofloxacin [From Levaquin] Allergy (Verified 11/26/20 15:30) PT UNSURE OF REACTION metformin Allergy (Verified 11/26/20 15:30) PT UNSURE OF REACTION Penicillins [PCN] Allergy (Verified 11/26/20 15:30) PT UNSURE OF REACTION Sulfa (Sulfonamide Antibiotics) Allergy (Verified 11/26/20 15:30) PT UNSURE OF REACTION - Current Medications Current Medications: Current Medications Acetaminophen (Acetaminophen 325 Mg Tablet) 650 mg PO Q4H PRN PRN Reason: Pain 1-10 or Fever Hydrocodone Bitart/Acetaminophen (Hydrocodone Bitartrate/Apap 5/325 Tablet) 2 tablet PO Q6H PRN PRN PRN Reason: Pain Score 1-10 Last Admin: 11/27/20 13:47 Dose: 2 tablet Documented by: Amlodipine Besylate (Amlodipine 5 Mg Tablet) 5 mg PO DAILY [facility] Last Admin: 11/27/20 10:12 Dose: 5 mg Documented by: Ferrous Sulfate ([facility] 325 Mg [facility] Admin: 11/27/20 10:12 Dose: 325 mg Documented by: Furosemide (Furosemide 20 Mg Tablet) 20 mg PO DAILY [facility] Last Admin: 11/27/20 10:12 Dose: 20 mg Documented by: Hydroxyzine Pamoate (Hydroxyzine Tiki 25 Mg Capsule) 25 mg PO Q6H PRN PRN Reason: ITCHING Meropenem 1 gm/ Sodium (Chloride) 120 mls @ 33 mls/hr IV Q12 [facility] Last Infusion: 11/27/20 13:59 Dose: Infused Documented by: Vancomycin IV Pharmacy to Dose (1 each/ Sodium Chloride) 500 mls @ 250 mls/hr IV PRN PRN; Protocol PRN Reason: Rx to Dose Insulin Human Lispro (Insulin Lispro 100 Unit/Ml Insuln.Pen) 0 unit SC ACHS [facility]; Protocol Last Admin: 11/27/20 11:47 Dose: Not Given Documented by: Lorazepam (Lorazepam 2 Mg/Ml Syringe) 0.5 mg IV X1 PRN PRN Reason: ANXIETY Mirtazapine (Mirtazapine 15 Mg Tablet) 15 mg PO QHS [facility] Last Admin: 11/26/20 22:53 Dose: 15 mg Documented by: Morphine Sulfate (Morphine 2 Mg/Ml Syringe) 2 mg IV Q3H PRN PRN PRN Reason: Pain Score 6-10 Last Admin: 11/26/20 21:15 Dose: 2 mg Documented by: Ondansetron HCl (Ondansetron 4 Mg/2 Ml Vial) 4 mg IV Q8H PRN PRN PRN Reason: NAUSEA/VOMITING Sodium Chloride (0.9% Saline Lock 10 Ml Syringe) 10 - 40 ml IV UD PRN PRN Reason: SALINE FLUSH Sodium Hypochlorite (Dakin's Lisa Half Strength (=0.25%)) 1 applic TOPICAL BID [facility]; Protocol Last Admin: 11/27/20 14:56 Dose: 1 applic Documented by: - Social History Smoking Status: Former smoker Alcohol: None Drugs: None - Family History Maternal History Items: No pertinent history Review of Systems HEENT: Reports: Difficulty Hearing Cardiovascular: Reports: Chest Pain Respiratory: Reports: Cough Gastrointestinal: Reports: Abdominal Pain Genitourinary: Reports: Dysuria Musculoskeletal: Reports: Foot Pain Neurological: Reports: Balance problems Psychiatric: Reports: Anxiety Patient Problems: Active and Suspected Problems Wound infection (Acute) - Physical Exam Vitals/I&O's: Vital Signs Temp Pulse Resp BP Pulse Ox 97.7 F L 100 18 132/47 H 98 11/27/20 13:51 11/27/20 13:59 11/27/20 13:51 11/27/20 13:51 11/27/20 13:51 Oxygen Delivery Method Room Air Weight: 60.5 kg Body Mass Index (BMI) 20.9 Intake and Output for Last 24 Hours 11/25/20 11/26/20 11/27/20 23:59 23:59 23:59 Intake Total 895.42 / 895.42 1367.91 / 1367.91 Output Total 1120 / 1120 Balance 895.42 / 445.42 247.91 / 247.91 Microbiology Past 72 Hours 11/27/20 07:45 Wound - Leg, Left Gram Stain - Final 11/27/20 07:45 Wound - Sacral Gram Stain - Final 11/26/20 22:25 Wound - Heel Right Gram Stain - Final 11/26/20 22:25 Wound - Heel Right Wound Culture - Preliminary Gram negative joseluis Laboratory Results 11/26/20 16:25: WBC 12.9 H, RBC 3.25 L, Hgb 8.6 L, Hct 30.1 L, MCV 92.6, MCH 26.5 L, MCHC 28.6 L, RDW Std Deviation 54.6 H, RDW Coeff of Charles 16.2 H, Plt Count 506 H, MPV 10.1, Immature Gran % (Auto) 0.500, Neut % (Auto) 75.1 H, Lymph % (Auto) 14.1 L, Irwin % (Auto) 7.5, Eos % (Auto) 2.4, Baso % (Auto) 0.4, Absolute Neuts (auto) 9.7 H, Absolute Lymphs (auto) 1.82, Nucleated RBC % 0, ESR 40 H 11/26/20 16:25: Sodium 133 L, Potassium 6.2 H*, Chloride 105, Carbon Dioxide 21.0, Anion Gap 7, BUN 71 H, Creatinine 3.16 H, Estim Creat Clear Calc 11.69, Est GFR (MDRD) Af Amer 19 L, Est GFR (MDRD) Non-Af 15 L, BUN/Creatinine Ratio 22.5 H, Glucose 168 H, Calcium 9.3, Total Bilirubin 0.20, AST 43 H, ALT 52, Alkaline Phosphatase 723 H, C-React Prot Ext Range 137.00 H, Total Protein 7.7, Albumin 2.0 L, Globulin 5.7 H, Albumin/Globulin Ratio 0.4 L 11/26/20 16:25: Hemoglobin A1c 6.7 H 11/26/20 22:25: S.aureus Protein A PCR POSITIVE H, MRSA (PCR) Negative 11/26/20 22:30: Sodium 137, Potassium 5.9 H, Chloride 109 H, Carbon Dioxide 21.0, Anion Gap 7, BUN 69 H, Creatinine 3.08 H, Estim Creat Clear Calc 15.54, Est GFR (MDRD) Af Amer 19 L, Est GFR (MDRD) Non-Af 16 L, BUN/Creatinine Ratio 22.4 H, Glucose 164 H, Calcium 9.0 11/26/20 22:51: POC Glucose 158 H 11/27/20 06:25: Sodium 137, Potassium 5.8 H, Chloride 114 H, Carbon Dioxide 16.0 L, Anion Gap 7, BUN 65 H, Creatinine 2.81 H, Estim Creat Clear Calc 17.03, Est GFR (MDRD) Af Amer 21 L, Est GFR (MDRD) Non-Af 18 L, BUN/Creatinine Ratio 23.1 H, Glucose 139 H, Calcium 8.3 L 11/27/20 06:25: WBC 9.5, RBC 2.38 L, Hgb 6.3 L, Hct 22.2 L, MCV 93.3, MCH 26.5 L, MCHC 28.4 L, RDW Std Deviation 56.0 H, RDW Coeff of Charles 16.2 H, Plt Count 308, MPV 10.5, Immature Gran % (Auto) 0.300, Neut % (Auto) 78.0 H, Lymph % (Auto) 10.9 L, Irwin % (Auto) 7.9, Eos % (Auto) 2.5, Baso % (Auto) 0.4, Absolute Neuts (auto) 7.4, Absolute Lymphs (auto) 1.04, Nucleated RBC % 0 11/27/20 06:29: POC Glucose 128 H 11/27/20 07:45: S.aureus Protein A PCR POSITIVE H, MRSA (PCR) POSITIVE H 11/27/20 11:14: Blood Type O POSITIVE, Antibody Screen NEGATIVE, Crossmatch See Detail 11/27/20 11:46: POC Glucose 148 H Current Medications Acetaminophen (Acetaminophen 325 Mg Tablet) 650 mg PO Q4H PRN PRN Reason: Pain 1-10 or Fever Hydrocodone Bitart/Acetaminophen (Hydrocodone Bitartrate/Apap 5/325 Tablet) 2 tablet PO Q6H PRN PRN PRN Reason: Pain Score 1-10 Last Admin: 11/27/20 13:47 Dose: 2 tablet Documented by: Amlodipine Besylate (Amlodipine 5 Mg Tablet) 5 mg PO DAILY [facility] Last Admin: 11/27/20 10:12 Dose: 5 mg Documented by: Ferrous Sulfate (Ferrous Sulfate 325 Mg Tablet) 325 mg PO DAILYCM [facility] Last Admin: 11/27/20 10:12 Dose: 325 mg Documented by: Furosemide (Furosemide 20 Mg Tablet) 20 mg PO DAILY [facility] Last Admin: 11/27/20 10:12 Dose: 20 mg Documented by: Hydroxyzine Pamoate (Hydroxyzine Tiki 25 Mg Capsule) 25 mg PO Q6H PRN PRN Reason: ITCHING Meropenem 1 gm/ Sodium (Chloride) 120 mls @ 33 mls/hr IV Q12 [facility] Last Infusion: 11/27/20 13:59 Dose: Infused Documented by: Vancomycin IV Pharmacy to Dose (1 each/ Sodium Chloride) 500 mls @ 250 mls/hr IV PRN PRN; Protocol PRN Reason: Rx to Dose Insulin Human Lispro (Insulin Lispro 100 Unit/Ml Insuln.Pen) 0 unit SC ACHS [facility]; Protocol Last Admin: 11/27/20 11:47 Dose: Not Given Documented by: Lorazepam (Lorazepam 2 Mg/Ml Syringe) 0.5 mg IV X1 PRN PRN Reason: ANXIETY Mirtazapine (Mirtazapine 15 Mg Tablet) 15 mg PO QHS [facility] Last Admin: 11/26/20 22:53 Dose: 15 mg Documented by: Morphine Sulfate (Morphine 2 Mg/Ml Syringe) 2 mg IV Q3H PRN PRN PRN Reason: Pain Score 6-10 Last Admin: 11/26/20 21:15 Dose: 2 mg Documented by: Ondansetron HCl (Ondansetron 4 Mg/2 Ml Vial) 4 mg IV Q8H PRN PRN PRN Reason: NAUSEA/VOMITING Sodium Chloride (0.9% Saline Lock 10 Ml Syringe) 10 - 40 ml IV UD PRN PRN Reason: SALINE FLUSH Sodium Hypochlorite (Dakin's Lisa Half Strength (=0.25%)) 1 applic TOPICAL BID [facility]; Protocol Last Admin: 11/27/20 14:56 Dose: 1 applic Documented by: Assessment/Plan All Active Problems Wound infection (Acute) Non oliguric AIDA CKDIIIB bscr 2 with Acute on chronic LE ulcerations, with 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 Will give Kayexalate and monitor. Anemi of CKD- Hb is 8.6. Goal >10 Hold IV iron due to infection On oral iron supplementation SQ epoo tomorrow HTN controlled
--- NOTE | 2020-11-27 15:19 | CASEMGMT ---
Social Work Note FOREIGN attempted to meet with pt, pt currently not available. FOREIGN reviewed chart, pt with confusion. FOREIGN placed a call to pt's daughter Sonya. FOREIGN introduced self and role at [facility]. Sonya confirms pt came from [facility] and pt has been there since the end of August. Sonya states she is not sure if pt will be returning to [facility] or not. Sonya states she is not happy with the care pt has been getting at [facility]. Sonya states [facility] changed pt's Code Status without talking to the pt or Sonya first. Sonya states she had requested that pt was not put on any antidepressants and Sonya said she found out a few weeks ago [facility] had put pt on Zoloft. Sonya states pt gets confused when pt on antidepressants. Sonya states at one time pt was on antidepressants and at pt's PCP appoint, pt was diagnosed with dementia but when pt was put off the antidepressants pt was completely different and no longer confused. FOREIGN asked Sonya if she has made a complaint to the [facility]. Sonya states she hasn't made a report yet, wanted to speak to this worker tomorrow regarding options for pt. Sonya states she will be in tomorrow morning and would like to meet with this worker. FOREIGN informed Sonya this worker will meet with her and pt tomorrow to continue discussion of discharge plans. Sonya states understanding. Plan: TBD. Either Return to [facility] or to a new SNF Suzanne Reaves MEDICAL STAFF PHYSICIAN, BLOOD COLLECTOR
[2020-11-27] MEDS: LORazepam 2 MG/ML Syringe 0.5 MG IV (15:21)
[2020-11-27] MEDS: 0.9% Saline Lock 10 ML Syringe IV ×3 (15:22→19:03)
--- NOTE | 2020-11-27 15:26 | NT.THERAPY_ITS ---
Nutrition Therapy Report - History Nutrition Services has been consulted to:: Manage nutrient details of diet order Current diet / nutrition support order:: 1800 CHO consistent, Isael 1 pkt BID L&D - Anthropometric Measurements Height:: 5 ft 7 in Weight:: 60.5 kg Body Mass Index (BMI):: 20.9 - Relevant Labs Relevant Labs:: WBC 12.9 K/mm3 (4.4-11.0) H 11/26/20 16:25 RBC 2.38 M/mm3 (4.2-5.4) L 11/27/20 06:25 Hgb 6.3 g/dL (12.0-15.0) L 11/27/20 06:25 Hct 22.2 % (37-47) L 11/27/20 06:25 MCH 26.5 pg (27.0-32.0) L 11/27/20 06:25 MCHC 28.4 g/dL (32-36) L 11/27/20 06:25 RDW Std Deviation 56.0 fl (35.1-43.9) H 11/27/20 06:25 RDW Coeff of Charles 16.2 % (11.6-14.6) H 11/27/20 06:25 Plt Count 506 K/mm3 (150-450) H 11/26/20 16:25 Neut % (Auto) 78.0 % (47-70) H 11/27/20 06:25 Lymph % (Auto) 10.9 % (19-41) L 11/27/20 06:25 Absolute Neuts (auto) 9.7 X10^3/uL (2.0-7.7) H 11/26/20 16:25 ESR 40 mm/hr (0-30) H 11/26/20 16:25 Sodium 133 mmol/L (136-145) L 11/26/20 16:25 Potassium 5.8 mmol/L (3.5-5.1) H 11/27/20 06:25 Chloride 114 mmol/L (98-107) H 11/27/20 06:25 Carbon Dioxide 16.0 mmol/L (21.0-32.0) L 11/27/20 06:25 BUN 65 mg/dL (7-18) H 11/27/20 06:25 Creatinine 2.81 mg/dL (0.55-1.02) H 11/27/20 06:25 Est GFR (MDRD) Af Amer 21 mL/min (>60) L 11/27/20 06:25 Est GFR (MDRD) Non-Af 18 mL/min (>60) L 11/27/20 06:25 BUN/Creatinine Ratio 23.1 RATIO (10-20) H 11/27/20 06:25 Glucose 139 mg/dL (74-106) H 11/27/20 06:25 Hemoglobin A1c 6.7 % (3.8-5.6) H 11/26/20 16:25 Calcium 8.3 mg/dL (8.5-10.1) L 11/27/20 06:25 AST 43 U/L (15-37) H 11/26/20 16:25 Alkaline Phosphatase 723 U/L (45-117) H 11/26/20 16:25 C-React Prot Ext Range 137.00 mg/L (0.0-3.0) H 11/26/20 16:25 Albumin 2.0 g/dL (3.2-5.0) L 11/26/20 16:25 Globulin 5.7 g/dL (2.2-4.2) H 11/26/20 16:25 Albumin/Globulin Ratio 0.4 RATIO (0.9-2.4) L 11/26/20 16:25 - Assessment Food / Nutrition-Related History:: From SNF. 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 Notes BG monitored at [facility] w/ readings typically high. Missing teeth- notes does not affect chewing ability of foods apart from steak. No dentures. States ongoing constipation. Reports unintentional wt loss x 3 months w/ UBW 150#- CBW 133.4#, no wt hx per EMR- wt loss 11% x 3 months (severe). - Nutrition Diagnosis Problem / Etiology / Signs & Symptoms (PES):: Moderate malnutrition in the context of chronic illness/condition RT inadequate oral intake and increased protein/energy needs d/t chronic wounds AEB pt reports unintentional wt loss 11% x 3 months, consuming <75% of meals served at SNF, Lt heel/Rt heel/sacrum pressure injuries, and left lateral leg/left anterior ankle non-healing wounds. Evidence of Malnutrition Exists:: Yes Moderate PCM:: Chronic Illness - Nutrition Intervention Nutrition Prescription:: 2490-0030 calories (25-30 kcal/kg). 75-85 g protein (1.3 g/kg). 7013-3049 ml (1ml/kcal) - Food / Nutrient Delivery Interventions Nutrition support ordered as / adjusted to:: Will provide CHO consistent diet. Continue Isael 1 pkt BID for wound healing. Will provide 1-2 extra oz protein at meals and glucerna 120 ml at medpass for additional sean/protein if consumed. - MNT Monitoring Further MNT monitoring and evaluation required?: Yes MNT Follow-up in:: 3-5 days
--- NOTE | 2020-11-27 16:52 | CHAPLAIN ---
Type of Pastoral Visit _x__ Initial Visit ___ Follow-up Visit ___ On-call Visit ___ General Patient Visit ___ Spiritual Assessment ___ Family Conference ___ Bereavement ___ Rapid Response ___ Code Blue ___ Other (describe below) Pastoral Care Referral From _x__ Patient ___ Family ___ Nurse ___ Physician ___ Student Finance Specialist ___ Multicut Line Operator ___ Other (describe below) Sacrament/Intervention _x__ Active listening ___ Anointing ___ Taoism ___ Bereavement ___ Communion ___ Yelena exploration ___ ___ Life review _x__ Prayer ___ Reconciliation ___ Sacrament of Sick _x__ Supportive presence ___ Wedding ___ Other (describe below) Pastoral Comments sat at bedside, prayed, and sang with patient to give her calm
[2020-11-27 17:16] LABS: Bedside Glucose 181 mg/dL (70-110)
[2020-11-27] MEDS: Insulin Lispro 100 UNIT/ML INSULN.PEN SC (17:23)
[2020-11-27] MEDS: Glucerna Shake 120 ML LIQUID PO (17:33)
[2020-11-27] MEDS: Morphine 2 MG/ML Syringe IV (18:58)
[2020-11-27] MEDS: Mirtazapine 15 MG Tablet PO (21:27)
[2020-11-27 22:26] LABS: Bedside Glucose 132 mg/dL (70-110)
--- NOTE | 2020-11-27 22:29 | NURSING ---
pt refusing covid swab. explained to pt why she needed the test for sx tomorrow. pt still refused. pt confused. pt covering her nose with a blanket.
[2020-11-28] VITALS (18 sets, daily range): BP systolic 117–150; BP diastolic 43–111; PULSE 65–103; RESP 16–20; TEMP 36.6–38.7; O2SAT 92–97
[2020-11-28] MEDS: 0.9% Normal Saline 1,000 ML 100 ML IV (00:20)
[2020-11-28 06:13] LABS: Hematocrit 26.5 % (37-47); Hemoglobin 7.8 g/dL (12.0-15.0); Mean Corp Hgb Conc 29.4 g/dL (32-36); Mean Corpuscular Hgb 27.3 pg (27.0-32.0); Mean Corpuscular Volume 92.7 fL (81-99); Mean Platelet Vol. 9.8 fl (6.2-12.0); Platelet Count 333 K/mm3 (150-450); RBC Distribution Width CV 16.5 % (11.6-14.6); RBC Distribution Width SD 56.1 fl (35.1-43.9); Red Blood Count 2.86 M/mm3 (4.2-5.4)
[2020-11-28 06:23] LABS: International Normalized Ratio 1.2; Prothrombin Time (Protime)PT. 14.4 SECONDS (11.7-14.9)
[2020-11-28 06:24] LABS: Partial Thromboplast Time 36.3 Seconds (24.1-36.2)
[2020-11-28 06:37] LABS: Vancomycin, Random Level 9.3 ug/mL (0.0-15.0)
[2020-11-28 06:38] LABS: Anion Gap 10 (5-15); BUN 64 mg/dL (7-18); BUN/Creat Ratio 24.3 RATIO (10-20); Chloride 115 mmol/L (98-107); Creatinine, Serum 2.63 mg/dL (0.55-1.02); EST Glomerular Filtration Rate 19 mL/min (>60); Est Glom Filt Rate - Afr Amer 23 mL/min (>60); Glucose 118 mg/dL (74-106); Potassium 5.8 mmol/L (3.5-5.1); Sodium Level 142 mmol/L (136-145)
[2020-11-28 06:50] LABS: Bedside Glucose 118 mg/dL (70-110)
--- NOTE | 2020-11-28 07:27 | PHA.PHARE_ITS ---
Consult Pharmacy has been consulted to manage selected antiobiotic: Vancomycin Type of Consult: Follow-up Suspected Infection: Skin/Soft tissue, Osteomyelitis Prior Doses of Antibiotics Received/Current Regimen: received 750mg x1 on 11/26/20 at 22:53 Labs: Sodium 142 mmol/L (136-145) 11/28/20 06:07 Potassium 5.8 mmol/L (3.5-5.1) H 11/28/20 06:07 Chloride 115 mmol/L (98-107) H 11/28/20 06:07 Carbon Dioxide 17.0 mmol/L (21.0-32.0) L 11/28/20 06:07 Anion Gap 10 (5-15) 11/28/20 06:07 BUN 64 mg/dL (7-18) H 11/28/20 06:07 Creatinine 2.63 mg/dL (0.55-1.02) H 11/28/20 06:07 Est GFR (MDRD) Af Amer 23 mL/min (>60) L 11/28/20 06:07 Est GFR (MDRD) Non-Af 19 mL/min (>60) L 11/28/20 06:07 BUN/Creatinine Ratio 24.3 RATIO (10-20) H 11/28/20 06:07 Glucose 118 mg/dL (74-106) H 11/28/20 06:07 Random Vancomycin 9.3 ug/mL (0.0-15.0) 11/28/20 06:07 Microbiology: Microbiology 11/28/20 04:20 Mucosa - Nose SARS-CoV-2 Antigen (Rapid) - Final 11/27/20 07:45 Wound - Leg, Left Gram Stain - Final 11/27/20 07:45 Wound - Sacral Gram Stain - Final 11/26/20 22:25 Wound - Heel Right Gram Stain - Final 11/26/20 22:25 Wound - Heel Right Wound Culture - Preliminary Gram negative joseluis Weight used for dosin.5 kg Estimated Creatinine Clearance: 18 ml/min Goal Trough: 15-20 mcg/mL Pharmacy Plan for Drug Dosing: The vanc random level drawn this morning was 9.3. Since this is <20, will dose today with 1000mg x1 per [facility] protocol based on the patient's weight. Since the patient's CrCl is still <20, will continue to dose off random levels. Repeat random level tomorrow morning. Pharmacy Service will continue to monitor and adjust dosing as required. Follow-Up Labs: Trough Vancomycin - random Labs to be done on [date and time ordered]: 11/29/20 0600
[2020-11-28] MEDS: Morphine 2 MG/ML Syringe IV ×2 (07:48→13:01)
[2020-11-28] MEDS: 0.9% Saline Lock 10 ML Syringe IV ×4 (07:49→13:12)
[2020-11-28] MEDS: Vancomycin IV 1,000 MG/200 ML BAG 200 MG IV (07:53)
[2020-11-28] MEDS: DAKIN'S SOL HALF STRENGTH (=0.25%) 1 APPLIC TOPICAL ×2 (07:56→21:44)
--- NOTE | 2020-11-28 08:10 | PCM.PROGNOTE ---
Patient Problems: Active and Suspected Problems Wound infection (Acute) Subjective: Patient was seen this morning. No fevers. Patient had transfusion yesterday, hgb improved. Nephrology following for kidney disease. Patient had right hindfoot/ankle MRI which shows osteomyelitis right calcaneus, left MRIs pending. - Physical Exam Vitals/I&O's: Vital Signs Temp Pulse Resp BP Pulse Ox 98.2 F 82 16 124/56 H 96 11/28/20 03:00 11/28/20 04:00 11/28/20 03:00 11/28/20 03:00 11/28/20 03:00 Oxygen Delivery Method Room Air Weight: 60.5 kg Body Mass Index (BMI) 20.9 Intake and Output for Last 24 Hours 11/26/20 11/27/20 11/28/20 23:59 23:59 23:59 Intake Total 895.42 / 895.42 1767.91 / 1767.91 886.67 / 886.67 Output Total 1340 / 1690 700 / 700 Balance 895.42 / 445.42 427.91 / 77.91 186.67 / 186.67 General: Alert Extremities: Capillary Refill Less than 3 Seconds, - - bilateral heel/ankle/leg wounds improved, no significant cellulitis today, they are drying up with less oder, there is some purulence from the left heel ulcer, no visible abscess, no fluctuance, no crepitus bilateral. Microbiology Past 72 Hours 11/26/20 22:25 Wound - Heel Right Gram Stain - Final 11/26/20 22:25 Wound - Heel Right Wound Culture - Final Proteus mirabilis 11/28/20 04:20 Mucosa - Nose SARS-CoV-2 Antigen (Rapid) - Final 11/27/20 07:45 Wound - Leg, Left Gram Stain - Final 11/27/20 07:45 Wound - Sacral Gram Stain - Final Laboratory Results 11/27/20 07:45: S.aureus Protein A PCR POSITIVE H, MRSA (PCR) POSITIVE H 11/27/20 11:14: Blood Type O POSITIVE, Antibody Screen NEGATIVE, Crossmatch See Detail 11/27/20 11:46: POC Glucose 148 H 11/27/20 17:11: POC Glucose 181 H 11/27/20 21:30: POC Glucose 132 H 11/28/20 06:07: Random Vancomycin 9.3 11/28/20 06:07: WBC 8.0, RBC 2.86 L, Hgb 7.8 L, Hct 26.5 L, MCV 92.7, MCH 27.3, MCHC 29.4 L, RDW Std Deviation 56.1 H, RDW Coeff of Charles 16.5 H, Plt Count 333, MPV 9.8 11/28/20 06:07: PT 14.4, INR 1.2, APTT 36.3 H 11/28/20 06:07: Sodium 142, Potassium 5.8 H, Chloride 115 H, Carbon Dioxide 17.0 L, Anion Gap 10, BUN 64 H, Creatinine 2.63 H, Estim Creat Clear Calc 18.20, Est GFR (MDRD) Af Amer 23 L, Est GFR (MDRD) Non-Af 19 L, BUN/Creatinine Ratio 24.3 H, Glucose 118 H, Calcium 8.0 L 11/28/20 06:41: POC Glucose 118 H Current Medications Acetaminophen (Acetaminophen 325 Mg Tablet) 650 mg PO Q4H PRN PRN Reason: Pain 1-10 or Fever Hydrocodone Bitart/Acetaminophen (Hydrocodone Bitartrate/Apap 5/325 Tablet) 2 tablet PO Q6H PRN PRN PRN Reason: Pain Score 1-10 Last Admin: 11/27/20 13:47 Dose: 2 tablet Documented by: Amlodipine Besylate (Amlodipine 5 Mg Tablet) 5 mg PO DAILY [facility] Last Admin: 11/27/20 10:12 Dose: 5 mg Documented by: Ferrous Sulfate ([facility]ous Sulfate 325 Mg Tablet) [facility] Last Admin: 11/27/20 10:12 Dose: 325 mg Documented by: Furosemide (Furosemide 20 Mg Tablet) 20 mg PO DAILY [facility] Last Admin: 11/27/20 10:12 Dose: 20 mg Documented by: Hydroxyzine Pamoate (Hydroxyzine Tiki 25 Mg Capsule) 25 mg PO Q6H PRN PRN Reason: ITCHING Meropenem 1 gm/ Sodium (Chloride) 120 mls @ 33 mls/hr IV Q12 [facility] Last Infusion: 11/28/20 01:36 Dose: Infused Documented by: Vancomycin IV Pharmacy to Dose (1 each/ Sodium Chloride) 500 mls @ 250 mls/hr IV PRN PRN; Protocol PRN Reason: Rx to Dose Sodium Chloride () 1,000 mls @ 100 mls/hr IV .Q10H [facility] Last Infusion: 11/28/20 08:00 Dose: 0 mls/hr Documented by: Vancomycin HCl (Vancomycin) 1,000 mg in 200 mls @ 200 mls/hr IV X1 ONE Stop: 11/28/20 08:59 Last Admin: 11/28/20 07:53 Dose: 200 mls/hr Documented by: Insulin Human Lispro (Insulin Lispro 100 Unit/Ml Insuln.Pen) 0 unit SC ACHS [facility]; Protocol Last Admin: 11/28/20 06:42 Dose: Not Given Documented by: Lorazepam (Lorazepam 2 Mg/Ml Syringe) 0.5 mg IV X1 PRN PRN Reason: ANXIETY Last Admin: 11/27/20 15:21 Dose: 0.5 mg Documented by: Mirtazapine (Mirtazapine 15 Mg Tablet) 15 mg PO QHS [facility] Last Admin: 11/27/20 21:27 Dose: 15 mg Documented by: Morphine Sulfate (Morphine 2 Mg/Ml Syringe) 2 mg IV Q3H PRN PRN PRN Reason: Pain Score 6-10 Last Admin: 11/28/20 07:48 Dose: 2 mg Documented by: Nutritional Formula (Lactose Free) (Glucerna Shake 120 Ml Liquid) 120 ml PO 4X/DAY [facility] Last Admin: 11/27/20 21:31 Dose: Not Given Documented by: Ondansetron HCl (Ondansetron 4 Mg/2 Ml Vial) 4 mg IV Q8H PRN PRN PRN Reason: NAUSEA/VOMITING Sodium Chloride (0.9% Saline Lock 10 Ml Syringe) 10 - 40 ml IV UD PRN PRN Reason: SALINE FLUSH Last Admin: 11/28/20 07:49 Dose: 10 ml Documented by: Sodium Hypochlorite (Dakin's Lisa Half Strength (=0.25%)) 1 applic TOPICAL BID [facility]; Protocol Last Admin: 11/28/20 07:56 Dose: 1 applic Documented by: Medical Necessity - Tobacco Use Smoking Status: Former smoker Tobacco Use: Cigarettes Assessment/Plan All Active Problems Wound infection (Acute) Right heel ulceration down to bone with osteomyelitis Left heel ulceration down to bone with likely osteomyelitis Left lateral distal leg/ankle ulceration with concern for osteomyelitis Diabetes Peripheral vascular disease Kidney disease Reviewed diagnostic data. Reviewed right and left foot/ankle xrays as well as left tib/fib xrays. Reviewed right hindfoot/ankle MRI which does show osteomyelitis to the right calcaneus. Given the clinical findings there is concern for left heel osteomyelitis as well as left lateral ankle/fibular osteomyelitis. The wounds are necrotic. Patient to get left hindfoot/ankle and leg MRIs. A culture has been obtained the right heel, also cultures of the left heel and left lateral ankle/leg obtained and sent to microbiology - finals pending - reviewed available results. Patient is currently on IV antibiotics - Vancomycin and Meropenem. ID/Dr. Pantoja has been consulted. Noninvasive lower extremity arterial studies have been ordered and reviewed - patient with lower extremity PAD - will place consult to Dr. Collado from vascular surgery. Wound care right heel, left heel, and left lateral ankle/leg: cleanse with dakin's solution, apply betadine to help dry wounds, cover with gauze and kerlix dressings - change BID. Keep offloaded at all times. Ulcerations appear improved, we are considering OR debridement of these ulcerations - wounds overall improved clinically and stable today - this is not urgent - discussed with medicine team and plan for this to be completed on Tuesday pending overall medical status. Podiatry will continue to follow.
[2020-11-28] MEDS: LORazepam 2 MG/ML Syringe 0.5 MG IV (08:45)
--- NOTE | 2020-11-28 08:46 | MRI_ITS ---
STUDY: MRI LEFT ANKLE WITHOUT CONTRAST REASON FOR EXAM: Female, 75 years old. heel and distal fibular osteomyelitis -- has richar filter and stent in thigh- LEFT ANKLE/HEEL TECHNIQUE: Standardized fat and water weighted pulse sequences were obtained in all 3 orthogonal planes. COMPARISON: X-ray 11/26/2020 FINDINGS: Diffuse skin thickening and edema of the subcutaneous fat consistent with cellulitis. Deep ulcer of the posterior aspect of the heel with exposure the posterior cortex of the calcaneus. Severe marrow edema of the posterior aspect of the calcaneus with the cortical destruction posteriorly consistent with osteomyelitis. No loculated fluid collection to suggest abscess. Similar findings to the lateral aspect of the lateral malleolus the fibula with early osteomyelitis. Normal posterior tibialis tendon. 1 cm type II accessory navicular bone. No edema at the synchondrosis per Normal flexor digitorum longus tendon. Normal flexor hallucis longus tendon. Normal peroneus longus and brevis tendons. Normal tibialis anterior tendon. Normal extensor hallucis longus tendon. Normal extensor digitorum longus tendons. Normal Achilles tendon and teno-osseous insertion. Normal plantar fascia. Normal plantar calcaneal tubercles. Normal intrinsic muscles of the rearfoot. Normal distal tibiofibular syndesmotic ligamentous complex. Normal lateral ligamentous complex. Normal subtalar ligaments and sinus tarsi. Normal deltoid ligamentous complexes. Normal plantar calcaneonavicular (spring) ligament. Normal tibiotalar articulation. Normal talar dome. Normal subtalar articulations. Normal talonavicular articulation. Normal calcaneocuboid articulation. Normal navicular-cuneiform articulations. MRI/Lower Ext Joint Only (Routine) IMPRESSION: Deep ulcer of the posterior heel with exposure of the posterior calcaneus with calcaneal osteomyelitis. Early osteomyelitis of the lateral aspect of the lateral malleolus the fibula. Electronically Signed: Jacob Suazo MD at 12:26 EDT Tel , Service support ,
--- NOTE | 2020-11-28 08:46 | MRI_ITS ---
PROCEDURE: MRI LOWER EXTREMITY LEFT TIBIA/FIBULA REASON FOR EXAM: Female, 75 years old. distal fibular osteomyelitis -- has richar filter and thigh stent TECHNIQUE: Standardized fat and water weighted pulse sequences were obtained in all 3 orthogonal planes. COMPARISON: X-ray 11/26/2020 FINDINGS: Normal tibia and fibula, without a periosteal, cortical or cancellous marrow abnormality. Normal anterior, lateral, and posterior calf compartments, with normal muscles, crural fascia and intermuscular septa. Diffuse skin thickening with edema of the subcutaneous fat may represent cellulitis or passive congestion. No loculated fluid collection to suggest abscess. There is no solid, cystic or lipomatous mass lesion of the subcutis adipose space. MRI/Lower Ext/No Jt/w/o IMPRESSION: Cellulitis or passive congestion of the leg but no abscess, myositis, or osteomyelitis. Electronically Signed: Jacob Suazo MD at 12:31 EDT Tel , Service support ,
--- NOTE | 2020-11-28 10:17 | NURSING ---
MRI nurse monitoring completed. back to floor per bed.
[2020-11-28] MEDS: Glucerna Shake 120 ML LIQUID PO ×4 (11:34→21:44)
[2020-11-28] MEDS: Furosemide 20 MG Tablet PO (11:35)
[2020-11-28] MEDS: amLODIPine 5 MG Tablet PO (11:35)
[2020-11-28] MEDS: Ferrous Sulfate 325 MG Tablet PO (11:35)
--- NOTE | 2020-11-28 11:35 | PCM.PN.REN ---
Patient Problems: Active and Suspected Problems Wound infection (Acute) Subjective: Creatinine 2.6. s/p PRBC transfusion yesterday, hgb improved. S/P right hindfoot/ankle MRI which shows osteomyelitis right calcaneus, left MRIs pending. - Physical Exam Vitals/I&O's: Vital Signs Temp Pulse Resp BP Pulse Ox 99.0 F 73 18 137/56 H 96 11/28/20 11:31 11/28/20 11:31 11/28/20 11:31 11/28/20 11:31 11/28/20 11:31 Oxygen Delivery Method Room Air Weight: 60.5 kg Body Mass Index (BMI) 20.9 Intake and Output for Last 24 Hours 11/26/20 11/27/20 11/28/20 23:59 23:59 23:59 Intake Total 895.42 / 895.42 1767.91 / 1767.91 1026.67 / 1026.67 Output Total 1340 / 1690 700 / 700 Balance 895.42 / 445.42 427.91 / 77.91 326.67 / 326.67 General: Alert, Oriented x3, Cooperative HEENT: Atraumatic, PERRLA, EOMI, Normocephalic Neck: Supple, No JVD, Negative Carotid Bruits Lungs: Clear to auscultation, Normal air movement Cardiovascular: Regular rate, No murmurs Abdomen: Bowel Sounds Present, Soft, Non Tender Extremities: No edema, Capillary Refill Less than 3 Seconds Skin: No rashes, No breakdown Musculoskeletal: No Tenderness to Palpation of Joints or Extremities Neurological: Cranial nerves II-XII grossly intact Psych/Mental Status: Normal Affect, Appropriate Microbiology Past 72 Hours 11/27/20 07:45 Wound - Leg, Left Gram Stain - Final 11/27/20 07:45 Wound - Leg, Left Wound Culture - Preliminary Gram negative joseluis Gram positive organism 11/27/20 07:45 Wound - Sacral Gram Stain - Final 11/27/20 07:45 Wound - Sacral Wound Culture - Preliminary Gram negative joseluis 11/26/20 22:25 Wound - Heel Right Gram Stain - Final 11/26/20 22:25 Wound - Heel Right Wound Culture - Final Proteus mirabilis 11/28/20 04:20 Mucosa - Nose SARS-CoV-2 Antigen (Rapid) - Final Laboratory Results 11/27/20 07:45: S.aureus Protein A PCR POSITIVE H, MRSA (PCR) POSITIVE H 11/27/20 11:14: Blood Type O POSITIVE, Antibody Screen NEGATIVE, Crossmatch See Detail 11/27/20 11:46: POC Glucose 148 H 11/27/20 17:11: POC Glucose 181 H 11/27/20 21:30: POC Glucose 132 H 11/28/20 06:07: Random Vancomycin 9.3 11/28/20 06:07: WBC 8.0, RBC 2.86 L, Hgb 7.8 L, Hct 26.5 L, MCV 92.7, MCH 27.3, MCHC 29.4 L, RDW Std Deviation 56.1 H, RDW Coeff of Charles 16.5 H, Plt Count 333, MPV 9.8 11/28/20 06:07: PT 14.4, INR 1.2, APTT 36.3 H 11/28/20 06:07: Sodium 142, Potassium 5.8 H, Chloride 115 H, Carbon Dioxide 17.0 L, Anion Gap 10, BUN 64 H, Creatinine 2.63 H, Estim Creat Clear Calc 18.20, Est GFR (MDRD) Af Amer 23 L, Est GFR (MDRD) Non-Af 19 L, BUN/Creatinine Ratio 24.3 H, Glucose 118 H, Calcium 8.0 L 11/28/20 06:41: POC Glucose 118 H Current Medications Acetaminophen (Acetaminophen 325 Mg Tablet) 650 mg PO Q4H PRN PRN Reason: Pain 1-10 or Fever Hydrocodone Bitart/Acetaminophen (Hydrocodone Bitartrate/Apap 5/325 Tablet) 2 tablet PO Q6H PRN PRN PRN Reason: Pain Score 1-10 Last Admin: 11/27/20 13:47 Dose: 2 tablet Documented by: Amlodipine Besylate (Amlodipine 5 Mg Tablet) 5 mg PO DAILY [facility] Last Admin: 11/27/20 10:12 Dose: 5 mg Documented by: Ferrous Sulfate (Ferrous Sulfate 325 Mg Tablet) [facility] Last Admin: 11/27/20 10:12 Dose: 325 mg Documented by: Furosemide (Furosemide 20 Mg Tablet) 20 mg PO DAILY [facility] Last Admin: 11/27/20 10:12 Dose: 20 mg Documented by: Hydroxyzine Pamoate (Hydroxyzine Tiki 25 Mg Capsule) 25 mg PO Q6H PRN PRN Reason: ITCHING Meropenem 1 gm/ Sodium (Chloride) 120 mls @ 33 mls/hr IV Q12 [facility] Last Infusion: 11/28/20 01:36 Dose: Infused Documented by: Vancomycin IV Pharmacy to Dose (1 each/ Sodium Chloride) 500 mls @ 250 mls/hr IV PRN PRN; Protocol PRN Reason: Rx to Dose Sodium Chloride () 1,000 mls @ 100 mls/hr IV .Q10H [facility] Last Infusion: 11/28/20 08:00 Dose: 0 mls/hr Documented by: Insulin Human Lispro (Insulin Lispro 100 Unit/Ml Insuln.Pen) 0 unit SC ACHS [facility]; Protocol Last Admin: 11/28/20 06:42 Dose: Not Given Documented by: Lorazepam (Lorazepam 2 Mg/Ml Syringe) 0.5 mg IV X1 PRN PRN Reason: ANXIETY Last Admin: 11/27/20 15:21 Dose: 0.5 mg Documented by: Mirtazapine (Mirtazapine 15 Mg Tablet) 15 mg PO QHS [facility] Last Admin: 11/27/20 21:27 Dose: 15 mg Documented by: Morphine Sulfate (Morphine 2 Mg/Ml Syringe) 2 mg IV Q3H PRN PRN PRN Reason: Pain Score 6-10 Last Admin: 11/28/20 07:48 Dose: 2 mg Documented by: Nutritional Formula (Lactose Free) (Glucerna Shake 120 Ml Liquid) 120 ml PO 4X/DAY [facility] Last Admin: 11/27/20 21:31 Dose: Not Given Documented by: Ondansetron HCl (Ondansetron 4 Mg/2 Ml Vial) 4 mg IV Q8H PRN PRN PRN Reason: NAUSEA/VOMITING Sodium Chloride (0.9% Saline Lock 10 Ml Syringe) 10 - 40 ml IV UD PRN PRN Reason: SALINE FLUSH Last Admin: 11/28/20 08:45 Dose: 30 ml Documented by: Sodium Hypochlorite (Dakin's Lisa Half Strength (=0.25%)) 1 applic TOPICAL BID [facility]; Protocol Last Admin: 11/28/20 07:56 Dose: 1 applic Documented by: Medical Necessity - Tobacco Use Smoking Status: Former smoker Tobacco Use: Cigarettes Assessment/Plan All Active Problems Wound infection (Acute) Non oliguric AIDA CKDIIIB bscr 2 with Acute on chronic LE ulcerations, with probable osteomyelitis of the left ankle-AIDA due to From [facility],, urine studies, shows ATN creatinine 2.6 start IV bicarbonate, Hold savannah, Keep MAP.65 and dose anbx e GFR 20 Hyperkalemia: Potassium is 6.2 due AIDA and lack of DCT flow Given potassium depleting cocktail in the ED. s/p Kayexalate and monitor. Anemi of CKD- Hb is 8.6. Goal >10 s/p PRBC Hold IV iron due to infection On oral iron supplementation SQ epoo tomorrow HTN controlled
[2020-11-28 12:20] LABS: Bedside Glucose 147 mg/dL (70-110)
--- NOTE | 2020-11-28 12:25 | CASEMGMT ---
Social Work Note Pt's daughter Sonya is at [facility] and requesting to speak to this worker. SW in to speak with pt and Sonya. Pt laying in bed, holding stuffed cat.Pt didn't participate in conversation with this worker. Patient (and/or patient?s family) was provided a list of SNF providers including quality and resource use data and consistent with the patient?s preferred geographic region, medical needs, and insurance network. [employer]EIGN asked Sonya to have 2-3 other choices for SNF if she wishes for pt to discharge to a different SNF. FOREIGN also provided Sonya with [facility] number and encouraged Sonya to make [facility] report with her concerns of the care pt was getting at [facility]. Sonya took number, also states she will be getting a biology tutor as well. Sonya asked about getting copies of pt's medical records. FOREIGN educated Sonya on Release of Information and provided her with form. Sonya states understanding.Sonya states she will review list of SNF over the weekend. Medically, pt will be at [facility] through the weekend. FOREIGN will follow up with pt and Sonya on Tuesday to get choices for new SNF. LOC will be submitted Tuesday. Plan: Likely new SNF, [facility]EIGN will follow up on Tuesday Suzanne VELÁSQUEZ, FOOD TECHNOLOGIST
--- NOTE | 2020-11-28 13:34 | PCM.PN.ID ---
Patient Problems: Active and Suspected Problems Wound infection (Acute) Subjective: Having a lot of pain, no fever - Physical Exam Vitals/I&O's: Vital Signs Temp Pulse Resp BP Pulse Ox 99.0 F 73 18 137/56 H 96 11/28/20 11:31 11/28/20 11:31 11/28/20 11:31 11/28/20 11:31 11/28/20 11:31 Oxygen Delivery Method Room Air Weight: 60.5 kg Body Mass Index (BMI) 20.9 Intake and Output for Last 24 Hours 11/26/20 11/27/20 11/28/20 23:59 23:59 23:59 Intake Total 895.42 / 895.42 1767.91 / 1767.91 1486.67 / 1486.67 Output Total 1340 / 1690 1075 / 1075 Balance 895.42 / 445.42 427.91 / 77.91 411.67 / 411.67 General: Alert, Cooperative, - - in pain, uncomfortable Lungs: Clear to auscultation, Normal air movement Cardiovascular: Regular rate, Regular Rhythm Abdomen: Soft, Non Tender, Non-Distended Skin: Ulcer/ Wound - reviewed photos Microbiology Past 72 Hours 11/27/20 07:45 Wound - Leg, Left Gram Stain - Final 11/27/20 07:45 Wound - Leg, Left Wound Culture - Preliminary Gram negative joseluis Gram positive organism 11/27/20 07:45 Wound - Sacral Gram Stain - Final 11/27/20 07:45 Wound - Sacral Wound Culture - Preliminary Gram negative joseluis 11/26/20 22:25 Wound - Heel Right Gram Stain - Final 11/26/20 22:25 Wound - Heel Right Wound Culture - Final Proteus mirabilis 11/28/20 04:20 Mucosa - Nose SARS-CoV-2 Antigen (Rapid) - Final Laboratory Results 11/27/20 07:45: S.aureus Protein A PCR POSITIVE H, MRSA (PCR) POSITIVE H 11/27/20 11:14: Blood Type O POSITIVE, Antibody Screen NEGATIVE, Crossmatch See Detail 11/27/20 17:11: POC Glucose 181 H 11/27/20 21:30: POC Glucose 132 H 11/28/20 06:07: Random Vancomycin 9.3 11/28/20 06:07: WBC 8.0, RBC 2.86 L, Hgb 7.8 L, Hct 26.5 L, MCV 92.7, MCH 27.3, MCHC 29.4 L, RDW Std Deviation 56.1 H, RDW Coeff of Charles 16.5 H, Plt Count 333, MPV 9.8 11/28/20 06:07: PT 14.4, INR 1.2, APTT 36.3 H 11/28/20 06:07: Sodium 142, Potassium 5.8 H, Chloride 115 H, Carbon Dioxide 17.0 L, Anion Gap 10, BUN 64 H, Creatinine 2.63 H, Estim Creat Clear Calc 18.20, Est GFR (MDRD) Af Amer 23 L, Est GFR (MDRD) Non-Af 19 L, BUN/Creatinine Ratio 24.3 H, Glucose 118 H, Calcium 8.0 L 11/28/20 06:41: POC Glucose 118 H 11/28/20 11:05: POC Glucose 147 H Current Medications Acetaminophen (Acetaminophen 325 Mg Tablet) 650 mg PO Q4H PRN PRN Reason: Pain 1-10 or Fever Hydrocodone Bitart/Acetaminophen (Hydrocodone Bitartrate/Apap 5/325 Tablet) 2 tablet PO Q6H PRN PRN PRN Reason: Pain Score 1-10 Last Admin: 11/27/20 13:47 Dose: 2 tablet Documented by: Amlodipine Besylate (Amlodipine 5 Mg Tablet) 5 mg PO DAILY [facility] Last Admin: 11/28/20 11:35 Dose: 5 mg Documented by: Ferrous Sulfate (Ferrous Sulfate 325 Mg Tablet) [facility] Last Admin: 11/28/20 11:35 Dose: 325 mg Documented by: Furosemide (Furosemide 20 Mg Tablet) 20 mg PO DAILY [facility] Last Admin: 11/28/20 11:35 Dose: 20 mg Documented by: Hydroxyzine Pamoate (Hydroxyzine Tiki 25 Mg Capsule) 25 mg PO Q6H PRN PRN Reason: ITCHING Meropenem 1 gm/ Sodium (Chloride) 120 mls @ 33 mls/hr IV Q12 [facility] Last Admin: 11/28/20 13:10 Dose: 33 mls/hr Documented by: Vancomycin IV Pharmacy to Dose (1 each/ Sodium Chloride) 500 mls @ 250 mls/hr IV PRN PRN; Protocol PRN Reason: Rx to Dose Sodium Chloride () 1,000 mls @ 100 mls/hr IV .Q10H [facility] Last Infusion: 11/28/20 08:00 Dose: 0 mls/hr Documented by: Insulin Human Lispro (Insulin Lispro 100 Unit/Ml Insuln.Pen) 0 unit SC ACHS [facility]; Protocol Last Admin: 11/28/20 11:35 Dose: Not Given Documented by: Lorazepam (Lorazepam 2 Mg/Ml Syringe) 0.5 mg IV X1 PRN PRN Reason: ANXIETY Last Admin: 11/27/20 15:21 Dose: 0.5 mg Documented by: Mirtazapine (Mirtazapine 15 Mg Tablet) 15 mg PO QHS [facility] Last Admin: 11/27/20 21:27 Dose: 15 mg Documented by: Morphine Sulfate (Morphine 2 Mg/Ml Syringe) 2 mg IV Q3H PRN PRN PRN Reason: Pain Score 6-10 Last Admin: 11/28/20 13:01 Dose: 2 mg Documented by: Nutritional Formula (Lactose Free) (Glucerna Shake 120 Ml Liquid) 120 ml PO 4X/DAY [facility] Last Admin: 11/28/20 13:17 Dose: 120 ml Documented by: Ondansetron HCl (Ondansetron 4 Mg/2 Ml Vial) 4 mg IV Q8H PRN PRN PRN Reason: NAUSEA/VOMITING Sodium Chloride (0.9% Saline Lock 10 Ml Syringe) 10 - 40 ml IV UD PRN PRN Reason: SALINE FLUSH Last Admin: 11/28/20 13:12 Dose: 10 ml Documented by: Sodium Hypochlorite (Dakin's Lisa Half Strength (=0.25%)) 1 applic TOPICAL BID [facility]; Protocol Last Admin: 11/28/20 07:56 Dose: 1 applic Documented by: Medical Necessity - Tobacco Use Smoking Status: Former smoker Tobacco Use: Cigarettes Route of nutrition/ use of supplements: [] Nutritional Intake: [] IV Site: [] Maldonado Catheter: [] - Assessment/Plan Antibiotics: [] Assessment/Plan: [] 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 Cxs and xray taken, started on empiric vanc/meropenem. MRI and arterial studies done. Reports anaphylaxis with PCN in the past. Was admitted to [place] in August with similar complaints, given ceftriaxone IV and discharged on po omnicef. Cx of the wound at that time with heavy enterobacter (which showed resistance to ceftriaxone/cefdinir), heavy proteus, and light enterococcus (cephalosporins do not work on this species). Not clear if the antibiotics were adjusted after discharge. Cont abx pending further surgical plan. Will follow
[2020-11-28 16:01] LABS: Bedside Glucose 189 mg/dL (70-110)
[2020-11-28] MEDS: Insulin Lispro 100 UNIT/ML INSULN.PEN SC ×2 (16:07→21:44)
--- NOTE | 2020-11-28 17:06 | PCM.PN.HOSP ---
Patient Problems: Active and Suspected Problems Wound infection (Acute) Reason for Visit: Follow-up for bilateral leg ulcer and kidney failure. Objective: Seen and examined. Heart rate and blood pressure controlled. Patient had MRI. Physical exam General: Alert, Oriented x3, Cooperative HEENT: Hard of hearing, atraumatic, PERRLA, EOMI, Normocephalic Oral: No Gingival or Mucosal Lesions/ Ulcerations Neck: Supple, No JVD, Negative Carotid Bruits Lungs: Air entry diminished in bilateral lung bases. No crepitation/rhonchi Cardiovascular: Regular rate, Regular Rhythm, Normal S1, Normal S2, No murmurs Abdomen: Bowel Sounds Present, Soft, Non Tender, Non-Distended : No renal angle tenderness. No suprapubic tenderness. Extremities: No edema, Capillary Refill Less than 3 Seconds Skin: Stump of right heel with yellowish discharge/debris and necrosis. 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 Unstagable Musculoskeletal: No Tenderness to Palpation of Joints or Extremities Neurological: Cranial nerves II-XII grossly intact, Deep Tendon Reflexes 2+/4 and Symmetrical, Neuro grossly intact Psych/Mental Status: Normal Affect, Appropriate. Vitals/I&O's: Vital Signs Temp Pulse Resp BP Pulse Ox 99.0 F 73 18 137/56 H 96 11/28/20 11:31 11/28/20 11:31 11/28/20 11:31 11/28/20 11:31 11/28/20 11:31 Oxygen Delivery Method Room Air Weight: 133 lb 6.075 oz Body Mass Index (BMI) 20.9 Intake and Output for Last 24 Hours 11/26/20 11/27/20 11/28/20 23:59 23:59 23:59 Intake Total 895.42 / 895.42 1767.91 / 1767.91 1486.67 / 1486.67 Output Total 1340 / 1690 1075 / 1075 Balance 895.42 / 445.42 427.91 / 77.91 411.67 / 411.67 Microbiology Past 72 Hours 11/27/20 07:45 Wound - Leg, Left Gram Stain - Final 11/27/20 07:45 Wound - Leg, Left Wound Culture - Preliminary Gram negative joseluis Gram positive organism 11/27/20 07:45 Wound - Sacral Gram Stain - Final 11/27/20 07:45 Wound - Sacral Wound Culture - Preliminary Gram negative joseluis 11/26/20 22:25 Wound - Heel Right Gram Stain - Final 11/26/20 22:25 Wound - Heel Right Wound Culture - Final Proteus mirabilis 11/28/20 04:20 Mucosa - Nose SARS-CoV-2 Antigen (Rapid) - Final Laboratory Results 11/27/20 07:45: S.aureus Protein A PCR POSITIVE H, MRSA (PCR) POSITIVE H 11/27/20 11:14: Blood Type O POSITIVE, Antibody Screen NEGATIVE, Crossmatch See Detail 11/27/20 17:11: POC Glucose 181 H 11/27/20 21:30: POC Glucose 132 H 11/28/20 06:07: Random Vancomycin 9.3 11/28/20 06:07: WBC 8.0, RBC 2.86 L, Hgb 7.8 L, Hct 26.5 L, MCV 92.7, MCH 27.3, MCHC 29.4 L, RDW Std Deviation 56.1 H, RDW Coeff of Charles 16.5 H, Plt Count 333, MPV 9.8 11/28/20 06:07: PT 14.4, INR 1.2, APTT 36.3 H 11/28/20 06:07: Sodium 142, Potassium 5.8 H, Chloride 115 H, Carbon Dioxide 17.0 L, Anion Gap 10, BUN 64 H, Creatinine 2.63 H, Estim Creat Clear Calc 18.20, Est GFR (MDRD) Af Amer 23 L, Est GFR (MDRD) Non-Af 19 L, BUN/Creatinine Ratio 24.3 H, Glucose 118 H, Calcium 8.0 L 11/28/20 06:41: POC Glucose 118 H 11/28/20 11:05: POC Glucose 147 H 11/28/20 15:55: POC Glucose 189 H Current Medications Acetaminophen (Acetaminophen 325 Mg Tablet) 650 mg PO Q4H PRN PRN Reason: Pain 1-10 or Fever Hydrocodone Bitart/Acetaminophen (Hydrocodone Bitartrate/Apap 5/325 Tablet) 2 tablet PO Q6H PRN PRN PRN Reason: Pain Score 1-10 Last Admin: 11/27/20 13:47 Dose: 2 tablet Documented by: Amlodipine Besylate (Amlodipine 5 Mg Tablet) 5 mg PO DAILY [facility], [facility] Last Admin: 11/28/20 11:35 Dose: 5 mg Documented by: Ferrous Sulfate ([facility]errous Sulfate 325 Mg Tablet) [facility] Last Admin: 11/28/20 11:35 Dose: 325 mg Documented by: Furosemide (Furosemide 20 Mg Tablet) 20 mg PO DAILY [facility], [facility]1983 Last Admin: 11/28/20 11:35 Dose: 20 mg Documented by: Hydroxyzine Pamoate (Hydroxyzine Tiki 25 Mg Capsule) 25 mg PO Q6H PRN PRN Reason: ITCHING Meropenem 1 gm/ Sodium (Chloride) 120 mls @ 33 mls/hr IV Q12 [facility], [facility]1983 Last Admin: 11/28/20 13:10 Dose: 33 mls/hr Documented by: Vancomycin IV Pharmacy to Dose (1 each/ Sodium Chloride) 500 mls @ 250 mls/hr IV PRN PRN; Protocol PRN Reason: Rx to Dose Sodium Chloride () 1,000 mls @ 100 mls/hr IV .Q10H FOR[facility], [facility]1983 Last Infusion: 11/28/20 08:00 Dose: 0 mls/hr Documented by: Insulin Human Lispro (Insulin Lispro 100 Unit/Ml Insuln.Pen) 0 unit SC ACHS [facility], [facility]1983; Protocol Last Admin: 11/28/20 16:07 Dose: 2 u Documented by: Lorazepam (Lorazepam 2 Mg/Ml Syringe) 0.5 mg IV X1 PRN PRN Reason: ANXIETY Last Admin: 11/27/20 15:21 Dose: 0.5 mg Documented by: Mirtazapine (Mirtazapine 15 Mg Tablet) 15 mg PO QHS [facility] Last Admin: 11/27/20 21:27 Dose: 15 mg Documented by: Morphine Sulfate (Morphine 2 Mg/Ml Syringe) 2 mg IV Q3H PRN PRN PRN Reason: Pain Score 6-10 Last Admin: 11/28/20 13:01 Dose: 2 mg Documented by: Nutritional Formula (Lactose Free) (Glucerna Shake 120 Ml Liquid) 120 ml PO 4X/DAY [facility] Last Admin: 11/28/20 13:17 Dose: 120 ml Documented by: Ondansetron HCl (Ondansetron 4 Mg/2 Ml Vial) 4 mg IV Q8H PRN PRN PRN Reason: NAUSEA/VOMITING Sodium Chloride (0.9% Saline Lock 10 Ml Syringe) 10 - 40 ml IV UD PRN PRN Reason: SALINE FLUSH Last Admin: 11/28/20 13:12 Dose: 10 ml Documented by: Sodium Hypochlorite (Dakin's Lisa Half Strength (=0.25%)) 1 applic TOPICAL BID ROMERO; Protocol Last Admin: 11/28/20 07:56 Dose: 1 applic Documented by: Medical Necessity - Tobacco Use Smoking Status: Former smoker Tobacco Use: Cigarettes Assessment/Plan All Active Problems Wound infection (Acute) 75 y/o admitted with a complaint of worsening wounds on her LEs and sacral wound #Acute on chronic both lower leg and heels and sacral ulcerations, with probable osteomyelitis lateral heel and sacral ulcer: Patient is admitted on [facility] floor. Wound photo reviewed. Currently ulcers are pressure ulcer, unstageable. MRI and arterial studies are pending. Patient previous wound culture in [place] in August as per ID showed heavy Enterobacter, resistant to cefdinir/ceftriaxone, heavy Proteus and light Enterococcus. Currently patient on IV vancomycin and meropenem. Wound care nurse consulted. Initial right heel wound shows gram-negative joseluis.. Detailed wound culture and blood cultures are pending. PT and OT. CRP is elevated as well as ESR. WBC is also 12.9. 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 11/28: Seen by ID. Initial Gram stain of wound shows gram-negative joseluis and gram-positive organism and Proteus mirabilis. Continue broad-spectrum antibiotic. Left leg MRI shows cellulitis/passive congestion but no abscess, myositis or osteomyelitis. MRI left ankle shows deep ulcer of posterior heel with calcaneal osteomyelitis and osteomyelitis of lateral malleolus and fibula. MRI of right ankle shows deep ulcer with osteomyelitis of posterior calcaneus. Acute kidney injury in a stage IIIb with hyperkalemia, nonoliguric: Potassium is 6.2. Improved to 5.8 after Kayexalate. Previous creatinine was little over 2. Seen by small arms artillery repairer. Estimated creatinine clearance about 17. Recommended IV bicarb. Hyperkalemia due to lack of DCT plasma flow. Renal ultrasounds shows nonspecific renal parenchymal disease, multiple right renal cyst. Left renal pelvicalyceal ectasis 11/28: BUN/creatinine gradually improving but GFR low, 18.2. #Acute anemia with baseline chronic anemia chronic kidney disease believed from Lovenox: Hemoglobin 8.6. Subcu up appointment recommended. On oral iron supplementation. Lovenox discontinued. #Type 2 diabetes mellitus: Insulin sliding scale. Accu-Cheks AC at bedtime. A1c 6.7. Glucoses controlled #Depression: On Remeron #DVT prophylaxis: Bilateral SCDs Full code Total time of the visit including total time spent in counseling or coordination of care, (more than 50% of the total time, spent in obtaining medical information from nurses and other ancillary care providers,explaining to the patient about labs, imaging, diagnosis and management), , review of labs and imaging is 30 minutes. 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 There is soft tissue swelling at the operative site but no evidence for acute osteomyelitis Electronically Signed: Toan Alvarez MD at 17:52 EDT , Service support , Tibia/Fibula X-Ray 11/26/20 16:00 IMPRESSION: Soft tissue swelling of the lateral malleolus without associated fracture. No definitive evidence for acute fracture or osteomyelitis Electronically Signed: Toan Alvarez MD at 17:47 EDT , Service support , Ankle X-Ray 11/26/20 16:03 IMPRESSION: No acute radiographic abnormalities. Heel spur. Electronically Signed: Jose Avendano MD at 17:29 EDT Tel , Service support , Foot X-Ray 11/26/20 16:05 IMPRESSION: No acute fracture or other significant bony pathology Electronically Signed: Toan Alvarez MD at 17:49 EDT , Service support , Ankle X-Ray 11/26/20 17:00 IMPRESSION: Soft tissue swelling of the lateral malleolus and findings suspicious for early changes of acute osteomyelitis however three-phase bone scan or MRI is recommended for more definitive evaluation Electronically Signed: Toan Alvarez MD at 17:46 EDT , Service support , Renal Ultrasound 11/26/20 20:30 IMPRESSION: Findings consistent with nonspecific renal parenchymal disease. Multiple right renal cysts. Left renal pelvocaliectasis of uncertain etiology. CT would be helpful for further evaluation Electronically Signed: Toan Alvarez MD at 21:52 EDT , Service support , Ankle Brachial Index 11/27/20 07:34 Interpretation Summary Biphasic Doppler waveforms are noted at ankle level bilaterally. Pulse-volume recording waveform amplitudes are diminished at digital level on the left, but satisfactory at digital level on the right, and at ankle level bilaterally. The resting right ankle-brachial index is normal. The resting left ankle brachial index could not be determined due to the non-compressibility of the vasculature. There is evidence of arterial calcification at ankle level bilaterally. Arterial flow appears normal at ankle level on the right. However, arterial calcification can artifactually elevate arterial indices and mask the presence of arterial occlusive disease. In this regard, clinical correlation is advised. Toe pressures could not be obtained bilaterally. Arterial flow at ankle level on the left can not be assessed due to the non-compressibility of the vasculature. A relatively normal pulse- volume recording at digital level on the right suggests relatively normal flow. The diminished pulse-volume recording waveform amplitude at digital level on the left suggests the presence of occlusive disease, though quantitation is uncertain. Duplex Scan Lower Extremity Artery 11/27/20 07:34 Interpretation Summary Arterial flow appears normal at all levels in the right lower extremity. There appears to be a mild stenosis in the proximal right popliteal artery, which does not appear hemodynamically significant. No flow is demonstrated in the left proximal and mid-superficial femoral artery, suggesting total occlusion. The remainder of the left lower extremity arterial tree appears to be segmentally patent without evidence of flow-limiting stenosis. Ordering Physician: Toan Garcia Performed By: Aakash Lr, T Lower Extremity MRI 11/27/20 08:45 IMPRESSION: Deep ulcer of the medial aspect of the heel with osteomyelitis of the posterior calcaneus. Electronically Signed: Jacob Suazo MD at 18:13 EDT Tel , Service support , Lower Extremity MRI 11/28/20 08:46 IMPRESSION: Deep ulcer of the posterior heel with exposure of the posterior calcaneus with calcaneal osteomyelitis. Early osteomyelitis of the lateral aspect of the lateral malleolus the fibula. Electronically Signed: Jacob Suazo MD at 12:26 EDT Tel , Service support , Lower Extremity MRI 11/28/20 08:46 IMPRESSION: Cellulitis or passive congestion of the leg but no abscess, myositis, or osteomyelitis. Inpatient E&M: 58578 Subs Hosp L2
[2020-11-28] MEDS: Acetaminophen 325 MG Tablet 650 MG PO (18:33)
--- NOTE | 2020-11-28 19:23 | EKG12_ITS ---
Test Reason : AM EKG Blood Pressure : / mmHG Vent. Rate : 067 BPM Atrial Rate : 067 BPM P-R Int : 196 ms QRS Dur : 092 ms QT Int : 416 ms P-R-T Axes : 093 027 075 degrees QTc Int : 439 ms Sinus rhythm with Premature supraventricular complexes Otherwise normal ECG Confirmed by DIANNE JAVED, RICARDA ([id number]), editor in chief KEVIN ROSADO ([id number]) on 12/03/2020 9:02:55 AM Referred By: JP Confirmed By:RICARDA DEAN MD
[2020-11-28] MEDS: Mirtazapine 15 MG Tablet PO (21:44)
[2020-11-28 22:21] LABS: Bedside Glucose 165 mg/dL (70-110)
[2020-11-29] VITALS (28 sets, daily range): BP systolic 116–167; BP diastolic 46–90; PULSE 61–127; RESP 11–27; TEMP 36–39.4; O2SAT 3–100; BMI 20.9
--- NOTE | 2020-11-29 | BON_PTH ---
PATIENT: KADEN GUERRA LOC: [facility] U#:[id number] AGE/SX: 75/F ROOM: [facility] RE11/26/[address]: Dr. Batsheva Hernandez MD : 1945 BED: 1 DIS: 12/03/2020 SPEC #: [id number] RECD: 12/01/20 08:16 STATUS: ULISSES REQ #: [id number] NADIA: 11/29/20 00:[address]: Toan Garcia DEPT: SURGICAL PATHOLOGY RECD BY: Isai Sutton ENTERED: 12/01/20 08:17 SP TYPE: Bone OTHR DR: MD Dr. Marlon Hanson MD Dr. Ama Nuamah, MD Dr. Brett A Butler, MD Dr. Derek Brown, DO Dr. Jeffrey Wunning, DPM MD Dr. Mohit Valera MD Tissues: A - Bone of foot, NOS B - Bone of foot, NOS C - Bone of foot, NOS D - Bone of foot, NOS Procedures: Decalcification bone/plaque Special Stain Group I Surgery Specimen Level III Surgery Specimen Level V AFB Stain (control) GMS Stain (control) Comments: @ Ordering doctor for DEC edited from to @ by MERCY at 12/01/20956 @ Ordering doctor for SUIII edited from to @ by [facility]CY at 12/01/20 0957 @ Submitting doctor edited from to @ gordon MADRID at 12/01/20 0957 HEADER OPERATION: Debridement bilateral heel ulceration, left leg/ankle ulceration PRE-OP DIAGNOSIS: Right and left heel ulceration down to bone with osteomyelitis; lateral distal leg/ankle ulceration TISSUE SUBMITTED: A - Right calcaneal bone biopsy, B - Left calcaneal bone biopsy, C - Debrided tissue bilateral heels, right ankle and leg, D - Left malleolus bone biopsy MICROSCOPIC DIAGNOSIS A. Right calcaneal bone biopsy: A piece of bone with chronic inflammation, reactive changes and focal minimal acute osteomyelitis. B. Left calcaneal bone biopsy: Pieces of bone with acute osteomyelitis. Attached pieces of fibroconnective tissue with acute inflammation and granulation tissue reaction. C. Debrided tissue bilateral heels, right ankle and leg: Pieces of fibroconnective tissue with acute inflammation and abscess formation. See comment. D. Bone biopsy, left lateral malleolus: A piece of bone with reactive changes, negative for acute osteomyelitis. BEN:eloy 12/04/2020 COMMENT C. Special stains for acid fast bacilli and fungi are negative for organisms; matched controls are appropriate. MICROSCOPIC DESCRIPTION Slides are reviewed. GROSS DESCRIPTION A - Received in fixative is one container labeled with the patient's name and designated right calcaneal bone biopsy. The specimen consists of a piece of bone measuring 0.5 x 0.5 x 0.3 cm. The entire specimen is submitted in one cassette after decalcification. B - Received in fixative is one container labeled with the patient's name and designated left calcaneal bone biopsy. The specimen consists of two pieces of bone measuring 4 x 2.5 x 2.5 cm and 2 x 1.5 x 0.4 cm. [facility] Assistant sections are submitted in three cassettes after decalcification. C - Received in fixative is one container labeled with the patient's name and designated debrided tissue bilateral heels, right ankle and leg. The specimen consists of multiple pieces of sandra soft tissue that in aggregate measure 8 x 5 x 1.5 cm. Health Center Assistant sections are submitted in two cassettes. D - Received in fixative is one container labeled with the patient's name and designated bone biopsy left lateral malleolus. The specimen consists of a piece of bone measuring 0.4 x 0.4 x 0.3 cm. The specimen is totally submitted in one cassette after decalcification. / SJ:eloy 12/01/20 TC:2 CPT: 34409 x3, 91189, 08811 x3, 30909 x2
[2020-11-29] MEDS: 0.9% Normal Saline 1,000 ML 100 ML IV (05:46)
[2020-11-29 06:16] LABS: Bedside Glucose 121 mg/dL (70-110)
[2020-11-29 07:05] LABS: Absolute Lymphocyte Count 1.73 X10^3/uL (0.83-4.51); Absolute Neutrophil Count 11.2 X10^3/uL (2.0-7.7); Basophil# 0.06 X10^3/uL; Basophil% 0.4 % (0-1); Eosinophils% 2.1 % (0-5); Hematocrit 34.5 % (37-47); Lymphocyte # 1.73 X10^3/ul (0.83-4.51); Lymphocyte % 12.3 % (19-41); Mean Corpuscular Hgb 27.2 pg (27.0-32.0); Mean Corpuscular Volume 93.8 fL (81-99); Mean Platelet Vol. 9.9 fl (6.2-12.0); Monocyte# 0.65 X10^3/uL; Monocyte% 4.6 % (0-10); NRBC Flagged by Analyzer 0 % (0-5); Neutrophil # 11.24 X10^3/uL (2.7-7.7); Neutrophil % 80.1 % (47-70); Platelet Count 369 K/mm3 (150-450); RBC Distribution Width CV 16.7 % (11.6-14.6); RBC Distribution Width SD 57.5 fl (35.1-43.9); Red Blood Count 3.68 M/mm3 (4.2-5.4); White Blood Count 14.1 K/mm3 (4.4-11.0)
[2020-11-29 07:20] LABS: Vancomycin, Random Level 19.8 ug/mL (0.0-15.0)
[2020-11-29 07:35] LABS: ALB/GLOB Ratio 0.4 RATIO (0.9-2.4); AST(SGOT) 53 U/L (15-37); Alanine Aminotransfer ALT/SGPT 71 U/L (13-56); Albumin, Serum 1.8 g/dL (3.2-5.0); Anion Gap 7 (5-15); BUN 71 mg/dL (7-18); BUN/Creat Ratio 27.1 RATIO (10-20); Calcium,Total 8.9 mg/dL (8.5-10.1); Chloride 115 mmol/L (98-107); Creatinine, Serum 2.62 mg/dL (0.55-1.02); EST Glomerular Filtration Rate 19 mL/min (>60); Est Glom Filt Rate - Afr Amer 23 mL/min (>60); Estimated Creatinine Clearance 18.26 ml/min; Globulin 4.9 g/dL (2.2-4.2); Glucose 112 mg/dL (74-106); Potassium 5.6 mmol/L (3.5-5.1); Protein, Total 6.7 g/dL (6.4-8.2); Sodium Level 140 mmol/L (136-145)
[2020-11-29 07:36] LABS: Alkaline Phosphatase 942 U/L (45-117)
[2020-11-29] MEDS: Acetaminophen 325 MG Tablet 650 MG PO (07:46)
--- NOTE | 2020-11-29 07:54 | EKG12_ITS ---
Test Reason : RHYTHM CONVERSION Blood Pressure : / mmHG Vent. Rate : 120 BPM Atrial Rate : 147 BPM P-R Int : 000 ms QRS Dur : 088 ms QT Int : 304 ms P-R-T Axes : 000 039 089 degrees QTc Int : 429 ms Atrial fibrillation with premature ventricular or aberrantly conducted complexes Nonspecific ST and T wave abnormality Abnormal ECG Confirmed by DIANNE JAVED, RICARDA ([id number]), deputy editor in chief KEVIN ROSADO ([id number]) on 12/03/2020 9:03:26 AM Referred By: JP Confirmed By:RICARDA DEAN MD
--- NOTE | 2020-11-29 08:00 | ECHOD_ITS ---
Reason For Study: Pre Op Procedure This was a 2D Doppler, Color Flow transthoracic echocardiogram. Patient seemed confused and was agitated, could not perform valsalva. Exam performed portable in patient room. Left Ventricle Normal LV size. The estimated ejection fraction is 60 %. Unable to assess diastolic dysfunction. No regional wall motion abnormalities noted. Right Ventricle Normal RV size. Normal systolic function. Atria The left atrium is mildly enlarged. Normal right atrium. No doppler evidence for ASD. Mitral Valve There is moderate to severe mitral annular calcification. There is no mitral valve stenosis. No mitral valve insufficiency. Tricuspid Valve There is no tricuspid stenosis. Trivial tricuspid valve insufficiency. Pulmonary artery systolic pressure is 65-70 mmHg. Aortic Valve Mild diffuse aortic valve thickening. Mild aortic stenosis. No aortic valve insufficiency. Pulmonic Valve There is no pulmonic valvular stenosis. No pulmonic valve insufficiency. Great Vessels Normal aortic root. Pericardium/Pleural No pericardial effusion. MMode/2D Measurements & Calculations LVIDd: 4.2 cm IVSd: 1.1 cm LVOT diam: 1.8 cm LVIDs: 2.3 cm LVPWd: 1.0 cm LVOT area: 2.4 cm2 RVDd: 4.7 cm FS: 44.9 % LA dimension: 4.2 cm LAV(MOD-bp): 64.6 ml LA A4 area: 21.1 cm2 LAV(MOD-bp) Indexed: 38.0 ml/m2 LAV(MOD-sp2): 58.9 ml LAV(MOD-sp4): 63.2 ml RA A4 area: 11.3 cm2 Time Measurements MV dec time: 0.19 sec Doppler Measurements & Calculations MV E max wilbur: 163.9 cm/sec Lat Peak E' Wilbur: 7.2 cm/sec Med Peak E' Wilbur: 9.7 cm/sec MV A max wilbur: 126.2 cm/sec E/E' lat: 22.7 E/E' med: 16.8 MV E/A: 1.3 MV V2 max: 169.5 cm/sec MV P1/2t max wilbur: 170.7 cm/sec Ao V2 max: 252.2 cm/sec MV max P.5 mmHg MV P1/2t: 93.6 msec Ao max P.5 mmHg MV V2 mean: 106.0 cm/sec MV dec slope: 534.3 cm/sec2 Ao V2 mean: 161.3 cm/sec MV mean P.2 mmHg Ao mean P.2 mmHg MV V2 VTI: 43.1 cm MVA(P1/2t): 2.4 cm2 Ao V2 VTI: 49.5 cm MVA(VTI): 2.0 cm2 KOTA(I,D): 1.7 cm2 KOTA(V,D): 1.7 cm2 LV V1 max: 176.4 cm/sec SV(LVOT): 84.6 ml PA V2 max: 161.3 cm/sec LV V1 max P.4 mmHg LV V1 mean P.5 mmHg LV V1 mean: 119.3 cm/sec LV V1 VTI: 34.8 cm TR max wilbur: 396.9 cm/sec TR max P.0 mmHg ECHO/Echo Complete Interpretation Summary The estimated ejection fraction is 60 %. Unable to assess diastolic dysfunction. The left atrium is mildly enlarged. Mild diffuse aortic valve thickening. Mild aortic stenosis. Ordering Physician: Hardy Becerra Referring Physician: Marlon Chiang Performed By: Nigel Araiza RCS
[2020-11-29] MEDS: 0.9% Saline Lock 10 ML Syringe IV ×3 (08:20→14:50)
[2020-11-29] MEDS: Morphine 2 MG/ML Syringe IV (08:20)
[2020-11-29] MEDS: Sodium Polystyrene Sulfonate 15 GM/60 ML UDC 30 GM PO (08:34)
--- NOTE | 2020-11-29 08:49 | PN_ITS ---
Patient Problems: Active and Suspected Problems Wound infection (Acute) Reason for Visit: Follow-up for sepsis from wound infection/ulcer, kidney failure, anemia Objective: Seen and examined. The patient had fever last evening 101.7. Patient already on broad-spectrum potent antibiotic vancomycin and meropenem. Subsequently, I called Dr. Garcia and he agreed that patient is getting septic and needs wound debridement. In the morning today patient spiked fever again 103 Fahrenheit, 102.5, leukocytosis 14,000 with left shift and Tylenol were given. I talked to the patient about high risk of surgery and patient want to proceed with surgery and wants to keep full code. Furthermore, I called patient's daughter Sonya and she said patient wants to maintain full code since beginning. Once in the recent past, fdc change her code to DNR CC arrest and she was very upset. I talked to the anesthesiologist, Dr. Thompson and updated clinical course and findings. Vitals/I&O's: Vital Signs Temp Pulse Resp BP Pulse Ox 102.5 F H 103 H 22 H 139/60 H 93 11/29/20 08:15 11/29/20 08:15 11/29/20 08:15 11/29/20 08:15 11/29/20 08:15 Oxygen Flow Rate (L/min) 3 Oxygen Delivery Method Nasal Cannula Weight: 133 lb 6.075 oz Body Mass Index (BMI) 20.9 Intake and Output for Last 24 Hours 11/27/20 11/28/20 11/29/20 23:59 23:59 23:59 Intake Total 1767.91 / 1767.91 1976.67 / 1975.67 753.33 / 753.33 Output Total 1340 / 1690 1475 / 1475 350 / 350 Balance 427.91 / 77.91 501.67 / 501.67 403.33 / 403.33 Microbiology Past 72 Hours 11/26/20 16:25 Blood Culture (Wb) - Anticubital Left Blood Culture - Preliminary No growth in 48 hours. 11/27/20 07:45 Wound - Leg, Left Gram Stain - Final 11/27/20 07:45 Wound - Leg, Left Wound Culture - Preliminary Proteus mirabilis Staphylococcus species 11/27/20 07:45 Wound - Sacral Gram Stain - Final 11/27/20 07:45 Wound - Sacral Wound Culture - Final Proteus mirabilis 11/26/20 22:25 Wound - Heel Right Gram Stain - Final 11/26/20 22:25 Wound - Heel Right Wound Culture - Final Proteus mirabilis 11/28/20 04:20 Mucosa - Nose SARS-CoV-2 Antigen (Rapid) - Final Laboratory Results 11/27/20 07:45: S.aureus Protein A PCR POSITIVE H, MRSA (PCR) POSITIVE H 11/27/20 11:14: Crossmatch See Detail 11/28/20 11:05: POC Glucose 147 H 11/28/20 11:14: Crossmatch See Detail 11/28/20 15:55: POC Glucose 189 H 11/28/20 21:42: POC Glucose 165 H 11/29/20 06:09: POC Glucose 121 H 11/29/20 06:30: Random Vancomycin 19.8 H 11/29/20 06:30: WBC 14.1 H, RBC 3.68 L, Hgb 10.0 L, Hct 34.5 L, MCV 93.8, MCH 27.2, MCHC 29.0 L, RDW Std Deviation 57.5 H, RDW Coeff of Charles 16.7 H, Plt Count 369, MPV 9.9, Immature Gran % (Auto) 0.500, Neut % (Auto) 80.1 H, Lymph % (Auto) 12.3 L, [place] % (Auto) 4.6, Eos % (Auto) 2.1, Baso % (Auto) 0.4, Absolute Neuts (auto) 11.2 H, Absolute Lymphs (auto) 1.73, Nucleated RBC % 0 11/29/20 06:30: Sodium 140, Potassium 5.6 H, Chloride 115 H, Carbon Dioxide 18.0 L, Anion Gap 7, BUN 71 H, Creatinine 2.62 H, Estim Creat Clear Calc 18.26, Est GFR (MDRD) Af Amer 23 L, Est GFR (MDRD) Non-Af 19 L, BUN/Creatinine Ratio 27.1 H , Glucose 112 H, Calcium 8.9, Total Bilirubin 0.30, AST 53 H, ALT 71 H, Alkaline Phosphatase 942 H, Total Protein 6.7, Albumin 1.8 L, Globulin 4.9 H, Albumin/Globulin Ratio 0.4 L Current Medications Acetaminophen (Acetaminophen 325 Mg Tablet) 650 mg PO Q4H PRN PRN Reason: Pain 1-10 or Fever Last Admin: 11/29/20 07:46 Dose: 650 mg Documented by: Hydrocodone Bitart/Acetaminophen (Hydrocodone Bitartrate/Apap 5/325 Tablet) 2 tablet PO Q6H PRN PRN PRN Reason: Pain Score 1-10 Last Admin: 11/27/20 13:47 Dose: 2 tablet Documented by: Amlodipine Besylate (Amlodipine 5 Mg Tablet) 5 mg PO DAILY [facility] Last Admin: 11/28/20 11:35 Dose: 5 mg Documented by: Ferrous Sulfate (Ferrous Sulfate 325 Mg Tablet) 325 mg PO DAILYCM [facility] Last Admin: 11/28/20 11:35 Dose: 325 mg Documented by: Furosemide (Furosemide 20 Mg Tablet) 20 mg PO DAILY [facility] Last Admin: 11/28/20 11:35 Dose: 20 mg Documented by: Hydroxyzine Pamoate (Hydroxyzine Tiki 25 Mg Capsule) 25 mg PO Q6H PRN PRN Reason: ITCHING Meropenem 1 gm/ Sodium (Chloride) 120 mls @ 33 mls/hr IV Q12 [facility] Last Infusion: 11/29/20 01:25 Dose: Infused Documented by: Vancomycin IV Pharmacy to Dose (1 each/ Sodium Chloride) 500 mls @ 250 mls/hr IV PRN PRN; Protocol PRN Reason: Rx to Dose Sodium Chloride () 1,000 mls @ 100 mls/hr IV .Q10H [facility] Last Admin: 11/29/20 05:46 Dose: 100 mls/hr Documented by: Insulin Human Lispro (Insulin Lispro 100 Unit/Ml Insuln.Pen) 0 unit SC [facility]; Protocol Last Admin: 11/29/20 06:10 Dose: Not Given Documented by: Lorazepam (Lorazepam 2 Mg/Ml Syringe) 0.5 mg IV X1 PRN PRN Reason: ANXIETY Last Admin: 11/27/20 15:21 Dose: 0.5 mg Documented by: Mirtazapine (Mirtazapine 15 Mg Tablet) 15 mg PO QHS [facility] Last Admin: 11/28/20 21:44 Dose: 15 mg Documented by: Morphine Sulfate (Morphine 2 Mg/Ml Syringe) 2 mg IV Q3H PRN PRN PRN Reason: Pain Score 6-10 Last Admin: 11/29/20 08:20 Dose: 2 mg Documented by: Nutritional Formula (Lactose Free) (Glucerna Shake 120 Ml Liquid) 120 ml PO 4X/DAY [facility] Last Admin: 11/28/20 21:44 Dose: 120 ml Documented by: Ondansetron HCl (Ondansetron 4 Mg/2 Ml Vial) 4 mg IV Q8H PRN PRN PRN Reason: NAUSEA/VOMITING Sodium Chloride (0.9% Saline Lock 10 Ml Syringe) 10 - 40 ml IV UD PRN PRN Reason: SALINE FLUSH Last Admin: 11/29/20 08:20 Dose: 10 ml Documented by: Sodium Hypochlorite (Dakin's Lisa Half Strength (=0.25%)) 1 applic TOPICAL BID [facility]; Protocol Last Admin: 11/28/20 21:44 Dose: 1 applic Documented by: STROKE Vital Signs/Narrative: Vital Signs Temp Pulse Resp BP Pulse Ox 11/29/20 08:15 102.5 F H 103 H 22 H 139/60 H 93 11/29/20 07:40 103 F H 103 H 22 H 137/57 H 96 11/29/20 06:54 102 H 11/29/20 06:10 99.8 F H 11/29/20 05:46 99.5 F H 107 H 18 132/75 H 92 Medical Necessity - Tobacco Use Smoking Status: Former smoker Tobacco Use: Cigarettes Assessment/Plan All Active Problems Wound infection (Acute) 75 y/o admitted with a complaint of worsening wounds on her LEs and sacral wound #Acute on chronic both lower leg and heels and sacral ulcerations, with probable osteomyelitis lateral heel and sacral ulcer: [facility] Wound photo reviewed. Currently ulcers are pressure ulcer, unstageable. MRI and arterial studies are pending. Patient previous wound culture in [place] in August as per ID showed heavy Enterobacter, resistant to cefdinir/ceftriaxone, heavy Proteus and light Enterococcus. Currently patient on IV vancomycin and meropenem. Wound care nurse consulted. Initial right heel wound shows gram-negative joseluis.. Detailed wound culture and blood cultures are pending. PT and OT. CRP is elevated as well as ESR. WBC is also 12.9. Discussed with parcel post delivery and patient will be high risk for surgery depending on kidney failure severe anemia therefore probably will wait over the weekend. 11/28: Seen by ID. Initial Gram stain of wound shows gram-negative joseluis and gram- positive organism and Proteus mirabilis. Continue broad-spectrum antibiotic. Left leg MRI shows cellulitis/passive congestion but no abscess, myositis or osteomyelitis. MRI left ankle shows deep ulcer of posterior heel with calcaneal osteomyelitis and osteomyelitis of lateral malleolus and fibula. MRI of right ankle shows deep ulcer with osteomyelitis of posterior calcaneus. 11/29: Perioperative risk is high in view of AIDA on CKD stage III, creatinine clearance 18 mL/min, hyperkalemia,elevated alkaline phosphatase probably from bone source, history of multiple bacterial infection of wound. 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 EKG shows sinus rhythm at 88 bpm, QTC 399 ms with no hyperacute T changes, similar to previous EKG of 11/26.Lactic acid 2.6 and Kayexalate given. Acute kidney injury in a stage IIIb with hyperkalemia, nonoliguric: Potassium is 6.2. Improved to 5.8 after Kayexalate. Previous creatinine was little over 2. Seen by grain oilseed or pasture grower. Estimated creatinine clearance about 17. Recommended IV bicarb. Hyperkalemia due to lack of DCT plasma flow. Renal ultrasounds shows nonspecific renal parenchymal disease, multiple right renal cyst. Left renal pelvicalyceal ectasis 11/28: BUN/creatinine gradually improving but GFR low, 18.2. #Acute anemia with baseline chronic anemia chronic kidney disease believed from Lovenox: Hemoglobin 8.6. Subcu up appointment recommended. On oral iron supplementation. Lovenox discontinued. #Type 2 diabetes mellitus: Insulin sliding scale. Accu-Cheks AC at bedtime. A1c 6.7. Glucoses controlled #Depression: On Remeron #DVT prophylaxis: Bilateral SCDs Full code Total time of the visit including total time spent in counseling or coordination of care, (more than 50% of the total time, spent in obtaining medical information from nurses and other ancillary care providers,explaining to the patient about labs, imaging, diagnosis and management), , review of labs and imaging is 30 minutes. 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 There is soft tissue swelling at the operative site but no evidence for acute osteomyelitis Electronically Signed: oTan Alvarez MD at 17:52 EDT , Service support , Tibia/Fibula X-Ray 11/26/20 16:00 IMPRESSION: Soft tissue swelling of the lateral malleolus without associated fracture. No definitive evidence for acute fracture or osteomyelitis Electronically Signed: Toan Alvarez MD at 17:47 EDT , Service support , Ankle X-Ray 11/26/20 16:03 IMPRESSION: No acute radiographic abnormalities. Heel spur. Electronically Signed: Jose Avendano MD at 17:29 EDT Tel , Service support , Foot X-Ray 11/26/20 16:05 IMPRESSION: No acute fracture or other significant bony pathology Electronically Signed: Toan Alvarez MD at 17:49 EDT , Service support , Ankle X-Ray 11/26/20 17:00 IMPRESSION: Soft tissue swelling of the lateral malleolus and findings suspicious for early changes of acute osteomyelitis however three-phase bone scan or MRI is recommended for more definitive evaluation Electronically Signed: Toan Alvarez MD at 17:46 EDT , Service support , Renal Ultrasound 11/26/20 20:30 IMPRESSION: Findings consistent with nonspecific renal parenchymal disease. Multiple right renal cysts. Left renal pelvocaliectasis of uncertain etiology. CT would be helpful for further evaluation Electronically Signed: Toan Alvarez MD at 21:52 EDT , Service support , Ankle Brachial Index 11/27/20 07:34 Interpretation Summary Biphasic Doppler waveforms are noted at ankle level bilaterally. Pulse-volume recording waveform amplitudes are diminished at digital level on the left, but satisfactory at digital level on the right, and at ankle level bilaterally. The resting right ankle-brachial index is normal. The resting left ankle brachial index could not be determined due to the non-compressibility of the vasculature. There is evidence of arterial calcification at ankle level bilaterally. Arterial flow appears normal at ankle level on the right. However, arterial calcification can artifactually elevate arterial indices and mask the presence of arterial occlusive disease. In this regard, clinical correlation is advised. Toe pressures could not be obtained bilaterally. Arterial flow at ankle level on the left can not be assessed due to the non-compressibility of the vasculature. A relatively normal pulse- volume recording at digital level on the right suggests relatively normal flow. The diminished pulse-volume recording waveform amplitude at digital level on the left suggests the presence of occlusive disease, though quantitation is uncertain. Duplex Scan Lower Extremity Artery 11/27/20 07:34 Interpretation Summary Arterial flow appears normal at all levels in the right lower extremity. There appears to be a mild stenosis in the proximal right popliteal artery, which does not appear hemodynamically significant. No flow is demonstrated in the left proximal and mid-superficial femoral artery, suggesting total occlusion. The remainder of the left lower extremity arterial tree appears to be segmentally patent without evidence of flow-limiting stenosis. Ordering Physician: Toan Garcia Performed By: Aakash Lr, RVT Lower Extremity MRI 11/27/20 08:45 IMPRESSION: Deep ulcer of the medial aspect of the heel with osteomyelitis of the posterior calcaneus. Electronically Signed: Jacob Suazo MD at 18:13 EDT Tel , Service support , Lower Extremity MRI 11/28/20 08:46 IMPRESSION: Deep ulcer of the posterior heel with exposure of the posterior calcaneus with calcaneal osteomyelitis. Early osteomyelitis of the lateral aspect of the lateral malleolus the fibula. Electronically Signed: Jacob Suazo MD at 12:26 EDT Tel , Service support , Lower Extremity MRI 11/28/20 08:46 IMPRESSION: Cellulitis or passive congestion of the leg but no abscess, myositis, or osteomyelitis. Inpatient E&M: 15952 Subs Hosp L3
[2020-11-29 09:45] LABS: Lactic Acid 0.6 mmol/L (0.4-1.9)
--- NOTE | 2020-11-29 09:57 | NURSING ---
Off unit to OR
[2020-11-29] MEDS: Bupivacaine Mpf 0.5% 30 ML VIAL (10:53)
--- NOTE | 2020-11-29 11:31 | NURSING ---
Report called to Radha in ICU.
--- NOTE | 2020-11-29 12:27 | PCM.OPRPT ---
Report of Operation Date of Procedure: 11/29/20 Pre-Operative Diagnosis: Bilateral heel ulceration with calcaneal osteomyelitis. Left lateral malleolus ulcerations with distal fibular osteomyelitis. Left proximal leg ulcerations down to fascia layer Post-Operative Diagnosis: Same Surgery/Procedure Performed:: Debridement of right heel ulcer down to bone w/ bone biopsy. Debridement of left heel ulcer down to bone w/ bone biopsy. Debridement of left ankle ulceration down to bone w/ bone biopsy. Debridement of left leg ulcerations down to fascia layer char filter operator helper: None Type of Anesthesia:: General Specimen's removed: 1. Deep ulcer swab cultures sent to microbiology. 2. Proximal left leg ulcer deep culture. 3. Bone biopsy bilateral calcaneus sent to microbiology and pathology. 4. Distal fibular/lateral malleolus left sent to microbiology and pathology Estimated Blood Loss (mL): 200mL Description of Procedure: This is a 75 year old female with multiple medical problems who recently presented to [facility] with severe ulcerations to bilateral posterior heels, as well as to left lateral ankle and left leg. These ulcerations were infected and necrotic, there was significant maloder from the wounds. Patient was admitted for further workup and management. Wound cultures have been obtained from the ulcer sites and there is multiple organisms, including MRSA. Patient is on IV antibiotics. MRIs of the heels and left ankle showed bilateral calcaneus osteomyelitis and left lateral malleolus osteomyelitis. Patient also with significantly elevated creatinine, and also hyperkalemia. Patient also had low hemoglobin at 6.3. I discussed with medicine team, Dr. Becerra and patient was not ready to go to surgery on Tuesday11/28/2020 due to these other medical problems, however patient has developed fever and WBC elevated, there is concern patient is going septic. With discussing with Dr. Becerra it was felt ulcerations needed to be debrided as this is source of patients infection. This was discussed with patient however she is significantly confused so discussed with patient's daughter Sonya. We all agreed it would be best to proceed forward with bilateral heel debridement as well as debridement of left ankle/leg ulcerations with bone biopsies. This was discussed in detail with patient's daughter, reviewed rationale of this, possible benefits vs risks, goals, expectations and estimated healing time, and patient is at risk of, but not limited to bleeding, nonhealing especially due to the severity of the wounds, worsening infection, need for further surgery, loss of limb, loss of life. The consent form was reviewed with patient and her daughter, and the consent form was freely signed, with all questions being answered. No guarantees were given nor implied. No warranties were given. Operative Procedure: The patient was brought back to the operating room. The patient received general anesthesia per the anesthesia team. The patient was carefully placed on the operating room table in the prone position, being sure to well pad all nathan areas and pressure points. The patient was already on IV antibiotics. A timeout was performed and the patient was properly identified and the surgical plan was confirmed. The right foot and ankle as well as the left foot, ankle and leg were all scrubbed, prepped, and draped in the usual aseptic fashion. Right heel debridement and bone biopsy: Further attention was directed to the right foot and ankle, there was a large ulceration to the posterior heel which had exposed bone, the ulceration did have a lot of necrotic tissue, there was pockets of purulence present, the necrotic tissue involved the skin, subcutaneous tissue and some of the calcaneus bone, there was significant malodor and infection present to the site. There was some areas of granular tissue as well. A sterile well padded pneumatic tourniquet was applied around the ankle. The foot was elevated for a few minutes and the pneumatic tourniquet was inflated to 250mmHg. At this time all nonviable, necrotic, infected tissue was debrided in excisional fashion using a 15 blade as well as a VersaJet, this was debrided down to the calcaneus bone. The purulence was evacuated from the site with debridement. The calcaneus bone was yellow and soft, a bone biopsy was obtained using a Alfred bone biopsy trephine - this was sent to microbiology and pathology. The ulceration was debrided down to healthy viable bleeding tissue down to calcaneus bone. There was noted chronic abscess to the subcutaneous tissues at this site which were debrided and excised using a 15 blade. The area debrided measured: 6.5cm x 5.5cm an down to and including bone - and ~2cm deep at the deepest area. The debrided tissue was passed from the surgical site and sent pathology. The site was flushed out with copious amounts of normal saline solution. The remaining tissues at this time were noted to be significantly improved - they were overall viable, bleeding and healthy in appearance. A dressing was applied which consisted of Betadine soaked gauze, 4x4 gauze, abd pads, Kerlix and savannah bandage. The right ankle pneumatic tourniquet was deflated and there was immediate return of warmth and perfusion to the foot, ankle and leg. CFT < 2 seconds to all toes with normal temperature. Left heel debridement and bone biopsy: Further attention was directed to the left foot and ankle, there was also a large ulceration to the posterior heel which had exposed bone, there was more exposed bone that on the right side. The ulceration did have a lot more necrotic tissue, there was a pocket of purulence present to the plantar aspect of the ulceration, the necrotic tissue involved the skin, subcutaneous tissue and the posterior calcaneus bone, there was significant malodor and infection present to the site. The left lower extremity was elevated for a few minutes and the thigh pneumatic tourniquet (which was applied proper to starting the procedure) was inflated to 300mmHg. At this time all nonviable, necrotic, infected tissue was debrided in excisional fashion using a 15 blade, this was debrided down to the calcaneus bone. Due to the large defect in tissue from the infection, the posterior calcaneus was very prominent and also necrotic at the posterior aspect. The posterior calcaneus was resected using a power sagittal saw - and this was sent as a bone biopsy to microbiology and pathology. The purulence was evacuated from the site with debridement. The calcaneus bone was yellow and soft. The ulceration was debrided down to healthy viable bleeding tissue down to calcaneus bone. There was noted chronic abscess to the subcutaneous tissues at this site which were debrided and excised using a 15 blade. The area debrided measured: 6cm x 7cm an down to and including bone. The debrided tissue was passed from the surgical site and sent pathology. The site was flushed out with copious amounts of normal saline solution. The remaining tissues at this time were noted to be significantly improved - they were overall viable, bleeding and healthy in appearance. The calcaneus bone remaining at the base of the wound site at the end of the debridement was noted to be bleeding and viable in appearance. Left lateral ankle debridement and bone biopsy: There was noted to be 2 ulcerations to the lateral ankle, one directly over the lateral malleolus and the other just superior and posterior to that. These ulcerations had a lot of fibrotic tissue and the more proximal ulceration had a significant amount of necrotic tissue. There was significant malodor. The more distal ulceration extended down to the lateral malleolus and the more proximal ulceration extended down to peroneal tendon and muscle. The tissues were noted to be nonviable, necrotic, and unhealthy in appearance, there was malodor and infection. There was some purulence. The ulcerations were debrided in sharp excisional fashion using a 15 blade as well as a VersaJet removing the nonviable, infected and unhealthy tissue. The distal ulceration was debrided down to bone and the more proximal ulceration was debrided down to fascia/tendon/muscle. The nonviable, necrotic tissue extended underneath the skin in the subcutaneous tissue layer of the more proximal ulceration. All nonviable, infected and necrotic tissue was debrided and excised - this involved skin, subcutaneous tissue, fascia layer of both ulcerations and also peroneal tendon and muscle of the more proximal ulcerations. A bone biopsy was completed to the distal lateral malleolus using a clean Alfred bone biopsy trephine and was sent to microbiology and pathology for further evaluation. The bone was noted to be yellowish and soft but not necrotic. The area debrided measured: 5cm x 3cm an down to and including bone of the more distal ulceration and 5.5cm x 7cm and down to and including peroneal tendon and muscle of the more proximal ulceration. The purulence was evacuated via debridement. The debrided tissue was passed from the surgical site and sent pathology. The site was flushed out with copious amounts of normal saline solution. The remaining tissues at this time were noted to be significantly improved - they were overall viable, bleeding and healthy in appearance. Left proximal leg ulcers debridement: There were two proximal leg ulcerations on the medial aspect of the proximal left leg. The tissues were nonviable and necrotic, and extended down to subcutaneous and fascia layer. There was some purulence. The ulcerations were debrided in sharp excisional fashion using a 15 blade. All nonviable, necrotic and infected looking tissue was excised using a 15 blade, again down to subcutaneous and fascia layer, and was debrided to healthy and viable tissue. The debrided tissue was sent to pathology. There was no exposed bone here. The area debrided measured: 1.5cm x 1cm an down to and including the subcutaneous and fascia layer for the more distal ulcer and measured 2cm x 1.5cm and down to and including the subcutaneous and fascia layer for the more proximal ulceration. The purulence was evacuated via debridement. The debrided tissue was passed from the surgical site and sent pathology. The site was flushed out with copious amounts of normal saline solution. The remaining tissues at this time were noted to be significantly improved - they were overall viable, bleeding and healthy in appearance. The left thigh pneumatic tourniquet was deflated and there was immediate return of warmth and perfusion to the foot, ankle and leg. CFT < 2 seconds to all toes with normal temperature. A dressing was applied which consisted of Betadine soaked gauze, 4x4 gauze, abd pads, Kerlix and savannah bandage. Of note a total of 30mL of Bupivacaine plain was given as local anesthesia between the surgical sites as noted above prior to dressing application. The patient was carefully transferred from the operating room table to her hospital bed in the supine position. The patient tolerated the above procedures well and the anesthesia well with no complications. The patient was transferred from the operating room to the ICU without complications. The patient will be monitored in the ICU. I did call and speak with Dr. Becerra to update him after the surgery. I also called and updated patient's daughter, who expressed great appreciation for the care we have provided her mother. Of note tourniquet was was 13 minutes for the right ankle pneumatic tourniquet, and 55 minutes for the left thigh pneumatic tourniquet. Also of note a deep wound culture was taken of the ulceration sites using a series of swabs and sent to microbiology for further evaluation. Grafts/Implants Used: None - Complications None
--- NOTE | 2020-11-29 13:00 | CPS ---
Pt arrived from surgery intubated and being bagged on 100%, R.T. placed pt on ventilator and secured ETT.
--- NOTE | 2020-11-29 13:15 | RAD_ITS ---
STUDY: X-RAY CHEST REASON FOR EXAM: Female, 75 years old. Status post intubation. TECHNIQUE: Single AP portable view of the chest. COMPARISON: Prior comparison studies are not available for review at this time. FINDINGS: Endotracheal tube with its tip approximately 4.5 cm proximal to the kelli. Nasogastric tube extends below the level of diaphragm to the region of the stomach. No focal infiltrate is seen. There is no demonstrated pleural abnormality. There is borderline cardiomegaly. Normal mediastinum and seth. Normal visualized pulmonary arteries. There is atherosclerotic calcification of the aortic arch with tortuosity. There are degenerative changes of the visualized thoracic spine. Normal visualized ribs, clavicles, and shoulders. There is no demonstrated abnormality of the visualized soft tissue structures of the upper abdomen. RAD/Chest 1 View (Portable) IMPRESSION: Status post intubation and nasogastric tube placement. No active pulmonary disease. Electronically Signed: Dipak Dunham MD at 15:11 EDT Tel , Service support ,
--- NOTE | 2020-11-29 13:17 | RAD_ITS ---
STUDY: X-RAY - LEFT ANKLE REASON FOR EXAM: Female, 75 years old. POST OP LEFT ANKLE TECHNIQUE: 3 view(s) of the ankle. COMPARISON: None. FINDINGS: Defect in the posterior aspect of the calcaneus likely due to partial osteotomy. Normal medial and lateral malleoli. Normal tibiotalar articulation and ankle mortise. Soft tissue swelling of the medial posterior aspect of the ankle and foot. Dressing obscuring the soft tissues and bony details. RAD/Ankle min 3 Views IMPRESSION: Postoperative changes as described above. Electronically Signed: Dipak Dunham MD at 15:09 EDT Tel , Service support ,
--- NOTE | 2020-11-29 13:18 | RAD_ITS ---
STUDY: X-RAY - RIGHT ANKLE REASON FOR EXAM: Female, 75 years old. Post op debridement and bone biopsy TECHNIQUE: 4 view(s) of the ankle. COMPARISON: 11/26/2020 FINDINGS: Normal visualized distal tibia and fibula. Normal medial and lateral malleoli. Normal tibiotalar articulation and ankle mortise. Defect in the inferior aspect of the calcaneus could be surgical or may represent focal area of infection. Adjacent soft tissue lucency/swelling. Soft tissue swelling posteriorly. Dressing overlying the soft tissues. RAD/Ankle min 3 Views IMPRESSION: Defect in the inferior aspect of the calcaneus as described above. Electronically Signed: Dipak Dunham MD at 15:58 EDT Tel , Service support ,
--- NOTE | 2020-11-29 13:51 | PN_ITS ---
Patient Problems: Active and Suspected Problems Wound infection (Acute) Vitals/I&O's: Vital Signs Temp Pulse Resp BP Pulse Ox 98.9 F 85 20 H 130/52 H 93 11/29/20 09:36 11/29/20 09:36 11/29/20 09:36 11/29/20 09:36 11/29/20 09:40 Oxygen Flow Rate (L/min) 3 Oxygen Delivery Method Nasal Cannula Weight: 133 lb 6.075 oz Body Mass Index (BMI) 20.9 Intake and Output for Last 24 Hours 11/27/20 11/28/20 11/29/20 23:59 23:59 23:59 Intake Total 1767.91 / 1767.91 1976.67 / 1976.67 1138.33 / 1138.33 Output Total 1340 / 1690 1475 / 1475 700 / 700 Balance 427.91 / 77.91 501.67 / 501.67 438.33 / 438.33 Microbiology Past 72 Hours 11/26/20 22:25 Wound - Heel Right Gram Stain - Final 11/26/20 22:25 Wound - Heel Right Wound Culture - Final Proteus mirabilis 11/26/20 22:25 Wound - Heel Right Anaerobic Culture - Preliminary Checking for anaerobes, further studies to follow. 11/27/20 07:45 Wound - Sacral Gram Stain - Final 11/27/20 07:45 Wound - Sacral Wound Culture - Final Proteus mirabilis 11/27/20 07:45 Wound - Sacral Anaerobic Culture - Preliminary Checking for anaerobes, further studies to follow. 11/27/20 07:45 Wound - Leg, Left Gram Stain - Final 11/27/20 07:45 Wound - Leg, Left Wound Culture - Preliminary Proteus mirabilis Staphylococcus species 11/27/20 07:45 Wound - Leg, Left Anaerobic Culture - Preliminary Checking for anaerobes, further studies to follow. 11/26/20 16:25 Blood Culture (Wb) - Anticubital Left Blood Culture - Preliminary No growth in 48 hours. 11/28/20 04:20 Mucosa - Nose SARS-CoV-2 Antigen (Rapid) - Final Laboratory Results 11/27/20 11:14: Crossmatch See Detail 11/28/20 11:14: Crossmatch See Detail 11/28/20 15:55: POC Glucose 189 H 11/28/20 21:42: POC Glucose 165 H 11/29/20 06:09: POC Glucose 121 H 11/29/20 06:30: Random Vancomycin 19.8 H 11/29/20 06:30: WBC 14.1 H, RBC 3.68 L, Hgb 10.0 L, Hct 34.5 L, MCV 93.8, MCH 27.2, MCHC 29.0 L, RDW Std Deviation 57.5 H, RDW Coeff of Charles 16.7 H, Plt Count 369, MPV 9.9, Immature Gran % (Auto) 0.500, Neut % (Auto) 80.1 H, Lymph % (Auto) 12.3 L, [place] % (Auto) 4.6, Eos % (Auto) 2.1, Baso % (Auto) 0.4, Absolute Neuts (auto) 11.2 H, Absolute Lymphs (auto) 1.73, Nucleated RBC % 0 11/29/20 06:30: Sodium 140, Potassium 5.6 H, Chloride 115 H, Carbon Dioxide 18.0 L, Anion Gap 7, BUN 71 H, Creatinine 2.62 H, Estim Creat Clear Calc 18.26, Est GFR (MDRD) Af Amer 23 L, Est GFR (MDRD) Non-Af 19 L, BUN/Creatinine Ratio 27.1 H , Glucose 112 H, Calcium 8.9, Total Bilirubin 0.30, AST 53 H, ALT 71 H, Alkaline Phosphatase 942 H, Total Protein 6.7, Albumin 1.8 L, Globulin 4.9 H, Albumin/Globulin Ratio 0.4 L 11/29/20 09:14: Lactic Acid 0.6 Current Medications Acetaminophen (Acetaminophen 325 Mg Tablet) 650 mg PO Q4H PRN PRN Reason: Pain 1-10 or Fever Last Admin: 11/29/20 07:46 Dose: 650 mg Documented by: Hydrocodone Bitart/Acetaminophen (Hydrocodone Bitartrate/Apap 5/325 Tablet) 2 tablet PO Q6H PRN PRN PRN Reason: Pain Score 1-10 Last Admin: 11/27/20 13:47 Dose: 2 tablet Documented by: Amlodipine Besylate (Amlodipine 5 Mg Tablet) 5 mg PO DAILY [facility] Last Admin: 11/28/20 11:35 Dose: 5 mg Documented by: Ferrous Sulfate ([facility]ous S[facility]ate 325 Mg Tablet) [facility] Last Admin: 11/28/20 11:35 Dose: 325 mg Documented by: Furosemide (Furosemide 20 Mg Tablet) 20 mg PO DAILY [facility] Last Admin: 11/28/20 11:35 Dose: 20 mg Documented by: Hydroxyzine Pamoate (Hydroxyzine Tiki 25 Mg Capsule) 25 mg PO Q6H PRN PRN Reason: ITCHING Meropenem 1 gm/ Sodium (Chloride) 120 mls @ 33 mls/hr IV Q12 [facility] Last Admin: 11/29/20 09:32 Dose: 33 mls/hr Documented by: Vancomycin IV Pharmacy to Dose (1 each/ Sodium Chloride) 500 mls @ 250 mls/hr IV PRN PRN; Protocol PRN Reason: Rx to Dose Insulin Human Lispro (Insulin Lispro 100 Unit/Ml Insuln.Pen) 0 unit SC ACHS [facility]; Protocol Last Admin: 11/29/20 06:10 Dose: Not Given Documented by: Lorazepam (Lorazepam 2 Mg/Ml Syringe) 0.5 mg IV X1 PRN PRN Reason: ANXIETY Last Admin: 11/27/20 15:21 Dose: 0.5 mg Documented by: Mirtazapine (Mirtazapine 15 Mg Tablet) 15 mg PO QHS [facility] Last Admin: 11/28/20 21:44 Dose: 15 mg Documented by: Morphine Sulfate (Morphine 2 Mg/Ml Syringe) 2 mg IV Q3H PRN PRN PRN Reason: Pain Score 6-10 Last Admin: 11/29/20 08:20 Dose: 2 mg Documented by: Nutritional Formula (Lactose Free) (Glucerna Shake 120 Ml Liquid) 120 ml PO 4X/DAY [facility] Last Admin: 11/28/20 21:44 Dose: 120 ml Documented by: Ondansetron HCl (Ondansetron 4 Mg/2 Ml Vial) 4 mg IV Q8H PRN PRN PRN Reason: NAUSEA/VOMITING Sodium Chloride (0.9% Saline Lock 10 Ml Syringe) 10 - 40 ml IV UD PRN PRN Reason: SALINE FLUSH Last Admin: 11/29/20 08:20 Dose: 10 ml Documented by: Sodium Hypochlorite (Dakin's Lisa Half Strength (=0.25%)) 1 applic TOPICAL BID [facility]; Protocol Last Admin: 11/28/20 21:44 Dose: 1 applic Documented by: Medical Necessity - Tobacco Use Smoking Status: Former smoker Tobacco Use: Cigarettes Assessment/Plan All Active Problems Wound infection (Acute)
--- NOTE | 2020-11-29 13:58 | CCHN_ITS ---
Hospitalist Note The patient was seen and examined after surgery in ICU. Dr. Garcia called me. He put a consult for Dr. Collado to see next week. He said about estimated blood loss was 200 mL. deep ulcer in both heels and legs with loculated pus but felt like good tissue perfusion. Patient came to ICU Lungs: Air entry bilateral equal. No crepitation/rhonchi, intubated. Heart: S1-S2, sinus tachycardia. Legs: Surgical dressing is dry with meconium stained Neuro: Drowsy but patient opens eyes. : Maldonado catheter, clear urine Twelve-lead EKG shows sinus tachycardia at 130 beats minute with occasional PVCs. Rhythm strip shows 4 beats of NSVT. Portable chest x-ray reviewed and lungs looks clear with mild bibasilar atelectasis. Official report pending. Plan BMP, H&H, mag and Phos ordered. Discussed with Dr. Delgado and gave clinical update and requested consult. Light sedation. Patient will need PICC line for IV access and she is on antibiotics. Discussed with the zigzag machine operator and after review of electrolytes agreed on D5W with 150 M EQ of bicarb at 75 mill per hour and Bumex 1 mg IV twice daily. Patient had 2 units of PRBC transfusion and currently net 2.2 L fluid positive Closely monitor fluid hemodynamics
[2020-11-29] MEDS: Propofol 10MG/Ml 1,000 MG/100 ML Bottle 3.6 MG CONT INF (14:00)
[2020-11-29 14:20] LABS: Anion Gap 8 (5-15); BUN 72 mg/dL (7-18); BUN/Creat Ratio 26.8 RATIO (10-20); Calcium,Total 8.6 mg/dL (8.5-10.1); Chloride 116 mmol/L (98-107); Creatinine, Serum 2.69 mg/dL (0.55-1.02); EST Glomerular Filtration Rate 18 mL/min (>60); Est Glom Filt Rate - Afr Amer 22 mL/min (>60); Estimated Creatinine Clearance 17.79 ml/min; Glucose 186 mg/dL (74-106); Magnesium 1.5 mg/dL (1.6-2.6); Phosphorus 5.7 mg/dL (2.5-4.9); Potassium 5.5 mmol/L (3.5-5.1); Sodium Level 140 mmol/L (136-145)
[2020-11-29 14:37] LABS: Hematocrit 32.1 % (37-47); Hemoglobin 9.3 g/dL (12.0-15.0)
[2020-11-29 14:41] LABS: Allen Test Positive; Base Excess -13 mmol/L (-2 to +2); Bicarbonate 13.8 mmol/L (22-26); Blood Gas Specimen Type ART; FI02 50; Mode AC; O2 Delivery Device Adult Vent; PEEP 5; PO2 188 mmHG (75-100); RR 12; SITE R Radial; SO2 100 % (95-99); Total Carbon Dioxide 15 mmol/L; Vt 400; pCO2 29.9 mmHg (35-45); pH 7.27 (7.35-7.45)
[2020-11-29] MEDS: Bumetanide 1 MG/4 ML Vial IV ×2 (14:50→21:47)
--- NOTE | 2020-11-29 14:58 | EKG12_ITS ---
Test Reason : POST OP Blood Pressure : / mmHG Vent. Rate : 130 BPM Atrial Rate : 153 BPM P-R Int : 172 ms QRS Dur : 092 ms QT Int : 276 ms P-R-T Axes : 071 079 -11 degrees QTc Int : 406 ms Poor data quality, interpretation may be adversely affected Atrial fibrillation Nonspecific ST abnormality Abnormal ECG Confirmed by DIANNE JAVED, RICARDA ([id number]), market editor KEVIN ROSADO ([id number]) on 12/03/2020 9:04:43 AM Referred By: JP Confirmed By:RICARDA DEAN MD
[2020-11-29 15:21] LABS: CPK Total, Creatine Kinase 38 U/L (26-192); Triglycerides 183 mg/dL
[2020-11-29] MEDS: Insulin Lispro 100 UNIT/ML INSULN.PEN SC (18:23)
[2020-11-29 18:30] LABS: Bedside Glucose 179 mg/dL (70-110)
--- NOTE | 2020-11-29 18:38 | PN.RENAL_ITS ---
Patient Problems: Active and Suspected Problems Wound infection (Acute) Subjective: Patient moved to ICU after the b/l feet debridement surgery today. Intubated. Awake and alert follows commands - Physical Exam Vitals/I&O's: Vital Signs Temp Pulse Resp BP Pulse Ox 97.7 F L 78 12 138/59 H 100 11/29/20 15:00 11/29/20 16:55 11/29/20 16:55 11/29/20 16:00 11/29/20 16:55 Oxygen Flow Rate (L/min) 3 Oxygen Delivery Method Mechanical Ventilator Weight: 60.5 kg Body Mass Index (BMI) 20.9 Intake and Output for Last 24 Hours 11/27/20 11/28/20 11/29/20 23:59 23:59 23:59 Intake Total 1767.91 / 1767.91 1976.67 / 1975.67 1271.86 / 1271.86 Output Total 1340 / 1690 1475 / 1475 700 / 700 Balance 427.91 / 77.91 501.67 / 501.67 571.86 / 571.86 General: Alert HEENT: Atraumatic Oral: Moist Mucosa Neck: Supple, No JVD Lungs: Clear to auscultation, Normal air movement Cardiovascular: Regular rate, Regular Rhythm, Normal S1, Normal S2 Abdomen: Bowel Sounds Present, Soft, Non-Distended Extremities: No clubbing, No cyanosis, Edema - +1 edema of LE Lymphatic: No Cervical, Supraclavicular, or Inguinal Adenopathy Neurological: Neuro grossly intact Psych/Mental Status: Appropriate Microbiology Past 72 Hours 11/26/20 22:25 Wound - Heel Right Gram Stain - Final 11/26/20 22:25 Wound - Heel Right Wound Culture - Final Proteus mirabilis 11/26/20 22:25 Wound - Heel Right Anaerobic Culture - Preliminary Checking for anaerobes, further studies to follow. 11/27/20 07:45 Wound - Sacral Gram Stain - Final 11/27/20 07:45 Wound - Sacral Wound Culture - Final Proteus mirabilis 11/27/20 07:45 Wound - Sacral Anaerobic Culture - Preliminary Checking for anaerobes, further studies to follow. 11/27/20 07:45 Wound - Leg, Left Gram Stain - Final 11/27/20 07:45 Wound - Leg, Left Wound Culture - Preliminary Proteus mirabilis Staphylococcus species 11/27/20 07:45 Wound - Leg, Left Anaerobic Culture - Preliminary Checking for anaerobes, further studies to follow. 11/26/20 16:25 Blood Culture (Wb) - Anticubital Left Blood Culture - Preliminary No growth in 48 hours. 11/28/20 04:20 Mucosa - Nose SARS-CoV-2 Antigen (Rapid) - Final Laboratory Results 11/27/20 11:14: Crossmatch See Detail 11/28/20 11:14: Crossmatch See Detail 11/28/20 21:42: POC Glucose 165 H 11/29/20 06:09: POC Glucose 121 H 11/29/20 06:30: Random Vancomycin 19.8 H 11/29/20 06:30: WBC 14.1 H, RBC 3.68 L, Hgb 10.0 L, Hct 34.5 L, MCV 93.8, MCH 27.2, MCHC 29.0 L, RDW Std Deviation 57.5 H, RDW Coeff of Charles 16.7 H, Plt Count 369, MPV 9.9, Immature Gran % (Auto) 0.500, Neut % (Auto) 80.1 H, Lymph % (Auto) 12.3 L, [place] % (Auto) 4.6, Eos % (Auto) 2.1, Baso % (Auto) 0.4, Absolute Neuts (auto) 11.2 H, Absolute Lymphs (auto) 1.73, Nucleated RBC % 0 11/29/20 06:30: Sodium 140, Potassium 5.6 H, Chloride 115 H, Carbon Dioxide 18.0 L, Anion Gap 7, BUN 71 H, Creatinine 2.62 H, Estim Creat Clear Calc 18.26, Est GFR (MDRD) Af Amer 23 L, Est GFR (MDRD) Non-Af 19 L, BUN/Creatinine Ratio 27.1 H , Glucose 112 H, Calcium 8.9, Total Bilirubin 0.30, AST 53 H, ALT 71 H, Alkaline Phosphatase 942 H, Total Protein 6.7, Albumin 1.8 L, Globulin 4.9 H, Albumin/Globulin Ratio 0.4 L 11/29/20 09:14: Lactic Acid 0.6 11/29/20 14:00: Sodium 140, Potassium 5.5 H, Chloride 116 H, Carbon Dioxide 16.0 L, Anion Gap 8, BUN 72 H, Creatinine 2.69 H, Estim Creat Clear Calc 17.79, Est GFR (MDRD) Af Amer 22 L, Est GFR (MDRD) Non-Af 18 L, BUN/Creatinine Ratio 26.8 H , Glucose 186 H, Calcium 8.6, Phosphorus 5.7 H, Magnesium 1.5 L 11/29/20 14:00: Total Creatine Kinase 38, Triglycerides 183 11/29/20 14:30: Hgb 9.3 L, Hct 32.1 L 11/29/20 14:36: Specimen Type ART, Sample Site R Radial, pH 7.27 L, Bicarbonate Actual 13.8 L, Total CO2 15, Base Excess -13 L, O2 Saturation 100 H, O2 % 50, ABG pCO2 29.9 L, ABG pO2 188 H, Richy Test Positive, Respiration Rate 12, O2 Delivery Device Adult Vent, Vent Mode AC, Tidal Volume 400, POC PEEP 5 11/29/20 18:17: POC Glucose 179 H Current Medications Acetaminophen (Acetaminophen 325 Mg Tablet) 650 mg PO Q4H PRN PRN Reason: Pain 1-10 or Fever Last Admin: 11/29/20 07:46 Dose: 650 mg Documented by: Hydrocodone Bitart/Acetaminophen (Hydrocodone Bitartrate/Apap 5/325 Tablet) 2 tablet PO Q6H PRN PRN PRN Reason: Pain Score 1-10 Last Admin: 11/27/20 13:47 Dose: 2 tablet Documented by: Amlodipine Besylate (Amlodipine 5 Mg Tablet) 5 mg PO DAILY [facility] [place] Last Admin: 11/29/20 14:05 Dose: Not Given Documented by: Bumetanide (Bumetanide 1 Mg/4 Ml Vial) 1 mg IV Q12 [facility] [place] Last Admin: 11/29/20 14:50 Dose: 1 mg Documented by: Chlorhexidine Gluconate (Chlorhexidine 15 Ml) 15 ml PO BID [facility] [place] Ferrous Sulfate (Ferrous Sulfate 325 Mg Tablet) [facility] Last Admin: 11/29/20 14:04 Dose: Not Given Documented by: Meropenem 1 gm/ Sodium (Chloride) 120 mls @ 33 mls/hr IV Q12 [facility] [place] Last Infusion: 11/29/20 13:11 Dose: Infused Documented by: Vancomycin IV Pharmacy to Dose (1 each/ Sodium Chloride) 500 mls @ 250 mls/hr IV PRN PRN; Protocol PRN Reason: Rx to Dose Sodium Bicarbonate 150 meq/ (Dextrose) 1,150 mls @ 75 mls/hr IV .[id number] [facility] [place] Last Admin: 11/29/20 14:50 Dose: 75 mls/hr Documented by: Propofol (Diprivan) 1,000 mg in 100 mls @ 3.63 mls/hr CONT INF .Q12H [facility]; Protocol Last Titration: 11/29/20 16:00 Dose: 10 mcg/kg/min, 3.6 mls/hr Documented by: Fentanyl Citrate 1,000 mcg/ (Sodium Chloride) 100 mls @ 5 mls/hr CONT INF .Q20H [facility] [place]; Protocol Last Titration: 11/29/20 16:00 Dose: 50 mcg/hr, 5 mls/hr Documented by: Insulin Human Lispro (Insulin Lispro 100 Unit/Ml Insuln.Pen) 0 unit SC Q6 [facility]; Protocol Last Admin: 11/29/20 18:23 Dose: 2 u Documented by: Lorazepam (Lorazepam 2 Mg/Ml Syringe) 0.5 mg IV X1 PRN PRN Reason: ANXIETY Last Admin: 11/27/20 15:21 Dose: 0.5 mg Documented by: Mirtazapine (Mirtazapine 15 Mg Tablet) 15 mg PO QHS PRN PRN PRN Reason: AGITATION Morphine Sulfate (Morphine 2 Mg/Ml Syringe) 2 mg IV Q3H PRN PRN PRN Reason: Pain Score 6-10 Last Admin: 11/29/20 08:20 Dose: 2 mg Documented by: Nutritional Formula (Lactose Free) (Glucerna Shake 120 Ml Liquid) 120 ml PO 4X/DAY [facility] [place] Last Admin: 11/29/20 14:46 Dose: Not Given Documented by: Ondansetron HCl (Ondansetron 4 Mg/2 Ml Vial) 4 mg IV Q8H PRN PRN PRN Reason: NAUSEA/VOMITING Sodium Chloride (0.9% Saline Lock 10 Ml Syringe) 10 - 40 ml IV UD PRN PRN Reason: SALINE FLUSH Last Admin: 11/29/20 14:50 Dose: 10 ml Documented by: Sodium Hypochlorite (Dakin's Lisa Half Strength (=0.25%)) 1 applic TOPICAL BID [facility] [place]; Protocol Last Admin: 11/29/20 14:04 Dose: Not Given Documented by: Medical Necessity - Tobacco Use Smoking Status: Former smoker Tobacco Use: Cigarettes Assessment/Plan All Active Problems Wound infection (Acute) 1- AIDA likely ATN from OM Cr is slightly better. Non oliguric No need for [employer] Continue holding ARB Hyperkalemia: K is 5.5 this am Received 15 g of kayexalate Check K in am Metabolic acidosis from AIDA On isotonic HC03 drip monitor HC03 level Anemia: RBC transfusion as per the primary service B/L feet OM s/p debridement 11/30 Abx as per ID Renal team will continue to follow Call if any question Víctor Koenig MD
--- NOTE | 2020-11-29 18:54 | NURSING ---
all charting by howie song RN reviewed
[2020-11-29 20:06] LABS: Allen Test Positive; Base Excess -6 mmol/L (-2 to +2); Bicarbonate 17.7 mmol/L (22-26); Blood Gas Specimen Type ART; FI02 30; Mode AC; O2 Delivery Device Adult Vent; PEEP 5; PO2 150 mmHG (75-100); RR 12; SITE R Radial; SO2 100 % (95-99); Total Carbon Dioxide 19 mmol/L; Vt 400; pCO2 24.9 mmHg (35-45); pH 7.46 (7.35-7.45)
[2020-11-29] MEDS: Chlorhexidine 15 ML PO (21:49)
[2020-11-30] VITALS (22 sets, daily range): BP systolic 110–179; BP diastolic 43–89; PULSE 58–143; RESP 12–22; TEMP 36.6–36.9; O2SAT 94–100
[2020-11-30 00:11] LABS: Bedside Glucose 148 mg/dL (70-110)
[2020-11-30 05:30] LABS: Absolute Lymphocyte Count 1.41 X10^3/uL (0.83-4.51); Absolute Neutrophil Count 4.8 X10^3/uL (2.0-7.7); Basophil# 0.03 X10^3/uL; Basophil% 0.4 % (0-1); Eosinophil# 0.48 X10^3/uL; Eosinophils% 6.4 % (0-5); Hematocrit 26.4 % (37-47); Hemoglobin 7.9 g/dL (12.0-15.0); Lymphocyte # 1.41 X10^3/ul (0.83-4.51); Lymphocyte % 18.7 % (19-41); Mean Corp Hgb Conc 29.9 g/dL (32-36); Mean Corpuscular Volume 90.1 fL (81-99); Mean Platelet Vol. 10.1 fl (6.2-12.0); Monocyte# 0.78 X10^3/uL; Monocyte% 10.3 % (0-10); NRBC Flagged by Analyzer 0 % (0-5); Neutrophil # 4.81 X10^3/uL (2.7-7.7); Neutrophil % 63.8 % (47-70); Platelet Count 275 K/mm3 (150-450); RBC Distribution Width CV 16.6 % (11.6-14.6); RBC Distribution Width SD 54.5 fl (35.1-43.9); Red Blood Count 2.93 M/mm3 (4.2-5.4); White Blood Count 7.5 K/mm3 (4.4-11.0)
--- NOTE | 2020-11-30 05:37 | PCM.CON.CC ---
Reason for Consult Date of Consultation: 11/30/20 Reason for Consultation: Respiratory failure History of Present Illness: The patient is a 75-year-old female, with a history as outlined below, who initially presented to the emergency department on November 26 after developing lower extremity wounds at her intermediate facility. The wounds apparently eventually became purulent and she was therefore referred to the emergency department for evaluation. The patient has a history of anemia, chronic kidney disease, diabetes mellitus, peripheral vascular disease and depression. On presentation to the emergency department, the patient was noted to be afebrile and hemodynamically stable. She was maintaining appropriate oxygen saturations on room air. Initial laboratory evaluation revealed a white blood cell count of 13,000. Hemoglobin was noted to be 8.6 g/dL. Platelet count was elevated to 506,000. Chemistry profile was notable for a potassium of 6.2 and creatinine of 3.16. MRSA screen was positive. MRI lower extremity revealed a deep ulcer of the medial aspect of the heel with osteomyelitis involving the posterior calcaneus. Local wound care was employed and the patient was started on antibiotics. She was subsequently admitted to the hospital for further management. The patient's hospital course has included evaluations by both infectious diseases and podiatry. The patient's hemoglobin fell to a kareem of 6.3 g/dL on November 27, which did require transfusion of blood products. The patient's creatinine has been slowly improving over the course of her hospitalization with nephrology following to assist with management. On the morning of November 29, the patient developed high-grade fevers to 103 ?F. There was concern that the patient was developing worsening sepsis and therefore podiatry elected to take the patient to the OR, where she underwent debridement of a right heel ulcer along with debridement of a left heel ulcer and left ankle ulceration. The patient was in a prone position during the procedure. Intraoperative blood loss was only noted to be 200 mL. Postoperatively, the patient was maintaining saturations of 100% with invasive mechanical ventilatory support. Anesthesia reportedly had concerns that the patient may decompensate, so she was left intubated. However, it does appear that the patient was maintaining appropriate oxygen saturations on room air before the procedure. There was no evidence of worsening multisystem organ failure. This morning, the patient passed her spontaneous breathing trial without complication. She is alert and following commands appropriately. Past Medical History Allergies clindamycin Allergy (Verified 11/26/20 15:30) PT UNSURE OF REACTION diphenhydramine [From Benadryl] Allergy (Verified 11/26/20 15:30) PT UNSURE OF REACTION doxycycline Allergy (Verified 11/26/20 15:30) PT UNSURE OF REACTION erythromycin base Allergy (Verified 11/26/20 15:30) PT UNSURE OF REACTION levofloxacin [From Levaquin] Allergy (Verified 11/26/20 15:30) PT UNSURE OF REACTION metformin Allergy (Verified 11/26/20 15:30) PT UNSURE OF REACTION Penicillins [PCN] Allergy (Verified 11/26/20 15:30) PT UNSURE OF REACTION Sulfa (Sulfonamide Antibiotics) Allergy (Verified 11/26/20 15:30) PT UNSURE OF REACTION Home Medications: Ambulatory Orders Medication Instructions Recorded Acetaminophen [Tylenol] 650 mg PO Q4H PRN 11/26/20 Amlodipine [Norvasc] 5 mg PO DAILY 11/26/20 Arginine/Ascorbate Sod/Rsoe Marie AC 1 each PO BID 11/26/20 [Arginaid Powder] Collagenase [Santyl] 1 applic TOPICAL DAILY 11/26/20 Ferrous Sulfate 325 mg PO DAILY 11/26/20 Furosemide [Lasix] 20 mg PO DAILY 11/26/20 Hydrocodone Bitart/Apap 5-325 1 tablet PO Q6H PRN PRN 11/26/20 [[place] 5MG-325MG] Hydrocodone Bitart/Apap 5-325 2 tablet PO Q6H PRN PRN 11/26/20 [[place] 5MG-325MG] Hydroxyzine HCl 25 mg PO Q6H PRN 11/26/20 Insulin Lispro [Humalog KwikPen] See Protocol SQ TIDCM 11/26/20 Lidocaine [Lidocaine 5%] 1 applic TOPICAL MOWEFR 11/26/20 Mineral Oil/Petrolatum,White 1 applic TOPICAL BID 11/26/20 [Eucerin] Mirtazapine [Remeron] 15 mg PO QHS 11/26/20 Psychiatric History: No pertinent psych hx Lives: [facility] Smoking Status: Former smoker Tobacco Use: Cigarettes Alcohol: None Drugs: None - *Family History Maternal History Items: No pertinent history Review of Systems Unable to obtain accurate/complete ROS d/t: Due to current intubation mechanical ventilation status. Patient Problems: Active and Suspected Problems Wound infection (Acute) Objective: The patient's most recent lab work, culture data and imaging studies have all been personally reviewed. Surface echocardiogram revealed normal LV size with an ejection fraction of 60%. Right ventricular systolic pressure was estimated to be 65 to 70 mmHg. Preliminary wound cultures were positive for Proteus mirabilis and staph aureus. - Physical Exam Vitals/I&O's: Vital Signs Temp Pulse Resp BP Pulse Ox 97.9 F 74 12 129/81 H 97 11/30/20 00:00 11/30/20 01:51 11/30/20 01:51 11/30/20 00:00 11/30/20 01:51 Oxygen Flow Rate (L/min) 3 Oxygen Delivery Method Mechanical Ventilator Weight: 133 lb 6.075 oz Body Mass Index (BMI) 20.9 Intake and Output for Last 24 Hours 11/28/20 11/29/20 11/30/20 23:59 23:59 23:59 Intake Total 1976.67 / 1976.67 1439.11 / 1449.51 151.2 / 151.2 Output Total 1475 / 1475 1250 / 1780 530 / 530 Balance 501.67 / 501.67 189.11 / -330.49 -378.8 / -378.8 General: Alert, Cooperative, - - Tolerating spontaneous mode of mechanical ventilation. Temporal wasting present HEENT: Atraumatic, PERRLA, Normocephalic Oral: No Gingival or Mucosal Lesions/ Ulcerations, - - Endotracheal and OG tubes in place Neck: Supple, No Nodes, Trachea Midline Lungs: - - Clear across anterior lung palmer. Cardiovascular: Regular rate, Regular Rhythm Abdomen: Bowel Sounds Present, Soft, Non Tender Extremities: No clubbing, No cyanosis, - - Wrapped bilateral lower extremities. Skin: Ulcer/ Wound - Lower extremity wounds present on admission Musculoskeletal: No Tenderness to Palpation of Joints or Extremities, Cachexia Lymphatic: No Cervical, Supraclavicular, or Inguinal Adenopathy Neurological: - - No focal neurological deficits. Alert and following commands appropriately. Labs (Last 48 Hours) 11/27/20 11/27/20 11/28/20 07:45 11:14 06:07 WBC RBC Hgb Hct MCV MCH MCHC RDW Std Deviation RDW Coeff of Charles Plt Count MPV Immature Gran % (Auto) Neut % (Auto) Lymph % (Auto) Cowley % (Auto) Eos % (Auto) Baso % (Auto) Absolute Neuts (auto) Absolute Lymphs (auto) Nucleated RBC % PT INR APTT Specimen Type Sample Site pH Bicarbonate Actual Total CO2 Base Excess O2 Saturation O2 % ABG pCO2 ABG pO2 Richy Test Respiration Rate O2 Delivery Device Vent Mode Tidal Volume POC PEEP Sodium Potassium Chloride Carbon Dioxide Anion Gap BUN Creatinine Estim Creat Clear Calc Est GFR (MDRD) Af Amer Est GFR (MDRD) Non-Af BUN/Creatinine Ratio Glucose Lactic Acid Calcium Phosphorus Magnesium Total Bilirubin AST ALT Alkaline Phosphatase Total Creatine Kinase Total Protein Albumin Globulin Albumin/Globulin Ratio Triglycerides Random Vancomycin 9.3 S.aureus Protein A PCR POSITIVE H MRSA (PCR) POSITIVE H POC Glucose Crossmatch See Detail 11/28/20 11/28/20 11/28/20 06:07 06:07 06:07 WBC 8.0 RBC 2.86 L Hgb 7.8 L Hct 26.5 L MCV 92.7 MCH 27.3 MCHC 29.4 L RDW Std Deviation 56.1 H RDW Coeff of Charles 16.5 H Plt Count 333 MPV 9.8 Immature Gran % (Auto) Neut % (Auto) Lymph % (Auto) Cowley % (Auto) Eos % (Auto) Baso % (Auto) Absolute Neuts (auto) Absolute Lymphs (auto) Nucleated RBC % PT 14.4 INR 1.2 APTT 36.3 H Specimen Type Sample Site pH Bicarbonate Actual Total CO2 Base Excess O2 Saturation O2 % ABG pCO2 ABG pO2 Richy Test Respiration Rate O2 Delivery Device Vent Mode Tidal Volume POC PEEP Sodium 142 Potassium 5.8 H Chloride 115 H Carbon Dioxide 17.0 L Anion Gap 10 BUN 64 H Creatinine 2.63 H Estim Creat Clear Calc 18.20 Est GFR (MDRD) Af Amer 23 L Est GFR (MDRD) Non-Af 19 L BUN/Creatinine Ratio 24.3 H Glucose 118 H Lactic Acid Calcium 8.0 L Phosphorus Magnesium Total Bilirubin AST ALT Alkaline Phosphatase Total Creatine Kinase Total Protein Albumin Globulin Albumin/Globulin Ratio Triglycerides Random Vancomycin S.aureus Protein A PCR MRSA (PCR) POC Glucose Crossmatch 11/28/20 11/28/20 11/28/20 06:41 11:05 11:14 WBC RBC Hgb Hct MCV MCH MCHC RDW Std Deviation RDW Coeff of Charles Plt Count MPV Immature Gran % (Auto) Neut % (Auto) Lymph % (Auto) Cowley % (Auto) Eos % (Auto) Baso % (Auto) Absolute Neuts (auto) Absolute Lymphs (auto) Nucleated RBC % PT INR APTT Specimen Type Sample Site pH Bicarbonate Actual Total CO2 Base Excess O2 Saturation O2 % ABG pCO2 ABG pO2 Rihcy Test Respiration Rate O2 Delivery Device Vent Mode Tidal Volume POC PEEP Sodium Potassium Chloride Carbon Dioxide Anion Gap BUN Creatinine Estim Creat Clear Calc Est GFR (MDRD) Af Amer Est GFR (MDRD) Non-Af BUN/Creatinine Ratio Glucose Lactic Acid Calcium Phosphorus Magnesium Total Bilirubin AST ALT Alkaline Phosphatase Total Creatine Kinase Total Protein Albumin Globulin Albumin/Globulin Ratio Triglycerides Random Vancomycin S.aureus Protein A PCR MRSA (PCR) POC Glucose 118 H 147 H Crossmatch See Detail 11/28/20 11/28/20 11/29/20 15:55 21:42 06:09 WBC RBC Hgb Hct MCV MCH MCHC RDW Std Deviation RDW Coeff of Charles Plt Count MPV Immature Gran % (Auto) Neut % (Auto) Lymph % (Auto) Cowley % (Auto) Eos % (Auto) Baso % (Auto) Absolute Neuts (auto) Absolute Lymphs (auto) Nucleated RBC % PT INR APTT Specimen Type Sample Site pH Bicarbonate Actual Total CO2 Base Excess O2 Saturation O2 % ABG pCO2 ABG pO2 Richy Test Respiration Rate O2 Delivery Device Vent Mode Tidal Volume POC PEEP Sodium Potassium Chloride Carbon Dioxide Anion Gap BUN Creatinine Estim Creat Clear Calc Est GFR (MDRD) Af Amer Est GFR (MDRD) Non-Af BUN/Creatinine Ratio Glucose Lactic Acid Calcium Phosphorus Magnesium Total Bilirubin AST ALT Alkaline Phosphatase Total Creatine Kinase Total Protein Albumin Globulin Albumin/Globulin Ratio Triglycerides Random Vancomycin S.aureus Protein A PCR MRSA (PCR) POC Glucose 189 H 165 H 121 H Crossmatch 11/29/20 11/29/20 11/29/20 06:30 06:30 06:30 WBC 14.1 H RBC 3.68 L Hgb 10.0 L Hct 34.5 L MCV 93.8 MCH 27.2 MCHC 29.0 L RDW Std Deviation 57.5 H RDW Coeff of Charles 16.7 H Plt Count 369 MPV 9.9 Immature Gran % (Auto) 0.500 Neut % (Auto) 80.1 H Lymph % (Auto) 12.3 L Cowley % (Auto) 4.6 Eos % (Auto) 2.1 Baso % (Auto) 0.4 Absolute Neuts (auto) 11.2 H Absolute Lymphs (auto) 1.73 Nucleated RBC % 0 PT INR APTT Specimen Type Sample Site pH Bicarbonate Actual Total CO2 Base Excess O2 Saturation O2 % ABG pCO2 ABG pO2 Richy Test Respiration Rate O2 Delivery Device Vent Mode Tidal Volume POC PEEP Sodium 140 Potassium 5.6 H Chloride 115 H Carbon Dioxide 18.0 L Anion Gap 7 BUN 71 H Creatinine 2.62 H Estim Creat Clear Calc 18.26 Est GFR (MDRD) Af Amer 23 L Est GFR (MDRD) Non-Af 19 L BUN/Creatinine Ratio 27.1 H Glucose 112 H Lactic Acid Calcium 8.9 Phosphorus Magnesium Total Bilirubin 0.30 AST 53 H ALT 71 H Alkaline Phosphatase 942 H Total Creatine Kinase Total Protein 6.7 Albumin 1.8 L Globulin 4.9 H Albumin/Globulin Ratio 0.4 L Triglycerides Random Vancomycin 19.8 H S.aureus Protein A PCR MRSA (PCR) POC Glucose Crossmatch 11/29/20 11/29/20 11/29/20 09:14 14:00 14:00 WBC RBC Hgb Hct MCV MCH MCHC RDW Std Deviation RDW Coeff of Charles Plt Count MPV Immature Gran % (Auto) Neut % (Auto) Lymph % (Auto) Cowley % (Auto) Eos % (Auto) Baso % (Auto) Absolute Neuts (auto) Absolute Lymphs (auto) Nucleated RBC % PT INR APTT Specimen Type Sample Site pH Bicarbonate Actual Total CO2 Base Excess O2 Saturation O2 % ABG pCO2 ABG pO2 Richy Test Respiration Rate O2 Delivery Device Vent Mode Tidal Volume POC PEEP Sodium 140 Potassium 5.5 H Chloride 116 H Carbon Dioxide 16.0 L Anion Gap 8 BUN 72 H Creatinine 2.69 H Estim Creat Clear Calc 17.79 Est GFR (MDRD) Af Amer 22 L Est GFR (MDRD) Non-Af 18 L BUN/Creatinine Ratio 26.8 H Glucose 186 H Lactic Acid 0.6 Calcium 8.6 Phosphorus 5.7 H Magnesium 1.5 L Total Bilirubin AST ALT Alkaline Phosphatase Total Creatine Kinase 38 Total Protein Albumin Globulin Albumin/Globulin Ratio Triglycerides 183 Random Vancomycin S.aureus Protein A PCR MRSA (PCR) POC Glucose Crossmatch 11/29/20 11/29/20 11/29/20 14:30 14:36 18:17 WBC RBC Hgb 9.3 L Hct 32.1 L MCV MCH MCHC RDW Std Deviation RDW Coeff of Charles Plt Count MPV Immature Gran % (Auto) Neut % (Auto) Lymph % (Auto) Cowley % (Auto) Eos % (Auto) Baso % (Auto) Absolute Neuts (auto) Absolute Lymphs (auto) Nucleated RBC % PT INR APTT Specimen Type ART Sample Site R Radial pH 7.27 L Bicarbonate Actual 13.8 L Total CO2 15 Base Excess -13 L O2 Saturation 100 H O2 % 50 ABG pCO2 29.9 L ABG pO2 188 H Richy Test Positive Respiration Rate 12 O2 Delivery Device Adult Vent Vent Mode AC Tidal Volume 400 POC PEEP 5 Sodium Potassium Chloride Carbon Dioxide Anion Gap BUN Creatinine Estim Creat Clear Calc Est GFR (MDRD) Af Amer Est GFR (MDRD) Non-Af BUN/Creatinine Ratio Glucose Lactic Acid Calcium Phosphorus Magnesium Total Bilirubin AST ALT Alkaline Phosphatase Total Creatine Kinase Total Protein Albumin Globulin Albumin/Globulin Ratio Triglycerides Random Vancomycin S.aureus Protein A PCR MRSA (PCR) POC Glucose 179 H Crossmatch 11/29/20 11/30/20 11/30/20 20:00 00:03 05:00 WBC 7.5 RBC 2.93 L Hgb 7.9 L Hct 26.4 L MCV 90.1 MCH 27.0 MCHC 29.9 L RDW Std Deviation 54.5 H RDW Coeff of Charles 16.6 H Plt Count 275 MPV 10.1 Immature Gran % (Auto) 0.400 Neut % (Auto) 63.8 Lymph % (Auto) 18.7 L Cowley % (Auto) 10.3 H Eos % (Auto) 6.4 H Baso % (Auto) 0.4 Absolute Neuts (auto) 4.8 Absolute Lymphs (auto) 1.41 Nucleated RBC % 0 PT INR APTT Specimen Type ART Sample Site R Radial pH 7.46 H Bicarbonate Actual 17.7 L Total CO2 19 Base Excess -6 L O2 Saturation 100 H O2 % 30 ABG pCO2 24.9 L ABG pO2 150 H Richy Test Positive Respiration Rate 12 O2 Delivery Device Adult Vent Vent Mode AC Tidal Volume 400 POC PEEP 5 Sodium Potassium Chloride Carbon Dioxide Anion Gap BUN Creatinine Estim Creat Clear Calc Est GFR (MDRD) Af Amer Est GFR (MDRD) Non-Af BUN/Creatinine Ratio Glucose Lactic Acid Calcium Phosphorus Magnesium Total Bilirubin AST ALT Alkaline Phosphatase Total Creatine Kinase Total Protein Albumin Globulin Albumin/Globulin Ratio Triglycerides Random Vancomycin S.aureus Protein A PCR MRSA (PCR) POC Glucose 148 H Crossmatch 11/30/20 05:00 WBC RBC Hgb Hct MCV MCH MCHC RDW Std Deviation RDW Coeff of Charles Plt Count MPV Immature Gran % (Auto) Neut % (Auto) Lymph % (Auto) Cowley % (Auto) Eos % (Auto) Baso % (Auto) Absolute Neuts (auto) Absolute Lymphs (auto) Nucleated RBC % PT INR APTT Specimen Type Sample Site pH Bicarbonate Actual Total CO2 Base Excess O2 Saturation O2 % ABG pCO2 ABG pO2 Richy Test Respiration Rate O2 Delivery Device Vent Mode Tidal Volume POC PEEP Sodium Pending Potassium Pending Chloride Pending Carbon Dioxide Pending Anion Gap Pending BUN Pending Creatinine Pending Estim Creat Clear Calc Est GFR (MDRD) Af Amer Pending Est GFR (MDRD) Non-Af Pending BUN/Creatinine Ratio Pending Glucose Pending Lactic Acid Calcium Pending Phosphorus Magnesium Pending Total Bilirubin AST ALT Alkaline Phosphatase Total Creatine Kinase Total Protein Albumin Globulin Albumin/Globulin Ratio Triglycerides Random Vancomycin S.aureus Protein A PCR MRSA (PCR) POC Glucose Crossmatch Microbiology 11/26/20 22:25 Wound - Heel Right Gram Stain - Final 11/26/20 22:25 Wound - Heel Right Wound Culture - Final Proteus mirabilis 11/26/20 22:25 Wound - Heel Right Anaerobic Culture - Preliminary Checking for anaerobes, further studies to follow. 11/27/20 07:45 Wound - Sacral Gram Stain - Final 11/27/20 07:45 Wound - Sacral Wound Culture - Final Proteus mirabilis 11/27/20 07:45 Wound - Sacral Anaerobic Culture - Preliminary Checking for anaerobes, further studies to follow. 11/27/20 07:45 Wound - Leg, Left Gram Stain - Final 11/27/20 07:45 Wound - Leg, Left Wound Culture - Preliminary Proteus mirabilis Staphylococcus species 11/27/20 07:45 Wound - Leg, Left Anaerobic Culture - Preliminary Checking for anaerobes, further studies to follow. 11/26/20 16:25 Blood Culture (Wb) - Anticubital Left Blood Culture - Preliminary No growth in 48 hours. 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 There is soft tissue swelling at the operative site but no evidence for acute osteomyelitis Electronically Signed: Toan Alvarez MD at 17:52 EDT , Service support , Tibia/Fibula X-Ray 11/26/20 16:00 IMPRESSION: Soft tissue swelling of the lateral malleolus without associated fracture. No definitive evidence for acute fracture or osteomyelitis Electronically Signed: Toan Alvarez MD at 17:47 EDT , Service support , Ankle X-Ray 11/26/20 16:03 IMPRESSION: No acute radiographic abnormalities. Heel spur. Electronically Signed: Jose Avendano MD at 17:29 EDT Tel , Service support , Foot X-Ray 11/26/20 16:05 IMPRESSION: No acute fracture or other significant bony pathology Electronically Signed: Toan Alvarez MD at 17:49 EDT , Service support , Ankle X-Ray 11/26/20 17:00 IMPRESSION: Soft tissue swelling of the lateral malleolus and findings suspicious for early changes of acute osteomyelitis however three-phase bone scan or MRI is recommended for more definitive evaluation Electronically Signed: Toan Alvarez MD at 17:46 EDT , Service support , Renal Ultrasound 11/26/20 20:30 IMPRESSION: Findings consistent with nonspecific renal parenchymal disease. Multiple right renal cysts. Left renal pelvocaliectasis of uncertain etiology. CT would be helpful for further evaluation Electronically Signed: Toan Alvarez MD at 21:52 EDT , Service support , Ankle Brachial Index 11/27/20 07:34 Interpretation Summary Biphasic Doppler waveforms are noted at ankle level bilaterally. Pulse-volume recording waveform amplitudes are diminished at digital level on the left, but satisfactory at digital level on the right, and at ankle level bilaterally. The resting right ankle-brachial index is normal. The resting left ankle brachial index could not be determined due to the non-compressibility of the vasculature. There is evidence of arterial calcification at ankle level bilaterally. Arterial flow appears normal at ankle level on the right. However, arterial calcification can artifactually elevate arterial indices and mask the presence of arterial occlusive disease. In this regard, clinical correlation is advised. Toe pressures could not be obtained bilaterally. Arterial flow at ankle level on the left can not be assessed due to the non-compressibility of the vasculature. A relatively normal pulse- volume recording at digital level on the right suggests relatively normal flow. The diminished pulse-volume recording waveform amplitude at digital level on the left suggests the presence of occlusive disease, though quantitation is uncertain. Ordering Physician: Toan Garcia Referring Physician: NATALIA GARCIA Performed By: MAHOGANY CHERRY [facility] Duplex Scan Lower Extremity Artery 11/27/20 07:34 Interpretation Summary Arterial flow appears normal at all levels in the right lower extremity. There appears to be a mild stenosis in the proximal right popliteal artery, which does not appear hemodynamically significant. No flow is demonstrated in the left proximal and mid-superficial femoral artery, suggesting total occlusion. The remainder of the left lower extremity arterial tree appears to be segmentally patent without evidence of flow-limiting stenosis. Ordering Physician: Toan Garcia Performed By: Mahogany Cherry, T Lower Extremity MRI 11/27/20 08:45 IMPRESSION: Deep ulcer of the medial aspect of the heel with osteomyelitis of the posterior calcaneus. Electronically Signed: Jacob Suazo MD at 18:13 EDT Tel , Service support , Lower Extremity MRI 11/28/20 08:46 IMPRESSION: Deep ulcer of the posterior heel with exposure of the posterior calcaneus with calcaneal osteomyelitis. Early osteomyelitis of the lateral aspect of the lateral malleolus the fibula. Electronically Signed: Jacob Suazo MD at 12:26 EDT Tel , Service support , Lower Extremity MRI 11/28/20 08:46 IMPRESSION: Cellulitis or passive congestion of the leg but no abscess, myositis, or osteomyelitis. Electronically Signed: Jacob Suazo MD at 12:31 EDT Tel , Service support , Echocardiogram 11/29/20 08:00 Interpretation Summary The estimated ejection fraction is 60 %. Unable to assess diastolic dysfunction. The left atrium is mildly enlarged. Mild diffuse aortic valve thickening. Mild aortic stenosis. Ordering Physician: Hardy Becerra Referring Physician: Marlon Chiang Performed By: Nigel Araiza RCS Chest X-Ray 11/29/20 13:15 IMPRESSION: Status post intubation and nasogastric tube placement. No active pulmonary disease. Electronically Signed: Dipak Dunham MD at 15:11 EDT Tel , Service support , Ankle X-Ray 11/29/20 13:17 IMPRESSION: Postoperative changes as described above. Electronically Signed: Dipak Dunham MD at 15:09 EDT Tel , Service support , Ankle X-Ray 11/29/20 13:18 IMPRESSION: Defect in the inferior aspect of the calcaneus as described above. Electronically Signed: Dipak Dunham MD at 15:58 EDT Tel , Service support , Current Medications Acetaminophen (Acetaminophen 325 Mg Tablet) 650 mg PO Q4H PRN PRN Reason: Pain 1-10 or Fever Last Admin: 11/29/20 07:46 Dose: 650 mg Documented by: Hydrocodone Bitart/Acetaminophen (Hydrocodone Bitartrate/Apap 5/325 Tablet) 2 tablet PO Q6H PRN PRN PRN Reason: Pain Score 1-10 Last Admin: 11/27/20 13:47 Dose: 2 tablet Documented by: Amlodipine Besylate (Amlodipine 5 Mg Tablet) 5 mg PO DAILY [facility] Last Admin: 11/29/20 14:05 Dose: Not Given Documented by: Bumetanide (Bumetanide 1 Mg/4 Ml Vial) 1 mg IV Q12 [facility] Last Admin: 11/29/20 21:47 Dose: 1 mg Documented by: Chlorhexidine Gluconate (Chlorhexidine 15 Ml) 15 ml PO BID [facility] Last Admin: 11/29/20 21:49 Dose: 15 ml Documented by: Ferrous Sulfate (Ferrous Sulfate 325 Mg Tablet) 325 mg PO DAILYCM [facility] Last Admin: 11/29/20 14:04 Dose: Not Given Documented by: Meropenem 1 gm/ Sodium (Chloride) 120 mls @ 33 mls/hr IV Q12 [facility] Last Infusion: 11/30/20 01:30 Dose: Infused Documented by: Vancomycin IV Pharmacy to Dose (1 each/ Sodium Chloride) 500 mls @ 250 mls/hr IV PRN PRN; Protocol PRN Reason: Rx to Dose Sodium Bicarbonate 150 meq/ (Dextrose) 1,150 mls @ 75 mls/hr IV .[id number] [facility] Last Admin: 11/29/20 14:50 Dose: 75 mls/hr Documented by: Propofol (Diprivan) 1,000 mg in 100 mls @ 3.63 mls/hr CONT INF .Q12H [facility]; Protocol Last Admin: 11/30/20 02:13 Dose: Not Given Documented by: Fentanyl Citrate 1,000 mcg/ (Sodium Chloride) 100 mls @ 5 mls/hr CONT INF .Q20H [facility]; Protocol Last Titration: 11/30/20 02:00 Dose: 50 mcg/hr, 5 mls/hr Documented by: Sodium Chloride () 250 mls @ 15 mls/hr IV .[id number] PRN PRN Reason: Saline Flush Last Infusion: 11/29/20 21:50 Dose: 0 mls/hr Documented by: Insulin Human Lispro (Insulin Lispro 100 Unit/Ml Insuln.Pen) 0 unit SC Q6 [facility]; Protocol Last Admin: 11/30/20 00:51 Dose: Not Given Documented by: Lorazepam (Lorazepam 2 Mg/Ml Syringe) 0.5 mg IV X1 PRN PRN Reason: ANXIETY Last Admin: 11/27/20 15:21 Dose: 0.5 mg Documented by: Mirtazapine (Mirtazapine 15 Mg Tablet) 15 mg PO QHS PRN PRN PRN Reason: AGITATION Morphine Sulfate (Morphine 2 Mg/Ml Syringe) 2 mg IV Q3H PRN PRN PRN Reason: Pain Score 6-10 Last Admin: 11/29/20 08:20 Dose: 2 mg Documented by: Nutritional Formula (Lactose Free) (Glucerna Shake 120 Ml Liquid) 120 ml PO 4X/DAY [facility] Last Admin: 11/29/20 21:17 Dose: Not Given Documented by: Ondansetron HCl (Ondansetron 4 Mg/2 Ml Vial) 4 mg IV Q8H PRN PRN PRN Reason: NAUSEA/VOMITING Sodium Chloride (0.9% Saline Lock 10 Ml Syringe) 10 - 40 ml IV UD PRN PRN Reason: SALINE FLUSH Last Admin: 11/29/20 14:50 Dose: 10 ml Documented by: Sodium Hypochlorite (Dakin's Lisa Half Strength (=0.25%)) 1 applic TOPICAL BID [facility]; Protocol Last Admin: 11/29/20 21:17 Dose: Not Given Documented by: Assessment/Plan Active and Suspected Problems Wound infection (Acute) RECOMMENDATIONS: 1. Proceed with a trial of extubation this morning. 2. Once extubated, wean supplemental oxygen to maintain saturations at or above 90%. 3. Encourage incentive spirometer use and mobilize patient as tolerated. 4. Recheck hepatic function profile and GGT. 5. Continue antimicrobials per ID recommendations. 6. Continue bicarbonate containing fluids per nephrology. 7. Continue local wound care. 8. Continue to monitor H&H daily and transfuse if hemoglobin drops below 7 g/dL. Start daily Protonix therapy. IMPRESSIONS: 1. Postoperative respiratory failure The patient was left intubated after her recent surgical intervention over concerns for possible clinical decompensation. However, the patient was maintaining appropriate oxygen saturations on room air prior to her surgery. She had no form of of any active pulmonary disease noted on chest x-ray. The patient passed her spontaneous breathing trial this morning and was able to follow commands without issue. Therefore, we will plan to proceed with extubation. Once extubated, the patient will be placed on supplemental oxygen to maintain saturations at or above 90%. Plan to provide with incentive spirometer and encourage use. 2. Sepsis secondary to lower extremity wound/osteomyelitis, now POD #1 s/p surgical debridement The patient has been stable clinically. She remains hemodynamically stable and is currently afebrile. Plan to continue local wound care and antimicrobial therapy per ID recommendations. 3. Acute on chronic kidney disease Nephrology is currently following with concerns for possible ATN in the setting of sepsis/osteomyelitis. Creatinine has improved over the course of her hospitalization. She is being maintained on a bicarbonate infusion, which will be continued per nephrology recommendations. Continue to monitor urine output for now. No current indication for renal replacement therapy. 4. Anemia The patient did have a kareem hemoglobin of 6.3 g/dL on November 27, for which she received 2 units of packed red blood cells. Blood counts are currently stable. I would recommend that we continue to monitor her H&H daily, with a goal to transfuse if hemoglobin drops below 7 g/dL. The patient will also be started on daily PPI therapy. Continue p.o. iron supplementation. 5. Malnutrition/generalized deconditioning/depression/diabetes mellitus Complicates care, management, recovery and prognosis. Continue home medications as indicated. TIME: 36 minutes of critical care time, independent of procedures, was spent addressing the patient's postoperative respiratory failure, sepsis, lower extremity osteomyelitis, acute on chronic kidney disease, anemia, malnutrition, review of all data and collaboration with the care team. [phone]) [phone]: [id number] Critical care first hour
[2020-11-30 05:45] LABS: Anion Gap 6 (5-15); BUN 62 mg/dL (7-18); BUN/Creat Ratio 25.6 RATIO (10-20); Calcium,Total 7.9 mg/dL (8.5-10.1); Chloride 107 mmol/L (98-107); Creatinine, Serum 2.42 mg/dL (0.55-1.02); EST Glomerular Filtration Rate 21 mL/min (>60); Est Glom Filt Rate - Afr Amer 25 mL/min (>60); Estimated Creatinine Clearance 19.77 ml/min; Glucose 271 mg/dL (74-106); Magnesium 1.8 mg/dL (1.6-2.6); Potassium 4.1 mmol/L (3.5-5.1); Sodium Level 141 mmol/L (136-145)
[2020-11-30] MEDS: Insulin Lispro 100 UNIT/ML INSULN.PEN SC ×2 (06:16→17:31)
[2020-11-30] MEDS: TITRATION PARAMETER CHANGE 1 EACH IV (06:20)
[2020-11-30 06:21] LABS: Bedside Glucose 152 mg/dL (70-110)
[2020-11-30 06:53] LABS: Vancomycin, Random Level 17.4 ug/mL (0.0-15.0)
--- NOTE | 2020-11-30 06:54 | NURSING ---
all charting by bob Jesus RN reviewed
[2020-11-30 07:13] LABS: AST(SGOT) 46 U/L (15-37); Alanine Aminotransfer ALT/SGPT 49 U/L (13-56); Albumin, Serum 1.4 g/dL (3.2-5.0); Alkaline Phosphatase 789 U/L (45-117); Bilirubin, Direct 0.21 mg/dL (0.00-0.30); GGTP 593 U/L (5-55); Globulin 3.9 g/dL (2.2-4.2); Protein, Total 5.3 g/dL (6.4-8.2)
--- NOTE | 2020-11-30 07:29 | PCM.PN.HOSP ---
Patient Problems: Active and Suspected Problems Wound infection (Acute) Reason for Visit: Postoperative follow-up after wound debridement along with multiple active issues Objective: Overnight events were noted. Bus System Operator and incoming freight clerk consult reviewed. Blood pressure and heart rate are controlled. Patient passed a spontaneous breathing trial and therefore extubated. Currently on nasal cannula 2 L of oxygen pulse ox 94%. Physical exam General: AAOx3. Extubated. HEENT: Hard of hearing, atraumatic, PERRLA, EOMI, Normocephalic Oral: No Gingival or Mucosal Lesions/ Ulcerations Neck: Supple, No JVD, Negative Carotid Bruits Lungs: Air entry diminished in bilateral lung bases. No crepitation/rhonchi Cardiovascular: Heart rate in 90s. Sinus rhythm, Normal S1, Normal S2, No murmurs Abdomen: Bowel Sounds Present, Soft, Non Tender, Non-Distended : No renal angle tenderness. No suprapubic tenderness. Extremities: No edema, Capillary Refill Less than 3 Seconds Skin: Status post debridement of right heel ulcer, left heel ulcer and left ankle ulcer; covered with dressing Musculoskeletal: No Tenderness to Palpation of Joints or Extremities Neurological: Cranial nerves II-XII grossly intact, Deep Tendon Reflexes 2+/4 and Symmetrical, Neuro grossly intact Psych/Mental Status: Flat affect. Vitals/I&O's: Vital Signs Temp Pulse Resp BP Pulse Ox 98.1 F 100 22 H 179/76 H 96 11/30/20 03:00 11/30/20 06:00 11/30/20 06:00 11/30/20 06:00 11/30/20 05:04 Oxygen Flow Rate (L/min) 3 Oxygen Delivery Method Mechanical Ventilator Weight: 137 lb 9.095 oz Body Mass Index (BMI) 20.9 Intake and Output for Last 24 Hours 11/28/20 11/29/20 11/30/20 23:59 23:59 23:59 Intake Total 1976.67 / 1976.67 1439.11 / 1449.51 1322.0 / 1322.0 Output Total 1475 / 1475 1250 / 1780 805 / 805 Balance 501.67 / 501.67 189.11 / -330.49 517.0 / 517.0 Microbiology Past 72 Hours 11/29/20 13:07 Wound - Heel Gram Stain - Final 11/29/20 13:07 Bone - Ankle Gram Stain - Final 11/29/20 13:07 Wound - Leg, Left Gram Stain - Final 11/29/20 13:07 Bone - Left Foot Gram Stain - Final 11/29/20 13:07 Bone - Right Foot Gram Stain - Final 11/27/20 07:45 Wound - Leg, Left Gram Stain - Final 11/27/20 07:45 Wound - Leg, Left Wound Culture - Final Proteus mirabilis Staphylococcus aureus 11/27/20 07:45 Wound - Leg, Left Anaerobic Culture - Preliminary Checking for anaerobes, further studies to follow. 11/26/20 22:25 Wound - Heel Right Gram Stain - Final 11/26/20 22:25 Wound - Heel Right Wound Culture - Final Proteus mirabilis 11/26/20 22:25 Wound - Heel Right Anaerobic Culture - Preliminary Checking for anaerobes, further studies to follow. 11/27/20 07:45 Wound - Sacral Gram Stain - Final 11/27/20 07:45 Wound - Sacral Wound Culture - Final Proteus mirabilis 11/27/20 07:45 Wound - Sacral Anaerobic Culture - Preliminary Checking for anaerobes, further studies to follow. 11/26/20 16:25 Blood Culture (Wb) - Anticubital Left Blood Culture - Preliminary No growth in 48 hours. 11/28/20 04:20 Mucosa - Nose SARS-CoV-2 Antigen (Rapid) - Final Laboratory Results 11/29/20 06:30: Sodium 140, Potassium 5.6 H, Chloride 115 H, Carbon Dioxide 18.0 L, Anion Gap 7, BUN 71 H, Creatinine 2.62 H, Estim Creat Clear Calc 18.26, Est GFR (MDRD) Af Amer 23 L, Est GFR (MDRD) Non-Af 19 L, BUN/Creatinine Ratio 27.1 H, Glucose 112 H, Calcium 8.9, Total Bilirubin 0.30, AST 53 H, ALT 71 H, Alkaline Phosphatase 942 H, Total Protein 6.7, Albumin 1.8 L, Globulin 4.9 H, Albumin/Globulin Ratio 0.4 L 11/29/20 09:14: Lactic Acid 0.6 11/29/20 14:00: Sodium 140, Potassium 5.5 H, Chloride 116 H, Carbon Dioxide 16.0 L, Anion Gap 8, BUN 72 H, Creatinine 2.69 H, Estim Creat Clear Calc 17.79, Est GFR (MDRD) Af Amer 22 L, Est GFR (MDRD) Non-Af 18 L, BUN/Creatinine Ratio 26.8 H, Glucose 186 H, Calcium 8.6, Phosphorus 5.7 H, Magnesium 1.5 L 11/29/20 14:00: Total Creatine Kinase 38, Triglycerides 183 11/29/20 14:30: Hgb 9.3 L, Hct 32.1 L 11/29/20 14:36: Specimen Type ART, Sample Site R Radial, pH 7.27 L, Bicarbonate Actual 13.8 L, Total CO2 15, Base Excess -13 L, O2 Saturation 100 H, O2 % 50, ABG pCO2 29.9 L, ABG pO2 188 H, Richy Test Positive, Respiration Rate 12, O2 Delivery Device Adult Vent, Vent Mode AC, Tidal Volume 400, POC PEEP 5 11/29/20 18:17: POC Glucose 179 H 11/29/20 20:00: Specimen Type ART, Sample Site R Radial, pH 7.46 H, Bicarbonate Actual 17.7 L, Total CO2 19, Base Excess -6 L, O2 Saturation 100 H, O2 % 30, ABG pCO2 24.9 L, ABG pO2 150 H, Richy Test Positive, Respiration Rate 12, O2 Delivery Device Adult Vent, Vent Mode AC, Tidal Volume 400, POC PEEP 5 11/30/20 00:03: POC Glucose 148 H 11/30/20 05:00: WBC 7.5, RBC 2.93 L, Hgb 7.9 L, Hct 26.4 L, MCV 90.1, MCH 27.0, MCHC 29.9 L, RDW Std Deviation 54.5 H, RDW Coeff of Charles 16.6 H, Plt Count 275, MPV 10.1, Immature Gran % (Auto) 0.400, Neut % (Auto) 63.8, Lymph % (Auto) 18.7 L, [place] % (Auto) 10.3 H, Eos % (Auto) 6.4 H, Baso % (Auto) 0.4, Absolute Neuts (auto) 4.8, Absolute Lymphs (auto) 1.41, Nucleated RBC % 0 11/30/20 05:00: Sodium 141, Potassium 4.1, Chloride 107, Carbon Dioxide 28.0, Anion Gap 6, BUN 62 H, Creatinine 2.42 H, Estim Creat Clear Calc 19.77, Est GFR (MDRD) Af Amer 25 L, Est GFR (MDRD) Non-Af 21 L, BUN/Creatinine Ratio 25.6 H, Glucose 271 H, Calcium 7.9 L, Magnesium 1.8 11/30/20 05:00: Total Bilirubin 0.30, Direct Bilirubin 0.21, GGT 593 H, AST 46 H, ALT 49, Alkaline Phosphatase 789 H, Total Protein 5.3 L, Albumin 1.4 L, Globulin 3.9 11/30/20 06:00: Random Vancomycin 17.4 H 11/30/20 06:15: POC Glucose 152 H Current Medications Acetaminophen (Acetaminophen 325 Mg Tablet) 650 mg PO Q4H PRN PRN Reason: Pain 1-10 or Fever Last Admin: 11/29/20 07:46 Dose: 650 mg Documented by: Hydrocodone Bitart/Acetaminophen (Hydrocodone Bitartrate/Apap 5/325 Tablet) 2 tablet PO Q6H PRN PRN PRN Reason: Pain Score 1-10 Last Admin: 11/27/20 13:47 Dose: 2 tablet Documented by: Amlodipine Besylate (Amlodipine 5 Mg Tablet) 5 mg PO DAILY [facility] Last Admin: 11/29/20 14:05 Dose: Not Given Documented by: Bumetanide (Bumetanide 1 Mg/4 Ml Vial) 1 mg IV Q12 [facility] Last Admin: 11/29/20 21:47 Dose: 1 mg Documented by: Chlorhexidine Gluconate (Chlorhexidine 15 Ml) 15 ml PO BID [facility] Last Admin: 11/29/20 21:49 Dose: 15 ml Documented by: Ferrous Sulfate (Ferrous Sulfate 325 Mg Tablet) 325 mg PO DAILYCM [facility] Last Admin: 11/29/20 14:04 Dose: Not Given Documented by: Meropenem 1 gm/ Sodium (Chloride) 120 mls @ 33 mls/hr IV Q12 [facility] Last Infusion: 11/30/20 01:30 Dose: Infused Documented by: Vancomycin IV Pharmacy to Dose (1 each/ Sodium Chloride) 500 mls @ 250 mls/hr IV PRN PRN; Protocol PRN Reason: Rx to Dose Sodium Bicarbonate 150 meq/ (Dextrose) 1,150 mls @ 75 mls/hr IV .[id number] [facility] Last Admin: 11/30/20 06:10 Dose: 75 mls/hr Documented by: Sodium Chloride () 250 mls @ 15 mls/hr IV .[id number] PRN PRN Reason: Saline Flush Last Infusion: 11/29/20 21:50 Dose: 0 mls/hr Documented by: Insulin Human Lispro (Insulin Lispro 100 Unit/Ml Insuln.Pen) 0 unit SC Q6 [facility]; Protocol Last Admin: 11/30/20 06:16 Dose: 2 u Documented by: Mirtazapine (Mirtazapine 15 Mg Tablet) 15 mg PO QHS PRN PRN PRN Reason: AGITATION Nutritional Formula (Lactose Free) (Glucerna Shake 120 Ml Liquid) 120 ml PO 4X/DAY [facility] Last Admin: 11/29/20 21:17 Dose: Not Given Documented by: Ondansetron HCl (Ondansetron 4 Mg/2 Ml Vial) 4 mg IV Q8H PRN PRN PRN Reason: NAUSEA/VOMITING Pantoprazole Sodium (Pantoprazole Sodium 40 Mg Tablet) 40 mg PO DAILY [facility] Sodium Chloride (0.9% Saline Lock 10 Ml Syringe) 10 - 40 ml IV UD PRN PRN Reason: SALINE FLUSH Last Admin: 11/29/20 14:50 Dose: 10 ml Documented by: Sodium Hypochlorite (Dakin's Lisa Half Strength (=0.25%)) 1 applic TOPICAL BID [facility]; Protocol Last Admin: 11/29/20 21:17 Dose: Not Given Documented by: STROKE Vital Signs/Narrative: Vital Signs Pulse Resp BP Pulse Ox 11/30/20 06:00 100 22 H 179/76 H 11/30/20 05:04 93 16 96 11/30/20 05:00 79 12 148/52 H 98 11/30/20 04:00 69 12 112/43 L 99 Medical Necessity - Tobacco Use Smoking Status: Former smoker Tobacco Use: Cigarettes Assessment/Plan All Active Problems Wound infection (Acute) 75 y/o admitted with a complaint of worsening wounds on her LEs and sacral wound #Acute on chronic both lower leg and heels, with probable osteomyelitis lateral heel and sacral ulcer: Patient is admitted on [facility] floor. Wound photo reviewed. Currently ulcers are pressure ulcer, unstageable. MRI and arterial studies are pending. Patient previous wound culture in [place] in August as per ID showed heavy Enterobacter, resistant to cefdinir/ceftriaxone, heavy Proteus and light Enterococcus. Currently patient on IV vancomycin and meropenem. Wound care nurse consulted. Initial right heel wound shows gram-negative joseluis.. Detailed wound culture and blood cultures are pending. PT and OT. CRP is elevated as well as ESR. WBC is also 12.9. Discussed with card setter and patient will be high risk for surgery depending on kidney failure severe anemia therefore probably will wait over the weekend. 11/28: Seen by ID. Initial Gram stain of wound shows gram-negative joseluis and gram-positive organism and Proteus mirabilis. Continue broad-spectrum antibiotic. Left leg MRI shows cellulitis/passive congestion but no abscess, myositis or osteomyelitis. MRI left ankle shows deep ulcer of posterior heel with calcaneal osteomyelitis and osteomyelitis of lateral malleolus and fibula. MRI of right ankle shows deep ulcer with osteomyelitis of posterior calcaneus. 11/29: Perioperative risk is high in view of AIDA on CKD stage III, creatinine clearance 18 mL/min, hyperkalemia,elevated alkaline phosphatase probably from bone source, history of multiple bacterial infection of wound. Patient is co-managed by ID, incoming freight clerk and card setter. EKG shows sinus rhythm at 88 bpm, QTC 399 ms with no hyperacute T changes, similar to previous EKG of 11/26.Lactic acid 2.6 and Kayexalate given. 11/30: Postoperative respiratory failure: Chest x-ray did not show acute or active disease. She was intubated and kept on ventilator overnight for the concern of respiratory decompensation but she did well. Patient extubated. Currently on oxygen, nasal cannula. Leukocytosis resolved. Currently afebrile. Patient hemodynamically stable and transferred to PCU. Continue incentive spirometry Acute kidney injury in a stage IIIb with hyperkalemia, nonoliguric: Potassium is 6.2. Improved to 5.8 after Kayexalate. Previous creatinine was little over 2. Seen by incoming freight clerk. Estimated creatinine clearance about 17. Recommended IV bicarb. Hyperkalemia due to lack of DCT plasma flow. Renal ultrasounds shows nonspecific renal parenchymal disease, multiple right renal cyst. Left renal pelvicalyceal ectasis 11/28: BUN/creatinine gradually improving but GFR low, 18.2. 11/30: On bicarb drip and Bumex 1 mg every 12 hourly as per incoming freight clerk recommendation. Overall BUN/creatinine is stable slightly getting better. +2.5 L fluid balance, 1250 mL urine output yesterday. Does not need renal replacement. #Acute anemia with baseline chronic anemia chronic kidney disease believed from Lovenox: Hemoglobin 8.6. Subcu up appointment recommended. On oral iron supplementation. Lovenox discontinued. 11/30: Patient required overall 2 units of PRBC transfusion. Had 200 mL postoperative blood loss. Most recent H&H 7.05/03. No leukocytosis. #Type 2 diabetes mellitus: Insulin sliding scale. Accu-Cheks AC at bedtime. A1c 6.7. Glucoses controlled #Depression: On Remeron #DVT prophylaxis: Bilateral SCDs Full code Total time of the visit including total time spent in counseling or coordination of care, (more than 50% of the total time, spent in obtaining medical information from nurses and other ancillary care providers,explaining to the patient about labs, imaging, diagnosis and management), , review of labs and imaging is 30 minutes. 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 There is soft tissue swelling at the operative site but no evidence for acute osteomyelitis Electronically Signed: Toan Alvarez MD at 17:52 EDT , Service support , Tibia/Fibula X-Ray 11/26/20 16:00 IMPRESSION: Soft tissue swelling of the lateral malleolus without associated fracture. No definitive evidence for acute fracture or osteomyelitis Electronically Signed: Toan Alvarez MD at 17:47 EDT , Service support , Ankle X-Ray 11/26/20 16:03 IMPRESSION: No acute radiographic abnormalities. Heel spur. Electronically Signed: Jose Avendano MD at 17:29 EDT Tel , Service support , Foot X-Ray 11/26/20 16:05 IMPRESSION: No acute fracture or other significant bony pathology Electronically Signed: Toan Alvarez MD at 17:49 EDT , Service support , Ankle X-Ray 11/26/20 17:00 IMPRESSION: Soft tissue swelling of the lateral malleolus and findings suspicious for early changes of acute osteomyelitis however three-phase bone scan or MRI is recommended for more definitive evaluation Electronically Signed: Toan Alvarez MD at 17:46 EDT , Service support , Renal Ultrasound 11/26/20 20:30 IMPRESSION: Findings consistent with nonspecific renal parenchymal disease. Multiple right renal cysts. Left renal pelvocaliectasis of uncertain etiology. CT would be helpful for further evaluation Electronically Signed: Toan Alvarez MD at 21:52 EDT , Service support , Ankle Brachial Index 11/27/20 07:34 Interpretation Summary Biphasic Doppler waveforms are noted at ankle level bilaterally. Pulse-volume recording waveform amplitudes are diminished at digital level on the left, but satisfactory at digital level on the right, and at ankle level bilaterally. The resting right ankle-brachial index is normal. The resting left ankle brachial index could not be determined due to the non-compressibility of the vasculature. There is evidence of arterial calcification at ankle level bilaterally. Arterial flow appears normal at ankle level on the right. However, arterial calcification can artifactually elevate arterial indices and mask the presence of arterial occlusive disease. In this regard, clinical correlation is advised. Toe pressures could not be obtained bilaterally. Arterial flow at ankle level on the left can not be assessed due to the non-compressibility of the vasculature. A relatively normal pulse- volume recording at digital level on the right suggests relatively normal flow. The diminished pulse-volume recording waveform amplitude at digital level on the left suggests the presence of occlusive disease, though quantitation is uncertain. Duplex Scan Lower Extremity Artery 11/27/20 07:34 Interpretation Summary Arterial flow appears normal at all levels in the right lower extremity. There appears to be a mild stenosis in the proximal right popliteal artery, which does not appear hemodynamically significant. No flow is demonstrated in the left proximal and mid-superficial femoral artery, suggesting total occlusion. The remainder of the left lower extremity arterial tree appears to be segmentally patent without evidence of flow-limiting stenosis. Ordering Physician: Toan Garcia Performed By: Aakash Lr, T Lower Extremity MRI 11/27/20 08:45 IMPRESSION: Deep ulcer of the medial aspect of the heel with osteomyelitis of the posterior calcaneus. Electronically Signed: Jacob Suazo MD at 18:13 EDT Tel , Service support , Lower Extremity MRI 11/28/20 08:46 IMPRESSION: Deep ulcer of the posterior heel with exposure of the posterior calcaneus with calcaneal osteomyelitis. Early osteomyelitis of the lateral aspect of the lateral malleolus the fibula. Electronically Signed: Jacob Suazo MD at 12:26 EDT Tel , Service support , Lower Extremity MRI 11/28/20 08:46 IMPRESSION: Cellulitis or passive congestion of the leg but no abscess, myositis, or osteomyelitis. Inpatient E&M: [id number] Subs Hosp L3
--- NOTE | 2020-11-30 11:01 | PCM.PROGNOTE ---
Patient Problems: Active and Suspected Problems Wound infection (Acute) Subjective: Patient was seen this morning for follow up on bilateral heel ulceration as well as left ankle and leg ulcerations s/p debridement. Patient is in ICU, she is extubated. She is more alert. Patient afebrile, WBC normal. - Physical Exam Vitals/I&O's: Vital Signs Temp Pulse Resp BP Pulse Ox 98.1 F 100 22 H 179/76 H 94 11/30/20 03:00 11/30/20 06:00 11/30/20 06:00 11/30/20 06:00 11/30/20 06:35 Oxygen Flow Rate (L/min) 3 Oxygen Delivery Method Nasal Cannula Weight: 62.4 kg Body Mass Index (BMI) 20.9 Intake and Output for Last 24 Hours 11/28/20 11/29/20 11/30/20 23:59 23:59 23:59 Intake Total 1976.67 / 1975.67 1439.11 / 1449.51 1322.0 / 1322.0 Output Total 1475 / 1475 1250 / 1780 805 / 805 Balance 501.67 / 501.67 189.11 / -330.49 517.0 / 517.0 General: Alert, Cooperative Extremities: No cyanosis, Capillary Refill Less than 3 Seconds, No Calf Tenderness, - - s/p bilateral heel debridement down to bone, also left lateral ankle and leg ulceration debridement - tissues healthy and viable, resolved malodor, no cellulitis, no visible abscess, no crepitus - there is some active bleeding to the proximal left leg ulcer Skin: - - No evidence of acute ischemia to the foot, ankle or leg bilateral. Musculoskeletal: Tenderness - to the heel ulcerations and left leg ulceration c/w normal pain from ulcers. Microbiology Past 72 Hours 11/29/20 13:07 Wound - Heel Gram Stain - Final 11/29/20 13:07 Bone - Ankle Gram Stain - Final 11/29/20 13:07 Wound - Leg, Left Gram Stain - Final 11/29/20 13:07 Bone - Left Foot Gram Stain - Final 11/29/20 13:07 Bone - Right Foot Gram Stain - Final 11/27/20 07:45 Wound - Leg, Left Gram Stain - Final 11/27/20 07:45 Wound - Leg, Left Wound Culture - Final Proteus mirabilis Staphylococcus aureus 11/27/20 07:45 Wound - Leg, Left Anaerobic Culture - Preliminary Checking for anaerobes, further studies to follow. 11/26/20 22:25 Wound - Heel Right Gram Stain - Final 11/26/20 22:25 Wound - Heel Right Wound Culture - Final Proteus mirabilis 11/26/20 22:25 Wound - Heel Right Anaerobic Culture - Preliminary Checking for anaerobes, further studies to follow. 11/27/20 07:45 Wound - Sacral Gram Stain - Final 11/27/20 07:45 Wound - Sacral Wound Culture - Final Proteus mirabilis 11/27/20 07:45 Wound - Sacral Anaerobic Culture - Preliminary Checking for anaerobes, further studies to follow. 11/26/20 16:25 Blood Culture (Wb) - Anticubital Left Blood Culture - Preliminary No growth in 48 hours. 11/28/20 04:20 Mucosa - Nose SARS-CoV-2 Antigen (Rapid) - Final Laboratory Results 11/29/20 14:00: Sodium 140, Potassium 5.5 H, Chloride 116 H, Carbon Dioxide 16.0 L, Anion Gap 8, BUN 72 H, Creatinine 2.69 H, Estim Creat Clear Calc 17.79, Est GFR (MDRD) Af Amer 22 L, Est GFR (MDRD) Non-Af 18 L, BUN/Creatinine Ratio 26.8 H, Glucose 186 H, Calcium 8.6, Phosphorus 5.7 H, Magnesium 1.5 L 11/29/20 14:00: Total Creatine Kinase 38, Triglycerides 183 11/29/20 14:30: Hgb 9.3 L, Hct 32.1 L 11/29/20 14:36: Specimen Type ART, Sample Site R Radial, pH 7.27 L, Bicarbonate Actual 13.8 L, Total CO2 15, Base Excess -13 L, O2 Saturation 100 H, O2 % 50, ABG pCO2 29.9 L, ABG pO2 188 H, Richy Test Positive, Respiration Rate 12, O2 Delivery Device Adult Vent, Vent Mode AC, Tidal Volume 400, POC PEEP 5 11/29/20 18:17: POC Glucose 179 H 11/29/20 20:00: Specimen Type ART, Sample Site R Radial, pH 7.46 H, Bicarbonate Actual 17.7 L, Total CO2 19, Base Excess -6 L, O2 Saturation 100 H, O2 % 30, ABG pCO2 24.9 L, ABG pO2 150 H, Richy Test Positive, Respiration Rate 12, O2 Delivery Device Adult Vent, Vent Mode AC, Tidal Volume 400, POC PEEP 5 11/30/20 00:03: POC Glucose 148 H 11/30/20 05:00: WBC 7.5, RBC 2.93 L, Hgb 7.9 L, Hct 26.4 L, MCV 90.1, MCH 27.0, MCHC 29.9 L, RDW Std Deviation 54.5 H, RDW Coeff of Charles 16.6 H, Plt Count 275, MPV 10.1, Immature Gran % (Auto) 0.400, Neut % (Auto) 63.8, Lymph % (Auto) 18.7 L, [place]es % (Auto) 10.3 H, Eos % (Auto) 6.4 H, Baso % (Auto) 0.4, Absolute Neuts (auto) 4.8, Absolute Lymphs (auto) 1.41, Nucleated RBC % 0 11/30/20 05:00: Sodium 141, Potassium 4.1, Chloride 107, Carbon Dioxide 28.0, Anion Gap 6, BUN 62 H, Creatinine 2.42 H, Estim Creat Clear Calc 19.77, Est GFR (MDRD) Af Amer 25 L, Est GFR (MDRD) Non-Af 21 L, BUN/Creatinine Ratio 25.6 H, Glucose 271 H, Calcium 7.9 L, Magnesium 1.8 11/30/20 05:00: Total Bilirubin 0.30, Direct Bilirubin 0.21, GGT 593 H, AST 46 H, ALT 49, Alkaline Phosphatase 789 H, Total Protein 5.3 L, Albumin 1.4 L, Globulin 3.9 11/30/20 06:00: Random Vancomycin 17.4 H 11/30/20 06:15: POC Glucose 152 H Current Medications Acetaminophen (Acetaminophen 325 Mg Tablet) 650 mg PO Q4H PRN PRN Reason: Pain 1-10 or Fever Last Admin: 11/29/20 07:46 Dose: 650 mg Documented by: Hydrocodone Bitart/Acetaminophen (Hydrocodone Bitartrate/Apap 5/325 Tablet) 2 tablet PO Q6H PRN PRN PRN Reason: Pain Score 1-10 Last Admin: 11/27/20 13:47 Dose: 2 tablet Documented by: Amlodipine Besylate (Amlodipine 5 Mg Tablet) 5 mg PO DAILY [facility] Last Admin: 11/29/20 14:05 Dose: Not Given Documented by: Bumetanide (Bumetanide 1 Mg/4 Ml Vial) 1 mg IV Q12 [facility] Last Admin: 11/29/20 21:47 Dose: 1 mg Documented by: Chlorhexidine Gluconate (Chlorhexidine 15 Ml) 15 ml PO BID [facility] Last Admin: 11/29/20 21:49 Dose: 15 ml Documented by: Ferrous Sulfate (Ferrous Sulfate 325 Mg Tablet) 325 mg PO DAILYCM [facility] Last Admin: 11/29/20 14:04 Dose: Not Given Documented by: Meropenem 1 gm/ Sodium (Chloride) 120 mls @ 33 mls/hr IV Q12 [facility] Last Infusion: 11/30/20 01:30 Dose: Infused Documented by: Vancomycin IV Pharmacy to Dose (1 each/ Sodium Chloride) 500 mls @ 250 mls/hr IV PRN PRN; Protocol PRN Reason: Rx to Dose Sodium Bicarbonate 150 meq/ (Dextrose) 1,150 mls @ 75 mls/hr IV .[id number] [facility] Last Admin: 11/30/20 06:10 Dose: 75 mls/hr Documented by: Sodium Chloride () 250 mls @ 15 mls/hr IV .[id number] PRN PRN Reason: Saline Flush Last Infusion: 11/29/20 21:50 Dose: 0 mls/hr Documented by: Insulin Human Lispro (Insulin Lispro 100 Unit/Ml Insuln.Pen) 0 unit SC Q6 [facility]; Protocol Last Admin: 11/30/20 06:16 Dose: 2 u Documented by: Mirtazapine (Mirtazapine 15 Mg Tablet) 15 mg PO QHS PRN PRN PRN Reason: AGITATION Nutritional Formula (Lactose Free) (Glucerna Shake 120 Ml Liquid) 120 ml PO 4X/DAY [facility] Last Admin: 11/29/20 21:17 Dose: Not Given Documented by: Ondansetron HCl (Ondansetron 4 Mg/2 Ml Vial) 4 mg IV Q8H PRN PRN PRN Reason: NAUSEA/VOMITING Pantoprazole Sodium (Pantoprazole Sodium 40 Mg Tablet) 40 mg PO DAILY [facility] Sodium Chloride (0.9% Saline Lock 10 Ml Syringe) 10 - 40 ml IV UD PRN PRN Reason: SALINE FLUSH Last Admin: 11/29/20 14:50 Dose: 10 ml Documented by: Sodium Hypochlorite (Dakin's Lisa Half Strength (=0.25%)) 1 applic TOPICAL BID [facility]; Protocol Last Admin: 11/29/20 21:17 Dose: Not Given Documented by: Medical Necessity - Tobacco Use Smoking Status: Former smoker Tobacco Use: Cigarettes Assessment/Plan All Active Problems Wound infection (Acute) Right heel ulceration down to bone with osteomyelitis Left heel ulceration down to bone with likely osteomyelitis Left lateral distal leg/ankle ulceration with osteomyelitis Proximal leg ulcerations down to fascia layer s/p debridement of the above ulcerations on 11/29/2020 Diabetes Peripheral vascular disease Kidney disease Other comorbidities Reviewed diagnostic data. Patient is more alert today and appears overall improved. Clinically significant improvement to bilateral heels and left ankle and leg ulcerations - tissues are healthy and viable, no malodor anymore, no necrosis present. Cultures have been obtained, bone biopsy of bilateral calcaneus and left lateral malleolus has been obtained and results from microbiology and pathology pending. Patient is currently on IV antibiotics - Vancomycin and Meropenem. ID/Dr. Pantoja has been consulted. Noninvasive lower extremity arterial studies have been ordered and reviewed - patient with lower extremity PAD - consult has been placed to Dr. Collado from vascular surgery. Wound care right heel, left heel, and left lateral ankle/leg: Wet to dry dakin's soln with gauze, kerlix, abd pads, and savannah bandage daily. Keep heels and ulcers offloaded at all times. Podiatry will continue to follow.
[2020-11-30 13:25] LABS: Hematocrit 26.2 % (37-47); Hemoglobin 7.9 g/dL (12.0-15.0)
[2020-11-30] MEDS: Vancomycin IV 1,000 MG/200 ML BAG 200 MG IV (13:26)
[2020-11-30] MEDS: amLODIPine 5 MG Tablet PO (13:26)
[2020-11-30] MEDS: Bumetanide 1 MG/4 ML Vial IV ×2 (13:26→21:20)
[2020-11-30] MEDS: Ferrous Sulfate 325 MG Tablet PO (13:27)
[2020-11-30] MEDS: 0.9% Saline Lock 10 ML Syringe IV (13:33)
[2020-11-30 13:36] LABS: Bedside Glucose 165 mg/dL (70-110)
[2020-11-30] MEDS: DAKIN'S SOL HALF STRENGTH (=0.25%) 1 APPLIC TOPICAL (13:38)
[2020-11-30] MEDS: Pantoprazole Sodium 40 MG Tablet PO (13:43)
--- NOTE | 2020-11-30 16:16 | PCM.RX.CS ---
Consult Pharmacy has been consulted to manage selected antiobiotic: Vancomycin Type of Consult: Follow-up Suspected Infection: Osteomyelitis Labs: Sodium 141 mmol/L (136-145) 11/30/20 05:00 Potassium 4.1 mmol/L (3.5-5.1) 11/30/20 05:00 Chloride 107 mmol/L (98-107) 11/30/20 05:00 Carbon Dioxide 28.0 mmol/L (21.0-32.0) 11/30/20 05:00 Anion Gap 6 (5-15) 11/30/20 05:00 BUN 62 mg/dL (7-18) H 11/30/20 05:00 Creatinine 2.42 mg/dL (0.55-1.02) H 11/30/20 05:00 Est GFR (MDRD) Af Amer 25 mL/min (>60) L 11/30/20 05:00 Est GFR (MDRD) Non-Af 21 mL/min (>60) L 11/30/20 05:00 BUN/Creatinine Ratio 25.6 RATIO (10-20) H 11/30/20 05:00 Glucose 271 mg/dL (74-106) H 11/30/20 05:00 Random Vancomycin 17.4 ug/mL (0.0-15.0) H 11/30/20 06:00 Microbiology: Microbiology 11/29/20 13:07 Wound - Heel Gram Stain - Final 11/29/20 13:07 Wound - Heel Wound Culture - Preliminary Proteus sp. 11/29/20 13:07 Bone - Ankle Gram Stain - Final 11/29/20 13:07 Bone - Ankle Wound Culture - Preliminary No growth-Final to follow 11/29/20 13:07 Wound - Leg, Left Gram Stain - Final 11/29/20 13:07 Wound - Leg, Left Wound Culture - Preliminary No growth-Final to follow 11/29/20 13:07 Bone - Left Foot Gram Stain - Final 11/29/20 13:07 Bone - Left Foot Wound Culture - Preliminary Gram positive organism 11/29/20 13:07 Bone - Right Foot Gram Stain - Final 11/29/20 13:07 Bone - Right Foot Wound Culture - Preliminary Proteus sp. 11/27/20 07:45 Wound - Leg, Left Gram Stain - Final 11/27/20 07:45 Wound - Leg, Left Wound Culture - Final Proteus mirabilis Staphylococcus aureus 11/27/20 07:45 Wound - Leg, Left Anaerobic Culture - Preliminary Checking for anaerobes, further studies to follow. 11/26/20 22:25 Wound - Heel Right Gram Stain - Final 11/26/20 22:25 Wound - Heel Right Wound Culture - Final Proteus mirabilis 11/26/20 22:25 Wound - Heel Right Anaerobic Culture - Preliminary Checking for anaerobes, further studies to follow. 11/27/20 07:45 Wound - Sacral Gram Stain - Final 11/27/20 07:45 Wound - Sacral Wound Culture - Final Proteus mirabilis 11/27/20 07:45 Wound - Sacral Anaerobic Culture - Preliminary Checking for anaerobes, further studies to follow. 11/26/20 16:25 Blood Culture (Wb) - Anticubital Left Blood Culture - Preliminary No growth in 48 hours. 11/28/20 04:20 Mucosa - Nose SARS-CoV-2 Antigen (Rapid) - Final Goal Trough: 15-20 mcg/mL Pharmacy Plan for Drug Dosing: VANCOMYCIN LEVEL RECEIVED Current Vancomycin Dose: CrCl <20. no current dose to report Number of Doses Received: Vancomycin Level: 17.4 Hours Since Last Dose: 46 Renal Function: SrCr 2.42 Renal Function Trend: improving slightly (3.16 to 2.62 to 2.42) Lab/Micro: Vancomycin Plan/Comments: recommend a x1 dose of 1000mg and recheck a random level 12/01/20 at 0600 Pending Level: 12/01/20 at 0600 Pharmacy Service will continue to monitor and adjust dosing as required. Follow-Up Labs: Trough Vancomycin - 12/01 @ 0600
--- NOTE | 2020-11-30 16:30 | PCM.PN.REN ---
Patient Problems: Active and Suspected Problems Wound infection (Acute) Subjective: back to PCU Extubated today No acute events On NC - Physical Exam Vitals/I&O's: Vital Signs Temp Pulse Resp BP Pulse Ox 98.0 F 99 18 133/61 H 100 11/30/20 15:25 11/30/20 15:25 11/30/20 15:25 11/30/20 15:25 11/30/20 15:26 Oxygen Flow Rate (L/min) 2 Oxygen Delivery Method Nasal Cannula Weight: 62.4 kg Body Mass Index (BMI) 20.9 Intake and Output for Last 24 Hours 11/28/20 11/29/20 11/30/20 23:59 23:59 23:59 Intake Total 1976.67 / 1975.67 1439.11 / 1449.51 1522.0 / 1522.0 Output Total 1475 / 1475 1250 / 1780 1930 / 1930 Balance 501.67 / 501.67 189.11 / -330.49 -408.0 / -408.0 General: Alert, Oriented x3 HEENT: Atraumatic Oral: Moist Mucosa Neck: Supple, No JVD Lungs: Clear to auscultation, Normal air movement, No rhonchi Cardiovascular: Regular rate, Regular Rhythm, Normal S1 Abdomen: Bowel Sounds Present, Soft, Non Tender, Non-Distended Extremities: No clubbing, No cyanosis Musculoskeletal: No Tenderness to Palpation of Joints or Extremities Lymphatic: No Cervical, Supraclavicular, or Inguinal Adenopathy Neurological: Neuro grossly intact Psych/Mental Status: Appropriate Microbiology Past 72 Hours 11/29/20 13:07 Wound - Heel Gram Stain - Final 11/29/20 13:07 Wound - Heel Wound Culture - Preliminary Proteus sp. 11/29/20 13:07 Bone - Ankle Gram Stain - Final 11/29/20 13:07 Bone - Ankle Wound Culture - Preliminary No growth-Final to follow 11/29/20 13:07 Wound - Leg, Left Gram Stain - Final 11/29/20 13:07 Wound - Leg, Left Wound Culture - Preliminary No growth-Final to follow 11/29/20 13:07 Bone - Left Foot Gram Stain - Final 11/29/20 13:07 Bone - Left Foot Wound Culture - Preliminary Gram positive organism 11/29/20 13:07 Bone - Right Foot Gram Stain - Final 11/29/20 13:07 Bone - Right Foot Wound Culture - Preliminary Proteus sp. 11/27/20 07:45 Wound - Leg, Left Gram Stain - Final 11/27/20 07:45 Wound - Leg, Left Wound Culture - Final Proteus mirabilis Staphylococcus aureus 11/27/20 07:45 Wound - Leg, Left Anaerobic Culture - Preliminary Checking for anaerobes, further studies to follow. 11/26/20 22:25 Wound - Heel Right Gram Stain - Final 11/26/20 22:25 Wound - Heel Right Wound Culture - Final Proteus mirabilis 11/26/20 22:25 Wound - Heel Right Anaerobic Culture - Preliminary Checking for anaerobes, further studies to follow. 11/27/20 07:45 Wound - Sacral Gram Stain - Final 11/27/20 07:45 Wound - Sacral Wound Culture - Final Proteus mirabilis 11/27/20 07:45 Wound - Sacral Anaerobic Culture - Preliminary Checking for anaerobes, further studies to follow. 11/26/20 16:25 Blood Culture (Wb) - Anticubital Left Blood Culture - Preliminary No growth in 48 hours. 11/28/20 04:20 Mucosa - Nose SARS-CoV-2 Antigen (Rapid) - Final Laboratory Results 11/29/20 18:17: POC Glucose 179 H 11/29/20 20:00: Specimen Type ART, Sample Site R Radial, pH 7.46 H, Bicarbonate Actual 17.7 L, Total CO2 19, Base Excess -6 L, O2 Saturation 100 H, O2 % 30, ABG pCO2 24.9 L, ABG pO2 150 H, Richy Test Positive, Respiration Rate 12, O2 Delivery Device Adult Vent, Vent Mode AC, Tidal Volume 400, POC PEEP 5 11/30/20 00:03: POC Glucose 148 H 11/30/20 05:00: WBC 7.5, RBC 2.93 L, Hgb 7.9 L, Hct 26.4 L, MCV 90.1, MCH 27.0, MCHC 29.9 L, RDW Std Deviation 54.5 H, RDW Coeff of Charles 16.6 H, Plt Count 275, MPV 10.1, Immature Gran % (Auto) 0.400, Neut % (Auto) 63.8, Lymph % (Auto) 18.7 L, [place] % (Auto) 10.3 H, Eos % (Auto) 6.4 H, Baso % (Auto) 0.4, Absolute Neuts (auto) 4.8, Absolute Lymphs (auto) 1.41, Nucleated RBC % 0 11/30/20 05:00: Sodium 141, Potassium 4.1, Chloride 107, Carbon Dioxide 28.0, Anion Gap 6, BUN 62 H, Creatinine 2.42 H, Estim Creat Clear Calc 19.77, Est GFR (MDRD) Af Amer 25 L, Est GFR (MDRD) Non-Af 21 L, BUN/Creatinine Ratio 25.6 H, Glucose 271 H, Calcium 7.9 L, Magnesium 1.8 11/30/20 05:00: Total Bilirubin 0.30, Direct Bilirubin 0.21, GGT 593 H, AST 46 H, ALT 49, Alkaline Phosphatase 789 H, Total Protein 5.3 L, Albumin 1.4 L, Globulin 3.9 11/30/20 06:00: Random Vancomycin 17.4 H 11/30/20 06:15: POC Glucose 152 H 11/30/20 13:15: Hgb 7.9 L, Hct 26.2 L 11/30/20 13:29: POC Glucose 165 H Current Medications Acetaminophen (Acetaminophen 325 Mg Tablet) 650 mg PO Q4H PRN PRN Reason: Pain 1-10 or Fever Last Admin: 11/29/20 07:46 Dose: 650 mg Documented by: Hydrocodone Bitart/Acetaminophen (Hydrocodone Bitartrate/Apap 5/325 Tablet) 2 tablet PO Q6H PRN PRN PRN Reason: Pain Score 1-10 Last Admin: 11/27/20 13:47 Dose: 2 tablet Documented by: Amlodipine Besylate (Amlodipine 5 Mg Tablet) 5 mg PO DAILY [facility] Last Admin: 11/30/20 13:26 Dose: 5 mg Documented by: Bumetanide (Bumetanide 1 Mg/4 Ml Vial) 1 mg IV Q12 [facility] Last Admin: 11/30/20 13:26 Dose: 1 mg Documented by: Ferrous Sulfate ([facility] Sulfate 325 Mg Tablet) [facility] Last Admin: 11/30/20 13:27 Dose: 325 mg Documented by: Meropenem 1 gm/ Sodium (Chloride) 120 mls @ 33 mls/hr IV Q12 [facility] Last Admin: 11/30/20 13:50 Dose: 33 mls/hr Documented by: Vancomycin IV Pharmacy to Dose (1 each/ Sodium Chloride) 500 mls @ 250 mls/hr IV PRN PRN; Protocol PRN Reason: Rx to Dose Sodium Bicarbonate 150 meq/ (Dextrose) 1,150 mls @ 75 mls/hr IV .[id number] [facility] Last Admin: 11/30/20 06:10 Dose: 75 mls/hr Documented by: Sodium Chloride () 250 mls @ 15 mls/hr IV .[id number] PRN PRN Reason: Saline Flush Last Infusion: 11/29/20 21:50 Dose: 0 mls/hr Documented by: Insulin Human Lispro (Insulin Lispro 100 Unit/Ml Insuln.Pen) 0 unit SC Q6 [facility]; Protocol Last Admin: 11/30/20 13:39 Dose: Not Given Documented by: Mirtazapine (Mirtazapine 15 Mg Tablet) 15 mg PO QHS PRN PRN PRN Reason: AGITATION Nutritional Formula (Lactose Free) (Glucerna Shake 120 Ml Liquid) 120 ml PO 4X/DAY [facility] Last Admin: 11/30/20 13:40 Dose: Not Given Documented by: Ondansetron HCl (Ondansetron 4 Mg/2 Ml Vial) 4 mg IV Q8H PRN PRN PRN Reason: NAUSEA/VOMITING Pantoprazole Sodium (Pantoprazole Sodium 40 Mg Tablet) 40 mg PO DAILY [facility] Last Admin: 11/30/20 13:43 Dose: 40 mg Documented by: Sodium Chloride (0.9% Saline Lock 10 Ml Syringe) 10 - 40 ml IV UD PRN PRN Reason: SALINE FLUSH Last Admin: 11/30/20 13:33 Dose: 20 ml Documented by: Sodium Hypochlorite (Dakin's Lisa Half Strength (=0.25%)) 1 applic TOPICAL BID [facility]; Protocol Last Admin: 11/30/20 13:38 Dose: 1 applic Documented by: Medical Necessity - Tobacco Use Smoking Status: Former smoker Tobacco Use: Cigarettes Assessment/Plan All Active Problems Wound infection (Acute) 1- AIDA likely ATN from OM Cr is slightly better. 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
[2020-11-30] MEDS: HYDROcodone Bitartrate/Apap 5/325 Tablet PO ×2 (17:31→23:10)
[2020-11-30 17:41] LABS: Bedside Glucose 223 mg/dL (70-110)
[2020-11-30] MEDS: Mirtazapine 15 MG Tablet PO (21:28)
[2020-11-30] MEDS: Acetaminophen 325 MG Tablet 650 MG PO (21:28)
[2020-12-01] VITALS (17 sets, daily range): BP systolic 120–151; BP diastolic 50–81; PULSE 65–135; RESP 16–18; TEMP 36.3–36.9; O2SAT 93–97
--- NOTE | 2020-12-01 00:16 | EKG12_ITS ---
Test Reason : ARRYTHMIA Blood Pressure : / mmHG Vent. Rate : 086 BPM Atrial Rate : 086 BPM P-R Int : 174 ms QRS Dur : 094 ms QT Int : 352 ms P-R-T Axes : 071 058 075 degrees QTc Int : 421 ms Sinus rhythm with Premature supraventricular complexes Otherwise normal ECG Confirmed by DIANNE JAVED, RICARDA ([id number]), content editor KEVIN ROSADO ([id number]) on 12/03/2020 9:04:58 AM Referred By: JP Confirmed By:RICARDA DEAN MD
[2020-12-01 00:30] LABS: Bedside Glucose 139 mg/dL (70-110)
--- NOTE | 2020-12-01 00:42 | PCM.HOSP.N ---
Hospitalist Note Intermittent episodes of tachycardia. Asymptomatic. EKG obtained w/ atrial fibrillation. Will dose cardizem 20 mg IV x 1 now and add metoprolol 25 mg BID. ECHO reviewed. Mag recently done. Will obtain AM TSH. Will add eliquis regimen given additional history and risks. Will cycle cardiac enzymes and repeat EKG in AM.
[2020-12-01] MEDS: Metoprolol Tartrate 25 MG Tablet PO ×3 (00:50→21:44)
[2020-12-01] MEDS: 0.9% Saline Lock 10 ML Syringe IV ×2 (01:05→09:36)
[2020-12-01] MEDS: dilTIAZem 25 MG/5 ML Vial 20 MG IV BOLUS (01:06)
[2020-12-01 02:36] LABS: Absolute Lymphocyte Count 1.71 X10^3/uL (0.83-4.51); Absolute Neutrophil Count 4.1 X10^3/uL (2.0-7.7); Basophil# 0.04 X10^3/uL; Basophil% 0.5 % (0-1); Eosinophil# 0.81 X10^3/uL; Eosinophils% 10.6 % (0-5); Hematocrit 27.6 % (37-47); Hemoglobin 8.2 g/dL (12.0-15.0); Lymphocyte # 1.71 X10^3/ul (0.83-4.51); Lymphocyte % 22.4 % (19-41); Mean Corp Hgb Conc 29.7 g/dL (32-36); Mean Corpuscular Hgb 26.4 pg (27.0-32.0); Mean Corpuscular Volume 88.7 fL (81-99); Mean Platelet Vol. 9.8 fl (6.2-12.0); Monocyte# 0.99 X10^3/uL; NRBC Flagged by Analyzer 0 % (0-5); Neutrophil # 4.06 X10^3/uL (2.7-7.7); Neutrophil % 53.2 % (47-70); Platelet Count 281 K/mm3 (150-450); RBC Distribution Width CV 16.3 % (11.6-14.6); RBC Distribution Width SD 53.2 fl (35.1-43.9); Red Blood Count 3.11 M/mm3 (4.2-5.4); White Blood Count 7.6 K/mm3 (4.4-11.0)
[2020-12-01 03:08] LABS: ALB/GLOB Ratio 0.4 RATIO (0.9-2.4); AST(SGOT) 52 U/L (15-37); Alanine Aminotransfer ALT/SGPT 40 U/L (13-56); Albumin, Serum 1.5 g/dL (3.2-5.0); Alkaline Phosphatase 795 U/L (45-117); Anion Gap 5 (5-15); BUN 55 mg/dL (7-18); BUN/Creat Ratio 24.7 RATIO (10-20); Calcium,Total 7.9 mg/dL (8.5-10.1); Chloride 106 mmol/L (98-107); Creatinine, Serum 2.23 mg/dL (0.55-1.02); EST Glomerular Filtration Rate 23 mL/min (>60); Est Glom Filt Rate - Afr Amer 28 mL/min (>60); Estimated Creatinine Clearance 21.85 ml/min; GGTP 603 U/L (5-55); Globulin 4.1 g/dL (2.2-4.2); Glucose 130 mg/dL (74-106); Magnesium 1.7 mg/dL (1.6-2.6); Phosphorus 3.8 mg/dL (2.5-4.9); Potassium 3.3 mmol/L (3.5-5.1); Protein, Total 5.6 g/dL (6.4-8.2); Sodium Level 139 mmol/L (136-145); Thyroid Stim Hormone (TSH) 1.28 uIU/mL (0.358-3.74)
--- NOTE | 2020-12-01 05:55 | EKG12_ITS ---
Test Reason : PRE OP Blood Pressure : / mmHG Vent. Rate : 088 BPM Atrial Rate : 088 BPM P-R Int : 174 ms QRS Dur : 086 ms QT Int : 330 ms P-R-T Axes : 073 061 071 degrees QTc Int : 399 ms Normal sinus rhythm Normal ECG Confirmed by DIANNE JAVED, RICARDA ([id number]), state editor KEVIN ROSADO ([id number]) on 12/03/2020 9:05:25 AM Referred By: JP Confirmed By:RICARDA DEAN MD
[2020-12-01 06:07] LABS: Vancomycin, Random Level 26.2 ug/mL (0.0-15.0)
--- NOTE | 2020-12-01 06:50 | US_ITS ---
STUDY: ABDOMINAL ULTRASOUND - RIGHT UPPER QUADRANT REASON FOR VISIT: Female, 75 years old Elevated transaminase, GGT -- PT ATE AT 9AM TECHNIQUE: Ultrasound evaluation of the right upper quadrant was performed with real-time and static nogueira-scale imaging. TECHNICAL QUALITY: Adequate. COMPARISON: None. FINDINGS: Patient refused the exam. US/Liver IMPRESSION: Patient refused the examination. Electronically Signed: Shen Renteria MD at 15:14 EDT , Service support ,
[2020-12-01 06:55] LABS: Bedside Glucose 136 mg/dL (70-110)
--- NOTE | 2020-12-01 07:30 | PN_ITS ---
Patient Problems: Active and Suspected Problems Wound infection (Acute) Subjective: Patient was seen this morning for follow up on bilateral heel ulceration as well as left ankle and leg ulcerations s/p debridement on 11/29/[address] Garcia. Patient is now in progressive care unit. She denies fever, chill, nausea, vomiting. She has significant pain to bilateral lower extremities especially when they are raised during dressing changes. Otherwise, the pain is controlled. - Physical Exam Vitals/I&O's: Vital Signs Temp Pulse Resp BP Pulse Ox 97.4 F L 65 16 148/67 H 96 12/01/20 03:30 12/01/20 06:33 12/01/20 03:30 12/01/20 03:30 12/01/20 03:30 Oxygen Flow Rate (L/min) 2 Oxygen Delivery Method Room Air Weight: 67.3 kg Body Mass Index (BMI) 20.9 Intake and Output for Last 24 Hours 11/29/20 11/30/20 12/01/20 23:59 23:59 23:59 Intake Total 1439.11 / 1449.51 2912.0 / 3032.0 240 / 240 Output Total 1250 / 1780 2130 / 2580 800 / 800 Balance 189.11 / -330.49 782.0 / 452.0 -560 / -560 General: Alert, Oriented x3, Cooperative - Some distress noted during dressing change HEENT: Atraumatic Extremities: No cyanosis, Capillary Refill Less than 3 Seconds, Diminished Peripheral Pulses, Edema - Bilateral lower extremities decreased noted with visualization of wrinkles bilateral legs, Tenderness - Ulcer manipulation tenderness noted bilateral lower extremities at all sites Skin: Ulcer/ Wound - Her previously reported odor is resolved. There is no erythema, streaking, necrosis, purulence or local infection noted today. The ulcer beds are granular with hematogenous drainage to all sites. No eschar is noted. The lateral left ankle has exposed healthy peroneal tendons that white/glossy, - - Bilateral lower extremity skin is atrophic and hairless Musculoskeletal: Muscle Wasting, Tenderness, - - Compartments of bilateral lower extremities remain soft to palpate Neurological: Sensory exam intact to light touch and pain Psych/Mental Status: Normal Affect, Appropriate Microbiology Past 72 Hours 11/29/20 13:07 Wound - Heel Gram Stain - Final 11/29/20 13:07 Wound - Heel Wound Culture - Preliminary Proteus sp. 11/29/20 13:07 Bone - Ankle Gram Stain - Final 11/29/20 13:07 Bone - Ankle Wound Culture - Preliminary No growth-Final to follow 11/29/20 13:07 Wound - Leg, Left Gram Stain - Final 11/29/20 13:07 Wound - Leg, Left Wound Culture - Preliminary No growth-Final to follow 11/29/20 13:07 Bone - Left Foot Gram Stain - Final 11/29/20 13:07 Bone - Left Foot Wound Culture - Preliminary Gram positive organism 11/29/20 13:07 Bone - Right Foot Gram Stain - Final 11/29/20 13:07 Bone - Right Foot Wound Culture - Preliminary Proteus sp. 11/27/20 07:45 Wound - Leg, Left Gram Stain - Final 11/27/20 07:45 Wound - Leg, Left Wound Culture - Final Proteus mirabilis Staphylococcus aureus 11/27/20 07:45 Wound - Leg, Left Anaerobic Culture - Preliminary Checking for anaerobes, further studies to follow. 11/26/20 22:25 Wound - Heel Right Gram Stain - Final 11/26/20 22:25 Wound - Heel Right Wound Culture - Final Proteus mirabilis 11/26/20 22:25 Wound - Heel Right Anaerobic Culture - Preliminary Checking for anaerobes, further studies to follow. 11/27/20 07:45 Wound - Sacral Gram Stain - Final 11/27/20 07:45 Wound - Sacral Wound Culture - Final Proteus mirabilis 11/27/20 07:45 Wound - Sacral Anaerobic Culture - Preliminary Checking for anaerobes, further studies to follow. 11/26/20 16:25 Blood Culture (Wb) - Anticubital Left Blood Culture - Preliminary No growth in 48 hours. 11/28/20 04:20 Mucosa - Nose SARS-CoV-2 Antigen (Rapid) - Final Laboratory Results 11/30/20 13:15: Hgb 7.9 L, Hct 26.2 L 11/30/20 13:29: POC Glucose 165 H 11/30/20 17:29: POC Glucose 223 H 12/01/20 00:23: POC Glucose 139 H 12/01/20 02:25: WBC 7.6, RBC 3.11 L, Hgb 8.2 L, Hct 27.6 L, MCV 88.7, MCH 26.4 L , MCHC 29.7 L, RDW Std Deviation 53.2 H, RDW Coeff of Charles 16.3 H, Plt Count 281, MPV 9.8, Immature Gran % (Auto) 0.300, Neut % (Auto) 53.2, Lymph % (Auto) 22.4, Arthur % (Auto) 13.0 H, Eos % (Auto) 10.6 H, Baso % (Auto) 0.5, Absolute Neuts (auto) 4.1, Absolute Lymphs (auto) 1.71, Nucleated RBC % 0 12/01/20 02:25: Sodium 139, Potassium 3.3 L, Chloride 106, Carbon Dioxide 28.0, Anion Gap 5, BUN 55 H, Creatinine 2.23 H, Estim Creat Clear Calc 21.85, Est GFR (MDRD) Af Amer 28 L, Est GFR (MDRD) Non-Af 23 L, BUN/Creatinine Ratio 24.7 H, Glucose 130 H, Calcium 7.9 L, Phosphorus 3.8, Magnesium 1.7, Total Bilirubin 0.50, GGT 603 H, AST 52 H, ALT 40, Alkaline Phosphatase 795 H, Total Protein 5.6 L, Albumin 1.5 L, Globulin 4.1, Albumin/Globulin Ratio 0.4 L, TSH 1.28 12/01/20 02:25: Troponin I 0.026 12/01/20 05:34: Random Vancomycin 26.2 H 12/01/20 05:34: Troponin I < 0.015 12/01/20 06:45: POC Glucose 136 H Current Medications Acetaminophen (Acetaminophen 325 Mg Tablet) 650 mg PO Q4H PRN PRN Reason: Pain 1-10 or Fever Last Admin: 11/30/20 21:28 Dose: 650 mg Documented by: Hydrocodone Bitart/Acetaminophen (Hydrocodone Bitartrate/Apap 5/325 Tablet) 2 tablet PO Q6H PRN PRN PRN Reason: Pain Score 1-10 Last Admin: 11/30/20 23:10 Dose: 2 tablet Documented by: Amlodipine Besylate (Amlodipine 5 Mg Tablet) 5 mg PO DAILY [facility] Last Admin: 11/30/20 13:26 Dose: 5 mg Documented by: Apixaban (Apixaban 2.5 Mg Tablet) 2.5 mg PO BID [facility] Bumetanide (Bumetanide 1 Mg/4 Ml Vial) 1 mg IV Q12 [facility] Last Admin: 11/30/20 21:20 Dose: 1 mg Documented by: Ferrous Sulfate (Ferrous Sulfate 325 Mg Tablet) 325 mg PO DAILYCM [facility] Last Admin: 11/30/20 13:27 Dose: 325 mg Documented by: Meropenem 1 gm/ Sodium (Chloride) 120 mls @ 33 mls/hr IV Q12 [facility] Last Infusion: 12/01/20 01:10 Dose: Infused Documented by: Vancomycin IV Pharmacy to Dose (1 each/ Sodium Chloride) 500 mls @ 250 mls/hr IV PRN PRN; Protocol PRN Reason: Rx to Dose Sodium Chloride () 250 mls @ 15 mls/hr IV .[id number] PRN PRN Reason: Saline Flush Last Infusion: 11/29/20 21:50 Dose: 0 mls/hr Documented by: Insulin Human Lispro (Insulin Lispro 100 Unit/Ml Insuln.Pen) 0 unit SC ACHS [facility]; Protocol Last Admin: 12/01/20 06:49 Dose: Not Given Documented by: Metoprolol Tartrate (Metoprolol Tartrate 25 Mg Tablet) 25 mg PO BID [facility] Last Admin: 12/01/20 00:50 Dose: 25 mg Documented by: Mirtazapine (Mirtazapine 15 Mg Tablet) 15 mg PO QHS PRN PRN PRN Reason: AGITATION Last Admin: 11/30/20 21:28 Dose: 15 mg Documented by: Nutritional Formula (Lactose Free) (Glucerna Shake 120 Ml Liquid) 120 ml PO 4X/DAY [facility] Last Admin: 11/30/20 21:21 Dose: Not Given Documented by: Ondansetron HCl (Ondansetron 4 Mg/2 Ml Vial) 4 mg IV Q8H PRN PRN PRN Reason: NAUSEA/VOMITING Pantoprazole Sodium (Pantoprazole Sodium 40 Mg Tablet) 40 mg PO DAILY [facility] Last Admin: 11/30/20 13:43 Dose: 40 mg Documented by: Sodium Chloride (0.9% Saline Lock 10 Ml Syringe) 10 - 40 ml IV UD PRN PRN Reason: SALINE FLUSH Last Admin: 12/01/20 01:05 Dose: 10 ml Documented by: Sodium Hypochlorite (Dakin's Lisa Half Strength (=0.25%)) 1 applic TOPICAL BID [facility]; Protocol Last Admin: 11/30/20 21:20 Dose: Not Given Documented by: Medical Necessity - Tobacco Use Smoking Status: Former smoker Tobacco Use: Cigarettes Assessment/Plan All Active Problems Wound infection (Acute) Right heel ulceration down to bone with osteomyelitis Left heel ulceration down to bone with likely osteomyelitis Left lateral distal leg/ankle ulceration with osteomyelitis Proximal leg ulcerations down to fascia layer s/p debridement of the above ulcerations on 11/29/2020 Diabetes Peripheral vascular disease Kidney disease Other comorbidities I discussed the patient's case with her this morning. I also reviewed her diagnostic data. She is afebrile and her vital signs remained stable. She does not have leukocytosis. Patient is more alert today and appears overall improved compared to prior chart review. Clinically significant improvement to bilateral heels and left ankle and leg ulcerations noted compared to prior photos- tissues are healthy and viable, malodor and necrosis are also resolved without purulence. Hematogenous drainage also appears to be better controlled today. Post debridement and irrigation specimens were obtained in recent surgery. These were sent to micro and pathology. Current microbiology bone biopsy results are as follows: left lateral malleolus (no bacterial growth), left calcaneus (gram positive organism), and right calcaneus (proteus). Bilateral wound micro swab results also demonstrate proteus growth so far. Patient is currently on IV antibiotics - Vancomycin and Meropenem. ID/Dr. Pantoja has been consulted. Noninvasive lower extremity arterial studies have been ordered and reviewed - patient with lower extremity PAD - consult has been placed to Dr. Collado from vascular surgery. Wound care right heel, left heel, and left lateral ankle/leg: Wet to dry dakin's soln with gauze, kerlix, abd pads, and savannah bandage daily. Keep heels and ulcers offloaded at all times. This was performed this morning. I recommend application of wound VAC tomorrow to bilateral heel and left leg ulcers. Aquacel Ag will be applied to the proximal medial left leg ulcer sites. Medical management per hospitalist service is appreciated. Podiatry will continue to follow. Please call with questions. Wendy Ayon DPM, [facility] [phone]
--- NOTE | 2020-12-01 07:38 | PCM.RX.CS ---
Consult Pharmacy has been consulted to manage selected antiobiotic: Vancomycin Type of Consult: Follow-up Suspected Infection: Osteomyelitis Prior Doses of Antibiotics Received/Current Regimen: Last dose was 1gm iv x 1 on 11.30.20. Labs: Sodium 139 mmol/L (136-145) 12/01/20 02:25 Potassium 3.3 mmol/L (3.5-5.1) L 12/01/20 02:25 Chloride 106 mmol/L (98-107) 12/01/20 02:25 Carbon Dioxide 28.0 mmol/L (21.0-32.0) 12/01/20 02:25 Anion Gap 5 (5-15) 12/01/20 02:25 BUN 55 mg/dL (7-18) H 12/01/20 02:25 Creatinine 2.23 mg/dL (0.55-1.02) H 12/01/20 02:25 Est GFR (MDRD) Af Amer 28 mL/min (>60) L 12/01/20 02:25 Est GFR (MDRD) Non-Af 23 mL/min (>60) L 12/01/20 02:25 BUN/Creatinine Ratio 24.7 RATIO (10-20) H 12/01/20 02:25 Glucose 130 mg/dL (74-106) H 12/01/20 02:25 Random Vancomycin 26.2 ug/mL (0.0-15.0) H 12/01/20 05:34 Microbiology: Microbiology 11/29/20 13:07 Wound - Heel Gram Stain - Final 11/29/20 13:07 Wound - Heel Wound Culture - Preliminary Proteus sp. 11/29/20 13:07 Bone - Ankle Gram Stain - Final 11/29/20 13:07 Bone - Ankle Wound Culture - Preliminary No growth-Final to follow 11/29/20 13:07 Wound - Leg, Left Gram Stain - Final 11/29/20 13:07 Wound - Leg, Left Wound Culture - Preliminary No growth-Final to follow 11/29/20 13:07 Bone - Left Foot Gram Stain - Final 11/29/20 13:07 Bone - Left Foot Wound Culture - Preliminary Gram positive organism 11/29/20 13:07 Bone - Right Foot Gram Stain - Final 11/29/20 13:07 Bone - Right Foot Wound Culture - Preliminary Proteus sp. 11/27/20 07:45 Wound - Leg, Left Gram Stain - Final 11/27/20 07:45 Wound - Leg, Left Wound Culture - Final Proteus mirabilis Staphylococcus aureus 11/27/20 07:45 Wound - Leg, Left Anaerobic Culture - Preliminary Checking for anaerobes, further studies to follow. 11/26/20 22:25 Wound - Heel Right Gram Stain - Final 11/26/20 22:25 Wound - Heel Right Wound Culture - Final Proteus mirabilis 11/26/20 22:25 Wound - Heel Right Anaerobic Culture - Preliminary Checking for anaerobes, further studies to follow. 11/27/20 07:45 Wound - Sacral Gram Stain - Final 11/27/20 07:45 Wound - Sacral Wound Culture - Final Proteus mirabilis 11/27/20 07:45 Wound - Sacral Anaerobic Culture - Preliminary Checking for anaerobes, further studies to follow. 11/26/20 16:25 Blood Culture (Wb) - Anticubital Left Blood Culture - Preliminary No growth in 48 hours. 11/28/20 04:20 Mucosa - Nose SARS-CoV-2 Antigen (Rapid) - Final Weight used for dosin kg Estimated Creatinine Clearance: ~22ml/min Goal Trough: 15-20 mcg/mL Pharmacy Plan for Drug Dosing: Today's random level was high at 26.2. Will hold further dosing until level <20. Another random level ordered for 4.27.21 in AM. Pharmacy Service will continue to monitor and adjust dosing as required. Follow-Up Labs: Trough Vancomycin - 4.27.21@0600 random level
--- NOTE | 2020-12-01 07:46 | NURSING ---
wound photo: right heel
--- NOTE | 2020-12-01 07:47 | NURSING ---
wound photo: left lateral lower leg
--- NOTE | 2020-12-01 07:48 | NURSING ---
wound photo: left medial upper rodriguez
--- NOTE | 2020-12-01 07:49 | NURSING ---
wound photo: left heel
--- NOTE | 2020-12-01 08:07 | PCM.PN.HOSP ---
Patient Problems: Active and Suspected Problems Wound infection (Acute) Reason for Visit: Follow-up on bilateral leg ulcers, chronic osteomyelitis Subjective: Patient was seen and examined. She is alert oriented to self. She denied any new complaints. No fevers. Objective: Physical exam: General: Alert, Oriented x2, Cooperative, no apparent distress, well developed HEENT: Atraumatic Oral: Moist Mucosa Neck: Supple Lungs: Clear to auscultation Cardiovascular: HS I+II, regular, no murmurs Abdomen: Bowel Sounds Present, Soft, Non Tender Extremities: Bilateral lower extremities, Piotr wrapped, right foot in offloading boot Vitals/I&O's: Vital Signs Temp Pulse Resp BP Pulse Ox 97.4 F L 65 16 148/67 H 96 12/01/20 03:30 12/01/20 06:33 12/01/20 03:30 12/01/20 03:30 12/01/20 03:30 Oxygen Flow Rate (L/min) 2 Oxygen Delivery Method Room Air Weight: 67.3 kg Body Mass Index (BMI) 20.9 Intake and Output for Last 24 Hours 11/29/20 11/30/20 12/01/20 23:59 23:59 23:59 Intake Total 1439.11 / 1449.51 2912.0 / 3032.0 240 / 240 Output Total 1250 / 1780 2130 / 2580 800 / 800 Balance 189.11 / -330.49 782.0 / 452.0 -560 / -560 Microbiology Past 72 Hours 11/29/20 13:07 Wound - Heel Gram Stain - Final 11/29/20 13:07 Wound - Heel Wound Culture - Preliminary Proteus sp. 11/29/20 13:07 Bone - Ankle Gram Stain - Final 11/29/20 13:07 Bone - Ankle Wound Culture - Preliminary No growth-Final to follow 11/29/20 13:07 Wound - Leg, Left Gram Stain - Final 11/29/20 13:07 Wound - Leg, Left Wound Culture - Preliminary No growth-Final to follow 11/29/20 13:07 Bone - Left Foot Gram Stain - Final 11/29/20 13:07 Bone - Left Foot Wound Culture - Preliminary Gram positive organism 11/29/20 13:07 Bone - Right Foot Gram Stain - Final 11/29/20 13:07 Bone - Right Foot Wound Culture - Preliminary Proteus sp. 11/27/20 07:45 Wound - Leg, Left Gram Stain - Final 11/27/20 07:45 Wound - Leg, Left Wound Culture - Final Proteus mirabilis Staphylococcus aureus 11/27/20 07:45 Wound - Leg, Left Anaerobic Culture - Preliminary Checking for anaerobes, further studies to follow. 11/26/20 22:25 Wound - Heel Right Gram Stain - Final 11/26/20 22:25 Wound - Heel Right Wound Culture - Final Proteus mirabilis 11/26/20 22:25 Wound - Heel Right Anaerobic Culture - Preliminary Checking for anaerobes, further studies to follow. 11/27/20 07:45 Wound - Sacral Gram Stain - Final 11/27/20 07:45 Wound - Sacral Wound Culture - Final Proteus mirabilis 11/27/20 07:45 Wound - Sacral Anaerobic Culture - Preliminary Checking for anaerobes, further studies to follow. 11/26/20 16:25 Blood Culture (Wb) - Anticubital Left Blood Culture - Preliminary No growth in 48 hours. 11/28/20 04:20 Mucosa - Nose SARS-CoV-2 Antigen (Rapid) - Final Laboratory Results 11/30/20 13:15: Hgb 7.9 L, Hct 26.2 L 11/30/20 13:29: POC Glucose 165 H 11/30/20 17:29: POC Glucose 223 H 12/01/20 00:23: POC Glucose 139 H 12/01/20 02:25: WBC 7.6, RBC 3.11 L, Hgb 8.2 L, Hct 27.6 L, MCV 88.7, MCH 26.4 L, MCHC 29.7 L, RDW Std Deviation 53.2 H, RDW Coeff of Charles 16.3 H, Plt Count 281, MPV 9.8, Immature Gran % (Auto) 0.300, Neut % (Auto) 53.2, Lymph % (Auto) 22.4, Schleicher % (Auto) 13.0 H, Eos % (Auto) 10.6 H, Baso % (Auto) 0.5, Absolute Neuts (auto) 4.1, Absolute Lymphs (auto) 1.71, Nucleated RBC % 0 12/01/20 02:25: Sodium 139, Potassium 3.3 L, Chloride 106, Carbon Dioxide 28.0, Anion Gap 5, BUN 55 H, Creatinine 2.23 H, Estim Creat Clear Calc 21.85, Est GFR (MDRD) Af Amer 28 L, Est GFR (MDRD) Non-Af 23 L, BUN/Creatinine Ratio 24.7 H, Glucose 130 H, Calcium 7.9 L, Phosphorus 3.8, Magnesium 1.7, Total Bilirubin 0.50, GGT 603 H, AST 52 H, ALT 40, Alkaline Phosphatase 795 H, Total Protein 5.6 L, Albumin 1.5 L, Globulin 4.1, Albumin/Globulin Ratio 0.4 L, TSH 1.28 12/01/20 02:25: Troponin I 0.026 12/01/20 05:34: Random Vancomycin 26.2 H 12/01/20 05:34: Troponin I < 0.015 12/01/20 06:45: POC Glucose 136 H 12/01/20 08:00: Troponin I Pending Current Medications Acetaminophen (Acetaminophen 325 Mg Tablet) 650 mg PO Q4H PRN PRN Reason: Pain 1-10 or Fever Last Admin: 11/30/20 21:28 Dose: 650 mg Documented by: Hydrocodone Bitart/Acetaminophen (Hydrocodone Bitartrate/Apap 5/325 Tablet) 2 tablet PO Q6H PRN PRN PRN Reason: Pain Score 1-10 Last Admin: 11/30/20 23:10 Dose: 2 tablet Documented by: Amlodipine Besylate (Amlodipine 5 Mg Tablet) 5 mg PO DAILY [facility] Last Admin: 11/30/20 13:26 Dose: 5 mg Documented by: Apixaban (Apixaban 2.5 Mg Tablet) 2.5 mg PO BID [facility] Bumetanide (Bumetanide 1 Mg/4 Ml Vial) 1 mg IV Q12 [facility] Last Admin: 11/30/20 21:20 Dose: 1 mg Documented by: Ferrous Sulfate ([facility]ous S[facility]ate 325 Mg Tablet) [facility] Last Admin: 11/30/20 13:27 Dose: 325 mg Documented by: Meropenem 1 gm/ Sodium (Chloride) 120 mls @ 33 mls/hr IV Q12 [facility] Last Infusion: 12/01/20 01:10 Dose: Infused Documented by: Vancomycin IV Pharmacy to Dose (1 each/ Sodium Chloride) 500 mls @ 250 mls/hr IV PRN PRN; Protocol PRN Reason: Rx to Dose Sodium Chloride () 250 mls @ 15 mls/hr IV .[id number] PRN PRN Reason: Saline Flush Last Infusion: 11/29/20 21:50 Dose: 0 mls/hr Documented by: Insulin Human Lispro (Insulin Lispro 100 Unit/Ml Insuln.Pen) 0 unit SC ACHS [facility]; Protocol Last Admin: 12/01/20 06:49 Dose: Not Given Documented by: Metoprolol Tartrate (Metoprolol Tartrate 25 Mg Tablet) 25 mg PO BID [facility] Last Admin: 12/01/20 00:50 Dose: 25 mg Documented by: Mirtazapine (Mirtazapine 15 Mg Tablet) 15 mg PO QHS PRN PRN PRN Reason: AGITATION Last Admin: 11/30/20 21:28 Dose: 15 mg Documented by: Nutritional Formula (Lactose Free) (Glucerna Shake 120 Ml Liquid) 120 ml PO 4X/DAY [facility] Last Admin: 11/30/20 21:21 Dose: Not Given Documented by: Ondansetron HCl (Ondansetron 4 Mg/2 Ml Vial) 4 mg IV Q8H PRN PRN PRN Reason: NAUSEA/VOMITING Pantoprazole Sodium (Pantoprazole Sodium 40 Mg Tablet) 40 mg PO DAILY [facility] Last Admin: 11/30/20 13:43 Dose: 40 mg Documented by: Sodium Chloride (0.9% Saline Lock 10 Ml Syringe) 10 - 40 ml IV UD PRN PRN Reason: SALINE FLUSH Last Admin: 12/01/20 01:05 Dose: 10 ml Documented by: Sodium Hypochlorite (Dakin's Lisa Half Strength (=0.25%)) 1 applic TOPICAL BID [facility]; Protocol Last Admin: 11/30/20 21:20 Dose: Not Given Documented by: STROKE Vital Signs/Narrative: Vital Signs Pulse 12/01/20 06:33 65 Medical Necessity - Tobacco Use Smoking Status: Former smoker Tobacco Use: Cigarettes Assessment/Plan All Active Problems Wound infection (Acute) 1. Acute on chronic bilateral lower leg ulcers/osteomyelitis left heel and sacrum Wound and bone cultures growing Proteus mirabilis and gram-positive cocci possibly Enterococcus. Status post bilateral lower extremity I&D by podiatry on 11/29/20 Pain is fairly controlled, on meropenem and vancomycin, podiatry and ID following, Will follow up on recommendations 2. Hypokalemia/hypomagnesemia, potassium 3.3, Mg 1.7 Replaced, recheck in a.m. 3. AIDA on CKD stage III, slightly improved, creatinine admission was 3.16, creatinine today is 2.23 Renal ultrasound shows slight left hydronephrosis. Nephrology following Will consult urology per nephrology recommendations Repeat blood work in am 4. Hyperkalemia, resolved, now hypokalemic 5. Acute on chronic anemia likely of CKD/acute blood loss anemia, status post 2 units of packed RBC Hb is stable at 8.2 6. Type II DM, BS is fairly controlled, continue on ISS with blood glucose 7. Depression, continue on Remeron 8. DVT PPx- on [facility] Inpatient E&M: [id number] [facility] L3
[2020-12-01] MEDS: APIXABAN 2.5 MG TABLET PO ×2 (09:38→21:41)
[2020-12-01] MEDS: Pantoprazole Sodium 40 MG Tablet PO (09:38)
[2020-12-01] MEDS: Bumetanide 1 MG/4 ML Vial IV ×2 (09:38→21:41)
[2020-12-01] MEDS: amLODIPine 5 MG Tablet PO (09:38)
[2020-12-01] MEDS: DAKIN'S SOL HALF STRENGTH (=0.25%) 1 APPLIC TOPICAL (09:38)
[2020-12-01] MEDS: Ferrous Sulfate 325 MG Tablet PO (09:38)
--- NOTE | 2020-12-01 11:29 | PCM.PN.REN ---
Patient Problems: Active and Suspected Problems Wound infection (Acute) Subjective: no sob/cp no c/o no leg pain - Physical Exam Vitals/I&O's: Vital Signs Temp Pulse Resp BP Pulse Ox 98.0 F 65 18 135/69 H 97 12/01/20 09:34 12/01/20 11:13 12/01/20 09:34 12/01/20 09:34 12/01/20 09:34 Oxygen Flow Rate (L/min) 2 Oxygen Delivery Method Room Air Weight: 67.3 kg Body Mass Index (BMI) 20.9 Intake and Output for Last 24 Hours 11/29/20 11/30/20 12/01/20 23:59 23:59 23:59 Intake Total 1439.11 / 1449.51 2912.0 / 3032.0 240 / 240 Output Total 1250 / 1780 2130 / 2580 800 / 800 Balance 189.11 / -330.49 782.0 / 452.0 -560 / -560 General: Alert, Cooperative HEENT: Atraumatic, Normocephalic Neck: Supple, Trachea Midline Lungs: Clear to auscultation, Normal air movement Cardiovascular: Regular rate, Regular Rhythm Abdomen: Bowel Sounds Present, Obese Extremities: Edema Microbiology Past 72 Hours 11/29/20 13:07 Wound - Heel Gram Stain - Final 11/29/20 13:07 Wound - Heel Wound Culture - Preliminary Proteus mirabilis 11/29/20 13:07 Wound - Heel Anaerobic Culture - Preliminary Checking for anaerobes, further studies to follow. 11/29/20 13:07 Bone - Ankle Gram Stain - Final 11/29/20 13:07 Bone - Ankle Wound Culture - Preliminary No growth-Final to follow 11/29/20 13:07 Bone - Ankle Anaerobic Culture - Preliminary No growth in 48 hours. 11/29/20 13:07 Wound - Leg, Left Gram Stain - Final 11/29/20 13:07 Wound - Leg, Left Wound Culture - Preliminary No growth-Final to follow 11/29/20 13:07 Wound - Leg, Left Anaerobic Culture - Preliminary No growth in 48 hours. 11/29/20 13:07 Bone - Left Foot Gram Stain - Final 11/29/20 13:07 Bone - Left Foot Wound Culture - Preliminary GPC Poss Enterococcus sp 11/29/20 13:07 Bone - Right Foot Gram Stain - Final 11/29/20 13:07 Bone - Right Foot Wound Culture - Final Proteus mirabilis 11/29/20 13:07 Bone - Right Foot Anaerobic Culture - Preliminary No growth in 48 hours. 11/27/20 07:45 Wound - Sacral Gram Stain - Final 11/27/20 07:45 Wound - Sacral Wound Culture - Final Proteus mirabilis 11/27/20 07:45 Wound - Sacral Anaerobic Culture - Preliminary Checking for anaerobes, further studies to follow. 11/27/20 07:45 Wound - Leg, Left Gram Stain - Final 11/27/20 07:45 Wound - Leg, Left Wound Culture - Final Proteus mirabilis Staphylococcus aureus 11/27/20 07:45 Wound - Leg, Left Anaerobic Culture - Preliminary Checking for anaerobes, further studies to follow. 11/26/20 22:25 Wound - Heel Right Gram Stain - Final 11/26/20 22:25 Wound - Heel Right Wound Culture - Final Proteus mirabilis 11/26/20 22:25 Wound - Heel Right Anaerobic Culture - Preliminary Checking for anaerobes, further studies to follow. 11/26/20 16:25 Blood Culture (Wb) - Anticubital Left Blood Culture - Preliminary No growth in 48 hours. Laboratory Results 11/30/20 13:15: Hgb 7.9 L, Hct 26.2 L 11/30/20 13:29: POC Glucose 165 H 11/30/20 17:29: POC Glucose 223 H 12/01/20 00:23: POC Glucose 139 H 12/01/20 02:25: WBC 7.6, RBC 3.11 L, Hgb 8.2 L, Hct 27.6 L, MCV 88.7, MCH 26.4 L, MCHC 29.7 L, RDW Std Deviation 53.2 H, RDW Coeff of Charles 16.3 H, Plt Count 281, MPV 9.8, Immature Gran % (Auto) 0.300, Neut % (Auto) 53.2, Lymph % (Auto) 22.4, Maury % (Auto) 13.0 H, Eos % (Auto) 10.6 H, Baso % (Auto) 0.5, Absolute Neuts (auto) 4.1, Absolute Lymphs (auto) 1.71, Nucleated RBC % 0 12/01/20 02:25: Sodium 139, Potassium 3.3 L, Chloride 106, Carbon Dioxide 28.0, Anion Gap 5, BUN 55 H, Creatinine 2.23 H, Estim Creat Clear Calc 21.85, Est GFR (MDRD) Af Amer 28 L, Est GFR (MDRD) Non-Af 23 L, BUN/Creatinine Ratio 24.7 H, Glucose 130 H, Calcium 7.9 L, Phosphorus 3.8, Magnesium 1.7, Total Bilirubin 0.50, GGT 603 H, AST 52 H, ALT 40, Alkaline Phosphatase 795 H, Total Protein 5.6 L, Albumin 1.5 L, Globulin 4.1, Albumin/Globulin Ratio 0.4 L, TSH 1.28 12/01/20 02:25: Troponin I 0.026 12/01/20 05:34: Random Vancomycin 26.2 H 12/01/20 05:34: Troponin I < 0.015 12/01/20 06:45: POC Glucose 136 H 12/01/20 08:00: Troponin I 0.016 Current Medications Acetaminophen (Acetaminophen 325 Mg Tablet) 650 mg PO Q4H PRN PRN Reason: Pain 1-10 or Fever Last Admin: 11/30/20 21:28 Dose: 650 mg Documented by: Hydrocodone Bitart/Acetaminophen (Hydrocodone Bitartrate/Apap 5/325 Tablet) 2 tablet PO Q6H PRN PRN PRN Reason: Pain Score 1-10 Last Admin: 11/30/20 23:10 Dose: 2 tablet Documented by: Amlodipine Besylate (Amlodipine 5 Mg Tablet) 5 mg PO DAILY [facility] Last Admin: 12/01/20 09:38 Dose: 5 mg Documented by: Apixaban (Apixaban 2.5 Mg Tablet) 2.5 mg PO BID [facility] Last Admin: 12/01/20 09:38 Dose: 2.5 mg Documented by: Bumetanide (Bumetanide 1 Mg/4 Ml Vial) 1 mg IV Q12 [facility] Last Admin: 12/01/20 09:38 Dose: 1 mg Documented by: Ferrous Sulfate (Ferrous Sulfate 325 Mg Tablet) 325 mg PO DAILYCM [facility] Last Admin: 12/01/20 09:38 Dose: 325 mg Documented by: Meropenem 1 gm/ Sodium (Chloride) 120 mls @ 33 mls/hr IV Q12 [facility] Last Admin: 12/01/20 09:36 Dose: 33 mls/hr Documented by: Vancomycin IV Pharmacy to Dose (1 each/ Sodium Chloride) 500 mls @ 250 mls/hr IV PRN PRN; Protocol PRN Reason: Rx to Dose Sodium Chloride () 250 mls @ 15 mls/hr IV .[id number] PRN PRN Reason: Saline Flush Last Infusion: 11/29/20 21:50 Dose: 0 mls/hr Documented by: Magnesium Sulfate 2 gm/ Sodium (Chloride) 104 mls @ 52 mls/hr IV X1 ONE Stop: 12/01/20 12:59 Insulin Human Lispro (Insulin Lispro 100 Unit/Ml Insuln.Pen) 0 unit SC ACHS [facility]; Protocol Last Admin: 12/01/20 11:27 Dose: Not Given Documented by: Metoprolol Tartrate (Metoprolol Tartrate 25 Mg Tablet) 25 mg PO BID [facility] Last Admin: 12/01/20 09:39 Dose: 25 mg Documented by: Mirtazapine (Mirtazapine 15 Mg Tablet) 15 mg PO QHS PRN PRN PRN Reason: AGITATION Last Admin: 11/30/20 21:28 Dose: 15 mg Documented by: Nutritional Formula (Lactose Free) (Glucerna Shake 120 Ml Liquid) 120 ml PO 4X/DAY [facility] Last Admin: 12/01/20 09:38 Dose: Not Given Documented by: Ondansetron HCl (Ondansetron 4 Mg/2 Ml Vial) 4 mg IV Q8H PRN PRN PRN Reason: NAUSEA/VOMITING Pantoprazole Sodium (Pantoprazole Sodium 40 Mg Tablet) 40 mg PO DAILY [facility] Last Admin: 12/01/20 09:38 Dose: 40 mg Documented by: Sodium Chloride (0.9% Saline Lock 10 Ml Syringe) 10 - 40 ml IV UD PRN PRN Reason: SALINE FLUSH Last Admin: 12/01/20 09:36 Dose: 10 ml Documented by: Sodium Hypochlorite (Dakin's Lisa Half Strength (=0.25%)) 1 applic TOPICAL BID [facility]; Protocol Last Admin: 12/01/20 09:38 Dose: 1 applic Documented by: Medical Necessity - Tobacco Use Smoking Status: Former smoker Tobacco Use: Cigarettes Assessment/Plan All Active Problems Wound infection (Acute) AIDA?ATN or IR?GN Baseline creatinine unknown b/l lower extremity edema HTN b/l feet osteomyelitis s/p debridement Serum creatinine 2.2 Continue Bumex avoid overdiuresis. Replace potassium. Urology consult for left-sided hydronephrosis bp controlled Avoid nephrotoxins
[2020-12-01 11:40] LABS: Bedside Glucose 165 mg/dL (70-110)
--- NOTE | 2020-12-01 11:56 | PN.ID_ITS ---
Patient Problems: Active and Suspected Problems Wound infection (Acute) Subjective: Feeling better, pain well controlled today, no fever - Physical Exam Vitals/I&O's: Vital Signs Temp Pulse Resp BP Pulse Ox 98.0 F 65 18 135/69 H 97 12/01/20 09:34 12/01/20 11:13 12/01/20 09:34 12/01/20 09:34 12/01/20 09:34 Oxygen Flow Rate (L/min) 2 Oxygen Delivery Method Room Air Weight: 67.3 kg Body Mass Index (BMI) 20.9 Intake and Output for Last 24 Hours 11/29/20 11/30/20 12/01/20 23:59 23:59 23:59 Intake Total 1439.11 / 1449.51 2912.0 / 3032.0 240 / 240 Output Total 1250 / 1780 2130 / 2580 800 / 800 Balance 189.11 / -330.49 782.0 / 452.0 -560 / -560 General: Alert, Cooperative, No apparent distress Lungs: Clear to auscultation, Normal air movement Cardiovascular: Regular rate, Regular Rhythm Abdomen: Soft, Non Tender, Non-Distended Skin: Ulcer/ Wound Microbiology Past 72 Hours 11/29/20 13:07 Wound - Heel Gram Stain - Final 11/29/20 13:07 Wound - Heel Wound Culture - Preliminary Proteus mirabilis 11/29/20 13:07 Wound - Heel Anaerobic Culture - Preliminary Checking for anaerobes, further studies to follow. 11/29/20 13:07 Bone - Ankle Gram Stain - Final 11/29/20 13:07 Bone - Ankle Wound Culture - Preliminary No growth-Final to follow 11/29/20 13:07 Bone - Ankle Anaerobic Culture - Preliminary No growth in 48 hours. 11/29/20 13:07 Wound - Leg, Left Gram Stain - Final 11/29/20 13:07 Wound - Leg, Left Wound Culture - Preliminary No growth-Final to follow 11/29/20 13:07 Wound - Leg, Left Anaerobic Culture - Preliminary No growth in 48 hours. 11/29/20 13:07 Bone - Left Foot Gram Stain - Final 11/29/20 13:07 Bone - Left Foot Wound Culture - Preliminary GPC Poss Enterococcus sp 11/29/20 13:07 Bone - Right Foot Gram Stain - Final 11/29/20 13:07 Bone - Right Foot Wound Culture - Final Proteus mirabilis 11/29/20 13:07 Bone - Right Foot Anaerobic Culture - Preliminary No growth in 48 hours. 11/27/20 07:45 Wound - Sacral Gram Stain - Final 11/27/20 07:45 Wound - Sacral Wound Culture - Final Proteus mirabilis 11/27/20 07:45 Wound - Sacral Anaerobic Culture - Preliminary Checking for anaerobes, further studies to follow. 11/27/20 07:45 Wound - Leg, Left Gram Stain - Final 11/27/20 07:45 Wound - Leg, Left Wound Culture - Final Proteus mirabilis Staphylococcus aureus 11/27/20 07:45 Wound - Leg, Left Anaerobic Culture - Preliminary Checking for anaerobes, further studies to follow. 11/26/20 22:25 Wound - Heel Right Gram Stain - Final 11/26/20 22:25 Wound - Heel Right Wound Culture - Final Proteus mirabilis 11/26/20 22:25 Wound - Heel Right Anaerobic Culture - Preliminary Checking for anaerobes, further studies to follow. 11/26/20 16:25 Blood Culture (Wb) - Anticubital Left Blood Culture - Preliminary No growth in 48 hours. Laboratory Results 11/30/20 13:15: Hgb 7.9 L, Hct 26.2 L 11/30/20 13:29: POC Glucose 165 H 11/30/20 17:29: POC Glucose 223 H 12/01/20 00:23: POC Glucose 139 H 12/01/20 02:25: WBC 7.6, RBC 3.11 L, Hgb 8.2 L, Hct 27.6 L, MCV 88.7, MCH 26.4 L , MCHC 29.7 L, RDW Std Deviation 53.2 H, RDW Coeff of Charles 16.3 H, Plt Count 281, MPV 9.8, Immature Gran % (Auto) 0.300, Neut % (Auto) 53.2, Lymph % (Auto) 22.4, Woodson % (Auto) 13.0 H, Eos % (Auto) 10.6 H, Baso % (Auto) 0.5, Absolute Neuts (auto) 4.1, Absolute Lymphs (auto) 1.71, Nucleated RBC % 0 12/01/20 02:25: Sodium 139, Potassium 3.3 L, Chloride 106, Carbon Dioxide 28.0, Anion Gap 5, BUN 55 H, Creatinine 2.23 H, Estim Creat Clear Calc 21.85, Est GFR (MDRD) Af Amer 28 L, Est GFR (MDRD) Non-Af 23 L, BUN/Creatinine Ratio 24.7 H, Glucose 130 H, Calcium 7.9 L, Phosphorus 3.8, Magnesium 1.7, Total Bilirubin 0.50, GGT 603 H, AST 52 H, ALT 40, Alkaline Phosphatase 795 H, Total Protein 5.6 L, Albumin 1.5 L, Globulin 4.1, Albumin/Globulin Ratio 0.4 L, TSH 1.28 12/01/20 02:25: Troponin I 0.026 12/01/20 05:34: Random Vancomycin 26.2 H 12/01/20 05:34: Troponin I < 0.015 12/01/20 06:45: POC Glucose 136 H 12/01/20 08:00: Troponin I 0.016 12/01/20 11:26: POC Glucose 165 H Current Medications Acetaminophen (Acetaminophen 325 Mg Tablet) 650 mg PO Q4H PRN PRN Reason: Pain 1-10 or Fever Last Admin: 11/30/20 21:28 Dose: 650 mg Documented by: Hydrocodone Bitart/Acetaminophen (Hydrocodone Bitartrate/Apap 5/325 Tablet) 2 tablet PO Q6H PRN PRN PRN Reason: Pain Score 1-10 Last Admin: 11/30/20 23:10 Dose: 2 tablet Documented by: Amlodipine Besylate (Amlodipine 5 Mg Tablet) 5 mg PO DAILY [facility] Last Admin: 12/01/20 09:38 Dose: 5 mg Documented by: Apixaban (Apixaban 2.5 Mg Tablet) 2.5 mg PO BID [facility] Last Admin: 12/01/20 09:38 Dose: 2.5 mg Documented by: Bumetanide (Bumetanide 1 Mg/4 Ml Vial) 1 mg IV Q12 [facility] Last Admin: 12/01/20 09:38 Dose: 1 mg Documented by: Ferrous Sulfate (Ferrous Sulfate 325 Mg Tablet) 325 mg PO DAILYCM [facility] Last Admin: 12/01/20 09:38 Dose: 325 mg Documented by: Meropenem 1 gm/ Sodium (Chloride) 120 mls @ 33 mls/hr IV Q12 [facility] Last Admin: 12/01/20 09:36 Dose: 33 mls/hr Documented by: Vancomycin IV Pharmacy to Dose (1 each/ Sodium Chloride) 500 mls @ 250 mls/hr IV PRN PRN; Protocol PRN Reason: Rx to Dose Sodium Chloride () 250 mls @ 15 mls/hr IV .[id number] PRN PRN Reason: Saline Flush Last Infusion: 11/29/20 21:50 Dose: 0 mls/hr Documented by: Magnesium Sulfate 2 gm/ Sodium (Chloride) 104 mls @ 52 mls/hr IV X1 ONE Stop: 12/01/20 12:59 Insulin Human Lispro (Insulin Lispro 100 Unit/Ml Insuln.Pen) 0 unit SC ACHS [facility]; Protocol Last Admin: 12/01/20 11:27 Dose: Not Given Documented by: Metoprolol Tartrate (Metoprolol Tartrate 25 Mg Tablet) 25 mg PO BID [facility] Last Admin: 12/01/20 09:39 Dose: 25 mg Documented by: Mirtazapine (Mirtazapine 15 Mg Tablet) 15 mg PO QHS PRN PRN PRN Reason: AGITATION Last Admin: 11/30/20 21:28 Dose: 15 mg Documented by: Nutritional Formula (Lactose Free) (Glucerna Shake 120 Ml Liquid) 120 ml PO 4X/DAY [facility] Last Admin: 12/01/20 09:38 Dose: Not Given Documented by: Ondansetron HCl (Ondansetron 4 Mg/2 Ml Vial) 4 mg IV Q8H PRN PRN PRN Reason: NAUSEA/VOMITING Pantoprazole Sodium (Pantoprazole Sodium 40 Mg Tablet) 40 mg PO DAILY [facility] Last Admin: 12/01/20 09:38 Dose: 40 mg Documented by: Sodium Chloride (0.9% Saline Lock 10 Ml Syringe) 10 - 40 ml IV UD PRN PRN Reason: SALINE FLUSH Last Admin: 12/01/20 09:36 Dose: 10 ml Documented by: Sodium Hypochlorite (Dakin's Lisa Half Strength (=0.25%)) 1 applic TOPICAL BID [facility]; Protocol Last Admin: 12/01/20 09:38 Dose: 1 applic Documented by: Medical Necessity - Tobacco Use Smoking Status: Former smoker Tobacco Use: Cigarettes Route of nutrition/ use of supplements: [] Nutritional Intake: [] IV Site: [] Maldonado Catheter: [] - Assessment/Plan Antibiotics: [] Assessment/Plan: [] bilateral lower leg osteo and sacral wound - Seen by podiatry. Cxs and xray taken, started on empiric vanc/meropenem. MRI and arterial studies done. Reports anaphylaxis with PCN in the past. Was admitted to [facility] in August with similar complaints, given ceftriaxone IV and discharged on po omnicef. Cx of the wound at that time with heavy enterobacter (which showed resistance to ceftriaxone/cefdinir), heavy proteus, and light enterococcus (cephalosporins do not work on this species). Not clear if the antibiotics were adjusted after discharge. Now s/p I&D of BLE by Dr. Garcia 11/29/20. Surg cx so far with proteus, enterococcus, mssa. Cr improving. Pain improved. Will follow
--- NOTE | 2020-12-01 12:08 | NURSING ---
wound photo: sacrum
--- NOTE | 2020-12-01 12:14 | CASEMGMT ---
SW called patient's daughter to see what facility she would like patient to go to. She said she wanted to interview a couple of the facilities. She said she plans on doing this today or tomorrow. She said she is working right now. She said the doctor told her the patient would be here through the end of this week. FOREIGN told her that is not quite accurate and she would likely be ready before then. She said she will have to take tomorrow off and talk with these facilities. FOREIGN told her SW will talk with her tomorrow. Plan: new SNF awaiting family's input on which facility. Dena Key [employer]
[2020-12-01] MEDS: HYDROcodone Bitartrate/Apap 5/325 Tablet PO (13:05)
[2020-12-01] MEDS: Acetaminophen 325 MG Tablet 650 MG PO (13:06)
--- NOTE | 2020-12-01 14:20 | PN_ITS ---
Subjective: Patient did well overnight. Patient continues to report significant lower extremity pain. Patient not reporting any respiratory compromise. Patient is on room air and tolerating well. Patient is not reporting any cough, chest pain, nausea or vomiting. Patient does report that her lower extremity pain is unrelenting. General: Alert, Cooperative, - - Moderate distress secondary to lower extremity pain HEENT: Atraumatic, PERRLA, EOMI, Normocephalic, - - No scleral icterus or injection noted Oral: Moist Mucosa, No Gingival or Mucosal Lesions/ Ulcerations Neck: Supple, No JVD, No Nodes, Trachea Midline Lungs: No rhonchi, No wheeze, No rales, Diminished, - - Fair effort. Symmetric expansion. Cardiovascular: Regular rate, Regular Rhythm, Normal S1, Normal S2, No murmurs, No rub noted, No Gallop Abdomen: Bowel Sounds Present, Soft, Non Tender, Non-Distended, Obese Extremities: No clubbing, No cyanosis, - - Wrap lower extremities Skin: Ulcer/ Wound - Not evaluated Musculoskeletal: Tenderness - Bilateral lower extremities Lymphatic: No Cervical, Supraclavicular, or Inguinal Adenopathy Neurological: Cranial nerves II-XII grossly intact, Neuro grossly intact Psych/Mental Status: Anxious, Restless Vital Signs Temp Pulse Resp BP Pulse Ox 36.7 C 65 18 135/69 H 97 12/01/20 09:34 12/01/20 11:13 12/01/20 09:34 12/01/20 09:34 12/01/20 09:34 Oxygen Flow Rate (L/min) 2 Oxygen Delivery Method Room Air Weight: 67.3 kg Body Mass Index (BMI) 20.9 Intake and Output for Last 24 Hours 11/29/20 11/30/20 12/01/20 23:59 23:59 23:59 Intake Total 1439.11 / 1449.51 2912.0 / 3032.0 760 / 760 Output Total 1250 / 1780 2130 / 2580 1100 / 1100 Balance 189.11 / -330.49 782.0 / 452.0 -340 / -340 Labs (Last 48 Hours) 11/29/20 11/29/20 11/29/20 14:00 14:00 14:30 WBC RBC Hgb 9.3 L Hct 32.1 L MCV MCH MCHC RDW Std Deviation RDW Coeff of Charles Plt Count MPV Immature Gran % (Auto) Neut % (Auto) Lymph % (Auto) [place] % (Auto) Eos % (Auto) Baso % (Auto) Absolute Neuts (auto) Absolute Lymphs (auto) Nucleated RBC % Specimen Type Sample Site pH Bicarbonate Actual Total CO2 Base Excess O2 Saturation O2 % ABG pCO2 ABG pO2 Richy Test Respiration Rate O2 Delivery Device Vent Mode Tidal Volume POC PEEP Sodium 140 Potassium 5.5 H Chloride 116 H Carbon Dioxide 16.0 L Anion Gap 8 BUN 72 H Creatinine 2.69 H Estim Creat Clear Calc 17.79 Est GFR (MDRD) Af Amer 22 L Est GFR (MDRD) Non-Af 18 L BUN/Creatinine Ratio 26.8 H Glucose 186 H Calcium 8.6 Phosphorus 5.7 H Magnesium 1.5 L Total Bilirubin Direct Bilirubin GGT AST ALT Alkaline Phosphatase Total Creatine Kinase 38 Troponin I Total Protein Albumin Globulin Albumin/Globulin Ratio Triglycerides 183 TSH Random Vancomycin POC Glucose 11/29/20 11/29/20 11/29/20 14:36 18:17 20:00 WBC RBC Hgb Hct MCV MCH MCHC RDW Std Deviation RDW Coeff of Charles Plt Count MPV Immature Gran % (Auto) Neut % (Auto) Lymph % (Auto) [place] % (Auto) Eos % (Auto) Baso % (Auto) Absolute Neuts (auto) Absolute Lymphs (auto) Nucleated RBC % Specimen Type ART ART Sample Site R Radial R Radial pH 7.27 L 7.46 H Bicarbonate Actual 13.8 L 17.7 L Total CO2 15 19 Base Excess -13 L -6 L O2 Saturation 100 H 100 H O2 % 50 30 ABG pCO2 29.9 L 24.9 L ABG pO2 188 H 150 H Richy Test Positive Positive Respiration Rate 12 12 O2 Delivery Device Adult Vent Adult Vent Vent Mode AC AC Tidal Volume 400 400 POC PEEP 5 5 Sodium Potassium Chloride Carbon Dioxide Anion Gap BUN Creatinine Estim Creat Clear Calc Est GFR (MDRD) Af Amer Est GFR (MDRD) Non-Af BUN/Creatinine Ratio Glucose Calcium Phosphorus Magnesium Total Bilirubin Direct Bilirubin GGT AST ALT Alkaline Phosphatase Total Creatine Kinase Troponin I Total Protein Albumin Globulin Albumin/Globulin Ratio Triglycerides TSH Random Vancomycin POC Glucose 179 H 11/30/20 11/30/20 11/30/20 00:03 05:00 05:00 WBC 7.5 RBC 2.93 L Hgb 7.9 L Hct 26.4 L MCV 90.1 MCH 27.0 MCHC 29.9 L RDW Std Deviation 54.5 H RDW Coeff of Charles 16.6 H Plt Count 275 MPV 10.1 Immature Gran % (Auto) 0.400 Neut % (Auto) 63.8 Lymph % (Auto) 18.[address] % (Auto) 10.3 H Eos % (Auto) 6.4 H Baso % (Auto) 0.4 Absolute Neuts (auto) 4.8 Absolute Lymphs (auto) 1.41 Nucleated RBC % 0 Specimen Type Sample Site pH Bicarbonate Actual Total CO2 Base Excess O2 Saturation O2 % ABG pCO2 ABG pO2 Richy Test Respiration Rate O2 Delivery Device Vent Mode Tidal Volume POC PEEP Sodium 141 Potassium 4.1 Chloride 107 Carbon Dioxide 28.0 Anion Gap 6 BUN 62 H Creatinine 2.42 H Estim Creat Clear Calc 19.77 Est GFR (MDRD) Af Amer 25 L Est GFR (MDRD) Non-Af 21 L BUN/Creatinine Ratio 25.6 H Glucose 271 H Calcium 7.9 L Phosphorus Magnesium 1.8 Total Bilirubin Direct Bilirubin GGT AST ALT Alkaline Phosphatase Total Creatine Kinase Troponin I Total Protein Albumin Globulin Albumin/Globulin Ratio Triglycerides TSH Random Vancomycin POC Glucose 148 H 11/30/20 11/30/20 11/30/20 05:00 06:00 06:15 WBC RBC Hgb Hct MCV MCH MCHC RDW Std Deviation RDW Coeff of Charles Plt Count MPV Immature Gran % (Auto) Neut % (Auto) Lymph % (Auto) [place] % (Auto) Eos % (Auto) Baso % (Auto) Absolute Neuts (auto) Absolute Lymphs (auto) Nucleated RBC % Specimen Type Sample Site pH Bicarbonate Actual Total CO2 Base Excess O2 Saturation O2 % ABG pCO2 ABG pO2 Richy Test Respiration Rate O2 Delivery Device Vent Mode Tidal Volume POC PEEP Sodium Potassium Chloride Carbon Dioxide Anion Gap BUN Creatinine Estim Creat Clear Calc Est GFR (MDRD) Af Amer Est GFR (MDRD) Non-Af BUN/Creatinine Ratio Glucose Calcium Phosphorus Magnesium Total Bilirubin 0.30 Direct Bilirubin 0.21 GGT 593 H AST 46 H ALT 49 Alkaline Phosphatase 789 H Total Creatine Kinase Troponin I Total Protein 5.3 L Albumin 1.4 L Globulin 3.9 Albumin/Globulin Ratio Triglycerides TSH Random Vancomycin 17.4 H POC Glucose 152 H 11/30/20 11/30/20 11/30/20 13:15 13:29 17:29 WBC RBC Hgb 7.9 L Hct 26.2 L MCV MCH MCHC RDW Std Deviation RDW Coeff of Charles Plt Count MPV Immature Gran % (Auto) Neut % (Auto) Lymph % (Auto) [place] % (Auto) Eos % (Auto) Baso % (Auto) Absolute Neuts (auto) Absolute Lymphs (auto) Nucleated RBC % Specimen Type Sample Site pH Bicarbonate Actual Total CO2 Base Excess O2 Saturation O2 % ABG pCO2 ABG pO2 Richy Test Respiration Rate O2 Delivery Device Vent Mode Tidal Volume POC PEEP Sodium Potassium Chloride Carbon Dioxide Anion Gap BUN Creatinine Estim Creat Clear Calc Est GFR (MDRD) Af Amer Est GFR (MDRD) Non-Af BUN/Creatinine Ratio Glucose Calcium Phosphorus Magnesium Total Bilirubin Direct Bilirubin GGT AST ALT Alkaline Phosphatase Total Creatine Kinase Troponin I Total Protein Albumin Globulin Albumin/Globulin Ratio Triglycerides TSH Random Vancomycin POC Glucose 165 H 223 H 12/01/20 12/01/20 12/01/20 00:23 02:25 02:25 WBC 7.6 RBC 3.11 L Hgb 8.2 L Hct 27.6 L MCV 88.7 MCH 26.4 L MCHC 29.7 L RDW Std Deviation 53.2 H RDW Coeff of Charles 16.3 H Plt Count 281 MPV 9.8 Immature Gran % (Auto) 0.300 Neut % (Auto) 53.2 Lymph % (Auto) 22.4 [place] % (Auto) 13.0 H Eos % (Auto) 10.6 H Baso % (Auto) 0.5 Absolute Neuts (auto) 4.1 Absolute Lymphs (auto) 1.71 Nucleated RBC % 0 Specimen Type Sample Site pH Bicarbonate Actual Total CO2 Base Excess O2 Saturation O2 % ABG pCO2 ABG pO2 Richy Test Respiration Rate O2 Delivery Device Vent Mode Tidal Volume POC PEEP Sodium 139 Potassium 3.3 L Chloride 106 Carbon Dioxide 28.0 Anion Gap 5 BUN 55 H Creatinine 2.23 H Estim Creat Clear Calc 21.85 Est GFR (MDRD) Af Amer 28 L Est GFR (MDRD) Non-Af 23 L BUN/Creatinine Ratio 24.7 H Glucose 130 H Calcium 7.9 L Phosphorus 3.8 Magnesium 1.7 Total Bilirubin 0.50 Direct Bilirubin GGT 603 H AST 52 H ALT 40 Alkaline Phosphatase 795 H Total Creatine Kinase Troponin I Total Protein 5.6 L Albumin 1.5 L Globulin 4.1 Albumin/Globulin Ratio 0.4 L Triglycerides TSH 1.28 Random Vancomycin POC Glucose 139 H 12/01/20 12/01/20 12/01/20 02:25 05:34 05:34 WBC RBC Hgb Hct MCV MCH MCHC RDW Std Deviation RDW Coeff of Charles Plt Count MPV Immature Gran % (Auto) Neut % (Auto) Lymph % (Auto) [place] % (Auto) Eos % (Auto) Baso % (Auto) Absolute Neuts (auto) Absolute Lymphs (auto) Nucleated RBC % Specimen Type Sample Site pH Bicarbonate Actual Total CO2 Base Excess O2 Saturation O2 % ABG pCO2 ABG pO2 Richy Test Respiration Rate O2 Delivery Device Vent Mode Tidal Volume POC PEEP Sodium Potassium Chloride Carbon Dioxide Anion Gap BUN Creatinine Estim Creat Clear Calc Est GFR (MDRD) Af Amer Est GFR (MDRD) Non-Af BUN/Creatinine Ratio Glucose Calcium Phosphorus Magnesium Total Bilirubin Direct Bilirubin GGT AST ALT Alkaline Phosphatase Total Creatine Kinase Troponin I 0.026 < 0.015 Total Protein Albumin Globulin Albumin/Globulin Ratio Triglycerides TSH Random Vancomycin 26.2 H POC Glucose 12/01/20 12/01/20 12/01/20 06:45 08:00 11:26 WBC RBC Hgb Hct MCV MCH MCHC RDW Std Deviation RDW Coeff of Charles Plt Count MPV Immature Gran % (Auto) Neut % (Auto) Lymph % (Auto) [place] % (Auto) Eos % (Auto) Baso % (Auto) Absolute Neuts (auto) Absolute Lymphs (auto) Nucleated RBC % Specimen Type Sample Site pH Bicarbonate Actual Total CO2 Base Excess O2 Saturation O2 % ABG pCO2 ABG pO2 Richy Test Respiration Rate O2 Delivery Device Vent Mode Tidal Volume POC PEEP Sodium Potassium Chloride Carbon Dioxide Anion Gap BUN Creatinine Estim Creat Clear Calc Est GFR (MDRD) Af Amer Est GFR (MDRD) Non-Af BUN/Creatinine Ratio Glucose Calcium Phosphorus Magnesium Total Bilirubin Direct Bilirubin GGT AST ALT Alkaline Phosphatase Total Creatine Kinase Troponin I 0.016 Total Protein Albumin Globulin Albumin/Globulin Ratio Triglycerides TSH Random Vancomycin POC Glucose 136 H 165 H Microbiology 11/26/20 22:25 Wound - Heel Right Gram Stain - Final 11/26/20 22:25 Wound - Heel Right Wound Culture - Final Proteus mirabilis 11/26/20 22:25 Wound - Heel Right Anaerobic Culture - Preliminary Checking for anaerobes, further studies to follow. 11/27/20 07:45 Wound - Leg, Left Gram Stain - Final 11/27/20 07:45 Wound - Leg, Left Wound Culture - Final Proteus mirabilis Staphylococcus aureus 11/27/20 07:45 Wound - Leg, Left Anaerobic Culture - Preliminary Checking for anaerobes, further studies to follow. 11/29/20 13:07 Wound - Heel Gram Stain - Final 11/29/20 13:07 Wound - Heel Wound Culture - Preliminary Proteus mirabilis 11/29/20 13:07 Wound - Heel Anaerobic Culture - Preliminary Checking for anaerobes, further studies to follow. 11/29/20 13:07 Bone - Ankle Gram Stain - Final 11/29/20 13:07 Bone - Ankle Wound Culture - Preliminary No growth-Final to follow 11/29/20 13:07 Bone - Ankle Anaerobic Culture - Preliminary No growth in 48 hours. 11/29/20 13:07 Wound - Leg, Left Gram Stain - Final 11/29/20 13:07 Wound - Leg, Left Wound Culture - Preliminary No growth-Final to follow 11/29/20 13:07 Wound - Leg, Left Anaerobic Culture - Preliminary No growth in 48 hours. 11/29/20 13:07 Bone - Left Foot Gram Stain - Final 11/29/20 13:07 Bone - Left Foot Wound Culture - Preliminary GPC Poss Enterococcus sp 11/29/20 13:07 Bone - Right Foot Gram Stain - Final 11/29/20 13:07 Bone - Right Foot Wound Culture - Final Proteus mirabilis 11/29/20 13:07 Bone - Right Foot Anaerobic Culture - Preliminary No growth in 48 hours. 11/27/20 07:45 Wound - Sacral Gram Stain - Final 11/27/20 07:45 Wound - Sacral Wound Culture - Final Proteus mirabilis 11/27/20 07:45 Wound - Sacral Anaerobic Culture - Preliminary Checking for anaerobes, further studies to follow. Medical Necessity - Tobacco Use Smoking Status: Former smoker Tobacco Use: Cigarettes Assessment/Plan All Active Problems Wound infection (Acute) RECOMMENDATIONS: 1. Hemodynamically stable on room air. Will sign off from a critical care perspective 2. Periodic pulse ox checks as ambulation improves 3. Encourage incentive spirometer use and mobilize patient as tolerated. 4. Increase activity per surgery recommendations 5. Continue antimicrobials per ID recommendations. 6. Continue bicarbonate containing fluids per nephrology. 7. Continue local wound care. 8. Continue to monitor H&H daily and transfuse if hemoglobin drops below 7 g/dL. Start daily Protonix therapy. IMPRESSIONS: 1. Postoperative respiratory failure Patient appears to be doing well from a respiratory standpoint on room air. Patient does not have any cough or other complications to suggest pneumonia or other infectious issues. Patient can follow-up as an outpatient if requested, but otherwise appears to be hemodynamically stable on room air. Will sign off from a critical care perspective. 2. Sepsis secondary to lower extremity wound/osteomyelitis, now POD #1 s/p surgical debridement The patient has been stable clinically. She remains hemodynamically stable and is currently afebrile. Plan to continue local wound care and antimicrobial therapy per ID recommendations. 3. Acute on chronic kidney disease Nephrology is currently following with concerns for possible ATN in the setting of sepsis/osteomyelitis. Creatinine has improved over the course of her hospitalization. She is being maintained on a bicarbonate infusion, which will be continued per nephrology recommendations. Continue to monitor urine output for now. No current indication for renal replacement therapy. 4. Anemia The patient did have a kareem hemoglobin of 6.3 g/dL on November 27, for which she received 2 units of packed red blood cells. Blood counts are currently stable. I would recommend that we continue to monitor her H&H daily, with a goal to transfuse if hemoglobin drops below 7 g/dL. The patient will also be started on daily PPI therapy. Continue p.o. iron supplementation. 5. Malnutrition/generalized deconditioning/depression/diabetes mellitus Complicates care, management, recovery and prognosis. Continue home medications as indicated. Inpatient E&M: [id number] [facility] L2
--- NOTE | 2020-12-01 15:35 | CHAPLAIN ---
Type of Pastoral Visit ___ Initial Visit _x__ Follow-up Visit ___ On-call Visit ___ General Patient Visit ___ Spiritual Assessment ___ Family Conference ___ Bereavement ___ Rapid Response ___ Code Blue ___ Other (describe below) Pastoral Care Referral From _x__ Patient ___ Family ___ Nurse ___ Physician ___ Quality Assurance Practice Manager ___ Sales Engagement Executive ___ Other (describe below) Sacrament/Intervention _x__ Active listening ___ Anointing ___ Faith ___ Bereavement ___ Communion ___ Yelena exploration ___ ___ Life review _x__ Prayer ___ Reconciliation ___ Sacrament of Sick _x__ Supportive presence ___ Wedding ___ Other (describe below) Pastoral Comments
[2020-12-01 16:50] LABS: Bedside Glucose 118 mg/dL (70-110)
--- NOTE | 2020-12-01 20:20 | NURSING ---
This RN spoke to patient's daughter Sonya who informed this RN that [facility] has an opening for the patient and will accept the patient with a PICC line. This RN transferred daughter to [facility] from [facility].
[2020-12-01 21:11] LABS: Bedside Glucose 124 mg/dL (70-110)
[2020-12-02] VITALS (7 sets, daily range): BP systolic 135–159; BP diastolic 62–75; PULSE 64–71; RESP 16–18; TEMP 36.6–36.9; O2SAT 94–97
[2020-12-02] MEDS: HYDROcodone Bitartrate/Apap 5/325 Tablet PO ×2 (00:45→10:11)
[2020-12-02] MEDS: Acetaminophen 325 MG Tablet 650 MG PO (00:46)
[2020-12-02 07:10] LABS: Bedside Glucose 121 mg/dL (70-110)
[2020-12-02 07:36] LABS: Vancomycin, Random Level 21.6 ug/mL (0.0-15.0)
[2020-12-02 07:50] LABS: ALB/GLOB Ratio 0.4 RATIO (0.9-2.4); AST(SGOT) 60 U/L (15-37); Alanine Aminotransfer ALT/SGPT 37 U/L (13-56); Albumin, Serum 1.4 g/dL (3.2-5.0); Alkaline Phosphatase 948 U/L (45-117); Anion Gap 10 (5-15); BUN 52 mg/dL (7-18); BUN/Creat Ratio 24.1 RATIO (10-20); Chloride 104 mmol/L (98-107); Creatinine, Serum 2.16 mg/dL (0.55-1.02); EST Glomerular Filtration Rate 24 mL/min (>60); Est Glom Filt Rate - Afr Amer 29 mL/min (>60); Estimated Creatinine Clearance 22.56 ml/min; Glucose 124 mg/dL (74-106); Magnesium 1.8 mg/dL (1.6-2.6); Potassium 3.6 mmol/L (3.5-5.1); Protein, Total 5.4 g/dL (6.4-8.2); Sodium Level 140 mmol/L (136-145)
[2020-12-02 07:57] LABS: Absolute Lymphocyte Count 1.54 X10^3/uL (0.83-4.51); Absolute Neutrophil Count 4.4 X10^3/uL (2.0-7.7); Basophil# 0.06 X10^3/uL; Basophil% 0.8 % (0-1); Eosinophil# 0.83 X10^3/uL; Eosinophils% 10.9 % (0-5); Hemoglobin 8.2 g/dL (12.0-15.0); Lymphocyte # 1.54 X10^3/ul (0.83-4.51); Lymphocyte % 20.2 % (19-41); Mean Corp Hgb Conc 29.3 g/dL (32-36); Mean Corpuscular Hgb 26.5 pg (27.0-32.0); Mean Corpuscular Volume 90.3 fL (81-99); Mean Platelet Vol. 10.1 fl (6.2-12.0); Monocyte# 0.79 X10^3/uL; Monocyte% 10.3 % (0-10); NRBC Flagged by Analyzer 0 % (0-5); Neutrophil # 4.39 X10^3/uL (2.7-7.7); Neutrophil % 57.4 % (47-70); Platelet Count 299 K/mm3 (150-450); RBC Distribution Width CV 15.9 % (11.6-14.6); White Blood Count 7.6 K/mm3 (4.4-11.0)
--- NOTE | 2020-12-02 08:53 | CASEMGMT ---
Addendum entered by Dena Key 12/02/20 10:59: FOREIGN did call patient's daughter and let her know patient was accepted at [facility]. FOREIGN told her she may go today or tomorrow depending on necessary paperwork etc. Patient has not had her COVID vaccines so she will have to quarantine for 14 days. Dena Key DIE DESIGNER FAIRING MAN Addendum entered by Dena Key 12/02/20 10:57: FOREIGN received a voice mail from [facility] with [facility] and they can accept patient. FOREIGN will send clinicals to [facility] to obtain a level of care. Plan: [facility] Dena Key DIE DESIGNER FAIRING MAN Original Note: FOREIGN received a voice mail from patient's daughter. She said she would like patient to go to [facility]. FOREIGN faxed referral to [facility] and also called [facility] regarding referral. FOERIGN will also need to send off for a new level of care once [facility] is known. Dena ROMERO
[2020-12-02] MEDS: 0.9% Saline Lock 10 ML Syringe IV (10:07)
[2020-12-02] MEDS: Pantoprazole Sodium 40 MG Tablet PO (10:08)
[2020-12-02] MEDS: APIXABAN 2.5 MG TABLET PO ×2 (10:08→21:27)
[2020-12-02] MEDS: DAKIN'S SOL HALF STRENGTH (=0.25%) 1 APPLIC TOPICAL (10:09)
[2020-12-02] MEDS: Bumetanide 1 MG/4 ML Vial IV ×2 (10:10→21:27)
--- NOTE | 2020-12-02 10:21 | PCM.PN.ID ---
Physical Exam Narrative Feeling better, no fever, no n/v/d, no pain in BLE Const alert General Appearance: cooperative Resp clear to auscultation bilaterally Cardio regular rate and regular rhythm GI normal to inspection, nondistended, normoactive bowel sounds Skin Skin Narrative: BLE wrapped ID ID: Route of nutrition/ use of supplements: [] Nutritional Intake: [] IV Site: [] Maldonado Catheter: [] Assessment & Plan Assessment/Plan (1) Wound infection: Status: Acute Code(s): T14.8XXA - Other injury of unspecified body region, initial encounter; L08.9 - Local infection of the skin and subcutaneous tissue, unspecified Plan: bilateral lower leg osteo and sacral wound - Seen by podiatry. Cxs and xray taken, started on empiric vanc/meropenem. MRI and arterial studies done. Reports anaphylaxis with PCN in the past. Was admitted to [place] in August with similar complaints, given ceftriaxone IV and discharged on po omnicef. Cx of the wound at that time with heavy enterobacter (which showed resistance to ceftriaxone/cefdinir), heavy proteus, and light enterococcus (cephalosporins do not work on this species). Not clear if the antibiotics were adjusted after discharge. Now s/p I&D of BLE by Dr. Garcia 11/29/20. Surg cx so far with proteus, enterococcus, mssa. Cr improving. Pain improved. Will stop vanc today. Plan will be for 6 weeks lorraine via picc, start date 11/29/20, stop date 01/10/21, weekly bmp, cbc, LFT, and esr. Reviewed labs, vitals. Will follow
[2020-12-02] MEDS: Metoprolol Tartrate 25 MG Tablet PO ×2 (10:24→21:43)
[2020-12-02] MEDS: Ferrous Sulfate 325 MG Tablet PO (10:24)
[2020-12-02] MEDS: amLODIPine 5 MG Tablet PO (10:24)
--- NOTE | 2020-12-02 10:55 | PN_ITS ---
Subjective Subjective: This 75-year-old female was seen bedside this morning. This is a late entry for visit at 6:30 AM. She was seen for bilateral lower extremity wounds and infections in which she went to the operating room for debridement this past Tuesday with Dr. Garcia. She denies pain at this time. Her dressings remain clean, dry, and intact. She continues on antibiotics. She is scheduled to have wound VAC placement today. She denies fever, chill, nausea, vomiting, shortness of breath, chest pain, calf pain. She reports pain when her ulcer sites are touched. Objective Data Objective Data Vital Signs: Vital Signs Temp Pulse Resp BP Pulse Ox 98.4 F 71 16 142/63 H 96 12/02/20 10:15 12/02/20 10:24 12/02/20 10:15 12/02/20 10:15 12/02/20 10:15 Oxygen Flow Rate (L/min) 2 Oxygen Delivery Method Room Air Weight: 67.3 kg Body Mass Index (BMI) 20.9 Intake & Output: Intake and Output for Last 24 Hours 11/30/20 12/01/20 12/02/20 23:59 23:59 23:59 Intake Total 2912.0 / 3032.0 1064 / 1124 180 / 180 Output Total 2130 / 2580 1250 / 1675 425 / 425 Balance 782.0 / 452.0 -186 / -551 -245 / -245 Lab / Micro Data Result Diagrams: 12/02/20 06:29 12/02/20 06:29 Labs: Laboratory Results - last 24 hr 11/28/20 12/01/20 12/01/20 11:14 11:26 16:38 WBC RBC Hgb Hct MCV MCH MCHC RDW Std Deviation RDW Coeff of Charles Plt Count MPV Immature Gran % (Auto) Neut % (Auto) Lymph % (Auto) [place] % (Auto) Eos % (Auto) Baso % (Auto) Absolute Neuts (auto) Absolute Lymphs (auto) Nucleated RBC % Sodium Potassium Chloride Carbon Dioxide Anion Gap BUN Creatinine Estim Creat Clear Calc Est GFR (MDRD) Af Amer Est GFR (MDRD) Non-Af BUN/Creatinine Ratio Glucose Calcium Phosphorus Magnesium Total Bilirubin AST ALT Alkaline Phosphatase Total Protein Albumin Globulin Albumin/Globulin Ratio Random Vancomycin POC Glucose 165 H 118 H Crossmatch See Detail 12/01/20 12/02/20 12/02/20 21:06 06:29 06:29 WBC 7.6 RBC 3.10 L Hgb 8.2 L Hct 28.0 L MCV 90.3 MCH 26.5 L MCHC 29.3 L RDW Std Deviation 53.0 H RDW Coeff of Charles 15.9 H Plt Count 299 MPV 10.1 Immature Gran % (Auto) 0.400 Neut % (Auto) 57.4 Lymph % (Auto) 20.2 [place] % (Auto) 10.3 H Eos % (Auto) 10.9 H Baso % (Auto) 0.8 Absolute Neuts (auto) 4.4 Absolute Lymphs (auto) 1.54 Nucleated RBC % 0 Sodium 140 Potassium 3.6 Chloride 104 Carbon Dioxide 26.0 Anion Gap 10 BUN 52 H Creatinine 2.16 H Estim Creat Clear Calc 22.56 Est GFR (MDRD) Af Amer 29 L Est GFR (MDRD) Non-Af 24 L BUN/Creatinine Ratio 24.1 H Glucose 124 H Calcium 8.0 L Phosphorus 4.0 Magnesium 1.8 Total Bilirubin 0.30 AST 60 H ALT 37 Alkaline Phosphatase 948 H Total Protein 5.4 L Albumin 1.4 L Globulin 4.0 Albumin/Globulin Ratio 0.4 L Random Vancomycin POC Glucose 124 H Crossmatch 12/02/20 12/02/20 06:29 06:45 WBC RBC Hgb Hct MCV MCH MCHC RDW Std Deviation RDW Coeff of Charles Plt Count MPV Immature Gran % (Auto) Neut % (Auto) Lymph % (Auto) [place] % (Auto) Eos % (Auto) Baso % (Auto) Absolute Neuts (auto) Absolute Lymphs (auto) Nucleated RBC % Sodium Potassium Chloride Carbon Dioxide Anion Gap BUN Creatinine Estim Creat Clear Calc Est GFR (MDRD) Af Amer Est GFR (MDRD) Non-Af BUN/Creatinine Ratio Glucose Calcium Phosphorus Magnesium Total Bilirubin AST ALT Alkaline Phosphatase Total Protein Albumin Globulin Albumin/Globulin Ratio Random Vancomycin 21.6 H POC Glucose 121 H Crossmatch Micro: Microbiology 11/27/20 07:45 Wound - Leg, Left Gram Stain - Final 11/27/20 07:45 Wound - Leg, Left Wound Culture - Final Proteus mirabilis Staphylococcus aureus 11/27/20 07:45 Wound - Leg, Left Anaerobic Culture - Final Anaerobic cocci Bacteroides fragilis 11/29/20 13:07 Wound - Leg, Left Gram Stain - Final 11/29/20 13:07 Wound - Leg, Left Wound Culture - Final No growth aerobically. 11/29/20 13:07 Wound - Leg, Left Anaerobic Culture - Preliminary No growth in 48 hours. 11/26/20 22:25 Wound - Heel Right Gram Stain - Final 11/26/20 22:25 Wound - Heel Right Wound Culture - Final Proteus mirabilis 11/26/20 22:25 Wound - Heel Right Anaerobic Culture - Final Anaerobic cocci Bacteroides fragilis Gram positive joseluis Prevotella disiens 11/29/20 13:07 Wound - Heel Gram Stain - Final 11/29/20 13:07 Wound - Heel Wound Culture - Final Proteus mirabilis Enterococcus faecalis 11/29/20 13:07 Wound - Heel Anaerobic Culture - Preliminary Checking for anaerobes, further studies to follow. 11/29/20 13:07 Bone - Left Foot Gram Stain - Final 11/29/20 13:07 Bone - Left Foot Wound Culture - Final Enterococcus faecalis 11/26/20 16:25 Blood Culture (Wb) - Anticubital Left Blood Culture - Final No growth in 5 days. 11/29/20 13:07 Bone - Ankle Gram Stain - Final 11/29/20 13:07 Bone - Ankle Wound Culture - Preliminary No growth-Final to follow 11/29/20 13:07 Bone - Ankle Anaerobic Culture - Preliminary No growth in 48 hours. 11/29/20 13:07 Bone - Right Foot Gram Stain - Final 11/29/20 13:07 Bone - Right Foot Wound Culture - Final Proteus mirabilis 11/29/20 13:07 Bone - Right Foot Anaerobic Culture - Preliminary No growth in 48 hours. 11/27/20 07:45 Wound - Sacral Gram Stain - Final 11/27/20 07:45 Wound - Sacral Wound Culture - Final Proteus mirabilis 11/27/20 07:45 Wound - Sacral Anaerobic Culture - Preliminary Checking for anaerobes, further studies to follow. 11/28/20 04:20 Mucosa - Nose SARS-CoV-2 Antigen (Rapid) - Final Radiography Diagnostic Testing: Radiology Impression Liver Ultrasound 12/01/20 06:50 IMPRESSION: Patient refused the examination. Electronically Signed: Shen Renteria MD at 15:14 EDT , Service support , Physical Exam Const alert, oriented x3 and no apparent distress Extremity General Extremity: pulses abnormal Right Lower Extremity: foot and digits Positive for ROM Left Lower Extremity: foot and digits Positive for ROM Skin Skin Narrative: Lower extremity ulcers remain covered with dressings that are clean, dry, and intact without strikethrough. There is no adjacent erythema or streaking. There is no odor. Neuro Gait (Neuro): unable to assess gait Psych cooperative Assessment & Plan Assessment/Plan (1) Peripheral vascular disease: Status: Acute Code(s): I73.9 - Peripheral vascular disease, unspecified (2) Ulcer of left medial lower extremity with necrosis of muscle: Status: Acute Code(s): L97.823 - Non-pressure chronic ulcer of other part of left lower leg with necrosis of muscle (3) Ulcer of left lower extremity with fat layer exposed: Status: Acute Code(s): L97.922 - Non-pressure chronic ulcer of unspecified part of left lower leg with fat layer exposed (4) Ulcer of right medial lower extremity with fat layer exposed: Status: Acute Code(s): L97.812 - Non-pressure chronic ulcer of other part of right lower leg with fat layer exposed (5) Osteomyelitis of foot: Status: Acute Code(s): M86.9 - Osteomyelitis, unspecified Qualifiers: Osteomyelitis type: subacute Laterality: left Qualified Code(s): M86.272 - Subacute osteomyelitis, left ankle and foot (6) Wound infection: Status: Acute Code(s): T14.8XXA - Other injury of unspecified body region, initial encounter; L08.9 - Local infection of the skin and subcutaneous tissue, unspecified (7) Osteomyelitis of ankle and foot: Status: Acute Code(s): M86.9 - Osteomyelitis, unspecified Plan: I reviewed her case and she remains afebrile. She appears stable this morning. Her dressings were left clean, dry, and intact. She will have bilateral lower extremity wound vacs applied today; 150 mmHg continuous. The left proximal medial leg ulcer will have Aquacel Ag applied. She is being treated for wound infection under the management of infectious disease with broad-spectrum antibiotics. Intraoperative deep wound microbiology, and bilateral calcaneus microbiology and pathology specimen results will be followed. It is noted there is no purulence or odor or erythema noted after operating room debridement that was performed on 11-29-[address] Garcia. To continue with strict offloading. Vascular surgery is on consult including Dr. Collado who will evaluate her tomorr ow. To continue with nutritional supplementation to optimize healing. Medical management per hospitalist service is noted appreciated. She is medically complicated. I will continue to follow her while in house. Please not hesitate to call any questions. At time of discharge, I recommend this patient follows up with the wound healing center. Wendy Ayon DPM, [facility] [phone]
--- NOTE | 2020-12-02 11:21 | PCM.TXEXTCAR ---
Diet 12/01/20 15:16 Diet: Carbohydrate Controlled Type of Dietary Supplement:: Isael Is pt able to select menu?: No Diet Comments: w/ lunch and dinner; 1-2 extra oz protein w/ meals Routine Orders/Code Status Keep PO Greater than or Equal to (%): 94 Routine Lab Work: CBC (within 3 days and then weekly), BMP (within 3 days and then weekly) and - (LFTs, ESR weekly) Code Status: Full Code Wound(s) BILAT HEELS: Wound Type: Pressure Injury LT LAT LEG: Wound Type: Pressure Injury Lt dorsal foot: Wound Type: Pressure Injury Lt heel: Wound Type: Pressure Injury Dressing Change: Dakins moistened gauze rt heel: Wound Type: Pressure Injury Dressing Change: Dakins moistened gauze medial dorsum rt foot: Wound Type: Pressure Injury sacrum: Wound Type: Pressure Injury Dressing Change: Dakins moistened gauze left medial leg blistering: Wound Type: blisters Dressing Change: Dry Sterile Dressing left lateral leg: Wound Type: Open Surgical Wound Dressing Change: Dakins moistened gauze left posterolateral lower leg blistering: Wound Type: Surgical Incision Dressing Change: betadine moistened gauze left anterior ankle: Wound Type: Surgical Incision Dressing Change: betadine gauze right medial foot (scab): Wound Type: Surgical Incision Dressing Change: Dry Sterile Dressing left proximal medial lower leg: Wound Type: Open Surgical Wound Dressing Change: Dakins moistened gauze Therapies Physical Therapy: Eval and Treat Occupational Therapy: Eval and Treat Problem/Diagnosis (1) Wound infection: Status: Acute Allergies/Procedures Done in Hospital Allergies clindamycin Allergy (Verified 11/26/20 15:30) PT UNSURE OF REACTION diphenhydramine [From Benadryl] Allergy (Verified 11/26/20 15:30) PT UNSURE OF REACTION doxycycline Allergy (Verified 11/26/20 15:30) PT UNSURE OF REACTION erythromycin base Allergy (Verified 11/26/20 15:30) PT UNSURE OF REACTION levofloxacin [From Levaquin] Allergy (Verified 11/26/20 15:30) PT UNSURE OF REACTION metformin Allergy (Verified 11/26/20 15:30) PT UNSURE OF REACTION Penicillins [PCN] Allergy (Verified 11/26/20 15:30) PT UNSURE OF REACTION Sulfa (Sulfonamide Antibiotics) Allergy (Verified 11/26/20 15:30) PT UNSURE OF REACTION Procedures: 2-D Echocardiogram (11/26/20), Blood transfusion (11/28/20), Intubation (11/30/20), Wound Vac placement (12/02/20) and - (11/29/20 - Debridement of right heel ulcer down to bone w/ bone biopsy. Debridement of left heel ulcer down to bone w/ bone biopsy. Debridement of left ankle ulceration down to bone w/ bone biopsy. Debridement of left leg ulcerations down to fascia layer) Type of Care/Length of Stay Estimated LOS: Convalescent Care Less Than 30 days Type of Care Needed: Skilled Rehab Potential: Fair Prognosis: Good Additional Orders/Day of Discharge H&P will serve as current which was dated: 11/26/20 Day of Discharge: 12/02/20 Dietary and Speech Recommendations Dietitian Recommendations/Changes: Rec diet advance as tolerated to CHO consistent diet. Rec Isael 1 pkt BID w/ L&D for wound healing. Rec 1-2 extra oz protein at meals and glucerna 120 ml at medpass for additional sean/protein if consumed. Follow Up Care Please follow up with your Primary Care Physician in: within 1-2 weeks Please Follow Up With: Mohti Pantoja MD When: in 4 weeks; fax with weekly BMP, CBCD, LFT and ESR Discharge Plan Admission Admit Date/Time: 11/26/20 18:55 Primary Reason for Your Visit: Bilateral lower extremity wounds Attending Provider: Batsheva Hernandez Primary Care Provider: Marlon Chiang Consulting Providers: Toan Garcia ; Mohit Pantoja ; Nishant Hansen ; Gino Collado ; Jason Delgado ; Clay Gaming ; Wendy Ayon Instructions Additional Instructions / Restrictions: Keep heel offloaded at all times; fload heels over stacked pillows or blankets to float in the air. Wound vac continuous (150 mmHg) three times per week to bilateral heel ulcers and left leg ulcer. Aquacell Ag and gauze dressing change to medial proximal left leg ulcer daily. Wash limbs with antibacterial soap and water prior to each wound vac application. Follow up at the wound healing center within one week of discharge; call to confirm appointment at [phone]. Follow up with infectious disease and vascular specialist as advised also. Discharge Orders/Prescriptions Prescriptions: No Action Acetaminophen [Tylenol] 325 MG tablet 650 mg PO Q4H PRN (Reason: Pain 1-10 Or Fever) RF: 0 hydrocodone-acetaminophen 1 TABLET tablet 1 tablet PO Q6H PRN PRN (Reason: PRESSURE SORE) RF: 0 hydrocodone-acetaminophen 1 TABLET tablet 2 tablet PO Q6H PRN PRN (Reason: Pain) RF: 0 amlodipine 5 MG tablet 5 mg PO DAILY RF: 0 ferrous sulfate 325 MG tablet 325 mg PO DAILY RF: 0 hydroxyzine HCl 25 MG tablet 25 mg PO Q6H PRN (Reason: Itching) RF: 0 furosemide 20 MG tablet 20 mg PO DAILY RF: 0 mirtazapine 15 MG tablet 15 mg PO QHS RF: 0 collagenase clostridium histo. 1 APPLIC ointment 1 applic TOPICAL DAILY RF: 0 insulin lispro 100 UNIT/ML insulin pen See Protocol unit SQ TIDCM RF: 0 lidocaine 1 APPLIC ointment 1 applic TOPICAL MOWEFR RF: 0 arginine-vitamin C-vitamin E 1 EACH powder in packet 1 each PO BID RF: 0 Mineral Oil/Petrolatum,White [Eucerin] 1 APPLIC Jar 1 applic TOPICAL BID RF: 0 Referrals: Marlon Chiang MD [Primary Care Provider] - Disposition Patient Disposition: Assisted Facility
[2020-12-02] MEDS: Insulin Lispro 100 UNIT/ML INSULN.PEN SC ×2 (11:45→21:33)
[2020-12-02 11:50] LABS: Bedside Glucose 153 mg/dL (70-110)
--- NOTE | 2020-12-02 11:54 | DCINST_ITS ---
Discharge Instructions Outpatient Procedure Reason For Visit: HYPERKALEMIA, LOWER EXTREMITY ULCERATIONS Follow Up Care Test Results: Test including microbiology, pathology, and vascular results from this visit will be discussed in further detail at your follow-up appointment, if applicable. Discharge Plan Admission Admit Date/Time: 11/26/20 18:55 Primary Reason for Your Visit: Bilateral lower extremity wounds Attending Provider: Batsheva Hernandez Primary Care Provider: Marlon Chiang Consulting Providers: Toan Garcia ; Mohit Pantoja ; Nishant Hansen ; Gino Collado ; Jason Delgado ; Clay Gaming ; Wendy Ayon Instructions Additional Instructions / Restrictions: Keep heel offloaded at all times; fload heels over stacked pillows or blankets t o float in the air. Wound vac continuous (150 mmHg) three times per week to bilateral heel ulcers and left leg ulcer. Aquacell Ag and gauze dressing change to medial proximal left leg ulcer daily. Wash limbs with antibacterial soap and water prior to each wound vac application. Follow up at the wound healing center within one week of discharge; call to confirm appointment at [phone]. Follow up with infectious disease and vascular specialist as advised also. Discharge Orders/Prescriptions Prescriptions: No Action Acetaminophen [Tylenol] 325 MG tablet 650 mg PO Q4H PRN (Reason: Pain 1-10 Or Fever) RF: 0 hydrocodone-acetaminophen 1 TABLET tablet 1 tablet PO Q6H PRN PRN (Reason: PRESSURE SORE) RF: 0 hydrocodone-acetaminophen 1 TABLET tablet 2 tablet PO Q6H PRN PRN (Reason: Pain) RF: 0 amlodipine 5 MG tablet 5 mg PO DAILY RF: 0 ferrous sulfate 325 MG tablet 325 mg PO DAILY RF: 0 hydroxyzine HCl 25 MG tablet 25 mg PO Q6H PRN (Reason: Itching) RF: 0 furosemide 20 MG tablet 20 mg PO DAILY RF: 0 mirtazapine 15 MG tablet 15 mg PO QHS RF: 0 collagenase clostridium histo. 1 APPLIC ointment 1 applic TOPICAL DAILY RF: 0 insulin lispro 100 UNIT/ML insulin pen See Protocol unit SQ TIDCM RF: 0 lidocaine 1 APPLIC ointment 1 applic TOPICAL MOWEFR RF: 0 arginine-vitamin C-vitamin E 1 EACH powder in packet 1 each PO BID RF: 0 Mineral Oil/Petrolatum,White [Eucerin] 1 APPLIC Jar 1 applic TOPICAL BID RF: 0 Referrals: Marlon Chiang MD [Primary Care Provider] - Disposition Patient Disposition: Senior Care Facility
--- NOTE | 2020-12-02 13:17 | CASEMGMT ---
[facility] obtained the original PASRR from [place]. All necessary information was faxed to [facility] to obtain a level of care. Patient will not be discharged today as she is going to be seen by Dr Collado tomorrow. Await level of care. Plan: d/c to [place] once medically ready and [facility] receives level of care. Dena Key [employer]
--- NOTE | 2020-12-02 13:33 | CASEMGMT ---
SW called patient's daughter and left her a message letting her know that patient will not be discharged today and likely tomorrow. Plan: d/c to [place] pending patient being medically ready and SW receives level of care from [facility]. Dena ROMERO
--- NOTE | 2020-12-02 14:43 | PCM.PN.REN ---
Subjective Subjective: The patient has no complaints except pain in both feet denies shortness of breath. Objective Data Objective Data Vital Signs: Vital Signs Temp Pulse Resp BP Pulse Ox 98.4 F 71 16 142/63 H 96 12/02/20 10:15 12/02/20 10:24 12/02/20 10:15 12/02/20 10:15 12/02/20 10:15 Oxygen Flow Rate (L/min) 2 Oxygen Delivery Method Room Air Weight: 67.3 kg Body Mass Index (BMI) 20.9 Intake & Output: Intake and Output for Last 24 Hours 11/30/20 12/01/20 12/02/20 23:59 23:59 23:59 Intake Total 2912.0 / 3032.0 1064 / 1124 480 / 480 Output Total 2130 / 2580 1250 / 1675 425 / 425 Balance 782.0 / 452.0 -186 / -551 55 / 55 Lab / Micro Data Result Diagrams: 12/02/20 06:29 12/02/20 06:29 Labs: Laboratory Results - last 24 hr 11/28/20 12/01/20 12/01/20 11:14 16:38 21:06 WBC RBC Hgb Hct MCV MCH MCHC RDW Std Deviation RDW Coeff of Charles Plt Count MPV Immature Gran % (Auto) Neut % (Auto) Lymph % (Auto) [place] % (Auto) Eos % (Auto) Baso % (Auto) Absolute Neuts (auto) Absolute Lymphs (auto) Nucleated RBC % Sodium Potassium Chloride Carbon Dioxide Anion Gap BUN Creatinine Estim Creat Clear Calc Est GFR (MDRD) Af Amer Est GFR (MDRD) Non-Af BUN/Creatinine Ratio Glucose Calcium Phosphorus Magnesium Total Bilirubin AST ALT Alkaline Phosphatase Total Protein Albumin Globulin Albumin/Globulin Ratio Random Vancomycin POC Glucose 118 H 124 H Crossmatch See Detail 12/02/20 12/02/20 12/02/20 06:29 06:29 06:29 WBC 7.6 RBC 3.10 L Hgb 8.2 L Hct 28.0 L MCV 90.3 MCH 26.5 L MCHC 29.3 L RDW Std Deviation 53.0 H RDW Coeff of Charles 15.9 H Plt Count 299 MPV 10.1 Immature Gran % (Auto) 0.400 Neut % (Auto) 57.4 Lymph % (Auto) 20.2 [place] % (Auto) 10.3 H Eos % (Auto) 10.9 H Baso % (Auto) 0.8 Absolute Neuts (auto) 4.4 Absolute Lymphs (auto) 1.54 Nucleated RBC % 0 Sodium 140 Potassium 3.6 Chloride 104 Carbon Dioxide 26.0 Anion Gap 10 BUN 52 H Creatinine 2.16 H Estim Creat Clear Calc 22.56 Est GFR (MDRD) Af Amer 29 L Est GFR (MDRD) Non-Af 24 L BUN/Creatinine Ratio 24.1 H Glucose 124 H Calcium 8.0 L Phosphorus 4.0 Magnesium 1.8 Total Bilirubin 0.30 AST 60 H ALT 37 Alkaline Phosphatase 948 H Total Protein 5.4 L Albumin 1.4 L Globulin 4.0 Albumin/Globulin Ratio 0.4 L Random Vancomycin 21.6 H POC Glucose Crossmatch 12/02/20 12/02/20 06:45 11:44 WBC RBC Hgb Hct MCV MCH MCHC RDW Std Deviation RDW Coeff of Charles Plt Count MPV Immature Gran % (Auto) Neut % (Auto) Lymph % (Auto) [place] % (Auto) Eos % (Auto) Baso % (Auto) Absolute Neuts (auto) Absolute Lymphs (auto) Nucleated RBC % Sodium Potassium Chloride Carbon Dioxide Anion Gap BUN Creatinine Estim Creat Clear Calc Est GFR (MDRD) Af Amer Est GFR (MDRD) Non-Af BUN/Creatinine Ratio Glucose Calcium Phosphorus Magnesium Total Bilirubin AST ALT Alkaline Phosphatase Total Protein Albumin Globulin Albumin/Globulin Ratio Random Vancomycin POC Glucose 121 H 153 H Crossmatch Micro: Microbiology 11/27/20 07:45 Wound - Leg, Left Gram Stain - Final 11/27/20 07:45 Wound - Leg, Left Wound Culture - Final Proteus mirabilis Staphylococcus aureus 11/27/20 07:45 Wound - Leg, Left Anaerobic Culture - Final Anaerobic cocci Bacteroides fragilis 11/29/20 13:07 Wound - Leg, Left Gram Stain - Final 11/29/20 13:07 Wound - Leg, Left Wound Culture - Final No growth aerobically. 11/29/20 13:07 Wound - Leg, Left Anaerobic Culture - Preliminary No growth in 48 hours. 11/26/20 22:25 Wound - Heel Right Gram Stain - Final 11/26/20 22:25 Wound - Heel Right Wound Culture - Final Proteus mirabilis 11/26/20 22:25 Wound - Heel Right Anaerobic Culture - Final Anaerobic cocci Bacteroides fragilis Gram positive joseluis Prevotella disiens 11/29/20 13:07 Wound - Heel Gram Stain - Final 11/29/20 13:07 Wound - Heel Wound Culture - Final Proteus mirabilis Enterococcus faecalis 11/29/20 13:07 Wound - Heel Anaerobic Culture - Preliminary Checking for anaerobes, further studies to follow. 11/29/20 13:07 Bone - Left Foot Gram Stain - Final 11/29/20 13:07 Bone - Left Foot Wound Culture - Final Enterococcus faecalis 11/26/20 16:25 Blood Culture (Wb) - Anticubital Left Blood Culture - Final No growth in 5 days. 11/29/20 13:07 Bone - Ankle Gram Stain - Final 11/29/20 13:07 Bone - Ankle Wound Culture - Preliminary No growth-Final to follow 11/29/20 13:07 Bone - Ankle Anaerobic Culture - Preliminary No growth in 48 hours. 11/29/20 13:07 Bone - Right Foot Gram Stain - Final 11/29/20 13:07 Bone - Right Foot Wound Culture - Final Proteus mirabilis 11/29/20 13:07 Bone - Right Foot Anaerobic Culture - Preliminary No growth in 48 hours. 11/27/20 07:45 Wound - Sacral Gram Stain - Final 11/27/20 07:45 Wound - Sacral Wound Culture - Final Proteus mirabilis 11/27/20 07:45 Wound - Sacral Anaerobic Culture - Preliminary Checking for anaerobes, further studies to follow. 11/28/20 04:20 Mucosa - Nose SARS-CoV-2 Antigen (Rapid) - Final Radiography Diagnostic Testing: Radiology Impression Liver Ultrasound 12/01/20 06:50 IMPRESSION: Patient refused the examination. Electronically Signed: Shen Renteria MD at 15:14 EDT , Service support , Physical Exam Narrative has le edema and bandage both LE Const alert and no apparent distress General Appearance: comfortable HEENT normocephalic HEENT Narrative: atraumatic Neck General: normal visual inspection and trachea midline Resp normal respiratory effort and clear to auscultation bilaterally Cardio regular rate, regular rhythm, S1 normal heart sound and S2 normal heart sound GI soft to palpation and non-tender Extremity no clubbing, cyanosis or edema Neuro Sensorium / Orientation: awake and alert Assessment & Plan Assessment/Plan (1) AIDA (acute kidney injury): Status: Acute Code(s): N17.9 - Acute kidney failure, unspecified Plan: AIDA?ATN or IR?GN Baseline creatinine unknown Serum creatinine 2.1 better Continue Bumex avoid overdiuresis. Replace potassium. Urology consult for left-sided hydronephrosis pending Avoid nephrotoxins (2) Edema: Status: Acute Code(s): R60.9 - Edema, unspecified Qualifiers: Edema type: localized Qualified Code(s): R60.0 - Localized edema Plan: Continue Bumex twice daily avoid overdiuresis (3) Osteomyelitis of ankle and foot: Status: Acute Code(s): M86.9 - Osteomyelitis, unspecified Plan: Per primary and ID (4) HTN (hypertension): Status: Chronic Code(s): I10 - Essential (primary) hypertension Plan: continue meds monitor now on BB too in addition to CCB
--- NOTE | 2020-12-02 14:55 | CASEMGMT ---
SW received level of care for patient. A copy of original PASRR and level of care were faxed to [place] with [facility]. Dena Key [employer]
[2020-12-02 16:26] LABS: Bedside Glucose 143 mg/dL (70-110)
--- NOTE | 2020-12-02 18:04 | PCM.PN.HOSP ---
Subjective Subjective: Patient was seen and examined. No acute events overnight. Objective Data Objective Data General: Alert, Oriented x2, Cooperative, no apparent distress, well developed HEENT: Atraumatic Oral: Moist Mucosa Neck: Supple Lungs: Clear to auscultation Cardiovascular: HS I+II, regular, no murmurs Abdomen: Bowel Sounds Present, Soft, Non Tender Extremities: Bilateral lower extremities, Piotr wrapped, right foot in offloading boot Vital Signs: Vital Signs Temp Pulse Resp BP Pulse Ox 98.2 F 68 18 135/62 H 97 12/02/20 16:15 12/02/20 16:15 12/02/20 16:15 12/02/20 16:15 12/02/20 16:15 Oxygen Flow Rate (L/min) 2 Oxygen Delivery Method Room Air Weight: 67.3 kg Body Mass Index (BMI) 20.9 Intake & Output: Intake and Output for Last 24 Hours 11/30/20 12/01/20 12/02/20 23:59 23:59 23:59 Intake Total 2912.0 / 3032.0 1064 / 1124 600 / 600 Output Total 2130 / 2580 1250 / 1675 425 / 425 Balance 782.0 / 452.0 -186 / -551 175 / 175 Lab / Micro Data Result Diagrams: 12/02/20 06:29 12/02/20 06:29 Labs: Laboratory Results - last 24 hr 12/01/20 12/02/20 12/02/20 21:06 06:29 06:29 WBC 7.6 RBC 3.10 L Hgb 8.2 L Hct 28.0 L MCV 90.3 MCH 26.5 L MCHC 29.3 L RDW Std Deviation 53.0 H RDW Coeff of Charles 15.9 H Plt Count 299 MPV 10.1 Immature Gran % (Auto) 0.400 Neut % (Auto) 57.4 Lymph % (Auto) 20.2 [place] % (Auto) 10.3 H Eos % (Auto) 10.9 H Baso % (Auto) 0.8 Absolute Neuts (auto) 4.4 Absolute Lymphs (auto) 1.54 Nucleated RBC % 0 Sodium 140 Potassium 3.6 Chloride 104 Carbon Dioxide 26.0 Anion Gap 10 BUN 52 H Creatinine 2.16 H Estim Creat Clear Calc 22.56 Est GFR (MDRD) Af Amer 29 L Est GFR (MDRD) Non-Af 24 L BUN/Creatinine Ratio 24.1 H Glucose 124 H Calcium 8.0 L Phosphorus 4.0 Magnesium 1.8 Total Bilirubin 0.30 AST 60 H ALT 37 Alkaline Phosphatase 948 H Total Protein 5.4 L Albumin 1.4 L Globulin 4.0 Albumin/Globulin Ratio 0.4 L Random Vancomycin POC Glucose 124 H 12/02/20 12/02/20 12/02/20 06:29 06:45 11:44 WBC RBC Hgb Hct MCV MCH MCHC RDW Std Deviation RDW Coeff of Charles Plt Count MPV Immature Gran % (Auto) Neut % (Auto) Lymph % (Auto) [place] % (Auto) Eos % (Auto) Baso % (Auto) Absolute Neuts (auto) Absolute Lymphs (auto) Nucleated RBC % Sodium Potassium Chloride Carbon Dioxide Anion Gap BUN Creatinine Estim Creat Clear Calc Est GFR (MDRD) Af Amer Est GFR (MDRD) Non-Af BUN/Creatinine Ratio Glucose Calcium Phosphorus Magnesium Total Bilirubin AST ALT Alkaline Phosphatase Total Protein Albumin Globulin Albumin/Globulin Ratio Random Vancomycin 21.6 H POC Glucose 121 H 153 H 12/02/20 16:20 WBC RBC Hgb Hct MCV MCH MCHC RDW Std Deviation RDW Coeff of Charles Plt Count MPV Immature Gran % (Auto) Neut % (Auto) Lymph % (Auto) [place] % (Auto) Eos % (Auto) Baso % (Auto) Absolute Neuts (auto) Absolute Lymphs (auto) Nucleated RBC % Sodium Potassium Chloride Carbon Dioxide Anion Gap BUN Creatinine Estim Creat Clear Calc Est GFR (MDRD) Af Amer Est GFR (MDRD) Non-Af BUN/Creatinine Ratio Glucose Calcium Phosphorus Magnesium Total Bilirubin AST ALT Alkaline Phosphatase Total Protein Albumin Globulin Albumin/Globulin Ratio Random Vancomycin POC Glucose 143 H Micro: Microbiology 11/29/20 13:07 Bone - Ankle Gram Stain - Final 11/29/20 13:07 Bone - Ankle Wound Culture - Preliminary Gram negative [email or web address] 11/29/20 13:07 Bone - Ankle Anaerobic Culture - Preliminary No growth in 48 hours. 11/27/20 07:45 Wound - Leg, Left Gram Stain - Final 11/27/20 07:45 Wound - Leg, Left Wound Culture - Final Proteus mirabilis Staphylococcus aureus 11/27/20 07:45 Wound - Leg, Left Anaerobic Culture - Final Anaerobic cocci Bacteroides fragilis 11/29/20 13:07 Wound - Leg, Left Gram Stain - Final 11/29/20 13:07 Wound - Leg, Left Wound Culture - Final No growth aerobically. 11/29/20 13:07 Wound - Leg, Left Anaerobic Culture - Preliminary No growth in 48 hours. 11/26/20 22:25 Wound - Heel Right Gram Stain - Final 11/26/20 22:25 Wound - Heel Right Wound Culture - Final Proteus mirabilis 11/26/20 22:25 Wound - Heel Right Anaerobic Culture - Final Anaerobic cocci Bacteroides fragilis Gram positive joseluis Prevotella disiens 11/29/20 13:07 Wound - Heel Gram Stain - Final 11/29/20 13:07 Wound - Heel Wound Culture - Final Proteus mirabilis Enterococcus faecalis 11/29/20 13:07 Wound - Heel Anaerobic Culture - Preliminary Checking for anaerobes, further studies to follow. 11/29/20 13:07 Bone - Left Foot Gram Stain - Final 11/29/20 13:07 Bone - Left Foot Wound Culture - Final Enterococcus faecalis 11/26/20 16:25 Blood Culture (Wb) - Anticubital Left Blood Culture - Final No growth in 5 days. 11/29/20 13:07 Bone - Right Foot Gram Stain - Final 11/29/20 13:07 Bone - Right Foot Wound Culture - Final Proteus mirabilis 11/29/20 13:07 Bone - Right Foot Anaerobic Culture - Preliminary No growth in 48 hours. 11/27/20 07:45 Wound - Sacral Gram Stain - Final 11/27/20 07:45 Wound - Sacral Wound Culture - Final Proteus mirabilis 11/27/20 07:45 Wound - Sacral Anaerobic Culture - Preliminary Checking for anaerobes, further studies to follow. 11/28/20 04:20 Mucosa - Nose SARS-CoV-2 Antigen (Rapid) - Final Assessment & Plan Assessment/Plan (1) AIDA (acute kidney injury): Status: Acute Code(s): N17.9 - Acute kidney failure, unspecified (2) Osteomyelitis of ankle and foot: Status: Acute Code(s): M86.9 - Osteomyelitis, unspecified (3) Ulcer of left medial lower extremity with necrosis of muscle: Status: Acute Code(s): L97.823 - Non-pressure chronic ulcer of other part of left lower leg with necrosis of muscle (4) Ulcer of left lower extremity with fat layer exposed: Status: Acute Code(s): L97.922 - Non-pressure chronic ulcer of unspecified part of left lower leg with fat layer exposed (5) Ulcer of right medial lower extremity with fat layer exposed: Status: Acute Code(s): L97.812 - Non-pressure chronic ulcer of other part of right lower leg with fat layer exposed (6) Osteomyelitis of foot: Status: Acute Code(s): M86.9 - Osteomyelitis, unspecified Qualifiers: Osteomyelitis type: subacute Laterality: left Qualified Code(s): M86.272 - Subacute osteomyelitis, left ankle and foot (7) Sacral decubitus ulcer: Status: Acute Code(s): L89.159 - Pressure ulcer of sacral region, unspecified stage Plan: Continue on IV meropenem Awaiting discharge planning to detention facility Continue with wound care per podiatry Repeat blood work in a.m.
[2020-12-02 21:51] LABS: Bedside Glucose 186 mg/dL (70-110)
[2020-12-03 03:23] VITALS: BP 136/55; PULSE 78; RESP 16; TEMP 36.3; O2SAT 94
[2020-12-03] MEDS: DAKIN'S SOL HALF STRENGTH (=0.25%) 1 APPLIC TOPICAL ×2 (03:37→11:41)
[2020-12-03 05:36] LABS: Absolute Lymphocyte Count 1.91 X10^3/uL (0.83-4.51); Absolute Neutrophil Count 4.7 X10^3/uL (2.0-7.7); Basophil# 0.04 X10^3/uL; Basophil% 0.5 % (0-1); Eosinophils% 10.9 % (0-5); Hematocrit 26.3 % (37-47); Hemoglobin 7.8 g/dL (12.0-15.0); Lymphocyte # 1.91 X10^3/ul (0.83-4.51); Mean Corp Hgb Conc 29.7 g/dL (32-36); Mean Corpuscular Hgb 26.7 pg (27.0-32.0); Mean Corpuscular Volume 90.1 fL (81-99); Mean Platelet Vol. 10.2 fl (6.2-12.0); Monocyte# 0.73 X10^3/uL; Monocyte% 8.8 % (0-10); NRBC Flagged by Analyzer 0 % (0-5); Neutrophil # 4.67 X10^3/uL (2.7-7.7); Neutrophil % 56.3 % (47-70); Platelet Count 306 K/mm3 (150-450); RBC Distribution Width CV 15.6 % (11.6-14.6); RBC Distribution Width SD 51.6 fl (35.1-43.9); Red Blood Count 2.92 M/mm3 (4.2-5.4); White Blood Count 8.3 K/mm3 (4.4-11.0)
[2020-12-03 05:57] LABS: ALB/GLOB Ratio 0.4 RATIO (0.9-2.4); AST(SGOT) 31 U/L (15-37); Alanine Aminotransfer ALT/SGPT 25 U/L (13-56); Albumin, Serum 1.4 g/dL (3.2-5.0); Alkaline Phosphatase 857 U/L (45-117); Anion Gap 7 (5-15); BUN 64 mg/dL (7-18); BUN/Creat Ratio 31.5 RATIO (10-20); Calcium,Total 7.9 mg/dL (8.5-10.1); Chloride 104 mmol/L (98-107); Creatinine, Serum 2.03 mg/dL (0.55-1.02); EST Glomerular Filtration Rate 26 mL/min (>60); Est Glom Filt Rate - Afr Amer 31 mL/min (>60); Globulin 3.8 g/dL (2.2-4.2); Glucose 122 mg/dL (74-106); Magnesium 1.7 mg/dL (1.6-2.6); Potassium 3.7 mmol/L (3.5-5.1); Protein, Total 5.2 g/dL (6.4-8.2); Sodium Level 138 mmol/L (136-145)
[2020-12-03 06:45] LABS: Bedside Glucose 121 mg/dL (70-110)
[2020-12-03 07:25] VITALS: O2SAT 95
[2020-12-03 08:40] VITALS: BP 152/59; PULSE 70; RESP 18; TEMP 36.2; O2SAT 96
--- NOTE | 2020-12-03 08:46 | PCM.PROGNOTE ---
Subjective Subjective: 75 year old female was seen bedside bilateral lower extremity ulcer s/p OR debridement secondary to infection. She is resting. Her wound vacs are intact. Objective Data Objective Data Vital Signs: Vital Signs Temp Pulse Resp BP Pulse Ox 97.2 F L 70 18 152/59 H 96 12/03/20 08:40 12/03/20 08:40 12/03/20 08:40 12/03/20 08:40 12/03/20 08:40 Oxygen Flow Rate (L/min) 2 Oxygen Delivery Method Room Air Weight: 65.6 kg Body Mass Index (BMI) 20.9 Intake & Output: Intake and Output for Last 24 Hours 12/01/20 12/02/20 12/03/20 23:59 23:59 23:59 Intake Total 1064 / 1124 840 / 840 240 / 240 Output Total 1250 / 1675 725 / 725 250 / 250 Balance -186 / -551 115 / 115 -10 / -10 Lab / Micro Data Result Diagrams: 12/03/20 05:24 12/03/20 05:24 Labs: Laboratory Results - last 24 hr 12/02/20 12/02/20 12/02/20 11:44 16:20 21:31 WBC RBC Hgb Hct MCV MCH MCHC RDW Std Deviation RDW Coeff of Charles Plt Count MPV Immature Gran % (Auto) Neut % (Auto) Lymph % (Auto) [place] % (Auto) Eos % (Auto) Baso % (Auto) Absolute Neuts (auto) Absolute Lymphs (auto) Nucleated RBC % Sodium Potassium Chloride Carbon Dioxide Anion Gap BUN Creatinine Estim Creat Clear Calc Est GFR (MDRD) Af Amer Est GFR (MDRD) Non-Af BUN/Creatinine Ratio Glucose Calcium Phosphorus Magnesium Total Bilirubin AST ALT Alkaline Phosphatase Total Protein Albumin Globulin Albumin/Globulin Ratio POC Glucose 153 H 143 H 186 H 12/03/20 12/03/20 12/03/20 05:24 05:24 06:30 WBC 8.3 RBC 2.92 L Hgb 7.8 L Hct 26.3 L MCV 90.1 MCH 26.7 L MCHC 29.7 L RDW Std Deviation 51.6 H RDW Coeff of Charles 15.6 H Plt Count 306 MPV 10.2 Immature Gran % (Auto) 0.500 Neut % (Auto) 56.3 Lymph % (Auto) 23.0 [place] % (Auto) 8.8 Eos % (Auto) 10.9 H Baso % (Auto) 0.5 Absolute Neuts (auto) 4.7 Absolute Lymphs (auto) 1.91 Nucleated RBC % 0 Sodium 138 Potassium 3.7 Chloride 104 Carbon Dioxide 27.0 Anion Gap 7 BUN 64 H Creatinine 2.03 H Estim Creat Clear Calc 24.00 Est GFR (MDRD) Af Amer 31 L Est GFR (MDRD) Non-Af 26 L BUN/Creatinine Ratio 31.5 H Glucose 122 H Calcium 7.9 L Phosphorus 4.0 Magnesium 1.7 Total Bilirubin 0.30 AST 31 ALT 25 Alkaline Phosphatase 857 H Total Protein 5.2 L Albumin 1.4 L Globulin 3.8 Albumin/Globulin Ratio 0.4 L POC Glucose 121 H Micro: Microbiology 11/29/20 13:07 Bone - Ankle Gram Stain - Final 11/29/20 13:07 Bone - Ankle Wound Culture - Preliminary Sphingomonas paucimobilis 11/29/20 13:07 Bone - Ankle Anaerobic Culture - Preliminary No growth in 48 hours. 12/03/20 02:40 Stool Stool Occult Blood (MICHAEL) - Final 11/27/20 07:45 Wound - Leg, Left Gram Stain - Final 11/27/20 07:45 Wound - Leg, Left Wound Culture - Final Proteus mirabilis Staphylococcus aureus 11/27/20 07:45 Wound - Leg, Left Anaerobic Culture - Final Anaerobic cocci Bacteroides fragilis 11/29/20 13:07 Wound - Leg, Left Gram Stain - Final 11/29/20 13:07 Wound - Leg, Left Wound Culture - Final No growth aerobically. 11/29/20 13:07 Wound - Leg, Left Anaerobic Culture - Preliminary No growth in 48 hours. 11/26/20 22:25 Wound - Heel Right Gram Stain - Final 11/26/20 22:25 Wound - Heel Right Wound Culture - Final Proteus mirabilis 11/26/20 22:25 Wound - Heel Right Anaerobic Culture - Final Anaerobic cocci Bacteroides fragilis Gram positive joseluis Prevotella disiens 11/29/20 13:07 Wound - Heel Gram Stain - Final 11/29/20 13:07 Wound - Heel Wound Culture - Final Proteus mirabilis Enterococcus faecalis 11/29/20 13:07 Wound - Heel Anaerobic Culture - Preliminary Checking for anaerobes, further studies to follow. 11/29/20 13:07 Bone - Left Foot Gram Stain - Final 11/29/20 13:07 Bone - Left Foot Wound Culture - Final Enterococcus faecalis 11/26/20 16:25 Blood Culture (Wb) - Anticubital Left Blood Culture - Final No growth in 5 days. 11/29/20 13:07 Bone - Right Foot Gram Stain - Final 11/29/20 13:07 Bone - Right Foot Wound Culture - Final Proteus mirabilis 11/29/20 13:07 Bone - Right Foot Anaerobic Culture - Preliminary No growth in 48 hours. 11/27/20 07:45 Wound - Sacral Gram Stain - Final 11/27/20 07:45 Wound - Sacral Wound Culture - Final Proteus mirabilis 11/27/20 07:45 Wound - Sacral Anaerobic Culture - Preliminary Checking for anaerobes, further studies to follow. 11/28/20 04:20 Mucosa - Nose SARS-CoV-2 Antigen (Rapid) - Final Physical Exam Const Constitutional Narrative: sleeping and arousable Extremity normal capillary refill Extremity Narrative: edema lower extremities minimal Skin Wound Narrative: wound vacs intact with secondary outer dressing intact. No evidence of leaking. No odor or adjacent redness or streaking Assessment & Plan Assessment/Plan (1) Osteomyelitis of ankle and foot: Status: Acute Code(s): M86.9 - Osteomyelitis, unspecified (2) Ulcer of left medial lower extremity with necrosis of muscle: Status: Acute Code(s): L97.823 - Non-pressure chronic ulcer of other part of left lower leg with necrosis of muscle (3) Ulcer of left lower extremity with fat layer exposed: Status: Acute Code(s): L97.922 - Non-pressure chronic ulcer of unspecified part of left lower leg with fat layer exposed (4) Ulcer of right medial lower extremity with fat layer exposed: Status: Acute Code(s): L97.812 - Non-pressure chronic ulcer of other part of right lower leg with fat layer exposed (5) Osteomyelitis of foot: Status: Acute Code(s): M86.9 - Osteomyelitis, unspecified Qualifiers: Osteomyelitis type: subacute Laterality: left Qualified Code(s): M86.272 - Subacute osteomyelitis, left ankle and foot (6) Peripheral vascular disease: Status: Chronic Code(s): I73.9 - Peripheral vascular disease, unspecified (7) Wound infection: Status: Acute Code(s): T14.8XXA - Other injury of unspecified body region, initial encounter; L08.9 - Local infection of the skin and subcutaneous tissue, unspecified Plan: I reviewed her case and she remains afebrile. Her dressings (wound vacs) were left clean, dry, and intact. She has bilateral lower extremity wound vacs applied today; 150 mmHg continuous. The left proximal medial leg ulcer will have Aquacel Ag applied. She is s/p operating room debridement that was performed on 11-29-[address] Garcia. ID on consult; continue antibiotics as recommended. To continue with strict offloading. Vascular surgery is on consult including Dr. Collado will evaluate today. Input is appreciated. To continue with nutritional supplementation to optimize healing. Medical management per hospitalist service is noted appreciated. She is medically complicated. Likely [facility] will [facility]. I will continue to follow her while in house. Please not hesitate to call any questions. At time of discharge, I recommend this patient follows up with the wound healing center. Discharge document/recommendations has been completed. Wendy Ayon DPM, FACFAS [facility] [phone]
--- NOTE | 2020-12-03 08:47 | CON.PCM_ITS ---
Assessment & Plan Assessment/Plan (1) Peripheral vascular disease: Status: Chronic Code(s): I73.9 - Peripheral vascular disease, unspecified Plan: . PAD. If her wounds are healing we should be able to follow at least on the right leg. Appears to have adequate flow to the ankle. If the left leg is not healing with the wound VAC she will need a left leg angiogram to see if we can recanalize the femoral artery. If this does not heal that she will need amputations, would not do any type of bypass in a nonambulatory patient. We will plan on seeing her back in a couple weeks and will discuss with podiatry to see if needs intervention or not. HPI Consult Data Date of Consult: 12/03/20 HPI Narrative HPI Narrative: KADEN GUERRA, is a 75 F who presents with bilateral leg wounds. She has been seen at the wound clinic but is worsened. She has had debridement here and bilateral wound vacs on. She had bilateral duplex that showed normal flow on the right leg with no stenosis. Had JADON that was noncompressible with a posterior tibial but 1.06 of the dorsalis pedis with a good biphasic waveform. 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 But still biphasic at the ankle with noncompressibility. Vascular surgery consulted for evaluation of this. Of note patient has some contractures in her leg and is nonambulatory. She does have some chronic kidney disease with her recent creatinine at 2. PFSH Home Medications amlodipine 5 mg PO DAILY 11/26/20 [History Last Taken 11/26/20] arginine-vitamin C-vitamin E 1 each PO BID 11/26/20 [History Last Taken 11/26/20] ferrous sulfate 325 mg PO DAILY 11/26/20 [History Last Taken 11/26/20] hydrocodone-acetaminophen 1 - 2 tablet PO Q6H PRN PRN 11/26/20 [History Last Taken 11/26/20] insulin lispro See Protocol SQ TIDCM 11/26/20 [History Last Taken 11/26/20] lidocaine 1 applic TOPICAL MOWEFR 11/26/20 [History Last Taken 11/26/20] mirtazapine 15 mg PO QHS 11/26/20 [History Last Taken 11/25/20] Dakin's Solution 1 applic TOPICAL DINNER 12/02/20 [History Last Taken Unknown] Santyl 1 applic TOPICAL DAILY 12/02/20 [History Last Taken Unknown] acetaminophen 650 mg PO Q4H PRN 12/02/20 [History Last Taken Unknown] apixaban [Eliquis] 2.5 mg PO BID #60 tab 12/02/20 [Rx Last Taken Unknown] clopidogrel 75 mg PO DAILY 12/02/20 [History Last Taken Unknown] meropenem 1 g IV Q12 #1 ea 12/02/20 [Rx Last Taken Unknown] pantoprazole 40 mg PO DAILY #30 tab 12/02/20 [Rx Last Taken Unknown] Allergy/AdvReac Type Severity Reaction Status Date / Time clindamycin Allergy PT UNSURE Verified 11/26/20 15:30 OF REACTION diphenhydramine Allergy PT UNSURE Verified 11/26/20 15:30 [From Benadryl] OF REACTION doxycycline Allergy PT UNSURE Verified 11/26/20 15:30 OF REACTION erythromycin base Allergy PT UNSURE Verified 11/26/20 15:30 OF REACTION levofloxacin [From Levaquin] Allergy PT UNSURE Verified 11/26/20 15:30 OF REACTION metformin Allergy PT UNSURE Verified 11/26/20 15:30 OF REACTION Penicillins [PCN] Allergy PT UNSURE Verified 11/26/20 15:30 OF REACTION Sulfa (Sulfonamide Allergy PT UNSURE Verified 11/26/20 15:30 Antibiotics) OF REACTION Social History Smoking Status: Former smoker ROS ROS Narrative Full 10 point review all negative except for what is listed in the HPI. Physical Exam Narrative Patient is awake alert oriented No apparent distress Afebrile vital signs stable HEENT: Normocephalic atraumatic, pupils appear to be equal reactive Moist mucous membranes Neck supple no lymphadenopathy Chest nontender Heart appears regular Lungs coarse Abdomen soft slightly distended Extremity: Palpable radial pulses Both feet with wound vacs and dressing in place. Does not move either lower extremity. Moves upper extremities adequately. Lab / Micro Data Result Diagrams: 12/03/20 05:24 12/03/20 05:24 Labs: Laboratory Results - last 24 hr 12/02/20 12/02/20 12/02/20 11:44 16:20 21:31 WBC RBC Hgb Hct MCV MCH MCHC RDW Std Deviation RDW Coeff of Charles Plt Count MPV Immature Gran % (Auto) Neut % (Auto) Lymph % (Auto) [place] % (Auto) Eos % (Auto) Baso % (Auto) Absolute Neuts (auto) Absolute Lymphs (auto) Nucleated RBC % Sodium Potassium Chloride Carbon Dioxide Anion Gap BUN Creatinine Estim Creat Clear Calc Est GFR (MDRD) Af Amer Est GFR (MDRD) Non-Af BUN/Creatinine Ratio Glucose Calcium Phosphorus Magnesium Total Bilirubin AST ALT Alkaline Phosphatase Total Protein Albumin Globulin Albumin/Globulin Ratio POC Glucose 153 H 143 H 186 H 12/03/20 12/03/20 12/03/20 05:24 05:24 06:30 WBC 8.3 RBC 2.92 L Hgb 7.8 L Hct 26.3 L MCV 90.1 MCH 26.7 L MCHC 29.7 L RDW Std Deviation 51.6 H RDW Coeff of Charles 15.6 H Plt Count 306 MPV 10.2 Immature Gran % (Auto) 0.500 Neut % (Auto) 56.3 Lymph % (Auto) 23.0 [place] % (Auto) 8.8 Eos % (Auto) 10.9 H Baso % (Auto) 0.5 Absolute Neuts (auto) 4.7 Absolute Lymphs (auto) 1.91 Nucleated RBC % 0 Sodium 138 Potassium 3.7 Chloride 104 Carbon Dioxide 27.0 Anion Gap 7 BUN 64 H Creatinine 2.03 H Estim Creat Clear Calc 24.00 Est GFR (MDRD) Af Amer 31 L Est GFR (MDRD) Non-Af 26 L BUN/Creatinine Ratio 31.5 H Glucose 122 H Calcium 7.9 L Phosphorus 4.0 Magnesium 1.7 Total Bilirubin 0.30 AST 31 ALT 25 Alkaline Phosphatase 857 H Total Protein 5.2 L Albumin 1.4 L Globulin 3.8 Albumin/Globulin Ratio 0.4 L POC Glucose 121 H Micro: Microbiology 11/29/20 13:07 Gram Stain - Final Bone - Ankle Wound Culture - Preliminary Sphingomonas paucimobilis Anaerobic Culture - Preliminary No growth in 48 hours. 12/03/20 02:40 Stool Occult Blood (MICHAEL) - Final Stool 11/27/20 07:45 Gram Stain - Final Wound - Leg, Left Wound Culture - Final Proteus mirabilis Staphylococcus aureus Anaerobic Culture - Final Anaerobic cocci Bacteroides fragilis 11/29/20 13:07 Gram Stain - Final Wound - Leg, Left Wound Culture - Final No growth aerobically. Anaerobic Culture - Preliminary No growth in 48 hours. 11/26/20 22:25 Gram Stain - Final Wound - Heel Right Wound Culture - Final Proteus mirabilis Anaerobic Culture - Final Anaerobic cocci Bacteroides fragilis Gram positive joseluis Prevotella disiens 11/29/20 13:07 Gram Stain - Final Wound - Heel Wound Culture - Final Proteus mirabilis Enterococcus faecalis Anaerobic Culture - Preliminary Checking for anaerobes, further studies to follow. 11/29/20 13:07 Gram Stain - Final Bone - Left Foot Wound Culture - Final Enterococcus faecalis 11/26/20 16:25 Blood Culture - Final Blood Culture (Wb) - Anticubital Left No growth in 5 days.
[2020-12-03] MEDS: Ferrous Sulfate 325 MG Tablet PO (08:49)
[2020-12-03] MEDS: amLODIPine 5 MG Tablet PO (08:49)
[2020-12-03] MEDS: Pantoprazole Sodium 40 MG Tablet PO (08:49)
[2020-12-03 08:54] VITALS: BP 152/59; PULSE 70
[2020-12-03] MEDS: Bumetanide 1 MG/4 ML Vial IV (08:54)
[2020-12-03] MEDS: APIXABAN 2.5 MG TABLET PO (08:54)
[2020-12-03] MEDS: Metoprolol Tartrate 25 MG Tablet PO (08:54)
--- NOTE | 2020-12-03 11:38 | PN.RENAL_ITS ---
Subjective Subjective: no c/o no sob/cp Objective Data Objective Data Vital Signs: Vital Signs Temp Pulse Resp BP Pulse Ox 97.2 F L 70 18 152/59 H 96 12/03/20 08:40 12/03/20 08:54 12/03/20 08:40 12/03/20 08:54 12/03/20 08:40 Oxygen Flow Rate (L/min) 2 Oxygen Delivery Method Room Air Weight: 65.6 kg Body Mass Index (BMI) 20.9 Intake & Output: Intake and Output for Last 24 Hours 12/01/20 12/02/20 12/03/20 23:59 23:59 23:59 Intake Total 1064 / 1124 840 / 840 240 / 240 Output Total 1250 / 1675 725 / 725 250 / 250 Balance -186 / -551 115 / 115 -10 / -10 Lab / Micro Data Result Diagrams: 12/03/20 05:24 12/03/20 05:24 Labs: Laboratory Results - last 24 hr 12/02/20 12/02/20 12/02/20 11:44 16:20 21:31 WBC RBC Hgb Hct MCV MCH MCHC RDW Std Deviation RDW Coeff of Charles Plt Count MPV Immature Gran % (Auto) Neut % (Auto) Lymph % (Auto) Allen % (Auto) Eos % (Auto) Baso % (Auto) Absolute Neuts (auto) Absolute Lymphs (auto) Nucleated RBC % Sodium Potassium Chloride Carbon Dioxide Anion Gap BUN Creatinine Estim Creat Clear Calc Est GFR (MDRD) Af Amer Est GFR (MDRD) Non-Af BUN/Creatinine Ratio Glucose Calcium Phosphorus Magnesium Total Bilirubin AST ALT Alkaline Phosphatase Total Protein Albumin Globulin Albumin/Globulin Ratio POC Glucose 153 H 143 H 186 H 12/03/20 12/03/20 12/03/20 05:24 05:24 06:30 WBC 8.3 RBC 2.92 L Hgb 7.8 L Hct 26.3 L MCV 90.1 MCH 26.7 L MCHC 29.7 L RDW Std Deviation 51.6 H RDW Coeff of Charles 15.6 H Plt Count 306 MPV 10.2 Immature Gran % (Auto) 0.500 Neut % (Auto) 56.3 Lymph % (Auto) 23.0 Allen % (Auto) 8.8 Eos % (Auto) 10.9 H Baso % (Auto) 0.5 Absolute Neuts (auto) 4.7 Absolute Lymphs (auto) 1.91 Nucleated RBC % 0 Sodium 138 Potassium 3.7 Chloride 104 Carbon Dioxide 27.0 Anion Gap 7 BUN 64 H Creatinine 2.03 H Estim Creat Clear Calc 24.00 Est GFR (MDRD) Af Amer 31 L Est GFR (MDRD) Non-Af 26 L BUN/Creatinine Ratio 31.5 H Glucose 122 H Calcium 7.9 L Phosphorus 4.0 Magnesium 1.7 Total Bilirubin 0.30 AST 31 ALT 25 Alkaline Phosphatase 857 H Total Protein 5.2 L Albumin 1.4 L Globulin 3.8 Albumin/Globulin Ratio 0.4 L POC Glucose 121 H Micro: Microbiology 11/27/20 07:45 Wound - Sacral Gram Stain - Final 11/27/20 07:45 Wound - Sacral Wound Culture - Final Proteus mirabilis 11/27/20 07:45 Wound - Sacral Anaerobic Culture - Preliminary Checking for anaerobes, further studies to follow. 11/29/20 13:07 Wound - Heel Gram Stain - Final 11/29/20 13:07 Wound - Heel Wound Culture - Final Proteus mirabilis Enterococcus faecalis 11/29/20 13:07 Wound - Heel Anaerobic Culture - Preliminary Checking for anaerobes, further studies to follow. 11/29/20 13:07 Bone - Left Foot Gram Stain - Final 11/29/20 13:07 Bone - Left Foot Wound Culture - Final Enterococcus faecalis 11/29/20 13:07 Bone - Left Foot Anaerobic Culture - Preliminary Checking for anaerobes, further studies to follow. 11/29/20 13:07 Bone - Ankle Gram Stain - Final 11/29/20 13:07 Bone - Ankle Wound Culture - Preliminary Sphingomonas paucimobilis 11/29/20 13:07 Bone - Ankle Anaerobic Culture - Preliminary No growth in 48 hours. 12/03/20 02:40 Stool Stool Occult Blood (MICHAEL) - Final 11/27/20 07:45 Wound - Leg, Left Gram Stain - Final 11/27/20 07:45 Wound - Leg, Left Wound Culture - Final Proteus mirabilis Staphylococcus aureus 11/27/20 07:45 Wound - Leg, Left Anaerobic Culture - Final Anaerobic cocci Bacteroides fragilis 11/29/20 13:07 Wound - Leg, Left Gram Stain - Final 11/29/20 13:07 Wound - Leg, Left Wound Culture - Final No growth aerobically. 11/29/20 13:07 Wound - Leg, Left Anaerobic Culture - Preliminary No growth in 48 hours. 11/26/20 22:25 Wound - Heel Right Gram Stain - Final 11/26/20 22:25 Wound - Heel Right Wound Culture - Final Proteus mirabilis 11/26/20 22:25 Wound - Heel Right Anaerobic Culture - Final Anaerobic cocci Bacteroides fragilis Gram positive joseluis Prevotella disiens 11/26/20 16:25 Blood Culture (Wb) - Anticubital Left Blood Culture - Final No growth in 5 days. 11/29/20 13:07 Bone - Right Foot Gram Stain - Final 11/29/20 13:07 Bone - Right Foot Wound Culture - Final Proteus mirabilis 11/29/20 13:07 Bone - Right Foot Anaerobic Culture - Preliminary No growth in 48 hours. 11/28/20 04:20 Mucosa - Nose SARS-CoV-2 Antigen (Rapid) - Final Physical Exam Narrative has le edema and bandage both LE Const alert and no apparent distress General Appearance: comfortable HEENT normocephalic Neck General: normal visual inspection and trachea midline Resp normal respiratory effort and clear to auscultation bilaterally Cardio regular rate, regular rhythm, S1 normal heart sound and S2 normal heart sound GI soft to palpation and non-tender Extremity no clubbing, cyanosis or edema Neuro Sensorium / Orientation: awake and alert Assessment & Plan Assessment/Plan (1) AIDA (acute kidney injury): Status: Acute Code(s): N17.9 - Acute kidney failure, unspecified Plan: AIDA?ATN or IR?GN Baseline creatinine unknown Serum creatinine 2.03 better Continue Bumex avoid overdiuresis.. Urology consult for left-sided hydronephrosis pending Avoid nephrotoxins (2) Edema: Status: Resolved Code(s): R60.9 - Edema, unspecified Qualifiers: Edema type: localized Qualified Code(s): R60.0 - Localized edema Plan: Continue Bumex twice daily avoid overdiuresis (3) Osteomyelitis of ankle and foot: Status: Acute Code(s): M86.9 - Osteomyelitis, unspecified Plan: Per primary and ID (4) HTN (hypertension): Status: Chronic Code(s): I10 - Essential (primary) hypertension Plan: continue meds monitor on BB too in addition to CCB Diastolic borderline monitor
[2020-12-03] MEDS: Insulin Lispro 100 UNIT/ML INSULN.PEN SC ×2 (11:39→16:09)
[2020-12-03 11:45] LABS: Bedside Glucose 187 mg/dL (70-110)
--- NOTE | 2020-12-03 13:50 | PCM.PN.ID ---
Physical Exam Narrative Feeling ok, no fever, pain controlled Const no apparent distress General Appearance: cooperative Resp clear to auscultation bilaterally Cardio regular rate and regular rhythm GI normal to inspection, nondistended, normoactive bowel sounds Skin Skin Narrative: wound vac in place ID ID: Route of nutrition/ use of supplements: [] Nutritional Intake: [] IV Site: [] Maldonado Catheter: [] Assessment & Plan Assessment/Plan (1) Osteomyelitis of ankle and foot: Status: Acute Code(s): M86.9 - Osteomyelitis, unspecified (2) Wound infection: Status: Acute Code(s): T14.8XXA - Other injury of unspecified body region, initial encounter; L08.9 - Local infection of the skin and subcutaneous tissue, unspecified Plan: bilateral lower leg osteo and sacral wound - Seen by podiatry. Cxs and xray taken, started on empiric vanc/meropenem. MRI and arterial studies done. Reports anaphylaxis with PCN in the past. Was admitted to [facility] in August with similar complaints, given ceftriaxone IV and discharged on po omnicef. Cx of the wound at that time with heavy enterobacter (which showed resistance to ceftriaxone/cefdinir), heavy proteus, and light enterococcus (cephalosporins do not work on this species). Not clear if the antibiotics were adjusted after discharge. Now s/p I&D of BLE by Dr. Garcia 11/29/20. Surg cx so far with proteus, enterococcus, mssa. Cr improving. Pain improved. Plan will be for 6 weeks lorraine via picc, start date 11/29/20, stop date 01/10/21, weekly bmp, cbc, LFT, and esr. Reviewed labs, vitals. Wrote rx for labs and abx. Will follow, ID follow up in 2 weeks
[2020-12-03 14:40] VITALS: BP 127/64; PULSE 74; RESP 18; TEMP 36.8; O2SAT 96
--- NOTE | 2020-12-03 15:30 | PCM.DC.SUM ---
Providers Date of Admission: 11/26/20 Primary Care Physician: Dr. 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 Routine Comment: Physician Consult Routine Consulting Provider: Mohit Pantoja Reason for Consult: diabetic foot ulcers, probable osteomyelitis MD Notified: Yes Date Notified:: 11/27/20 Time Notified: 10:14 Method of Notification:: via office Physician Consult Routine Consulting Provider: Toan Garcia Reason for Consult: diabetic foot ulcers MD Notified: Yes Date Notified:: 11/26/20 Time Notified: 19:33 Method of Notification:: Text 11/27/20 14:20 Physician Consult Routine Consulting Provider: Nishant Hansen Consulted Physician Type:: Nephrology - [facility] Reason for Consult: AIDA on CKD stage 4 Method of Consult:: In-Person Comments:: Bilateral heel ulcer, podiatry wants debridement on Mon MD Notified: Yes Date Notified:: 11/27/20 Time Notified: 14:34 Method of Notification:: Answering Service 11/28/20 08:46 Physician Consult Routine Consulting Provider: Gino Collado Reason for Consult: lower extremity PAD MD Notified: Yes Date Notified:: 11/28/20 Time Notified: 08:47 Method of Notification:: Text 11/29/20 13:51 Physician Consult Routine Consulting Provider: Jason Delgado Reason for Consult: intubated MD Notified: Yes Date Notified:: 11/29/20 Time Notified: 13:30 Method of Notification:: Provider initiated call 12/01/20 14:09 Physician Consult Routine Consulting Provider: Clay Gaming Consulted Physician Type:: [facility] Reason for Consult: Hydronephrosis Method of Consult:: In-Person MD Notified: Yes Date Notified:: 12/01/20 Time Notified: 14:34 Method of Notification:: Page Reason For Visit: HYPERKALEMIA, LOWER EXTREMITY ULCERATIONS Diagnosis Discharge Diagnosis (1) Osteomyelitis of ankle and foot: Status: Acute Code(s): M86.9 - Osteomyelitis, unspecified (2) Wound infection: Status: Acute Code(s): T14.8XXA - Other injury of unspecified body region, initial encounter; L08.9 - Local infection of the skin and subcutaneous tissue, unspecified (3) AIDA (acute kidney injury): Status: Acute Code(s): N17.9 - Acute kidney failure, unspecified (4) Ulcer of left medial lower extremity with necrosis of muscle: Status: Acute Code(s): L97.823 - Non-pressure chronic ulcer of other part of left lower leg with necrosis of muscle (5) Ulcer of left lower extremity with fat layer exposed: Status: Acute Code(s): L97.922 - Non-pressure chronic ulcer of unspecified part of left lower leg with fat layer exposed (6) Ulcer of right medial lower extremity with fat layer exposed: Status: Acute Code(s): L97.812 - Non-pressure chronic ulcer of other part of right lower leg with fat layer exposed (7) Osteomyelitis of foot: Status: Acute Code(s): M86.9 - Osteomyelitis, unspecified Qualifiers: Osteomyelitis type: subacute Laterality: left Qualified Code(s): M86.272 - Subacute osteomyelitis, left ankle and foot (8) Sacral decubitus ulcer: Status: Acute Code(s): L89.159 - Pressure ulcer of sacral region, unspecified stage (9) HTN (hypertension): Status: Chronic Code(s): I10 - Essential (primary) hypertension Medications at Discharge Home Medications amlodipine 5 mg PO DAILY 11/26/20 arginine-vitamin C-vitamin E 1 each PO BID 11/26/20 ferrous sulfate 325 mg PO DAILY 11/26/20 hydrocodone-acetaminophen 1 - 2 tablet PO Q6H PRN PRN 11/26/20 insulin lispro See Protocol SQ TIDCM 11/26/20 lidocaine 1 applic TOPICAL MOWEFR 11/26/20 mirtazapine 15 mg PO QHS 11/26/20 Dakin's Solution 1 applic TOPICAL DINNER 12/02/20 Santyl 1 applic TOPICAL DAILY 12/02/20 acetaminophen 650 mg PO Q4H PRN 12/02/20 apixaban [Eliquis] 2.5 mg PO BID #60 tab 12/02/20 clopidogrel 75 mg PO DAILY 12/02/20 meropenem 1 g IV Q12 #1 ea 12/02/20 pantoprazole 40 mg PO DAILY #30 tab 12/02/20 meropenem 1 g IV Q12H #80 ea 12/03/20 Hospital Course Operations - (11/29/20 Debridement of right heel ulcer down to bone w/ bone biopsy. Debridement of left heel ulcer down to bone w/ bone biopsy. Debridement of left ankle ulceration down to bone w/ bone biopsy. Debridement of left leg ulcerations down to fascia layer) Procedures 2-D Echocardiogram Summary of Care Provided Minutes Spent on Discharge: 50 Hospital Course: 75-year-old female, [facility] in a [facility] who was referred to the hospital from the wound center for bilateral purulent heel ulcers and sacral wound. Patient was started on empiric vancomycin and meropenem. Patient was managed as acute on chronic bilateral lower leg ulcers with osteomyelitis of the left heel and sacrum. She underwent wound debridement on 11/07/20. Wound and bone cultures grew Proteus mirabilis and Enterococcus. Patient was maintained further on meropenem and vancomycin. She had AIDA on CKD stage III. Her creatinine on admission was 3.16 and creatinine at discharge was 2.23. Renal ultrasound showed left hydronephrosis. She will follow-up with urology in the outpatient. She was also found to have acute on chronic anemia secondary to CKD versus acute blood loss. She received 2 units of packed RBC. She had electrolyte imbalances that were replaced. Her renal function continued to improve with changes made to her medications by nephrology. Patient was kept on IV meropenem for 6 more weeks. She was also seen by vascular surgery, Dr. Collado who plans on further intervention if her wound does not heal. She has a left leg femoral artery occlusion but still has biphasic waveforms at the ankles with noncompressibility. She will follow-up in the wound center with podiatry. Physical Exam Narrative On the day of discharge, patient was seen and examined. Denied any new complaints. General: Alert, Oriented x2, Cooperative, no apparent distress, well developed HEENT: Atraumatic Oral: Moist Mucosa Neck: Supple Lungs: Clear to auscultation Cardiovascular: HS I+II, regular, no murmurs Abdomen: Bowel Sounds Present, Soft, Non Tender Extremities: Bilateral lower extremities, Piotr wrapped, right foot in offloading boot ABG / Lab / Microbiology Data Result Diagrams: 12/03/20 05:24 12/03/20 05:24 Laboratory: Laboratory Results - last 24 hr 12/02/20 12/02/20 12/03/20 16:20 21:31 05:24 WBC 8.3 RBC 2.92 L Hgb 7.8 L Hct 26.3 L MCV 90.1 MCH 26.7 L MCHC 29.7 L RDW Std Deviation 51.6 H RDW Coeff of Charles 15.6 H Plt Count 306 MPV 10.2 Immature Gran % (Auto) 0.500 Neut % (Auto) 56.3 Lymph % (Auto) 23.0 [place] % (Auto) 8.8 Eos % (Auto) 10.9 H Baso % (Auto) 0.5 Absolute Neuts (auto) 4.7 Absolute Lymphs (auto) 1.91 Nucleated RBC % 0 Sodium Potassium Chloride Carbon Dioxide Anion Gap BUN Creatinine Estim Creat Clear Calc Est GFR (MDRD) Af Amer Est GFR (MDRD) Non-Af BUN/Creatinine Ratio Glucose Calcium Phosphorus Magnesium Total Bilirubin AST ALT Alkaline Phosphatase Total Protein Albumin Globulin Albumin/Globulin Ratio POC Glucose 143 H 186 H 12/03/20 12/03/20 12/03/20 05:24 06:30 11:38 WBC RBC Hgb Hct MCV MCH MCHC RDW Std Deviation RDW Coeff of Charles Plt Count MPV Immature Gran % (Auto) Neut % (Auto) Lymph % (Auto) [place] % (Auto) Eos % (Auto) Baso % (Auto) Absolute Neuts (auto) Absolute Lymphs (auto) Nucleated RBC % Sodium 138 Potassium 3.7 Chloride 104 Carbon Dioxide 27.0 Anion Gap 7 BUN 64 H Creatinine 2.03 H Estim Creat Clear Calc 24.00 Est GFR (MDRD) Af Amer 31 L Est GFR (MDRD) Non-Af 26 L BUN/Creatinine Ratio 31.5 H Glucose 122 H Calcium 7.9 L Phosphorus 4.0 Magnesium 1.7 Total Bilirubin 0.30 AST 31 ALT 25 Alkaline Phosphatase 857 H Total Protein 5.2 L Albumin 1.4 L Globulin 3.8 Albumin/Globulin Ratio 0.4 L POC Glucose 121 H 187 H Microbiology: Microbiology 11/27/20 07:45 Gram Stain - Final Wound - Sacral Wound Culture - Final Proteus mirabilis Anaerobic Culture - Preliminary Checking for anaerobes, further studies to follow. 11/29/20 13:07 Gram Stain - Final Wound - Heel Wound Culture - Final Proteus mirabilis Enterococcus faecalis Anaerobic Culture - Preliminary Checking for anaerobes, further studies to follow. 11/29/20 13:07 Gram Stain - Final Bone - Left Foot Wound Culture - Final Enterococcus faecalis Anaerobic Culture - Preliminary Checking for anaerobes, further studies to follow. 11/29/20 13:07 Gram Stain - Final Bone - Ankle Wound Culture - Preliminary Sphingomonas paucimobilis Anaerobic Culture - Preliminary No growth in 48 hours. 12/03/20 02:40 Stool Occult Blood (MICHAEL) - Final Stool Microbiology 11/27/20 07:45 Wound - Sacral Gram Stain - Final 11/27/20 07:45 Wound - Sacral Wound Culture - Final Proteus mirabilis 11/27/20 07:45 Wound - Sacral Anaerobic Culture - Preliminary Checking for anaerobes, further studies to follow. 11/29/20 13:07 Wound - Heel Gram Stain - Final 11/29/20 13:07 Wound - Heel Wound Culture - Final Proteus mirabilis Enterococcus faecalis 11/29/20 13:07 Wound - Heel Anaerobic Culture - Preliminary Checking for anaerobes, further studies to follow. 11/29/20 13:07 Bone - Left Foot Gram Stain - Final 11/29/20 13:07 Bone - Left Foot Wound Culture - Final Enterococcus faecalis 11/29/20 13:07 Bone - Left Foot Anaerobic Culture - Preliminary Checking for anaerobes, further studies to follow. 11/29/20 13:07 Bone - Ankle Gram Stain - Final 11/29/20 13:07 Bone - Ankle Wound Culture - Preliminary Sphingomonas paucimobilis 11/29/20 13:07 Bone - Ankle Anaerobic Culture - Preliminary No growth in 48 hours. 12/03/20 02:40 Stool Stool Occult Blood (MICHAEL) - Final 11/27/20 07:45 Wound - Leg, Left Gram Stain - Final 11/27/20 07:45 Wound - Leg, Left Wound Culture - Final Proteus mirabilis Staphylococcus aureus 11/27/20 07:45 Wound - Leg, Left Anaerobic Culture - Final Anaerobic cocci Bacteroides fragilis 11/29/20 13:07 Wound - Leg, Left Gram Stain - Final 11/29/20 13:07 Wound - Leg, Left Wound Culture - Final No growth aerobically. 11/29/20 13:07 Wound - Leg, Left Anaerobic Culture - Preliminary No growth in 48 hours. 11/26/20 22:25 Wound - Heel Right Gram Stain - Final 11/26/20 22:25 Wound - Heel Right Wound Culture - Final Proteus mirabilis 11/26/20 22:25 Wound - Heel Right Anaerobic Culture - Final Anaerobic cocci Bacteroides fragilis Gram positive joseluis Prevotella disiens 11/26/20 16:25 Blood Culture (Wb) - Anticubital Left Blood Culture - Final No growth in 5 days. 11/29/20 13:07 Bone - Right Foot Gram Stain - Final 11/29/20 13:07 Bone - Right Foot Wound Culture - Final Proteus mirabilis 11/29/20 13:07 Bone - Right Foot Anaerobic Culture - Preliminary No growth in 48 hours. 11/28/20 04:20 Mucosa - Nose SARS-CoV-2 Antigen (Rapid) - Final D/C Instructions Please follow up with your Primary Care Physician in: within 1-2 weeks Please Follow Up With: Mohit Pantoja MD Meaningful Use Info Meaningful Use Diagnoses (Choose all that apply): None applicable Discharge Plan Admission Admit Date/Time: 11/26/20 18:55 Primary Reason for Your Visit: Bilateral lower extremity wounds Attending Provider: Batsheva Hernandez Primary Care Provider: Marlon Chiang Consulting Providers: Toan Garcia ; Mohit Pantoja ; Nishant Hansen ; Gino Collado ; Jason Delgado ; Clay Gaming ; Wendy Ayon Instructions Additional Instructions / Restrictions: Keep heels offloaded at all times; float heels over stacked pillows or blankets to float in the air. Wound vac continuous (150 mmHg) three times per week to bilateral heel ulcers and left leg ulcer. Aquacel Ag and gauze dressing change to medial proximal left leg ulcer daily. Wash limbs with antibacterial soap and water prior to each wound vac application. Cleanse sacral wound daily with NS or soap and water. pat dry. place Dakins moistened gauze and cover with dry dressing. change daily and prn. Follow up at the wound healing center within one week of discharge; call to confirm appointment at [phone]. Follow up with infectious disease and vascular specialist as advised also. Discharge Orders/Prescriptions Prescriptions: New meropenem 1 gram Recon Soln 1 g IV Q12 Qty: 1 RF: 0 Eliquis 2.5 mg Tablet 2.5 mg PO BID Qty: 60 RF: 0 pantoprazole 40 mg Tablet,Delayed Release (Dr/Ec) 40 mg PO DAILY Qty: 30 RF: 0 meropenem 1 gram recon soln 1 g IV Q12H Qty: 80 RF: 0 Continued hydrocodone-acetaminophen 1 TABLET tablet 1 - 2 tablet PO Q6H PRN PRN (Reason: Pain) RF: 0 amlodipine 5 MG tablet 5 mg PO DAILY RF: 0 ferrous sulfate 325 MG tablet 325 mg PO DAILY RF: 0 mirtazapine 15 MG tablet 15 mg PO QHS RF: 0 insulin lispro 100 UNIT/ML insulin pen See Protocol unit SQ TIDCM RF: 0 lidocaine 1 APPLIC ointment 1 applic TOPICAL MOWEFR RF: 0 arginine-vitamin C-vitamin E 1 EACH powder in packet 1 each PO BID RF: 0 clopidogrel 75 mg Tablet 75 mg PO DAILY RF: 0 Santyl 250 unit/gram Ointment 1 applic TOPICAL DAILY RF: 0 acetaminophen 325 mg Capsule 650 mg PO Q4H PRN (Reason: Pain) RF: 0 Dakin's Solution 0.125 % Solution 1 applic TOPICAL DINNER RF: 0 Discontinued hydroxyzine HCl 25 MG tablet 25 mg PO Q6H PRN (Reason: Itching) RF: 0 furosemide 20 MG tablet 20 mg PO DAILY RF: 0 lisinopril 40 mg Tablet 40 mg PO DAILY RF: 0 Referrals: Marlon Chiang MD [Primary Care Provider] - Gino Collado MD [STAFF PHYSICIAN] - (in 2 weeks) Wendy Ayon DPM [STAFF PHYSICIAN] - (as scheduled) Disposition Patient Disposition: Detention Facility Inpatient E&M: [id number] [facility]
--- NOTE | 2020-12-03 16:21 | CASEMGMT ---
Patient is ready for discharge to [facility]. FOREIGN notified Fallon with [facility]. FOREIGN put green sheet on chart with instructions for d/c to [facility]. Plan: d/c to [facility] under skilled level of care. Dena ROMERO
[2020-12-03 16:35] LABS: Bedside Glucose 181 mg/dL (70-110)
--- NOTE | 2020-12-03 18:29 | NURSING ---
Wound vac removed and wet to dry dressing applied to legs bilaterally, wound vac placed in soiled utility and [facility] notified of removal.
[2020-12-03 19:56] VITALS: BP 115/52; PULSE 69; RESP 14; TEMP 37; O2SAT 97
== END 2020-12-03 20:45 | disposition skilled nursing facility (03) | DRG 710 ==
LOC: ED 16:39 → MS3 19:41 → ICU 11-29 14:56 → PCU 11-30 14:46
PROVIDERS: Anesthesiology; Family Medicine; Internal Medicine; Internal Medicine Critical Care Medicine; Podiatrist; Admitting Provider Student in an Organized Health Care Education/Training Program; Emergency Provider Student in an Organized Health Care Education/Training Program; PCP Family Medicine; Visit Provider Internal Medicine
PROC: 0QBM0ZZ Excision of Left Tarsal, Open Approach (ICD-10-PCS; principal; 2020-11-29 09:30)
DX: A41.9 Sepsis, unspecified organism (principal); L97.812 Non-pressure chronic ulcer of other part of right lower leg with fat layer exposed; L97.922 Non-pressure chronic ulcer of unspecified part of left lower leg with fat layer exposed; L89.159 Pressure ulcer of sacral region, unspecified stage; L97.823 Non-pressure chronic ulcer of other part of left lower leg with necrosis of muscle; L97.422 Non-pressure chronic ulcer of left heel and midfoot with fat layer exposed; L97.412 Non-pressure chronic ulcer of right heel and midfoot with fat layer exposed; M86.272 Subacute osteomyelitis, left ankle and foot; E87.5 Hyperkalemia; N18.32 Chronic kidney disease, stage 3b; B96.4 Proteus (mirabilis) (morganii) as the cause of diseases classified elsewhere; I49.3 Ventricular premature depolarization; D63.1 Anemia in chronic kidney disease; M86.18 Other acute osteomyelitis, other site; B95.2 Enterococcus as the cause of diseases classified elsewhere; I48.91 Unspecified atrial fibrillation; J95.821 Acute postprocedural respiratory failure; E11.69 Type 2 diabetes mellitus with other specified complication; E11.22 Type 2 diabetes mellitus with diabetic chronic kidney disease; E11.622 Type 2 diabetes mellitus with other skin ulcer; M86.672 Other chronic osteomyelitis, left ankle and foot; M86.671 Other chronic osteomyelitis, right ankle and foot; M86.68 Other chronic osteomyelitis, other site; E11.51 Type 2 diabetes mellitus with diabetic peripheral angiopathy without gangrene; I77.1 Stricture of artery; E46 Unspecified protein-calorie malnutrition; N17.0 Acute kidney failure with tubular necrosis; D62 Acute posthemorrhagic anemia; E83.42 Hypomagnesemia; N13.30 Unspecified hydronephrosis; E87.6 Hypokalemia; F32.9 Major depressive disorder, single episode, unspecified; I12.9 Hypertensive chronic kidney disease with stage 1 through stage 4 chronic kidney disease, or unspecified chronic kidney disease; K21.9 Gastro-esophageal reflux disease without esophagitis; I25.2 Old myocardial infarction; F41.9 Anxiety disorder, unspecified; E78.00 Pure hypercholesterolemia, unspecified; N28.1 Cyst of kidney, acquired; Z66 Do not resuscitate; Z68.1 Body mass index [BMI] 19.9 or less, adult; Z79.899 Other long term (current) drug therapy; Z87.891 Personal history of nicotine dependence; Z79.4 Long term (current) use of insulin; Z86.718 Personal history of other venous thrombosis and embolism; Z78.0 Asymptomatic menopausal state
CPT/HCPCS: 36415; 36600; 71045; 73590; 73610; 73630; 73718; 73721; 76705; 76770; 80048; 80053; 80076; 80202; 82274; 82550; 82803; 82962; 82977; 83036; 83605; 83735; 84100; 84443; 84478; 84484; 85014; 85018; 85025; 85027; 85610; 85652; 85730; 86140; 86850; 86900; 86901; 86920; 86922; 87015; 87040; 87070; 87075; 87077; 87102; 87116; 87176; 87186; 87205; 87206; 87426; 87640; 88304; 88307; 88311; 88312; 93005; 93306; 93922; 93925; 94002; 94003; 94660; 97110; 97162; 97166; 97530; 97535; 97802; 97803; 99251; 99285; J2185; J7030; J7040; J7050; P9016; A4216; G0463; J0610; J2405; J3010

== ENCOUNTER 2020-12-15 16:08 | Emergency (ER) | payer MEDICAID, SELFPAY ==
[2020-11-29 08:56] VITALS: BMI 20.9
[2020-12-15] VITALS (7 sets, daily range): BP systolic 142–162; BP diastolic 59–94; PULSE 76–99; RESP 14–19; TEMP 37–37.2; O2SAT 94–100; BMI 30.5
--- NOTE | 2020-12-15 16:44 | EDS_ITS ---
HPI History of Present Illness Chief Complaint: Abn Labs Informant: patient and EMS Onset/Context/Timing Onset: Today Current Severity: Mild Maximum Severity: Mild Narrative Narrative: The patient is a 75-year-old female with history of anemia, dementia, DVT, who presents to the emergency department with low hemoglobin. The patient recently had a prolonged hospitalization. She has been at a [place] [facility] facility. They did her blood work today. She was found to have a hemoglobin of 7. There is been no report of bleeding. History is hard to gather from the patient as she is a poor informant. She does have bilateral heel dressings with wound VAC. She also has an indwelling Maldonado. Prior similar symptoms: Yes Recent Illness/Hospitalization: Yes PFSH PFSH Home Medications Triamcinolone 0.1% Cream [Kenalog] 1 applic TOPICAL BID 10/24/20 [History Last Taken Unknown] amlodipine 5 mg PO DAILY 10/24/20 [History Last Taken Unknown] clopidogrel 75 mg PO DAILY 10/24/20 [History Last Taken Unknown] ferrous sulfate 325 mg PO DAILY 10/24/20 [History Last Taken Unknown] hydrocodone-acetaminophen 1 - 2 tablet PO Q6H PRN PRN 10/24/20 [History Last Taken Unknown] mirtazapine 15 mg PO QHS 10/24/20 [History Last Taken Unknown] sertraline 50 mg PO DAILY 10/24/20 [History Last Taken Unknown] arginine-vitamin C-vitamin E 1 each PO BID 11/26/20 [History Last Taken 11/26/20] insulin lispro See Protocol SQ TIDCM 11/26/20 [History Last Taken 11/26/20] lidocaine 1 applic TOPICAL MOWEFR 11/26/20 [History Last Taken 11/26/20] Dakin's Solution 1 applic TOPICAL DINNER 12/02/20 [History Last Taken Unknown] Santyl 1 applic TOPICAL DAILY 12/02/20 [History Last Taken Unknown] acetaminophen 650 mg PO Q4H PRN 12/02/20 [History Last Taken Unknown] apixaban [Eliquis] 2.5 mg PO BID #60 tab 12/02/20 [Rx Last Taken Unknown] meropenem 1 g IV Q12 #1 ea 12/02/20 [Rx Last Taken Unknown] pantoprazole 40 mg PO DAILY #30 tab 12/02/20 [Rx Last Taken Unknown] cholecalciferol (vitamin D3) 1,250 mcg PO QWEEK 12/15/20 [History Last Taken Unk nown] gabapentin 100 mg PO BID 12/15/20 [History Last Taken Unknown] lorazepam 0.5 mg PO DAILY 12/15/20 [History Last Taken Unknown] Allergy/AdvReac Type Severity Reaction Status Date / Time clindamycin Allergy PT UNSURE Verified 12/15/20 16:27 OF REACTION diphenhydramine Allergy PT UNSURE Verified 12/15/20 16:27 [From Benadryl] OF REACTION doxycycline Allergy PT UNSURE Verified 12/15/20 16:27 OF REACTION erythromycin base Allergy PT UNSURE Verified 12/15/20 16:27 OF REACTION levofloxacin [From Levaquin] Allergy PT UNSURE Verified 12/15/20 16:27 OF REACTION metformin Allergy PT UNSURE Verified 12/15/20 16:27 OF REACTION Penicillins Allergy PT UNSURE Verified 12/15/20 16:27 OF REACTION Sulfa (Sulfonamide Allergy PT UNSURE Verified 12/15/20 16:27 Antibiotics) OF REACTION no significant family history Social History Smoking Status: Former smoker ROS ROS ED Constitutional Constitutional ED: Denies chills or fever(s) Eyes Eyes: Denies blurry vision or change in vision ENT ENT ED: Denies ear pain or sore throat Cardiovascular Cardiovascular: Denies chest pain or palpitations Respiratory/Chest Respiratory/Chest: Denies cough, dyspnea or dyspnea on exertion Gastrointestinal Gastrointestinal: Denies abdominal pain, nausea or vomiting Genitourinary Genitourinary ED: Denies dysuria or urinary frequency Musculoskeletal Musculoskeletal: Denies arthralgias or myalgias Integumentary Denies rash Neurologic Neurologic: Denies headache(s) or paresthesias Psychiatric Psychiatric: Denies anxiety or depression Endocrine Endocrinology: Denies polydipsia or polyuria Allergic/Immunologic Allergic/Immunologic ED: Denies urticaria EXAM Physical Exam Const Vital Signs: 12/15/20 16:10 12/15/20 16:14 12/15/20 18:17 Temperature 98.6 F Temperature Source Temporal Pulse Rate 99 87 Respiratory Rate 18 14 Respiratory Effort Normal Non-Labored Respiratory Pattern Normal Blood Pressure 162/72 H 151/72 H Blood Pressure Mean 102 98 Pulse Ox 97 94 Oxygen Delivery Method Room Air Nasal Cannula Oxygen Flow Rate (L/min) 2 Positive well nourished and well developed General Appearance ED: well developed HEENT Reports normocephalic, head/scalp atraumatic and moist mucous membranes Eyes PERRL and EOMs intact bilaterally Neck no lymphadenopathy and supple General: Negative for tenderness Chest Wall inspection of chest normal Resp normal respiratory effort and clear to auscultation bilaterally Cardio regular rate, regular rhythm and no murmurs GI normal to inspection, nondistended, normoactive bowel sounds Palpation: Negative for tender, guarding or rebound tenderness present Back/Spine no CVA tenderness Cervical Spine: Negative for cervical spine tenderness Thoracic Spine / Upper Back: Negative for thoracic spinal tenderness Extremity normal to inspection General Extremety ED: Negative for tenderness Neuro oriented x3 and CN's II-XII intact bilaterally Neuro Narrative: No focal deficits appreciated. Sensorium / Orientation: alert Psych mental status grossly normal Skin skin turgor normal Skin Narrative: Chronic skin breakdown bilateral heels. No active bleeding. MDM MDM MDM Narrative Medical decision making narrative: The patient presents to the emergency department with a symptomatic anemia. She had similar presentation when she was recently hospitalized. She is on anticoagulants. She has no evidence of active bleeding. Labs were obtained. Her hemoglobin is 7.1. Was 7.8 on discharge. She does have underlying chronic kidney disease. She denies any pain or shortness of breath. This time, the patient be given 1 unit of red blood cells. I do feel that she can safely be transitioned back to her [place] [facility] facility. I have discussed this with her physician Dr. Fatima who takes care of her and agrees with plan. Impression 1. Anemia Lab Data Attestation: I reviewed the patient's lab results. Labs: Laboratory Results - last 24 hr 12/15/20 12/15/20 12/15/20 16:35 16:35 16:35 WBC 8.0 RBC 2.61 L Hgb 7.1 L Hct 24.4 L MCV 93.5 MCH 27.2 MCHC 29.1 L RDW Std Deviation 54.6 H RDW Coeff of Charles 15.9 H Plt Count 260 MPV 10.8 Immature Gran % (Auto) 0.400 Neut % (Auto) 45.1 L Lymph % (Auto) 23.9 [place] % (Auto) 5.3 Eos % (Auto) 24.4 H Baso % (Auto) 0.9 Absolute Neuts (auto) 3.6 Absolute Lymphs (auto) 1.92 Nucleated RBC % 0 Differential Comment SCANNED Diff Path Review May foll PT 13.9 INR 1.1 Sodium 144 Potassium 4.8 Chloride 114 H Carbon Dioxide 25.0 Anion Gap 5 BUN 36 H Creatinine 1.68 H Estim Creat Clear Calc 21.42 Est GFR (MDRD) Af Amer 38 L Est GFR (MDRD) Non-Af 32 L BUN/Creatinine Ratio 21.4 H Glucose 111 H Calcium 8.2 L Total Bilirubin 0.40 AST 67 H ALT 21 Alkaline Phosphatase 844 H Total Protein 5.6 L Albumin 1.5 L Globulin 4.1 Albumin/Globulin Ratio 0.4 L Blood Type Antibody Screen Crossmatch 12/15/20 12/15/20 12/15/20 17:00 17:00 17:00 WBC RBC Hgb Hct MCV MCH MCHC RDW Std Deviation RDW Coeff of Charles Plt Count MPV Immature Gran % (Auto) Neut % (Auto) Lymph % (Auto) [place] % (Auto) Eos % (Auto) Baso % (Auto) Absolute Neuts (auto) Absolute Lymphs (auto) Nucleated RBC % Differential Comment Diff Path Review PT INR Sodium Potassium Chloride Carbon Dioxide Anion Gap BUN Creatinine Estim Creat Clear Calc Est GFR (MDRD) Af Amer Est GFR (MDRD) Non-Af BUN/Creatinine Ratio Glucose Calcium Total Bilirubin AST ALT Alkaline Phosphatase Total Protein Albumin Globulin Albumin/Globulin Ratio Blood Type O POSITIVE Antibody Screen TNP NEGATIVE Crossmatch See Detail Discharge Plan Triage Chief Complaint: Abn Labs ED Provider: Justen Herrmann Dx/Rx/DC Orders Instructions: ED Anemia, Type Not Specified (Adult) Prescriptions: No Action hydrocodone-acetaminophen 1 TABLET tablet 1 - 2 tablet PO Q6H PRN PRN (Reason: Pain) RF: 0 clopidogrel 75 MG tablet 75 mg PO DAILY RF: 0 amlodipine 5 MG tablet 5 mg PO DAILY RF: 0 ferrous sulfate 325 MG tablet 325 mg PO DAILY RF: 0 sertraline 25 MG tablet 50 mg PO DAILY RF: 0 mirtazapine 15 MG tablet 15 mg PO QHS RF: 0 Triamcinolone 0.1% Cream [Kenalog] 1 APPLIC Tube 1 applic TOPICAL BID RF: 0 insulin lispro 100 UNIT/ML insulin pen See Protocol unit SQ TIDCM RF: 0 lidocaine 1 APPLIC ointment 1 applic TOPICAL MOWEFR RF: 0 arginine-vitamin C-vitamin E 1 EACH powder in packet 1 each PO BID RF: 0 Santyl 250 unit/gram Ointment 1 applic TOPICAL DAILY RF: 0 acetaminophen 325 mg Capsule 650 mg PO Q4H PRN (Reason: Pain) RF: 0 Dakin's Solution 0.125 % Solution 1 applic TOPICAL DINNER RF: 0 meropenem 1 gram Recon Soln 1 g IV Q12 Qty: 1 RF: 0 Eliquis 2.5 mg Tablet 2.5 mg PO BID Qty: 60 RF: 0 pantoprazole 40 mg Tablet,Delayed Release (Dr/Ec) 40 mg PO DAILY Qty: 30 RF: 0 lorazepam 0.5 mg Tablet 0.5 mg PO DAILY RF: 0 gabapentin 100 mg Tablet 100 mg PO BID RF: 0 cholecalciferol (vitamin D3) 1,250 mcg (50,000 unit) Capsule 1,250 mcg PO QWEEK RF: 0 Primary Care Provider: Jeremiah Fatima Referrals: Jeremiah Fatima MD [Primary Care Provider] -
[2020-12-15 17:17] LABS: Absolute Lymphocyte Count 1.92 X10^3/uL (0.83-4.51); Absolute Neutrophil Count 3.6 X10^3/uL (2.0-7.7); Basophil# 0.07 X10^3/uL; Basophil% 0.9 % (0-1); Eosinophil# 1.96 X10^3/uL; Eosinophils% 24.4 % (0-5); Hematocrit 24.4 % (37-47); Hemoglobin 7.1 g/dL (12.0-15.0); Lymphocyte # 1.92 X10^3/ul (0.83-4.51); Lymphocyte % 23.9 % (19-41); Mean Corp Hgb Conc 29.1 g/dL (32-36); Mean Corpuscular Hgb 27.2 pg (27.0-32.0); Mean Corpuscular Volume 93.5 fL (81-99); Mean Platelet Vol. 10.8 fl (6.2-12.0); Monocyte# 0.43 X10^3/uL; Monocyte% 5.3 % (0-10); NRBC Flagged by Analyzer 0 % (0-5); Neutrophil # 3.63 X10^3/uL (2.7-7.7); Neutrophil % 45.1 % (47-70); Platelet Count 260 K/mm3 (150-450); RBC Distribution Width CV 15.9 % (11.6-14.6); RBC Distribution Width SD 54.6 fl (35.1-43.9); Red Blood Count 2.61 M/mm3 (4.2-5.4)
[2020-12-15 17:23] LABS: International Normalized Ratio 1.1; Prothrombin Time (Protime)PT. 13.9 SECONDS (11.7-14.9)
[2020-12-15 17:27] LABS: ALB/GLOB Ratio 0.4 RATIO (0.9-2.4); AST(SGOT) 67 U/L (15-37); Alanine Aminotransfer ALT/SGPT 21 U/L (13-56); Albumin, Serum 1.5 g/dL (3.2-5.0); Alkaline Phosphatase 844 U/L (45-117); Anion Gap 5 (5-15); BUN 36 mg/dL (7-18); BUN/Creat Ratio 21.4 RATIO (10-20); Calcium,Total 8.2 mg/dL (8.5-10.1); Chloride 114 mmol/L (98-107); Creatinine, Serum 1.68 mg/dL (0.55-1.02); EST Glomerular Filtration Rate 32 mL/min (>60); Est Glom Filt Rate - Afr Amer 38 mL/min (>60); Estimated Creatinine Clearance 21.42 ml/min; Globulin 4.1 g/dL (2.2-4.2); Glucose 111 mg/dL (74-106); Potassium 4.8 mmol/L (3.5-5.1); Protein, Total 5.6 g/dL (6.4-8.2); Sodium Level 144 mmol/L (136-145)
[2020-12-15 17:44] LABS: Differential Indicated SCAN CRITERIA MET
[2020-12-15 17:45] LABS: Differential Comment SCANNED
--- NOTE | 2020-12-15 19:56 | ED.RN ---
VERBAL CONSENT TO ADMINISTER BLOOD PRODUCTS OBTAINED FROM [facility] PER PHONE CALL. ALL QUESTIONS ANSWERED REGARDING PLAN OF CARE WHILE IN ED.
--- NOTE | 2020-12-15 20:18 | ED.RN ---
TRANSPORT SCHEDULED FOR [address] [employer]
[2020-12-16 14:28] LABS: Pathologist Review Reviewed
== END 2020-12-16 01:00 | disposition skilled nursing facility (03) ==
PROVIDERS: Emergency Provider Emergency Medicine; PCP Family Medicine
DX: D64.9 Anemia, unspecified (principal); F03.90 Unspecified dementia, unspecified severity, without behavioral disturbance, psychotic disturbance, mood disturbance, and anxiety; Z86.718 Personal history of other venous thrombosis and embolism; Z79.01 Long term (current) use of anticoagulants; Z79.899 Other long term (current) drug therapy; Z87.891 Personal history of nicotine dependence
CPT/HCPCS: 36592; 80053; 85025; 85610; 86850; 86900; 86901; 86920; 99285; J7040; P9016; A4216

== ENCOUNTER 2020-12-24 13:01 | Outpatient (RCR) | payer MEDICAID, SELFPAY ==
[2020-11-29 08:56] VITALS: BMI 20.9
[2020-12-15 16:10] VITALS: BMI 30.5
[2020-12-24 14:11] VITALS: BP 70/47; PULSE 93; RESP 18; TEMP 36.2; BMI 22.8
--- NOTE | 2020-12-24 22:23 | PN.PCM_ITS ---
History of Present Illness Date of Service: 12/27/20 Chief Complaint: bilateral heels and ankles and left leg History of Wound: Mago is a 75 yo woman who presents to the wound healing center for treatment of multiple ulcers. She is currently residing at [facility] in [place], [place]. She has been seen here in past for venous ulcers of her lower extremities. Her last visit was in June 2020 for edema and ulcers of her lower legs. She was recently seen at [facility] and underwent operating room debridement with Dr. Garcia for infected ulcers and osteomyelitis. She is also treated by infectious disease specialist, Dr. Pantoja. She is been having wound VAC changes performed every few days at the [facility]. It is reported that she has noncompliant and her dementia may be contributing to this. She was also recently evaluated by vascular surgery. She denies fever, chill, nausea, vomiting. She is apprehensive about her evaluation and dressing application today. Progress of Wound: Improved compared to her last hospital admission evaluation Objective Data Objective Data Vital Signs: Vital Signs Temp Pulse Resp BP 97.2 F L 93 18 70/47 L 12/24/20 14:11 12/24/20 14:11 12/24/20 14:11 12/24/20 14:11 Weight: 68.353 kg Body Mass Index (BMI) 22.8 Physical Exam Const alert and oriented x3 General Appearance: cooperative HEENT normocephalic Extremity Extremity Narrative: No calf tenderness Diminished pulses Muscle wasting noted General Extremity: edema and no tenderness to palpation of joints or extremities; Negative for cyanosis Skin Skin Narrative: no purulence, no streaking, no odor, no infection. Ulcers have improvement with granular base and exposed calcaneus left noted. There is no eschar or necrosis in any of the ulcer sites. There is continued exposure of left peroneal tendons that appear white and healthy. There is no bogginess or fluctuance noted bilateral General Skin Exam: Negative for erythema Neuro Neuro Narrative: lack of normal epicritic sensation via light touch is consistent with neuropathy status Psych cooperative and affect normal Debridement Note Debridement Note Post-Debridement Measurements and Additional Note: Post-Debridement Measurements/Treatment KELLEE - Nurse 1 - General Ulcer Assessment Start: 12/24/20 13:31 Freq: Status: Active Protocol: EREN Activity Type Activity Date Activity User E-Sign Co-Sign Detail Recorded Client Recorded Date Recorded By Document 12/24/20 14:11 [id number] 12/24/20 14:12 12/24/20 14:11 WC - Today's Visit Information Type of service Initial Visit Arrival Mode Wheelchair Transfer Assistance None Patient Identification Verified (Name & Yes ) Patient Requires Transmission-Based No Precautions Height and Weight Height 5 ft 8 in Weight 68.353 kg Weight in Pounds 150.7 lbs Body Mass Index (BMI) 22.8 BMI Classification Normal BSA - Alec 1.81 Vital Signs Temperature (97.8 F-99.1 F) 97.2 F L Temperature Source Temporal Pulse Rate (60-100) 93 Pulse Location Monitor Respiratory Rate (12-18) 18 Respiratory rate source Observation Blood Pressure (90/60-120/80) 70/47 L Blood Pressure Mean (mm Hg) 54 Source Monitor Position Sitting Blood Pressure Location Left Arm History Since Last Visit- (Skip if this is Patient's initial visit) Have you changed medications since your No last visit? Any new allergies or adverse reactions No Had a fall/change in ADL's that may No increase risk of falls Signs or symptoms of abuse and/or No neglect since last visit Have you been in the hospital since your No last visit? Has dressing in place as prescribed Yes Has compression in place as prescribed Yes Has offloadiing in place as prescribed No Experienced any changes in pain level or No management Pain Scale: 0-10 Numeric Is Patient Pain Free? Yes - Nurse 1 - General Ulcer Measurement Start: 12/24/20 13:31 Freq: Status: Active Protocol: Activity Type Activity Date Activity User E-Sign Co-Sign Detail Recorded Client Recorded Date Recorded By Document 12/24/20 13:36 [id number] 12/24/20 14:11 12/24/20 13:36 Wound Center Nurse 1 16. L lateral rodriguez -Combined with other wound No -Current Size (cm) - Length 6 -Current Size (cm) - Width 3.5 -Current Size (cm) - Depth 0.5 -Total Square Cm 21.0 -Tunneling No -Undermining/Tunneling No -Circular Undermining No -Exudate Amt Medium -Exudate Type Serosanguineous -Wound Margin Distinct, Outline Attached -Granulation Amt Small (1-33%) -Granulation Quality [place] -Slough/Fibrin Yes -Necrosis Amt Large (67-100%) -Necrotic Tissue Type Adherent Slough -Structure Exposed Tendon,Bone -Texture (Gaye-wound Skin Appearance) Assessed, Excoriation, Scarring -Moisture (Gaye-wound Skin Appearance) Assessed -Color (Gaye-wound Skin Appearance) Assessed -Temperature (Gaye-wound Skin No Abnormality Appearance) (Pt Warm) -Tenderness on Palpation (Gaye-wound No Skin Appearance) -Ulcer Cleansing Wound Cleanser -Foul Odor after Cleansing No -Anesthetic Used 4% Lidocaine Solution 15. L medial rodriguez cluster -Combined with other wound No -Current Size (cm) - Length 13.5 -Current Size (cm) - Width 5.2 -Current Size (cm) - Depth 0.4 -Total Square Cm 70.20 -Tunneling No -Undermining/Tunneling No -Circular Undermining No -Exudate Amt Medium -Exudate Type Serosanguineous -Wound Margin Flat & Intact -Granulation Amt Medium (34-66%) -Granulation Quality [place] -Slough/Fibrin Yes -Necrosis Amt Small (1-33%) -Necrotic Tissue Type Adherent Slough -Structure Exposed N/A -Texture (Gaye-wound Skin Appearance) Assessed, Excoriation -Moisture (Gaye-wound Skin Appearance) Assessed -Color (Gaye-wound Skin Appearance) Assessed -Temperature (Gaye-wound Skin No Abnormality Appearance) (Pt Warm) -Tenderness on Palpation (Gaye-wound No Skin Appearance) -Ulcer Cleansing Wound Cleanser -Foul Odor after Cleansing No -Anesthetic Used 4% Lidocaine Solution 14. L lateral ankle -Combined with other wound No -Current Size (cm) - Length 3.6 -Current Size (cm) - Width 2 -Current Size (cm) - Depth 0.5 -Total Square Cm 7.2 -Tunneling No -Undermining/Tunneling No -Circular Undermining No -Exudate Amt Medium -Exudate Type Serosanguineous -Wound Margin Flat & Intact -Granulation Amt Medium (34-66%) -Granulation Quality [place] -Slough/Fibrin Yes -Necrosis Amt Medium (34-66%) -Necrotic Tissue Type Adherent Slough -Structure Exposed N/A -Texture (Gaye-wound Skin Appearance) Excoriation -Moisture (Gaye-wound Skin Appearance) Assessed -Color (Gaye-wound Skin Appearance) Assessed -Temperature (Gaye-wound Skin No Abnormality Appearance) (Pt Warm) -Tenderness on Palpation (Gaye-wound No Skin Appearance) -Ulcer Cleansing Wound Cleanser -Foul Odor after Cleansing No -Anesthetic Used 4% Lidocaine Solution 13. L heel -Combined with other wound No -Current Size (cm) - Length 7 -Current Size (cm) - Width 4 -Current Size (cm) - Depth 0.7 -Total Square Cm 28 -Tunneling No -Undermining/Tunneling No -Circular Undermining No -Exudate Amt Medium -Exudate Type Serosanguineous -Wound Margin Flat & Intact -Granulation Amt Medium (34-66%) -Granulation Quality [place],Red -Slough/Fibrin Yes -Necrosis Amt Large (67-100%) -Necrotic Tissue Type Adherent Slough -Structure Exposed N/A -Texture (Gaye-wound Skin Appearance) Assessed, Scarring -Moisture (Gaye-wound Skin Appearance) Assessed -Color (Gaye-wound Skin Appearance) Assessed -Temperature (Gaye-wound Skin No Abnormality Appearance) (Pt Warm) -Tenderness on Palpation (Gaye-wound No Skin Appearance) -Ulcer Cleansing Wound Cleanser -Foul Odor after Cleansing No -Anesthetic Used 4% Lidocaine Solution 12. L anterior ankle -Combined with other wound No -Current Size (cm) - Length 1.5 -Current Size (cm) - Width 2.5 -Current Size (cm) - Depth 0.1 -Total Square Cm 3.75 -Tunneling No -Undermining/Tunneling No -Circular Undermining No -Exudate Amt Small -Exudate Type Serosanguineous -Wound Margin Flat & Intact -Granulation Amt Medium (34-66%) -Granulation Quality [place] -Slough/Fibrin Yes -Necrosis Amt Medium (34-66%) -Necrotic Tissue Type Adherent Slough -Structure Exposed N/A -Texture (Gaye-wound Skin Appearance) Assessed, Excoriation, Scarring -Moisture (Gaye-wound Skin Appearance) Assessed -Color (Gaye-wound Skin Appearance) Assessed -Temperature (Gaye-wound Skin No Abnormality Appearance) (Pt Warm) -Tenderness on Palpation (Gaye-wound No Skin Appearance) -Ulcer Cleansing Wound Cleanser -Foul Odor after Cleansing No -Anesthetic Used 4% Lidocaine Solution 11. R lateral ankle -Combined with other wound No -Current Size (cm) - Length 2.5 -Current Size (cm) - Width 3.3 -Current Size (cm) - Depth 0.6 -Total Square Cm 8.25 -Tunneling No -Undermining/Tunneling No -Circular Undermining No -Exudate Amt Large -Exudate Type Serosanguineous -Wound Margin Flat & Intact -Granulation Amt Medium (34-66%) -Granulation Quality [place] -Slough/Fibrin Yes -Necrosis Amt Medium (34-66%) -Necrotic Tissue Type Adherent Slough -Structure Exposed N/A -Texture (Gaye-wound Skin Appearance) Assessed, Scarring -Moisture (Gaye-wound Skin Appearance) Assessed -Color (Gaye-wound Skin Appearance) Assessed -Temperature (Gaye-wound Skin No Abnormality Appearance) (Pt Warm) -Tenderness on Palpation (Gaye-wound No Skin Appearance) -Ulcer Cleansing Wound Cleanser -Anesthetic Used 4% Lidocaine Solution WC - Nurse 2 - General Ulcer CM Notes Start: 12/24/20 13:31 Freq: Status: Active Protocol: Activity Type Activity Date Activity User E-Sign Co-Sign Detail Recorded Client Recorded Date Recorded By Document 12/24/20 14:21 VEGA [id number] 12/24/20 14:31 VEGA 12/24/20 14:21 Wound Center Nurse 2 16. L lateral rodriguez -Correct Patient No -Correct Side, Site, Position No -Correct Procedure No -Procedure Performed No -Wound/Ulcer Outcome Not Healed 15. L medial rodriguez cluster -Correct Patient No -Correct Side, Site, Position No -Correct Procedure No -Procedure Performed No -Wound/Ulcer Outcome Not Healed 14. L lateral ankle -Correct Patient No -Correct Side, Site, Position No -Correct Procedure No -Procedure Performed No -Wound/Ulcer Outcome Not Healed 13. L heel -Correct Patient No -Correct Side, Site, Position No -Correct Procedure No -Procedure Performed No -Wound/Ulcer Outcome Not Healed 12. L anterior ankle -Correct Patient No -Correct Side, Site, Position No -Correct Procedure No -Procedure Performed No -Wound/Ulcer Outcome Not Healed 11. R lateral ankle -Correct Patient No -Correct Side, Site, Position No -Correct Procedure No -Procedure Performed No -Wound/Ulcer Outcome Not Healed Pain Scale: 0-10 Numeric Is Patient Pain Free? Yes WC - Nurse 3 - General Ulcer D/C NN Start: 12/24/20 13:31 Freq: Status: Active Protocol: Activity Type Activity Date Activity User E-Sign Co-Sign Detail Recorded Client Recorded Date Recorded By Document 12/24/20 14:51 RB [id number] 12/24/20 14:55 RB 12/24/20 14:51 Wound Care Nurse 3 16. L lateral rodriguez -Ulcer Cleansing Wound Cleanser -Foul Odor after Cleansing No -Primary Dressing Applied Aquacel AG 4x4 -Primary Dressing Covered/Secured with Dry Gauze & Roll Gauze, Secured with Tape -Aquacel AG 4x4 1 15. L medial rodriguez cluster -Ulcer Cleansing Wound Cleanser -Foul Odor after Cleansing No -Primary Dressing Applied Aquacel AG 4x4 -Primary Dressing Covered/Secured with Dry Gauze & Roll Gauze, Secured with Tape -Other Covering [place] -Aquacel AG 4x4 1 14. L lateral ankle -Ulcer Cleansing Wound Cleanser -Foul Odor after Cleansing No -Other Dressing aquacel ag -Primary Dressing Covered/Secured with Dry Gauze & Roll Gauze, Secured with Tape -Other Covering [place] 13. L heel -Ulcer Cleansing Wound Cleanser -Foul Odor after Cleansing No -Other Dressing aquacel ag -Other Covering [place] 12. L anterior ankle -Ulcer Cleansing Wound Cleanser -Foul Odor after Cleansing No -Primary Dressing Applied Aquacel AG 4x4 -Other Dressing aqaucel ag -Primary Dressing Covered/Secured with Dry Gauze & Roll Gauze, Secured with Tape -Aquacel AG 4x4 1 11. R lateral ankle -Ulcer Cleansing Wound Cleanser -Negative Pressure Wound Therapy N/A -Other Dressing aquacel ag -Primary Dressing Covered/Secured with Dry Gauze & Roll Gauze, Secured with Tape -Other Covering [place] Pain Scale: 0-10 Numeric Is Patient Pain Free? Yes WC - Visit Discharge Discharge Condition Stable Ambulatory Status Wheelchair Facility Type Longterm Care Facility Orders Sent Yes Wound debrided: left heel, lateral ankle Wound Grade/Stage: 3 Depth: in the subcutaneous layer Patient tolerated procedure: - (debridement was not performed today) Assessment/Plan Assessment/Plan (1) Swelling of lower extremity: CODE(S): Code(s): M79.89 - Other specified soft tissue disorders (2) Edema of both lower legs: CODE(S): Code(s): R60.0 - Localized edema (3) Stage III pressure ulcer of right ankle: CODE(S): Code(s): L89.513 - Pressure ulcer of right ankle, stage 3 (4) Stage III pressure ulcer of left ankle: CODE(S): Code(s): L89.523 - Pressure ulcer of left ankle, stage 3 (5) Stage III pressure ulcer of left heel: CODE(S): Code(s): L89.623 - Pressure ulcer of left heel, stage 3 (6) Ulcer of left lower extremity with fat layer exposed: CODE(S): Code(s): L97.922 - Non-pressure chronic ulcer of unspecified part of left lower leg with fat layer exposed (7) Ulcer of left medial lower extremity with necrosis of muscle: CODE(S): Code(s): L97.823 - Non-pressure chronic ulcer of other part of left lower leg with nec rosis of muscle (8) Peripheral vascular disease: CODE(S): Code(s): I73.9 - Peripheral vascular disease, unspecified (9) Osteomyelitis of ankle and foot: CODE(S): Code(s): M86.9 - Osteomyelitis, unspecified PLAN: Procedure- Location: right ankle/heel grade 1 debridement was not performed today Procedure- Location: medial and lateral left leg grade 2 debridement was not performed today I reviewed and discussed her case today. Debridement was performed today as noted in the clinical panel to all of the ulcer sites. The following work up and care recommendations were made: Dressing: Aquacel Ag applied today. To resume wound VAC 150 mm continuous this upcoming Tuesday. Wash: Soap and water Offload: To hang ulcer limb sites over stacked pillows while in bed to reduce pressure. Vascular: She was evaluated by vascular surgery during her last hospital admission. Reviewed Dr. Collado's consultation recommendations. According to her noninvasive studies she should have adequate perfusion to heal the right lower extremity. If lack of healing is noted recannulization of the femoral artery on the left lower extremity will be considered. She is advised to follow-up with Dr. Collado within a few weeks. I recommend confirming that this is actually scheduled. It is noted the patient is nonambulatory and bypass surgery will not be considered. If continued nonhealing pursues after the a forementioned recommendations, amputations will be a consideration. Advanced tissue options: She would benefit from application of advanced wound healing products, for example TheraSkin donated cadaver skin. This will cover a widespread area and optimize ulcer healing. The patient communicates she is not sure she wants to proceed for this and would like to discuss this with her daughter prior to ordering this product. We will revisit this topic when she returns next clinic and if she is ready to proceed prior authorization will also be needed. The indications, benefits, anticipated application and healing management were reviewed. Edema: It is okay to use a Tubigrip. Infection: Local infection has resolved now that she is on IV antibiotics under the management of infectious disease. It is also noted she had surgical debridement with Dr. Garcia. She was diagnosed with osteomyelitis. She no longer has any necrosis clinically. Her surgical debridement was on 12-01-20. Her bone biopsy from left lateral ankle was negative for osteomyelitis. The left and right calcaneus bone biopsies were positive for osteomyelitis. She is on IV ceftriaxone and oral Omnicef with a stop date of 01-10-21. She has multiorganism growth and her case is complex. She will follow-up with infectious disease. Pain: Controlled with pain medication at senior living facility. Pre medication will be considered at follow up if debridement will be performed. Host factors: She is deteriorating from a medical standpoint. I recommend nutritional supplementation to optimize healing. Imaging and labs: Reviewed prior preoperative imaging studies including ankle x- rays. Her last white blood cell count on file was 8. It is noted her hemoglobin A1c is 6.7%. I answered all the patient's questions. To return to the wound healing center in 1 week or call sooner if the patient has any questions or concerns. Note: [employer] speech recognition last scourer software was used to create portions of this document. Sound-alike and misspelled words, as well as other last scourer errors may be contained in the documentation. The medical decision making level is moderate. There is noted moderate risk of morbidity after considering this treatment plan and diagnostic data. Considerations were given to prescription management, decisions regarding surgical options, or social determinants of health. The problems addressed require a moderate decision making level which includes one or more chronic illnesses (w/ exacerbation, progression, or side effects), two or more stable chronic illnesses, one undiagnosed new problem w/ uncertain prognosis, one acute illness with systemic symptoms, or one acute complicated injury.
== END 2021-01-05 23:59 | disposition home or self-care (01) ==
LOC: WC 13:01
PROVIDERS: PCP Family Medicine; Visit Provider Podiatrist
DX: L89.513 Pressure ulcer of right ankle, stage 3 (principal); L89.523 Pressure ulcer of left ankle, stage 3; L89.623 Pressure ulcer of left heel, stage 3; L97.823 Non-pressure chronic ulcer of other part of left lower leg with necrosis of muscle; M86.9 Osteomyelitis, unspecified; M79.89 Other specified soft tissue disorders; I73.9 Peripheral vascular disease, unspecified; F03.90 Unspecified dementia, unspecified severity, without behavioral disturbance, psychotic disturbance, mood disturbance, and anxiety; Z91.19 Patient's noncompliance with other medical treatment and regimen; Z79.02 Long term (current) use of antithrombotics/antiplatelets; Z79.4 Long term (current) use of insulin; Z79.899 Other long term (current) drug therapy
CPT/HCPCS: 99213; G0463

== ENCOUNTER → 2020-12-31 08:38 | Outpatient (CLI) | payer MEDICAID, SELFPAY ==
[2020-12-24 14:11] VITALS: BMI 22.8
[2020-12-31 10:31] VITALS: BP 131/65; PULSE 88; RESP 16; TEMP 36.7; O2SAT 97; BMI 22.8
[2020-12-31 10:51] VITALS: BP 147/82; PULSE 90; RESP 16; TEMP 36.6; O2SAT 100
[2020-12-31 11:54] VITALS: BP 151/76; PULSE 84; RESP 16; TEMP 36.8; O2SAT 99
[2020-12-31 12:48] VITALS: BP 158/93; PULSE 84; RESP 16; TEMP 36.6; O2SAT 100
== END ==
PROVIDERS: PCP Family Medicine; Referring Provider Family Medicine; Visit Provider Family Medicine
DX: D64.9 Anemia, unspecified (principal)
CPT/HCPCS: 36430; 86850; 86900; 86901; 86920; 86922; J7040; J7050; P9016; A4216

== ENCOUNTER 2021-01-08 04:36 | Emergency (ER) | payer MEDICAID, SELFPAY ==
[2020-12-31 10:31] VITALS: BMI 22.8
[2021-01-08 04:37] VITALS: BP 144/59; PULSE 92; RESP 27; TEMP 37.2; O2SAT 88; BMI 25.4
--- NOTE | 2021-01-08 04:59 | RAD_ITS ---
HISTORY: low pulse ox EXAM: XR Chest 1 View: COMPARISON: None FINDINGS: # of images incl. paperwork: 1 Left arm PICC catheter tip terminates superimposed over the IVC at the level of the right main bronchus. Some linear airspace disease within the right midlung is likely chronic with minimal minor fissure thickening. Some left lower lobe airspace disease is also present. Heart is not enlarged. No acute osseous pathology perceived. Pulmonary vascularity is distinct. No effusions. RAD/Chest 1 View (Portable) IMPRESSION: Bilateral airspace disease within the right mid lung in the left lower lobe. The right midlung disease appears more perhaps to be some scarring and pleural thickening. Left lower lobe airspace disease could be an early pneumonia.. at 0542 Reported and signed by: Gianni Weir MD Electronically Signed: Gianni Weir MD at 5:41 EDT Tel , Service support ,
--- NOTE | 2021-01-08 05:01 | EDS_ITS ---
HPI History of Present Illness Chief Complaint: Fever Narrative Narrative: Patient cannot give a history due to her dementia. History is reported from the [facility] that she states that. They report a temperature of 101 this evening. They report a pulse ox of 88%. The patient does not speak at this time. She is resting comfortably with her eyes open. She does follow some commands. She has a chronic left arm PICC due to an osteomyelitis in her bilateral feet and ankles. She has been on antibiotics for multiple weeks. She is due to stop meropenem in a few days. She gets meropenem twice a day. She has significant chronic decubitus ulcers. She has a chronic indwelling Maldonado catheter. There is no redness at the PICC per staff. [facility] Medical History Depressive disorder Diabetic acidosis, type II Osteomyelitis Stage 3 chronic kidney disease Home Medications amlodipine 5 mg PO DAILY 10/24/20 [History Last Taken Unknown] clopidogrel 75 mg PO DAILY 10/24/20 [History Last Taken Unknown] ferrous sulfate 325 mg PO DAILY 10/24/20 [History Last Taken Unknown] hydrocodone-acetaminophen 1 tablet PO TID PRN PRN 10/24/20 [History Last Taken Unknown] mirtazapine 15 mg PO QHS 10/24/20 [History Last Taken Unknown] arginine-vitamin C-vitamin E 1 each PO DAILY 11/26/20 [History Last Taken 11/26] insulin lispro See Protocol SQ TIDCM 11/26/20 [History Last Taken 11/26/20] lidocaine 1 applic TOPICAL MOWEFR 11/26/20 [History Last Taken 11/26/20] Dakin's Solution 1 applic TOPICAL DINNER 12/02/20 [History Last Taken Unknown] Santyl 1 applic TOPICAL DAILY 12/02/20 [History Last Taken Unknown] acetaminophen 650 mg PO Q4H PRN 12/02/20 [History Last Taken Unknown] meropenem 1 g IV Q12 #1 ea 12/02/20 [Rx Last Taken Unknown] pantoprazole 40 mg PO DAILY #30 tab 12/02/20 [Rx Last Taken Unknown] gabapentin 100 mg PO BID 12/15/20 [History Last Taken Unknown] lorazepam 0.5 mg PO DAILY 12/15/20 [History Last Taken Unknown] buspirone 7.5 mg PO TID 01/08/21 [History Last Taken Unknown] cholecalciferol (vitamin D3) [Vitamin D3] 125 mcg PO DAILY 01/08/21 [History Last Taken Unknown] clopidogrel [Plavix] 75 mg PO DAILY 01/08/21 [History Last Taken Unknown] minerals [Multi Minerals] 1 tab PO DAILY 01/08/21 [History Last Taken Unknown] quetiapine [Seroquel] 50 mg PO QHS 01/08/21 [History Last Taken Unknown] Allergy/AdvReac Type Severity Reaction Status Date / Time clindamycin Allergy PT UNSURE Verified 01/08/21 04:43 OF REACTION diphenhydramine Allergy PT UNSURE Verified 01/08/21 04:43 [From Benadryl] OF REACTION doxycycline Allergy PT UNSURE Verified 01/08/21 04:43 OF REACTION erythromycin base Allergy PT UNSURE Verified 01/08/21 04:43 OF REACTION levofloxacin [From Levaquin] Allergy PT UNSURE Verified 01/08/21 04:43 OF REACTION metformin Allergy PT UNSURE Verified 01/08/21 04:43 OF REACTION Penicillins Allergy PT UNSURE Verified 01/08/21 04:43 OF REACTION Sulfa (Sulfonamide Allergy PT UNSURE Verified 01/08/21 04:43 Antibiotics) OF REACTION Social History Smoking Status: Former smoker ROS ROS ED Review of Systems ROS Unobtainable: due to encephalopathy, due to mental condition and due to mental status EXAM Physical Exam Narrative Exam Narrative: Vital signs reviewed General: Cachectic and contracted. Head: Normocephalic atraumatic Eyes: Pupils equal round and reactive to light extraocular movements intact ENT: TMs clear no hemotympanum no trauma Neck: Nontender full range of motion Cardiovascular: Regular rate rhythm no murmurs normal S1-S2 Respiratory: No distress clear to auscultation bilaterally chest nontender Abdomen: Soft nontender nondistended normal bowel sounds no masses Back: Nontender no CVA tenderness Extremities: Wound vacs on bilateral ankles without any active cellulitis or drainage. Skin: No cellulitis seen. Very superficial decubitus ulcer without infection. Bilateral feet ulcerations without cellulitis Neuro patient awake and not oriented. Does not speak. Moves all extremities Const Vital Signs: 01/08/21 04:37 01/08/21 05:30 01/08/21 06:08 Temperature 99.0 F 98.0 F Temperature Source Axillary Temporal Pulse Rate 92 78 Respiratory Rate 27 H 17 Blood Pressure 144/59 H 124/50 H Blood Pressure Mean 87 74 Pulse Ox 88 98 Oxygen Delivery Method Room Air Nasal Cannula Nasal Cannula Oxygen Flow Rate (L/min) 2 2 01/08/21 06:09 Temperature 98.0 F Temperature Source Temporal Pulse Rate 78 Respiratory Rate 19 H Blood Pressure 124/50 H Blood Pressure Mean 74 Pulse Ox 98 Oxygen Delivery Method Nasal Cannula Oxygen Flow Rate (L/min) 2 MDM MDM MDM Narrative Medical decision making narrative: Patient does not have a fever in the emergency department. Temperature is 99 ?F. Patient's pulse ox is 88% on room air. Lungs are clear to auscultation. Does not appear in respiratory distress. Covid testing obtained. Chest x-ray obtained. Lab work obtained. Maldonado catheter changed. Blood culture sent. Covid testing and antigen negative. My interpretation the chest x-ray atelectasis left lower lobe versus very early developing infiltrate. Patient is already on meropenem antibiotic which covers gram-positive negative and anaerobes. Given a dose of vancomycin.. Patient placed on oxygen and pulse ox in the upper 90s. Urinalysis just shows yeast. Her Maldonado catheter was changed. I do not suspect a UTI. There is no evidence of new cellulitis to her PICC line as well as her leg wounds. They appear clean . Blood cultures were sent. Lab work shows a mildly elevated potassium of 5.6. Patient given judicious IV fluids she has a history of CHF. Patient has chronic anemia with a hemoglobin of 7.8 which is at her baseline. She has no leukocytosis. Creatinine is 1.8 which appears to be at her baseline. Patient discussed with the hospitalist. She is requiring oxygen with reported fever at the F. Fever has resolved here. Hospitalist discussed the case with PCP Dr. Cevallos. They would like to [facility] the [facility] the [facility] dose of vancomycin. She will go back on nasal cannula oxygen. They will await results of her blood cultures which I suspect will be negative. She will continue her meropenem antibiotic Lab Data Labs: Laboratory Results - last 24 hr 01/08/21 01/08/21 01/08/21 04:43 04:55 04:55 WBC 9.0 RBC 2.79 L Hgb 7.8 L Hct 26.1 L MCV 93.5 MCH 28.0 MCHC 29.9 L RDW Std Deviation 54.4 H RDW Coeff of Charles 15.8 H Plt Count 318 MPV 10.1 Immature Gran % (Auto) 0.200 Neut % (Auto) 45.1 L Lymph % (Auto) 29.8 [place] % (Auto) 7.8 Eos % (Auto) 16.2 H Baso % (Auto) 0.9 Absolute Neuts (auto) 4.0 Absolute Lymphs (auto) 2.67 Nucleated RBC % 0 Sodium 146 H Potassium 5.6 H Chloride 117 H Carbon Dioxide 26.0 Anion Gap 3 L BUN 53 H Creatinine 1.82 H Estim Creat Clear Calc 27.77 Est GFR (MDRD) Af Amer 35 L Est GFR (MDRD) Non-Af 29 L BUN/Creatinine Ratio 29.1 H Glucose 110 H Calcium 8.6 Urine Color Yellow Urine Clarity Cloudy Urine pH 6.0 Ur Specific Milligan 1.010 Urine Protein 100 H Urine Glucose (UA) Normal Urine Ketones Negative Urine Occult Blood 25 H Urine Nitrite Negative Urine Bilirubin Negative Urine Urobilinogen Normal Ur Leukocyte Esterase 500 H Urine RBC 0 SEEN Urine WBC >100 SEEN Ur Squamous Epith Cells 0 SEEN Urine Bacteria 0 SEEN Urine Mucus 0 SEEN Urine Yeast 3+ Radiography Diagnostic Testing: Radiology Impression Chest X-Ray 01/08/21 04:59 IMPRESSION: Bilateral airspace disease within the right mid lung in the left lower lobe. The right midlung disease appears more perhaps to be some scarring and pleural thickening. Left lower lobe airspace disease could be an early pneumonia.. at 0542 Reported and signed by: Gianni Weir MD Electronically Signed: Gianni Weir MD at 5:41 EDT Tel , Service support , Discharge Plan Triage Chief Complaint: Fever ED Provider: Mahad Gomez Dx/Rx/DC Orders Clinical Impression: Fever, Hypoxia Instructions: ED FUO Adult Prescriptions: No Action hydrocodone-acetaminophen 1 TABLET tablet 1 tablet PO TID PRN PRN (Reason: Pain) RF: 0 clopidogrel 75 MG tablet 75 mg PO DAILY RF: 0 amlodipine 5 MG tablet 5 mg PO DAILY RF: 0 ferrous sulfate 325 MG tablet 325 mg PO DAILY RF: 0 mirtazapine 15 MG tablet 15 mg PO QHS RF: 0 insulin lispro 100 UNIT/ML insulin pen See Protocol unit SQ TIDCM RF: 0 lidocaine 1 APPLIC ointment 1 applic TOPICAL MOWEFR RF: 0 arginine-vitamin C-vitamin E 1 EACH powder in packet 1 each PO DAILY RF: 0 Santyl 250 unit/gram Ointment 1 applic TOPICAL DAILY RF: 0 acetaminophen 325 mg Capsule 650 mg PO Q4H PRN (Reason: Pain) RF: 0 Dakin's Solution 0.125 % Solution 1 applic TOPICAL DINNER RF: 0 meropenem 1 gram Recon Soln 1 g IV Q12 Qty: 1 RF: 0 pantoprazole 40 mg Tablet,Delayed Release (Dr/Ec) 40 mg PO DAILY Qty: 30 RF: 0 lorazepam 0.5 mg Tablet 0.5 mg PO DAILY RF: 0 gabapentin 100 mg Tablet 100 mg PO BID RF: 0 clopidogrel [Plavix] 75 mg Tablet 75 mg PO DAILY RF: 0 buspirone 7.5 mg Tablet 7.5 mg PO TID RF: 0 Multi Minerals Tablet 1 tab PO DAILY RF: 0 quetiapine [Seroquel] 50 mg Tablet 50 mg PO QHS RF: 0 cholecalciferol (vitamin D3) [Vitamin D3] 125 mcg (5,000 unit) Tablet 125 mcg PO DAILY RF: 0 Primary Care Provider: Jeremiah Fatima Referrals: Jeremiah Fatima MD [Primary Care Provider] - Disposition Disposition: [facility]
[2021-01-08 05:06] LABS: Absolute Lymphocyte Count 2.67 X10^3/uL (0.83-4.51); Basophil# 0.08 X10^3/uL; Basophil% 0.9 % (0-1); Eosinophil# 1.45 X10^3/uL; Eosinophils% 16.2 % (0-5); Hematocrit 26.1 % (37-47); Hemoglobin 7.8 g/dL (12.0-15.0); Lymphocyte # 2.67 X10^3/ul (0.83-4.51); Lymphocyte % 29.8 % (19-41); Mean Corp Hgb Conc 29.9 g/dL (32-36); Mean Corpuscular Volume 93.5 fL (81-99); Mean Platelet Vol. 10.1 fl (6.2-12.0); Monocyte% 7.8 % (0-10); NRBC Flagged by Analyzer 0 % (0-5); Neutrophil # 4.04 X10^3/uL (2.7-7.7); Neutrophil % 45.1 % (47-70); Platelet Count 318 K/mm3 (150-450); RBC Distribution Width CV 15.8 % (11.6-14.6); RBC Distribution Width SD 54.4 fl (35.1-43.9); Red Blood Count 2.79 M/mm3 (4.2-5.4)
[2021-01-08 05:17] LABS: Anion Gap 3 (5-15); BUN 53 mg/dL (7-18); BUN/Creat Ratio 29.1 RATIO (10-20); Calcium,Total 8.6 mg/dL (8.5-10.1); Chloride 117 mmol/L (98-107); Creatinine, Serum 1.82 mg/dL (0.55-1.02); EST Glomerular Filtration Rate 29 mL/min (>60); Est Glom Filt Rate - Afr Amer 35 mL/min (>60); Estimated Creatinine Clearance 27.77 ml/min; Glucose 110 mg/dL (74-106); Potassium 5.6 mmol/L (3.5-5.1); Sodium Level 146 mmol/L (136-145)
[2021-01-08 05:22] LABS: Bacteria 0 SEEN /hpf (None Seen); Color, Urine Yellow (Yellow); Glucose, Dipstick Normal (Normal); Ketone-Dipstick Negative (Negative); Leukocyte Esterase-Dipstick 500 /ul (Negative); Mucous, Urine 0 SEEN /hpf (<or=2+); Nitrite-Dipstick Negative (Negative); Occult Blood-Urine 25 /ul (Negative); Protein-Dipstick 100 mg/dl (Negative); Red Blood Cells-Urine 0 SEEN /hpf (0-5); Squamous Epithelial Cells - UA 0 SEEN /hpf (5-10); Urine Bilirubin Dipstick Negative (Negative); Urine Clarity Cloudy (Clear); Urine Urobilinogen Normal (Normal)
[2021-01-08 05:30] LABS: White Blood Cells >100 SEEN /hpf (0-5)
[2021-01-08 05:31] LABS: Yeast-Urine 3+ /hpf (None Seen)
[2021-01-08] MEDS: 0.9% Normal Saline 1,000 ML 150 ML IV (06:04)
[2021-01-08 06:08] VITALS: BP 124/50; PULSE 78; RESP 17; TEMP 36.7; O2SAT 98
[2021-01-08 06:09] VITALS: BP 124/50; PULSE 78; RESP 19; TEMP 36.7; O2SAT 98
[2021-01-08 06:47] VITALS: BP 127/50; PULSE 76; RESP 19; O2SAT 98
[2021-01-08 07:00] VITALS: BP 130/51; PULSE 80; RESP 16; TEMP 37; O2SAT 98
--- NOTE | 2021-01-08 07:57 | ED.RN ---
report called to nurse ramses Meyers at [phone].
[2021-01-08 08:00] VITALS: BP 149/58; PULSE 83; RESP 28; TEMP 37.2; O2SAT 98
== END 2021-01-08 08:38 | disposition skilled nursing facility (03) ==
PROVIDERS: Emergency Provider Emergency Medicine; PCP Family Medicine
DX: R50.9 Fever, unspecified (principal); R09.02 Hypoxemia; M86.9 Osteomyelitis, unspecified; L89.90 Pressure ulcer of unspecified site, unspecified stage; F03.90 Unspecified dementia, unspecified severity, without behavioral disturbance, psychotic disturbance, mood disturbance, and anxiety; F32.9 Major depressive disorder, single episode, unspecified; E11.22 Type 2 diabetes mellitus with diabetic chronic kidney disease; N18.30 Chronic kidney disease, stage 3 unspecified; Z96.0 Presence of urogenital implants; Z79.4 Long term (current) use of insulin; Z79.899 Other long term (current) drug therapy; Z87.891 Personal history of nicotine dependence
CPT/HCPCS: 36592; 51702; 71045; 80048; 81001; 85025; 87040; 87426; 96361; 96365; 96366; 99285; J7030; J7050; A4216

== ENCOUNTER → 2021-01-22 08:21 | Outpatient (CLI) | payer MEDICAID, SELFPAY ==
[2021-01-08 04:37] VITALS: BMI 25.4
[2021-01-22] MEDS: 0.9% NaCl Peripheral Flush Adult/Peds IV ×2 (09:10→09:11)
[2021-01-22 13:37] VITALS: BP 160/54; PULSE 76; RESP 16; TEMP 36.6; O2SAT 100; BMI 21.9
[2021-01-22] MEDS: Acetaminophen 325 MG Tablet 650 MG PO (13:43)
[2021-01-22 13:47] VITALS: BP 160/54; PULSE 76; RESP 18; TEMP 36.6; O2SAT 100
[2021-01-22 14:02] VITALS: BP 171/87; PULSE 75; RESP 18; TEMP 36.6; O2SAT 100
[2021-01-22 15:02] VITALS: BP 185/69; PULSE 75; RESP 16; TEMP 36.7; O2SAT 100
[2021-01-22 16:05] VITALS: BP 174/53; PULSE 77; RESP 18; TEMP 36.3; O2SAT 100
== END ==
PROVIDERS: PCP Family Medicine; Referring Provider Registered Nurse; Visit Provider Registered Nurse
DX: D64.9 Anemia, unspecified (principal); M86.9 Osteomyelitis, unspecified
CPT/HCPCS: 36430; 86850; 86870; 86880; 86900; 86901; 86902; 86905; 86920; 86922; J7040; J7050; P9040; A4216

== ENCOUNTER 2021-01-28 15:46 | Emergency (ER) | payer MEDICAID, SELFPAY ==
[2021-01-22 13:37] VITALS: BMI 21.9
[2021-01-28 15:49] VITALS: BP 140/56; PULSE 79; RESP 16; TEMP 36.8; O2SAT 100; BMI 28.0
--- NOTE | 2021-01-28 16:22 | EX.ED.DYSGE1 ---
HPI History of Present Illness Chief Complaint: Abn Labs Informant: EMS and SNF Limited: dementia Narrative Narrative: Patient is a 75-year-old female with history of CKD 3, osteomyelitis of her left ankle, diabetes mellitus type 2, hypertension and vascular dementia presenting with worsening kidney function. Over the last month her creatinine is gone from 1.7-2.6 and her BUN has gone from 57-55. Her last blood work was performed 2 days ago. Patient was sent into the emergency room for further evaluation. Patient currently denies any complaints. She is a poor historian and can only say that her mother and that she is looking for her cat. [facility] Medical History (Updated 01/28/21 @ 18:[address] Karen Dillard, DO) Acquired absence of left great toe Anemia Depressive disorder Diabetic acidosis, type II Dysphagia, oropharyngeal phase Essential hypertension Osteomyelitis Pressure ulcer of left heel Pressure ulcer of right heel Stage 3 chronic kidney disease Unspecified dementia without behavioral disturbance Home Medications amlodipine 5 mg PO DAILY 10/24/20 [History Last Taken 01/28/21 08:00] clopidogrel 75 mg PO DAILY 10/24/20 [History Last Taken 01/28/21 08:00] ferrous sulfate 325 mg PO DAILY 10/24/20 [History Last Taken 01/28/21 08:00] hydrocodone-acetaminophen 1 tablet PO TID PRN PRN 10/24/20 [History Last Taken 01/28/21 14:00] mirtazapine 15 mg PO QHS 10/24/20 [History Last Taken 01/27/21] insulin lispro See Protocol SQ ACHS 11/26/20 [History Last Taken 01/28/21 12:00] lidocaine 1 applic TOPICAL MOWEFR 11/26/20 [History Last Taken 01/28/21 09:00] Dakin's Solution 1 applic TOPICAL DINNER 12/02/20 [History Last Taken 01/28/21 11:00] Santyl 1 applic TOPICAL DAILY 12/02/20 [History Last Taken 01/28/21 11:22] acetaminophen 650 mg PO Q4H PRN 12/02/20 [History Last Taken Unknown] lorazepam 0.5 mg PO DAILY 12/15/20 [History Last Taken 01/28/21 10:49] buspirone 7.5 mg PO TID 01/08/21 [History Last Taken 01/28/21 14:00] cholecalciferol (vitamin D3) [Vitamin D3] 125 mcg PO TH 01/08/21 [History Last Taken 01/22/21] quetiapine [Seroquel] 50 mg PO BID 01/08/21 [History Last Taken 01/28/21 08:00] arginine (L-arginine) 500 mg PO DAILY 01/28/21 [History Last Taken 01/28/21 08:00] docusate sodium [Colace] 100 mg PO DAILY 01/28/21 [History Last Taken 01/28/21 08:00] gabapentin 100 mg PO BID 01/28/21 [History Last Taken 01/28/21 08:00] multivitamin with iron-mineral [Multivitamin-Minerals] 1 tab PO DAILY 01/28/21 [History Last Taken 01/28/21 08:00] pantoprazole 40 mg PO DAILY 01/28/21 [History Last Taken 01/28/21 08:00] Allergy/AdvReac Type Severity Reaction Status Date / Time clindamycin Allergy PT UNSURE Verified 01/28/21 15:55 OF REACTION diphenhydramine Allergy PT UNSURE Verified 01/28/21 15:55 [From Benadryl] OF REACTION doxycycline Allergy PT UNSURE Verified 01/28/21 15:55 OF REACTION erythromycin base Allergy PT UNSURE Verified 01/28/21 15:55 OF REACTION levofloxacin [From Levaquin] Allergy PT UNSURE Verified 01/28/21 15:55 OF REACTION metformin Allergy PT UNSURE Verified 01/28/21 15:55 OF REACTION Penicillins Allergy PT UNSURE Verified 01/28/21 15:55 OF REACTION Sulfa (Sulfonamide Allergy PT UNSURE Verified 01/28/21 15:55 Antibiotics) OF REACTION Social History Smoking Status: Former smoker ROS ROS ED Review of Systems ROS Unobtainable: other Details: Dementia EXAM Physical Exam Const Vital Signs: 01/28/21 15:49 01/28/21 16:46 01/28/21 19:30 Temperature 98.3 F Temperature Source Temporal Pulse Rate 79 Respiratory Rate 16 16 Respiratory Effort Normal Non-Labored Respiratory Pattern Normal Blood Pressure 140/56 H Blood Pressure Mean 84 Pulse Ox 100 Oxygen Delivery Method Room Air 01/28/21 20:26 Temperature Temperature Source Pulse Rate Respiratory Rate 16 Respiratory Effort Respiratory Pattern Blood Pressure Blood Pressure Mean Pulse Ox Oxygen Delivery Method Positive well nourished and well developed General Appearance ED: well developed HEENT Reports moist mucous membranes Negative for tenderness Eyes PERRL and EOMs intact bilaterally Neck supple Chest Wall inspection of chest normal Resp normal respiratory effort and clear to auscultation bilaterally Cardio regular rate and regular rhythm GI normal to inspection, nondistended, normoactive bowel sounds Narrative: loya catheter in place Back/Spine no CVA tenderness Extremity Extremity Narrative: Patient has bandages and wound VAC on bilateral heels. General Extremety ED: Yes tenderness Neuro Sensorium / Orientation: alert and orientation impaired Psych mental status grossly normal Mood & Affect: depressed Skin Skin Narrative: chronic wounds bilateral feet MDM MDM MDM Narrative Medical decision making narrative: Patient is evaluated for concern of increased creatinine level and worsening renal function. Bladder scan is essentially 0. Her Loya catheter seems to be draining appropriately. Her creatinine is not significantly above her prior admission/baseline. Case is reviewed with admitting physician who does not feel like an inpatient work-up for her worsening CKD is appropriate. This is discussed with her physician, Dr. Fatima, who states he will have the patient follow-up outpatient with nephrology. Patient discharged back to her nursing facility. Patient is given IV fluids in the emergency room. Lab Data Attestation: I reviewed the patient's lab results. Labs: Laboratory Results - last 24 hr 01/28/21 01/28/21 16:37 16:37 WBC 7.8 RBC 3.15 L Hgb 8.8 L Hct 28.8 L MCV 91.4 MCH 27.9 MCHC 30.6 L RDW Std Deviation 52.6 H RDW Coeff of Charles 15.7 H Plt Count 308 MPV 10.2 Immature Gran % (Auto) 0.300 Neut % (Auto) 57.4 Lymph % (Auto) 20.8 [place] % (Auto) 9.1 Eos % (Auto) 11.6 H Baso % (Auto) 0.8 Absolute Neuts (auto) 4.5 Absolute Lymphs (auto) 1.62 Nucleated RBC % 0 Sodium 141 Potassium 5.2 H Chloride 111 H Carbon Dioxide 26.0 Anion Gap 4 L BUN 53 H Creatinine 2.52 H Estim Creat Clear Calc 14.28 Est GFR (MDRD) Af Amer 24 L Est GFR (MDRD) Non-Af 20 L BUN/Creatinine Ratio 21.0 H Glucose 132 H Calcium 9.2 Discharge Plan Triage Chief Complaint: Abn Labs ED Provider: Karen Dillard Dx/Rx/DC Orders Clinical Impression: CKD (chronic kidney disease) Instructions: ED Chronic Kidney Disease (CKD) Prescriptions: No Action hydrocodone-acetaminophen 1 TABLET tablet 1 tablet PO TID PRN PRN (Reason: Pain) RF: 0 clopidogrel 75 MG tablet 75 mg PO DAILY RF: 0 amlodipine 5 MG tablet 5 mg PO DAILY RF: 0 ferrous sulfate 325 MG tablet 325 mg PO DAILY RF: 0 mirtazapine 15 MG tablet 15 mg PO QHS RF: 0 insulin lispro 100 UNIT/ML insulin pen See Protocol unit SQ ACHS RF: 0 lidocaine 1 APPLIC ointment 1 applic TOPICAL MOWEFR RF: 0 Santyl 250 unit/gram Ointment 1 applic TOPICAL DAILY RF: 0 acetaminophen 325 mg Capsule 650 mg PO Q4H PRN (Reason: Pain) RF: 0 Dakin's Solution 0.125 % Solution 1 applic TOPICAL DINNER RF: 0 lorazepam 0.5 mg Tablet 0.5 mg PO DAILY RF: 0 buspirone 7.5 mg Tablet 7.5 mg PO TID RF: 0 quetiapine [Seroquel] 50 mg Tablet 50 mg PO BID RF: 0 cholecalciferol (vitamin D3) [Vitamin D3] 125 mcg (5,000 unit) Tablet 125 mcg PO TH RF: 0 docusate sodium [Colace] 100 mg Capsule 100 mg PO DAILY RF: 0 gabapentin 100 mg Capsule 100 mg PO BID RF: 0 arginine (L-arginine) 500 mg Capsule 500 mg PO DAILY RF: 0 Multivitamin-Minerals Tablet 1 tab PO DAILY RF: 0 pantoprazole 40 mg tablet,delayed release (DR/EC) 40 mg PO DAILY RF: 0 Primary Care Provider: Jeremiah Fatima Referrals: Jeremiah Fatima MD [Primary Care Provider] - Disposition Disposition: Home, Self Care Discharge Date/Time: 01/28/21 20:27
[2021-01-28] MEDS: 0.9% Normal Saline 1,000 ML 150 ML IV (16:48)
[2021-01-28 17:07] LABS: Absolute Lymphocyte Count 1.62 X10^3/uL (0.83-4.51); Absolute Neutrophil Count 4.5 X10^3/uL (2.0-7.7); Basophil# 0.06 X10^3/uL; Basophil% 0.8 % (0-1); Eosinophils% 11.6 % (0-5); Hematocrit 28.8 % (37-47); Hemoglobin 8.8 g/dL (12.0-15.0); Lymphocyte # 1.62 X10^3/ul (0.83-4.51); Lymphocyte % 20.8 % (19-41); Mean Corp Hgb Conc 30.6 g/dL (32-36); Mean Corpuscular Hgb 27.9 pg (27.0-32.0); Mean Corpuscular Volume 91.4 fL (81-99); Mean Platelet Vol. 10.2 fl (6.2-12.0); Monocyte# 0.71 X10^3/uL; Monocyte% 9.1 % (0-10); NRBC Flagged by Analyzer 0 % (0-5); Neutrophil # 4.48 X10^3/uL (2.7-7.7); Neutrophil % 57.4 % (47-70); Platelet Count 308 K/mm3 (150-450); RBC Distribution Width CV 15.7 % (11.6-14.6); RBC Distribution Width SD 52.6 fl (35.1-43.9); Red Blood Count 3.15 M/mm3 (4.2-5.4); White Blood Count 7.8 K/mm3 (4.4-11.0)
[2021-01-28 17:14] LABS: Anion Gap 4 (5-15); BUN 53 mg/dL (7-18); Calcium,Total 9.2 mg/dL (8.5-10.1); Chloride 111 mmol/L (98-107); Creatinine, Serum 2.52 mg/dL (0.55-1.02); EST Glomerular Filtration Rate 20 mL/min (>60); Est Glom Filt Rate - Afr Amer 24 mL/min (>60); Estimated Creatinine Clearance 14.28 ml/min; Glucose 132 mg/dL (74-106); Potassium 5.2 mmol/L (3.5-5.1); Sodium Level 141 mmol/L (136-145)
--- NOTE | 2021-01-28 18:25 | NURSING ---
CALLED [facility], ETA IS 60 TO 90 MIN
[2021-01-28 19:30] VITALS: RESP 16
[2021-01-28 20:26] VITALS: RESP 16
== END 2021-01-28 20:27 | disposition home or self-care (01) ==
PROVIDERS: Emergency Provider Emergency Medicine; PCP Family Medicine
DX: E11.22 Type 2 diabetes mellitus with diabetic chronic kidney disease (principal); I12.9 Hypertensive chronic kidney disease with stage 1 through stage 4 chronic kidney disease, or unspecified chronic kidney disease; N18.30 Chronic kidney disease, stage 3 unspecified; M86.9 Osteomyelitis, unspecified; F32.9 Major depressive disorder, single episode, unspecified; F01.50 Vascular dementia, unspecified severity, without behavioral disturbance, psychotic disturbance, mood disturbance, and anxiety; E11.69 Type 2 diabetes mellitus with other specified complication; Z86.2 Personal history of diseases of the blood and blood-forming organs and certain disorders involving the immune mechanism; Z89.412 Acquired absence of left great toe; Z79.4 Long term (current) use of insulin; Z79.899 Other long term (current) drug therapy; Z87.891 Personal history of nicotine dependence
CPT/HCPCS: 80048; 85025; 96360; 96361; 99285; J7030; A4216